=== PATIENT | male | born 1945 | race Caucasian/White ===

== ENCOUNTER 2021-04-25 09:55 | Emergency (ER) | payer MEDICARE, OTHER, SELFPAY ==
[2021-04-25 09:56] VITALS: BP 167/67; PULSE 59; RESP 16; TEMP 36; O2SAT 95; BMI 26.6
--- NOTE | 2021-04-25 10:11 | EX.ED.GENINJ ---
HPI History of Present Illness Chief Complaint: Bite Detail of Chief Complaint: Dog bite and concern for rabies Informant: patient Narrative Narrative: Patient presents to the emergency department after he sustained a dog bite to his right leg 3 days ago. Patient states that he was walking in the neighborhood when the neighbors dogs who are normally chained up or let loose in the yard. One of the [place] dias's bit him on the right leg. Patient's primary care physician called in doxycycline for him. Patient had a discussion with his primary care physician and there was concern about whether he would need to be treated with rabies vaccine. Patient states the dog is currently under quarantine and is acting normally and is able to be observed. Patient otherwise has no complaints and his wounds are healing well. PFSH PFSH Home Medications aspirin 81 mg PO DAILY@0800 05/03/13 [History Last Taken Unknown] diltiazem HCl [Cartia Xt] 180 mg PO DAILY 05/03/13 [History Last Taken Unknown] finasteride 5 mg PO DAILY 05/03/13 [History Last Taken Unknown] losartan-hydrochlorothiazide [Hyzaar 100-25 Tablet] 1 tab PO DAILY 05/03/13 [History Last Taken Unknown] Allergy/AdvReac Type Severity Reaction Status Date / Time clindamycin Allergy Shortness Verified 04/25/21 09:59 of breath Penicillins Allergy Rash Verified 04/25/21 09:59 Beta-Blockers AdvReac Other Verified 04/25/21 09:59 (Beta-Adrenergic Bloc Social History Smoking Status: Never smoker ROS ROS ED Constitutional Constitutional ED: Reports systems reviewed and no addt'l complaints, except as documented; Denies body ache(s), change in weight or chills Eyes Eyes: Denies acute decrease in peripheral vision, change in vision, double vision or loss of vision ENT ENT ED: Reports none; Denies ear pain, lip swelling, loss taste/smell, neck pain, otalgia or sore throat Cardiovascular Cardiovascular: Reports none; Denies abdominal pain, chest pain with activity, leg edema, lightheadedness, palpitations, rapid heart rate or syncope Respiratory/Chest Respiratory/Chest: Reports none; Denies change in mental status, dry cough, dyspnea, hemoptysis, shortness of breath at rest or shortness of breath with exertion Gastrointestinal Gastrointestinal: Reports none; Denies abdominal pain, change in stool character, diarrhea, hematemesis, hematochezia, melena, rectal bleeding or vomiting Genitourinary Genitourinary ED: Reports none; Denies abdominal discomfort, anuria, dysuria, genital pain or polyuria Musculoskeletal Musculoskeletal: Reports none and other Details: Dog bite right leg ; Denies arthralgias, back pain, difficulty walking, extremity pain, muscle weakness or myalgias Integumentary Reports none; Denies abscess or rash Neurologic Neurologic: Reports none; Denies abnormal gait, confusion, focal weakness, frequent falls, headache(s), loss of vision, numbness, paresthesias, radicular pain, vertigo or weakness Psychiatric Psychiatric: Reports systems reviewed and no addt'l complaints, except as documented and none; Denies behavioral changes, confusion, difficulty concentrating, hallucinations, suicidal ideation, tactile hallucinations or visual hallucinations Endocrine Endocrinology: Denies none, cold intolerance, excessive sweating, fatigue or heat intolerance Hematologic/Lymphatic Hematologic/Lymphatic: Reports none; Denies anemia, easy bleeding or easy bruising Allergic/Immunologic Allergic/Immunologic ED: Denies as per HPI, none, lip swelling, mouth swelling, throat swelling, tongue swelling or hives EXAM Physical Exam Const Vital Signs: 04/25/21 09:56 Temperature 96.8 F L Temperature Source Temporal Pulse Rate 59 L Respiratory Rate 16 Blood Pressure 167/67 H Blood Pressure Mean 100 Pulse Ox 95 Oxygen Delivery Method Room Air Positive well nourished and well developed General Appearance ED: well developed and NAD HEENT Reports TM's clear and moist mucous membranes normocephalic and atraumatic; Negative for trauma or tenderness Tympanic Membrane ED: Yes TM's clear Eyes PERRL and EOMs intact bilaterally General Eye ED: Negative for pale conjunctiva or scleral icterus Neck no lymphadenopathy, supple and no JVD General: Negative for tenderness Chest Wall inspection of chest normal and palpation of chest normal Chest: Negative for tenderness Resp normal respiratory effort and clear to auscultation bilaterally Effort and Inspection: Negative for respiratory distress or pain with movement Auscultation: Negative for rhonchi, wheezes or diminished lung sounds Cardio regular rate, regular rhythm, S1 normal heart sound, S2 normal heart sound and no murmurs Peripheral Pulses: pulses 2+ throughout GI normal to inspection, nondistended, normoactive bowel sounds, soft to palpation, non-tender, non-distended and no masses Back/Spine no CVA tenderness and no thoracic nor lumbar tenderness Extremity Extremity Narrative: Evaluation of the right leg does show a healing puncture wound to the anterior right lateral calf as well as puncture wound and abrasions to the posterior knee fossa. Patient has normal range of motion at the knee. No evidence of cellulitis or infection otherwise. General Extremety ED: Negative for edema General Extremity: Negative for edema Neuro oriented x3, CN's II-XII intact bilaterally, no sensory deficits noted and gait normal Sensorium / Orientation: awake, alert, oriented to person, oriented to place and oriented to time Motor Exam: strength 5/5 throughout and strength abnormal Psych mental status grossly normal Skin no rashes or lesions noted and no wounds MDM MDM MDM Narrative Medical decision making narrative: I had a discussion with patient and his . At this point I do not feel patient warrants rabies vaccination. The dog is known and is being observed and clinically does not appear to be rabid. I feel this is a very low risk encounter. Patient is comfortable at this time not proceeding with the rabies vaccinations. Discharge Plan Triage Chief Complaint: Bite ED Provider: Paul Hunt Dx/Rx/DC Orders Clinical Impression: Dog bite Instructions: ED Dog Bite Prescriptions: No Action diltiazem HCl [Cartia XT] 180 MG Cap.Er.24h 180 mg PO DAILY RF: 0 losartan-hydrochlorothiazide [Hyzaar] 1 TAB tablet 1 tab PO DAILY RF: 0 aspirin 81 MG Tab.Chew 81 mg PO DAILY@0800 RF: 0 finasteride 5 MG tablet 5 mg PO DAILY RF: 0 Activity Restrictions/Additional Instructions: See your family doctor as needed if concern for infection to the leg or return to the emergency department. Disposition Disposition: Home, Self Care
[2021-04-25 10:33] VITALS: RESP 16
== END 2021-04-25 10:33 | disposition home or self-care (01) ==
PROVIDERS: Emergency Provider Emergency Medicine; PCP Internal Medicine
DX: S80.871A Other superficial bite, right lower leg, initial encounter (principal); W54.0XXA Bitten by dog, initial encounter; Y93.01 Activity, walking, marching and hiking; Y92.410 Unspecified street and highway as the place of occurrence of the external cause; Y99.8 Other external cause status; Z79.82 Long term (current) use of aspirin
CPT/HCPCS: 99282

== ENCOUNTER 2021-06-11 07:35 | Day surgery (SDC) | payer MEDICARE, OTHER, SELFPAY ==
--- NOTE | 2021-06-06 09:49 | EKG12_ITS ---
Test Reason : PRE-OP Blood Pressure : / mmHG Vent. Rate : 060 BPM Atrial Rate : 060 BPM P-R Int : 246 ms QRS Dur : 096 ms QT Int : 410 ms P-R-T Axes : 000 095 071 degrees QTc Int : 410 ms Atrial-paced rhythm with prolonged AV conduction Abnormal ECG Confirmed by VANESSA GRAMAJO, CLEO ([id number]), film and video editor CLARA DUNHAM ([id number]) on 06/10/2021 10:18:11 AM Referred By: Kaleb Newton Confirmed By:CLEO MENDEZ MD
[2021-06-06 11:13] LABS: Hematocrit 43.2 % (40-54); Hemoglobin 14.4 g/dL (13.0-16.5); Mean Corp Hgb Conc 33.3 g/dL (32-36); Mean Corpuscular Hgb 30.8 pg (27.0-32.0); Mean Corpuscular Volume 92.5 fL (80-94); Mean Platelet Vol. 9.9 fl (6.2-12.0); Platelet Count 192 K/mm3 (150-450); RBC Distribution Width CV 12.7 % (11.6-14.6); Red Blood Count 4.67 M/mm3 (4.6-6.2); White Blood Count 5.1 K/mm3 (4.4-11.0)
[2021-06-06 11:39] LABS: Anion Gap 2 (5-15); BUN 19 mg/dL (7-18); BUN/Creat Ratio 18.3 RATIO (10-20); Calcium,Total 9.1 mg/dL (8.5-10.1); Chloride 109 mmol/L (98-107); Creatinine, Serum 1.04 mg/dL (0.70-1.30); EST Glomerular Filtration Rate 73 mL/min (>60); Est Glom Filt Rate - Afr Amer 89 mL/min (>60); Glucose 67 mg/dL (74-106); Potassium 4.4 mmol/L (3.5-5.1); Sodium Level 143 mmol/L (136-145)
[2021-06-11] VITALS (11 sets, daily range): BP systolic 137–171; BP diastolic 65–86; PULSE 58–60; RESP 16–18; TEMP 36.1–36.6; O2SAT 93–99; BMI 27.6
[2021-06-11] MEDS: Lactated Ringers 1,000 ML 15 ML IV (08:23)
--- NOTE | 2021-06-11 09:55 | PROS_PTH ---
PATIENT: SOY [place]URCH [place] [facility] [id number] AGE/SX: 76/M ROOM: RE06/11/[address]: Dr. Kaleb Newton MD : 1945 BED: DIS: 06/12/2021 SPEC #: [id number] RECD: 06/11/21 11:38 STATUS: SUBHASH CAMARA #: [id number] AFIA: 06/11/21 09:[address]: Kaleb Newton DEPT: SURGICAL PATHOLOGY RECD BY: Arielle Salcido ENTERED: 06/11/21 13:09 SP TYPE: TURP OTHR DR: Dr. Anyi Granados MD Tissues: Prostate, NOS Procedures: Surgery Specimen Level IV HEADER OPERATION: Cysto, TUR prostate, Olympus PRE-OP DIAGNOSIS: Asymptomatic microscopic hematuria; BPH with lower urinary tract symptoms; calculus in bladder TISSUE SUBMITTED: Prostate tissue MICROSCOPIC DIAGNOSIS Prostate tissue, TUR: Benign prostatic hyperplasia, glandular and stromal type. Focal chronic inflammation. MADISON:hanna 06/12/2021 MICROSCOPIC DESCRIPTION Slides are reviewed. GROSS DESCRIPTION Received is one container labeled with the patient's name and designated prostate tissue. The specimen consists of multiple irregular fragments of pink-zhao, rubbery, soft tissue that in aggregate weigh 7.7 gm and measure in aggregate 4.5 x 4 x 1 cm. The entire specimen is submitted in eight cassettes. / MADISON:hanna 06/11/21 TC:5 CPT: 94241
--- NOTE | 2021-06-11 11:03 | PCM.HP.STD ---
HPI - General HPI Narrative SOY BURCH, is a 76 M who presents for a TUrP has a bladder stone and h/o bph with obstruction. PFSH Medical History (Updated 06/05/21 @ 14:27 by Estefany Lr) Aortic aneurysm Cancer Cardiology follow-up encounter Coarctation of aorta DVT (deep venous thrombosis) High cholesterol History of echocardiogram History of edema History of stress test Hypertension Injury of head and neck Non-smoker Pacemaker Prostate disease Syncope Wears glasses Wears hearing aid Home Medications aspirin 81 mg PO DAILY@0800 05/03/13 [History Last Taken 06/05/21 20:00] diltiazem HCl [Cartia XT] 360 mg PO QHS 05/03/13 [History Last Taken Unknown] doxycycline hyclate 100 mg PO DAILY 06/05/21 [History Last Taken Unknown] furosemide 20 mg PO DAILY 06/05/21 [History Last Taken Unknown] losartan 100 mg PO QHS 06/05/21 [History Last Taken Unknown] potassium chloride 20 meq PO DAILY 06/05/21 [History Last Taken Unknown] rosuvastatin [Crestor] 40 mg PO QHS 06/05/21 [History Last Taken Unknown] cephalexin 500 mg PO BID #6 cap 06/11/21 [Rx Last Taken Unknown] Allergy/AdvReac Type Severity Reaction Status Date / Time clindamycin Allergy Shortness Verified 06/11/21 08:15 of breath Penicillins Allergy Rash Verified 06/11/21 08:15 Beta-Blockers AdvReac Other Verified 06/11/21 08:15 (Beta-Adrenergic Bloc Surgical History (Updated 06/05/21 @ 14:27 by Estefany Lr) History of cardiac catheterization History of cardiac radiofrequency ablation Hx laparoscopic cholecystectomy Hx of tonsillectomy Social History Smoking Status: Never smoker Vital Signs Vital Signs Vital Signs: 06/11/21 08:16 Temperature 97.4 F L Temperature Source Temporal Pulse Rate 58 L Respiratory Rate 16 Respiratory Pattern Normal Blood Pressure 171/67 H Blood Pressure Mean 101 Blood Pressure Source Monitor Blood Pressure Position Sitting Blood Pressure Location Right Arm Pulse Ox 98 Oxygen Delivery Method Room Air Weight Weight: 79.9 kg Body Mass Index (BMI) 27.6 Results Lab / Micro Data Result Diagrams: 06/06/21 10:21 06/06/21 10:21
--- NOTE | 2021-06-11 11:04 | OP.PCM_ITS ---
Report of Operation Date of Procedure: 06/11/21 Pre-Operative Diagnosis: bladder stone and bph with obstruciton. Post-Operative Diagnosis: same Surgery/Procedure Performed:: cystolithalopaxy and TURP Description of Surgical Findings:: In the preoperative setting I discussed with the patient how the surgery would be done with expect afterwards. We discussed how a prostate resection is done and we discussed the risk of the surgery inc luding, bleeding, infection, retrograde ejaculation, changes with ejaculation or intercourse,. We discussed the possibility that the resection of the prostate may not alleviate his urinary symptoms. We discussed the small risk of developing scar tissue along the urethral channel and strictures. We also discussed the chance of the prostate could grow back and he may need further surgery or treatment in the future for prostate problems. Patient was taken back to the operating room, timeout procedure was performed, he was identified and marked and placed on the operating room table. He under went general anesthesia. He was placed in dorsolithotomy position. The urethra and genitals were prepped and draped in usual sterile fashion. Went into the bladder using a 24 Montenegrin cystoscope. We used the laser bridge through the scope for continuous irrigation. Then using the laser bridge we introduced a laser fiber into the bladder and the stone in the bladder was trapped against the back wall. The stone measured < 2,5cm in size. The stone was then lasered using laser lithotripsy the small little pieces all the pieces were evacuated on the bladder. After all the stones were removed then the scope was removed there was minimal bleeding. Then I went into the bladder using the visual obturator with a resectoscope. Once inside the bladder identified the right and left ureteral orifice. I then identified the prostate and the anatomy of the prostate. I marked out the area of the sphincter and the verumontanum was identified. I then proceeded with the prostate resection first resected the median lobe. And then resected the right lobe of the prostate. Then to resect the left lobe of the prostate. I then resected the apical tissue of the prostate. This was a complete resection of all obstructive tissue to improve voiding and relieve obstruction. I then made sure that there was no injury to the sphincter or the verumontanum was still intact. At the end of the resection all the chips were Ellik out of the bladder. I then identified the left and right ureteral orifice and these were confirmed to be in good position and effluxing and not injured. The resectoscope was removed, a 22 Montenegrin catheter was placed into the bladder on continuous irrigation. And the urine was fairly light pink color and draining normally. He was taken back to the PACU in good condition. Surgeon: ollie Type of Anesthesia: General Drains: [address] Admit VTE Documentation VTE Present on Admission: No VTE Mechan Device Prophylaxis: SCD's VTE Pharm Prophylaxis ordered?: No
--- NOTE | 2021-06-11 11:04 | PCM.DC ---
Discharge Instructions Diet Discharge Diet: No restrictions Activity Discharge Activity: Return to Normal Activity and May Not Drive (while taking narcotic pain medications.) Dressing / Incision Call your doctor if you observe: Fever of 101 or Higher Follow Up Care Please Follow Up With: Kaleb Newton MD When: Call [phone] for an appointment Test Results: Test results from this visit will be discussed in further detail at your follow-up appointment, if applicable. Discharge Plan Admission Primary Reason for Your Visit: turp and remove bladder stone Attending Provider: Kaleb Newton Primary Care Provider: Anyi Granados Instructions Patient Instructions: TURP Home Recovery Discharge Orders/Prescriptions Prescriptions: New cephalexin 500 mg capsule 500 mg PO BID Qty: 6 RF: 0 Continued diltiazem HCl [Cartia XT] 180 MG capsule,extended release 24hr 360 mg PO QHS RF: 0 doxycycline hyclate 100 mg Capsule 100 mg PO DAILY RF: 0 furosemide 20 mg Tablet 20 mg PO DAILY RF: 0 losartan 100 mg Tablet 100 mg PO QHS RF: 0 rosuvastatin [Crestor] 40 mg Tablet 40 mg PO QHS RF: 0 potassium chloride 20 mEq Tablet Extended Release 20 meq PO DAILY RF: 0 Held aspirin 81 MG tablet,chewable 81 mg PO DAILY@0800 RF: 0 Hold Instructions: Resume on 06/25/21. Discontinued finasteride 5 MG tablet 5 mg PO DAILY RF: 0 Referrals / Follow Up: Anyi Granados MD [Primary Care Provider] - Kaleb Newton MD [STAFF PHYSICIAN] - Disposition Disposition (needs filled in before D/C Order can be placed): Home, Self Care
--- NOTE | 2021-06-11 13:15 | PCS.PANDOC ---
PANDEMIC DOCUMENTATION INITIATED: Date: 01/28/2021 Time: 190
[2021-06-11] MEDS: dilTIAZem CD 180 MG Capsule 360 MG PO (17:02)
[2021-06-11] MEDS: Losartan Potassium 100 MG Tablet PO (21:38)
[2021-06-11] MEDS: Cephalexin 500 MG Capsule PO (21:38)
[2021-06-11] MEDS: Atorvastatin Calcium 80 MG Tablet PO (21:38)
[2021-06-12 01:42] VITALS: BP 127/66; PULSE 60; RESP 16; TEMP 36.5; O2SAT 96
[2021-06-12 05:51] VITALS: BP 147/71; PULSE 59; RESP 16; TEMP 36.7; O2SAT 95
[2021-06-12 09:30] VITALS: BP 148/58; PULSE 59; RESP 16; TEMP 36.3; O2SAT 96
[2021-06-12] MEDS: Cephalexin 500 MG Capsule PO (09:33)
[2021-06-12] MEDS: Furosemide 20 MG Tablet PO (09:33)
== END 2021-06-12 10:53 | disposition home or self-care (01) ==
LOC: SDC 07:36 → AC 07:36 → MS2 11:01
PROVIDERS: Anesthesiology; PCP Internal Medicine; Referring Provider Urology; Visit Provider Urology
PROC: (CPT 52317; principal; 2021-06-11 09:45)
DX: N21.0 Calculus in bladder (principal); N40.1 Benign prostatic hyperplasia with lower urinary tract symptoms; N13.8 Other obstructive and reflux uropathy; R31.21 Asymptomatic microscopic hematuria; I25.10 Atherosclerotic heart disease of native coronary artery without angina pectoris; I48.91 Unspecified atrial fibrillation; I25.9 Chronic ischemic heart disease, unspecified; I10 Essential (primary) hypertension; E78.00 Pure hypercholesterolemia, unspecified; Z95.0 Presence of cardiac pacemaker; Z79.82 Long term (current) use of aspirin; Z79.899 Other long term (current) drug therapy
CPT/HCPCS: 52317; 52601; 36415; 80048; 85027; 88305; 93005; J7120

== ENCOUNTER 2023-10-08 17:30 | Outpatient (RCR) | payer SELFPAY | END 2023-10-13 23:59 | LOC: NS 17:30 | PROVIDERS: PCP Internal Medicine | DX: Z71.3 Dietary counseling and surveillance (principal) ==

== ENCOUNTER → 2024-12-27 | Outpatient (CLI) | payer SELFPAY ==
--- NOTE | 2024-12-27 | CALC_PTH ---
PATIENT: SOY BURCH LOC: [facility] U#:[id number] AGE/SX: 79/M ROOM: RE12/27/[address]: Dr. Kaleb Newton MD : 1945 BED: DIS: 12/27/2024 SPEC #: [id number] RECD: 12/27/24 14:25 STATUS: SUBHASH REEriberto #: [id number] AFIA: 12/27/24 00:[address]: Kaleb Newton DEPT: SURGICAL PATHOLOGY RECD BY: Ammon Glass ENTERED: 12/28/24 09:02 SP TYPE: Calculi OTHR DR: Dr. Anyi Granados MD Tissues: A - CALCULI Procedures: Surgery Specimen Level I HEADER OPERATION: Not noted PRE-OP DIAGNOSIS: Calculus of ureter TISSUE SUBMITTED: A- Calculi for gross only GROSS DIAGNOSIS A. Ureter, calculus: - Urolithiasis (gross examination only). - Chemical analysis pending, to be reported separately GROSS DESCRIPTION A. Received fresh labeled with the patient's name, MRN and date of . Designated as stone analysis is a 0.5 x 0.4 x 0.3 cm brown calculi. No sections are submitted. The specimen is sent out for analysis. Gross examination only. [place] [id number]
--- NOTE | 2024-12-27 | CALC_PTH ---
PATIENT: SOY BURCH LOC: [facility] U#:[id number] AGE/SX: 79/M ROOM: RE12/27/[address]: Dr. Kaleb Newton MD : 1945 BED: DIS: 12/27/2024 SPEC #: [id number] RECD: 12/27/24 14:25 STATUS: SUBHASH REEriberto #: [id number] AFIA: 12/27/24 00:[address]: Kaleb Newton DEPT: SURGICAL PATHOLOGY RECD BY: Ammon Glass ENTERED: 12/28/24 09:02 SP TYPE: Calculi OTHR DR: Dr. Anyi Granados MD Tissues: A - CALCULI Procedures: Surgery Specimen Level I HEADER OPERATION: Not noted PRE-OP DIAGNOSIS: Calculus of ureter TISSUE SUBMITTED: A- Calculi for gross only GROSS DIAGNOSIS A. Ureter, calculus: - Urolithiasis (gross examination only). - Chemical analysis pending, to be reported separately GROSS DESCRIPTION A. Received fresh labeled with the patient's name, MRN and date of . Designated as stone analysis is a 0.5 x 0.4 x 0.3 cm brown calculi. No sections are submitted. The specimen is sent out for analysis. Gross examination only. [place] [id number]
--- OUTSIDE RECORDS SUMMARY | 2024-12-27 22:16 | XMS RPT_ITS | CCD ---
Author Organization [facility] Care Team Providers Care Trapper Animal Name Role Phone Roberta GRAMAJO, Jose Miguel Primary Care Provider [phone] Roberta GRAMAJO, Jose Miguel Primary Care Provider Jesse Gaitan MD Unavailable [phone] Referred, Self Attending Unavailable Latouf, Butros Primary Care Unavailable Referred, Self Attending Unavailable Latouf, Butros Primary Care Unavailable Roberta GRAMAJO, Jose Miguel Primary Care Provider ROBERTA GRAMAJO, DR GILLESPIE Primary Care Physician SHANTE GRAMAJO, DR ROSALES Attending Unavail able ROBERTA GRAMAJO, DR GILLESPIE Primary Care Unavailable ROBERTA GRAMAJO, DR GILLESPIE Primary Care Unavailable SHANTE GRAMAJO, DR ROSALES Attending Unavail able LATOUF, BUTROS Primary Care Unavailable JESSE GAITAN Attending Unavailable LATOUF, BUTROS Primary Care Unavailable LATOUF, BUTROS Primary Care Unavailable JESSE AGITAN Referring Unavailable LATOUF, BUTROS Primary Care Unavailable JESSE GAITAN Referring Unavailable LATOUF, BUTROS Primary Care Unavailable LATOUF, BUTROS Primary Care Unavailable SELF Referring Unavailable LATOUF, BUTROS Primary Care Unavailable ADELFO ROMERO Primary Care Unavailable ADELFO ROMERO Attending Unavailable ADELFO ROMERO Admitting Unavailable ALONZO LANDRY DO Primary Care Unavailable ALONZO LANDRY DO Attending Unavailable ALONZO LANDRY DO Admitting Unavailable LYDIA SCHNEIDER MD Primary Care Unavailable LYDIA SCHNEIDER MD Attending Unavailable LYDIA SCHNEIDER MD Admitting Unavailable JOSE MIGUEL GRANADOS MD Consulting Unavailable JOSE MIGUEL GRANADOS MD Referring Unavailable PROVIDER, UNKNOWN Consulting Unavailable PROVIDER, UNKNOWN Consulting Unavailable PROVIDER, UNKNOWN Consulting Unavailable JOSE MIGUEL GRANADOS MD Primary Care Unavailable JOSE MIGUEL GRANADOS MD Consulting Unavailable JOSE MIGUEL GRANADOS MD Attending Unavailable JOSE MIGUEL GRANADOS MD Admitting Unavailable PROVIDER, UNKNOWN Consulting Unavailable PROVIDER, UNKNOWN Consulting Unavailable PROVIDER, UNKNOWN Consulting Unavailable JOSE MIGUEL GRANADOS MD Consulting Unavailable LATJOSE MIGUEL YOUNG MD Attending Unavailable LATJOSE MIGUEL YOUNG MD Primary Care Unavailable LATJOSE MIGUEL YOUNG MD Admitting Unavailable PROVIDER, UNKNOWN Consulting Unavailable PROVIDER, UNKNOWN Consulting Unavailable PROVIDER, UNKNOWN Consulting Unavailable JESSE GAITAN Primary Care Unavailable JESSE GAITAN Attending Unavailable LATJOSE MIGUEL YOUNG MD Consulting Unavailable JESSE GAITAN Admitting Unavailable PROVIDER, UNKNOWN Consulting Unavailable PROVIDER, UNKNOWN Consulting Unavailable PROVIDER, UNKNOWN Consulting Unavailable JOSE MIGUEL GRANADOS MD Primary Care Unavailable LATJOSE MIGUEL YOUNG MD Consulting Unavailable LATOUJOSE MIGUEL Chaidez MD Attending Unavailable LATOUKaylynn, JOSE MIGUEL GRAMAJO Admitting Unavailable PROVIDER, UNKNOWN Consulting Unavailable PROVIDER, UNKNOWN Consulting Unavailable PROVIDER, UNKNOWN Consulting Unavailable LATJOSE MIGUEL YOUNG MD Primary Care Unavailable LATJOSE MIGUEL YOUNG MD Consulting Unavailable LATOUJOSE MIGUEL Chaidez MD Attending Unavailable LATOUJOSE MIGUEL Chaidez MD Admitting Unavailable PROVIDER, UNKNOWN Consulting Unavailable PROVIDER, UNKNOWN Consulting Unavailable PROVIDER, UNKNOWN Consulting Unavailable Allergies Allergy Classification Reported Allergen(s) Allergy Type Date of Onset Reaction(s) Facility (20 sources) beta-Blocking agent; Translations: [BETA-BLOCKERS (BETA-ADRENERGI C BLOCKING AGTS)] Drug Allergy 3 Unknown [facility] (20 sources) Clindamycin; Translations: [CLINDAMYCIN] Drug Allergy 6 Shortness of breath [facility] (20 sources) Penicillins; Translations: [PENICILLINS] Propensity to adverse reactions 6 Rash [facility] (1 source) Adrenergic Beta-Antagonist s Propensity to adverse reactions 1 Other [facility] (1 source) Penicillins Allergy to substance 1 Rash [facility] (1 source) Adrenergic Beta-Antagonist s Drug allergy (disorder) 1 [facility] (1 source) Clindamycin Drug Allergy 1 [facility] (1 source) Penicillins Drug allergy (disorder) 1 [facility] (13 sources) Amoxicillin; Translations: [AMOXICILLIN] Drug Allergy 4 Rash, Shortness of Breath [facility] (1 source) Penicillins Propensity to adverse reactions 6 Rash [facility] (1 source) Clindamycin Drug Allergy [facility] (1 source) Penicillins Drug allergy (disorder) [facility] (1 source) CONTRAST MEDIA, IODINE RELATED Drug allergy (disorder) [facility] (1 source) BETA MARY CARMEN Drug allergy (disorder) [facility] Medications Current Medications Medication Drug Class(es) Dates Sig (Normalized) Sig (Original) aspirin 81 mg chewable tablet (20 sources) Platelet Aggregation Inhibitor, Nonsteroidal Anti-inflammatory Drug Start: 05-03-2013 take 81 mg by mouth once daily Aspirin Active 81 MG PO DAILY@0800 May 03, 2013 1:00am Start: 10-02-2005 take 1 tablet by qi th once daily at bedtime ASPIRIN 81 MG TAB Take 81 mg by mouth daily at bedtime. 0 10/02/2005 Active Comment on above: Take one (1) tablet daily . Take 81 mg by mouth daily at bedtime. azithromycin 250 mg oral tablet (20 sources) Macrolide Antimicrobial Start: 11-06-2023 azithromycin (ZITHROMAX) 250 mg tablet TAKE 2 TABLETS BY MOUTH ON DAY 1, AND THEN TAKE 1 TABLET BY MOUTH ONCE A DAY ON DAY 2 THROUGH DAY 5 11/06/2023 Active End: 09-04-2022 take 1 tablet by mouth once azithromycin 500 mg tablet Take 500 mg by mouth one time only. prior to dental procedures 0 09/04/2022 Discontinued (Course of therapy completed) Comment on above: Take 500 mg by mouth one time only. prior to dental procedures cephalexin 500 mg oral capsule (1 source) Cephalosporin Antibacterial Start: 1 take 500 mg by mouth twice daily Cephalexin Active 500 MG PO TWICE A DAY June 11, 2021 1:00am 24 hr dilTIAZem hydrochloride 360 mg extended release oral capsule (20 sources) Calcium Channel Mary Carmen Start: 3 dilTIAZem CD (CARDIZEM CD, CARTIA XT) 180 mg 24 hr capsule Start: 07-04-2022 End: 06-30-2025 take 1 capsule by mouth once daily dilTIAZem HCl 360 mg 24 hr capsule Indications: Hypertension, unspecified type Take 1 capsule by mouth once daily. 90 capsule 3 06/30/2024 06/30/2025 Active Start: 05-03-2013 take 2 capsules by m outh at bedtime, then take 1 capsule by mouth every twenty-four hours Diltiazem Hcl (Cartia Xt) 180 MG capsule,extended release 24hr Active 360 MG PO AT BEDTIME May 03, 2013 1:00am End: 02-26-2023 take 1 capsule by mouth twice daily, then take 1 capsule by mouth every twenty-four hours dilTIAZem CR (TIAZAC, TAZTIA XT) 180 mg 24 hr capsule Take 180 mg by mouth twice daily. 0 02/26/2023 Discontinued (Course of therapy completed) End: 07-04-2022 take 1 capsule by mouth once daily, then take 1 capsule by mouth once daily dilTIAZem CD (CARDIZEM CD, CARTIA XT) 180 mg 24 hr capsule Take 360 mg by mouth once daily. Take 360mg once daily 0 07/04/2022 Discontinued (Changing Therapy/Dosage Form) Comment on above: Take 360 mg by mouth once daily. patient states it is 300mg daily Take 360 mg by mouth once daily. Take 360mg once daily Take 1 capsule by mo uth once daily. Take 180 mg by mouth twice daily. doxycycline hyclate 100 mg oral capsule (1 source) Tetracycline-class Drug Start: 06-05-2021 take 100 mg by mouth once daily Doxycycline Hyclate Active 100 MG PO DAILY June 05, 2021 1:00am furosemide 20 mg oral tablet (20 sources) Loop Diuretic Start: 02-22-2024 End: 02-21-2025 take 1 tablet by mouth once daily furosemide (LASIX) 20 mg tablet Indications: Hypertension, unspecified type Take 1 tablet by mouth once daily. 90 tablet 3 02/22/2024 02/21/2025 Active Start: 01-30-2023 End: 01-30-2024 take 1 tablet by mouth once daily furosemide (LASIX) 20 mg tablet Indications: Hypertension, unspecified type Take 1 tablet by mouth once daily. 90 tablet 3 01/30/2023 01/30/2024 Active Start: 01-25-2022 End: 01-25-2023 take 1 tablet by mouth once daily furosemide (LASIX) 20 mg tablet Take 1 tablet by mouth once daily. 90 tablet 3 01/25/2022 01/25/2023 Active Start: 06-05-2021 End: 01-23-2022 furosemide (LASIX) 20 mg tab let Comment on above: Take 1 tablet by qi th once daily. iv contrast (will be provided with radiology test) (1 source) Start: 03-15-20 End: 03-16-20 inject 1 dose intravenously once iv contrast (will be provided with radiology test) CTA CHEST - No IV access, insert saline lock prior to the sedation, infusion, injection for imaging exam. Discontinue saline lock post exam. If Pt. has a central line or IVAD, may access for administration according to line specific nursing protocol. Once exam is complete flush line and de-access according to line specific nursing protocol in the CT contrast administration guidelines link. 1 Each 03/15/2024 03/16/2024 Active losartan potassium 50 mg oral tablet (20 sources) Angiotensin 2 Receptor Mary Carmen Start: 03-15-20 End: 03-15-20 take 1 tablet by mouth twice daily losartan (COZAAR) 50 mg tablet Take 1 tablet by mouth two times a day. 180 tablet 3 03/15/2024 03/15/2025 Active Start: 06-05-2021 take 100 mg by mouth at bedtim e Losartan Active 100 MG PO AT BEDTIME June 05, 2021 1:00am End: 03-15-2024 take 1 tablet by mouth twice daily losartan (COZAAR) 25 mg tablet Take 25 mg by mouth two times a day. 03/15/2024 Discontinued End: 02-26-2023 take 1 tablet by mouth once daily at bedtime losartan (COZAAR) 50 mg tablet Take 50 mg by mouth daily at bedtime. 0 02/26/2023 Discontinued (Clinical Decision) Comment on above: Take 100 mg by mouth once daily. Take 50 mg by mouth daily at bedtime. 24 hr metFORMIN hydrochloride 500 mg extended release oral tablet (13 sources) Biguanide Start: 4 take 1 tablet by mouth once daily at bedtime metFORMIN ER (GLUCOPHAGE XR) 500 mg 24 hr tablet Take 500 mg by mouth daily at bedtime. 12/24/2023 Active nebivolol 5 mg oral tablet (19 sources) Start: 3 End: 5 take 1 tablet by mouth once daily nebivolol (BYSTOLIC) 5 mg tablet Indications: Hypertension, unspecified type Take 1 tablet by mouth once daily. 90 tablet 3 02/22/2024 02/21/2025 Active Comment on above: Take 1 tablet by qi th once daily. perflutren lipid microspheres 1.3 mL in NaCl (PF) 0.9% 10 mL injection (DEFINITY) (20 sources) Start: End: perflutren lipid microspheres 1.3 mL in NaCl (PF) 0.9% 10 mL injection (DEFINITY) Start: 02-27-2022 End: 05-29-2023 perflutren lipid microsphere s 1.3 mL in NaCl (PF) 0.9% 10 mL injection (DEFINITY) microencapsulated potassium chloride 20 meq extended release oral tablet (20 sources) Start: 01-08-2024 End: 01-07-2025 take 1 tablet by mouth once daily potassium chloride ER (KLOR-CON) 20 mEq tablet Indications: Medication monitoring encounter Take 1 tablet by mouth once daily. 90 tablet 3 01/08/2024 01/07/2025 Active Start: 10-09-2022 End: 10-09-2023 take 1 tablet by mouth once daily potassium chloride ER (KLOR-CON) 20 mEq tablet Indications: Medication monitoring encounter Take 1 tablet by mouth once daily. 90 tablet 3 10/09/2022 10/09/2023 Active Start: 06-05-2021 End: 10-09-2022 take 20 mEq by mouth once daily Potassium Chloride Act jason 20 MEQ PO DAILY June 05, 2021 1:00am Comment on above: Take 20 mEq by mouth once daily. Take 1 tablet by qi th once daily. rosuvastatin calcium 40 mg oral tablet (20 sources) HMG-CoA Reductase Inhibitor Start: End: take 1 tablet by mouth once daily rosuvastatin (CRESTOR) 40 mg tablet Indications: Hyperlipidemia, unspecified hyperlipidemia type Take 1 tablet by mouth once daily. 90 tablet 3 11/25/2023 11/24/2024 Active Comment on above: Take 40 mg by mouth once daily. Take 1 tablet by qi th once daily. Take 40 mg by mouth daily at bedtime. 125 ml sodium chloride 9 mg/ml prefilled syringe (20 sources) Start: End: 3 sodium chloride 0.9 % (flush) 10 mL (BD POSIFLUSH) Completed/Discontinued Medications Medication Drug Class(es) Dates Sig (Normalized) Sig (Original) finasteride 5 mg oral tablet (15 sources) 5-alpha Reductase Inhibitor Start: 05-03-2013 End: 09-04-2022 take 5 mg by mouth once daily Finasteride Discontinued 5 MG PO DAILY May 03, 2013 1:00am June 11, 2021 12:01pm Comment on above: Take 5 mg by mouth o nce daily. olmesartan medoxomil 40 mg oral tablet (14 sources) Angiotensin 2 Receptor Mary Carmen Start: 02-26-2023 End: 03-15-2024 take 1 tablet by mouth once daily olmesartan (BENICAR) 40 mg tablet Take 1 tablet by mouth once daily. 90 tablet 3 02/26/2023 03/15/2024 Discontinued Comment on above: Take 1 tablet by qi once daily. omeprazole 20 mg delayed release oral capsule (14 sources) Proton Pump Inhibitor End: 09-04-2022 take 2 capsules by mouth once daily omeprazole (PRILOSEC) 20 mg capsule Take 40 mg by mouth once daily. 0 09/04/2022 Discontinued (Discontinued by Patient) Comment on above: Take 40 mg by mouth once daily. pravastatin sodium 40 mg oral tablet (5 sources) HMG-CoA Reductase Inhibitor End: 02-27-2022 take 2 tablets by mouth once daily pravastatin 40 mg tablet Take 80 mg by mouth once daily. 0 02/27/2022 Discontinued (Course of therapy completed) Comment on above: Take 80 mg by mouth once daily. RABEprazole sodium 20 mg delayed release oral tablet (14 sources) Proton Pump Inhibitor Start: 04-19-2015 End: 09-04-2022 take 1 tablet by mouth once daily RABEprazole (ACIPHEX) 20 mg tablet Indications: Other gastritis without bleeding Take 1 tablet by mouth once daily. 30 tablet 2 04/19/2015 09/04/2022 Discontinued (Discontinued by Patient) Comment on above: Take 1 tablet by qi th once daily. tamsulosin hydrochloride 0.4 mg oral capsule (14 sources) alpha-Adrenergic Mary Carmen End: 09-04-2022 take 0.4 mg by mouth once daily at bedtime tamsulosin ER (FLOMAX) 0.4 mg cp24 Take 0.4 mg by mouth daily at bedtime. 0 09/04/2022 Discontinued (Discontinued by another Health Care Provider) Comment on above: Take 0.4 mg by mouth daily at bedtime. Problems Active Problems Problem Classification Problem Date Documented Da te Episodic/Chronic Abdominal pain (2 sources) Left lower quadrant pain; Translations: [Left lower quadrant pain] Onset: 12-18-2024 Episodic Allergic reactions (2 sources) Allergy status to other antibiotic agents status; Translations: [Allergy status to penicillin] Onset: 12-18-2024 Episodic Aortic; peripheral; and visceral artery aneurysms (16 sources) Aneurysm of ascending aorta; Translations: [Thoracic aortic aneurysm, without rupture] Onset: 02-26-2023 Chronic Cardiac and circulatory congenital anomalies (13 sources) Coarctation of aorta; Translations: [Coarctation of aorta] Onset: 11-01-2015 02-29-2024 Chronic Cardiac dysrhythmias (20 sources) Paroxysmal atrial fibrillation; Translations: [Paroxysmal atrial fibrillation] Onset: 04-05-2019 02-13-2022 Chronic Conduction disorders (20 sources) Cardiac pacemaker in situ; Translations: [Presence of cardiac pacemaker] Onset: 11-01-2015 Chronic Congestive heart failure; nonhypertensive (4 sources) Chronic diastolic heart failure; Translations: [Chronic diastolic (congestive) heart failure] Onset: 03-15-2024 03-15-2024 Chronic Coronary atherosclerosis and other heart disease (20 sources) Coronary arteriosclerosis; Translations: [Atherosclerotic heart disease of [place] coronary artery without angina pectoris] Onset: 02-13-2022 02-13-2022 Chronic Diabetes mellitus without complication (1 source) Type 2 diabetes mellitus without complications; Translations: [Type 2 diabetes mellitus without complications] Onset: 12-18-2024 Chronic Diabetes mellitus without complication (19 sources) Impaired glucose tolerance; Translations: [Impaired glucose tolerance (oral)] Onset: 04-05-2019 Episodic Disorders of lipid metabolism (20 sources) Hyperlipidemia; Translations: [Hyperlipidemia, unspecified] Onset: 02-13-2022 02-13-2022 Chronic E Codes: Natural/environment (1 source) Dog bite - wound; Translations: [Bitten by dog, initial encounter] 05-03-2021 Episodic Essential hypertension (20 sources) Hypertensive disorder; Translations: [Essential (primary) hypertension] Onset: 02-13-2022 02-13-2022 Chronic Heart valve disorders (20 sources) Aortic valve stenosis; Translations: [Nonrheumatic aortic (valve) stenosis] Onset: 02-13-2022 02-13-2022 Chronic Hyperplasia of prostate (20 sources) Benign prostatic hypertrophy with outflow obstruction; Translations: [Benign prostatic hyperplasia with lower urinary tract symptoms] Onset: 10-02-2005 10-02-2005 Chronic Hypertension with complications and secondary hypertension (4 sources) Hypertensive heart disease without heart failure; Translations: [Hypertensive heart disease with heart failure] Onset: 04-04-2024 Chronic Nutritional deficiencies (1 source) Vitamin D deficiency, unspecified; Translations: [Vitamin D deficiency, unspecified] Onset: 12-20-2024 Chronic Occlusion or stenosis of precerebral arteries (13 sources) Bilateral stenosis of carotid arteries; Translations: [Occlusion and stenosis of bilateral carotid arteries] Onset: 04-07-2017 02-29-2024 Chronic Other aftercare (1 source) computer terminal operator (current) use of aspirin; Translations: [residential (current) use of aspirin] Onset: 12-18-2024 Episodic Other aftercare (1 source) Other usp (current) drug therapy; Translations: [Other usp (current) drug therapy] Onset: 12-18-2024 Episodic Other aftercare (1 source) computer terminal operator (current) use of oral hypoglycemic drugs; Translations: [residential (current) use of oral hypoglycemic drugs] Onset: 12-18-2024 Episodic Other circulatory disease (4 sources) Disorder of artery; Translations: [Disorder of arteries and arterioles, unspecified] Chronic Other circulatory disease (1 source) Disorder of arteries and arterioles, unspecified; Translations: [Disorder of artery or arteriole (HCC)] Onset: 03-15-2024 Chronic Other diseases of bladder and urethra (20 sources) Bladder neck obstruction; Translations: [Bladder-neck obstruction] Onset: 10-02-2005 10-02-2005 Chronic Other diseases of kidney and ureters (1 source) Hydronephrosis with renal and ureteral calculous obstruction; Translations: [Hydronephrosis with renal and ureteral calculous obstruction] Onset: 12-18-2024 Episodic Other liver diseases (1 source) Unspecified jaundice; Translations: [Unspecified jaundice] Onset: 10-13-2024 Episodic Other screening for suspected conditions (not mental disorders or infectious disease) (20 sources) Raised prostate specific antigen; Translations: [Elevated prostate specific antigen [PSA]] Onset: 05-22-2009 05-22-2009 Episodic Residual codes; unclassified (1 source) Acquired absence of other specified parts of digestive tract; Translations: [Acquired absence of other specified parts of digestive tract] Onset: 12-18-2024 Episodic Unclassified (1 source) Aneurysm of ascending aorta without rupture (HCC); Translations: [Aneurysm of ascending aorta without rupture (HCC)] Onset: 03-15-2024 Past or Other Problems Problem Classification Problem Date Documented Da te Episodic/Chronic Cardiac dysrhythmias (20 sources) Tachycardia; Translations: [Tachycardia, unspecified] Onset: 02-13-2022 02-13-2022 Episodic Conditions associated with dizziness or vertigo (20 sources) Dizziness and giddiness; Translations: [Dizziness and giddiness] Onset: 02-13-2022 02-13-2022 Episodic Other aftercare (20 sources) Patient encounter status; Translations: [Encounter for therapeutic drug level monitoring] Onset: 02-13-2022 02-13-2022 Episodic Other aftercare (2 sources) Encounter for therapeutic drug level monitoring; Translations: [Medication monitoring encounter] Onset: 02-13-2022 Episodic Other skin disorders (13 sources) Eruption; Translations: [Rash and other nonspecific skin eruption] Onset: 01-16-2023 02-29-2024 Episodic Results Test Name Value Interpretation Reference Range Facility ED MED ADMINISTRATION DETAIL on 12-20-2024 ED MED ADMINISTRATION DETAIL Apprentice Instrument Technician Medication Administration Record [address] [place] [address] [id number] 12/18/2024 Patient: SOY BURCH Sex: Male : 1945 Age: 79y MEASUREMENTS: Wt: 77.6 kg, Ht/Leno: 67.0 in, BMI: 26.78 ALLERGIES: Amoxicillin, Iodinated Contrast Media, Penicillins, clindamycin Medication Ordered Medication Administration Date/Time Zofran IVP 4 mg 22:57 12/18 Zofran IVP 4 mg given via Site# 1. Allergies verified Given (NOW x1) and confirmed 5 rights. IV patency established. IV site checked: no 22:57 12/18/2024 pain, redness, or swelling. IV flushed thoroughly pre-medication Lizzy Encinas R.N. administration. Information reviewed with patient including reason Scanned for taking this medication, signs of allergic reaction and precautions. Verbalizes understanding. - 22:58 Lizzy Encinas R.N. KetorOLAC 22:58 12/18 KetorOLAC (Toradol) IVP 15 mg given via Site# 1. Given (Toradol) IVP 15 mg Allergies verified and confirmed 5 rights. IV patency established. IV 22:58 12/18/2024 (NOW x1) site checked: no pain, redness, or swelling. IV flushed thoroughly Lizzy Encinas R.N. pre-medication administration. Information reviewed with patient Scanned including reason for taking this medication, signs of allergic reaction and precautions. Verbalizes understanding. Medication Wastage: 15 mg wasted. - 22:58 Lizzy Encinas R.N. 1 of 2 Apprentice Instrument Technician Medication Ordered Medication Administration Date/Time IV NS 0.9 % 1000 23:51 12/18 IV NS 0.9 % 1000 mL started in bag#1 1000 mL at Started mL at 500 mL/hr 500 mL/hr via Site# 1. Allergies verified and confirmed 5 rights. IV 23:51 12/18/2024 (NOW x1) patency established. IV site checked: no pain, redness, or swelling. Anamaria Silva R.N. IV flushed thoroughly pre-medication administration. Information Stopped reviewed with patient. Verbalizes understanding. - 23:54 Anamaria 00:57 12/19/2024 Eve Silva R.N. Scanned 00:57 12/19 Medication Discontinued: bag #1 infused upon discharge. Total amount infused: 1000 mL. - 01:02 Anamaria Silva R.N. 2 of 2 Normal [facility] ED MED ADMINISTRATION DETAIL Apprentice Instrument Technician Medication Administration Record [address] [place] [address] [id number] 12/20/2024 Patient: KIERSTENSOY WINCHESTER Sex: Male : 1945 Age: 79y Medication Ordered Medication Administration Date/Time 1 of 1 Normal [facility] ED NURSES CLINICAL NOTEon ED NURSES CLINICAL NOTE Nurse Narrative Nurse Clinical Narrative [facility] [address] [place] [address] [id number] 12/18/2024 22:28:00 Patient: SOY BURCH Sex: Male : 1945 Age: 79y Disposition: Discharge to Home Disposition Decision Time: 00:52 12/19/2024 Departure Time: 01:02 12/19/2024 TRIAGE Arrived by private vehicle. Historian: (patient). Accompanied by family. Primary physician (pk). Triage time: 22:35 12/18/2024. Acuity: LEVEL 3. Chief Complaint: ABDOMINAL PAIN and VOMITING. Onset. (4 hours ago). SEPSIS SCREEN: NEGATIVE. SIRS criteria negative. -- 22:42 12/18/24 EDT Anamaria Silva R.N. 22:41 12/18/24. BP: 198/89 MAP: 125. HR: 64. RR: 18. O2 saturation: 95% Temperature: 97.8 F. Pain level now 4/10. [place] Scale: 15 - eyes open - spontaneous (4); best verbal response - oriented (5); best motor response - obeys commands (6). -- 22:41 12/18/24 EDT Anamaria Silva R.N. Measurements: 22:42 12/18/24 Wt: 77.6 kg, Ht/Leno: 67.0 in, BMI: 26.78 -- 22:42 12/18/24 EDT Anamaria Silva R.N. Medications: potassium CL: once a day . -- 22:36 12/18/24 EDT Anamaria Silva R.N. Aspirin Childrens 81 mg chewable tablet: once a day . -- 22:36 12/18/24 EDT Anamaria Silva R.N. dilTIAZem ER 360 mg capsule,24 hr,extended release: once a day . -- 22:36 12/18/24 EDT Anamaria Silva R.N. furosemide 20 mg tablet: once a day . -- 22:36 12/18/24 EDT Anamaria Silva R.N. 1 of 4 Nurse Narrative losartan 50 mg tablet: twice a day . -- 22:36 12/18/24 EDT Anamaria Silva R.N. metFORMIN ER 500 mg tablet,extended release 24 hr: once a day . -- 22:36 12/18/24 EDT Anamaria Silva R.N. nebivoloL 5 mg tablet: once a day . -- 22:36 12/18/24 EDT Anamaria Silva R.N. rosuvastatin 40 mg tablet: once a day . -- 22:36 12/18/24 EDT Anamaria Silva R.N. 22:35 12/18/24. Preferred Pharmacy: ; [facility]. -- 22:42 12/18/24 EDT Anamaria Silva R.N. Allergies: Penicillins -- 22:35 12/18/24 EDT Anamaria Silva R.N. clindamycin -- 22:35 12/18/24 EDT Anamaria Silva R.N. azithromycin: rash -- 22:36 12/18/24 EDT Anamaria Silva R.N.Correction -- 22:39 12/18/24 EDT Anamaria Silva R.N. Amoxicillin -- 22:39 12/18/24 EDT Anamaria Silva R.N. Problems: Diabetes Mellitus -- 22:35 12/18/24 EDT Anamaria Silva R.N. Hypertension -- 22:35 12/18/24 EDT Anamaria Silva R.N. Hypercholesterolemia -- 22:35 12/18/24 EDT Anamaria Silva R.N. Heart Disease -- 22:35 12/18/24 EDT Anamaria Silva R.N. Surgeries: Colonoscopy -- 22:37 12/18/24 EDT Anamaria Whytsell, R.N. Tonsillectomy -- 22:37 12/18/24 EDT Anamaria Silva R.N. Coarctation Aorta Repair -- 22:37 12/18/24 EDT Anamaria Silva R.N. Cholecystectomy -- 22:37 12/18/24 EDT Anamaria Silva R.N. ablation -- 22:38 12/18/24 EDT Anamaria Silva R.N. Pacemaker -- 22:38 12/18/24 EDT Anamaria Silva R.N. TURP - Trans Urethral Resection of Prostate -- 22:38 12/18/24 EDT Anamaria Silva R.N. History 22:35 12/18/24. SOCIAL HX: Never smoker. No alcohol use or drug use. The patient has not traveled outside the [place] Infectious disease exposure: No infectious disease exposure. 2 of 4 Nurse Narrative ABUSE ASSESSMENT: The patient answered yes to the question(s) Do you feel safe in your home? and no to the question(s) Are you afraid to go home?. Abuse denied. SELF HARM ASSESSMENT: Self harm assessment was performed. The patient answered no to the question(s) Have you recently felt down, depressed, or hopeless? and Do you have thoughts of harming or killing yourself?. FALL RISK ASSESSMENT: Fall risk assessment completed. Risk factors identified include patient age greater than 65 years. -- 22:42 12/18/24 EDT Anamaria Silva R.N. Interventions 22:35 12/18/24. Advanced care plan discussed with patient. Patient has advanced directive. -- 22:42 12/18/24 EDT Anamaria Silva R.N. PHYSICAL ASSESSMENT 23:13 12/18/24. GENERAL / NEURO / PSYCH: Alert. Oriented X 4. Appears in no acute distress. RESPIRATORY: Respirations not labored. Breath sounds within normal limits. CVS: Normal sinus rhythm noted. GI / : The patient has had nausea. Emesis noted. Has vomited several times (light brown per patient). Abdominal distention. Abdomen nontender. Absent bowel sounds in the RUQ and LUQ (Hypoactive). ( Last bowel movement was this morning and patient states that it was formed, normal color and size.). SKIN: Skin color pale. Skin is warm and dry. -- 23:23 12/18/24 EDT Lizzy Encinas R.N. NURSING PROGRESS NOTES 22:57 12/18/24. Zofran IVP 4 mg given via Site# 1. Allergies verified and confirmed 5 rights. IV patency established. IV site checked: no pain, redness, or swelling. IV flushed thoroughly pre-medication administration. Information reviewed with patient including reason for taking this medication, signs of allergic reaction an (more content not included)... Normal [facility] ED NURSES CLINICAL NOTE Nurse Narrative Nurse Clinical Narrative [address] [address] [id number] 12/20/2024 17:03:00 Patient: SOY BURCH Sex: Male : 1945 Age: 79y Disposition: Left W/O Being Seen Disposition Decision Time: 17:12/20/2024 Departure Time: 17:12/20/2024 DISPOSITION / DISCHARGE Departure time: 17:12/20/2024. The patient left the Emergency Department before triage and without being seen by a physician. The patient appears to be alert and oriented x4. The patient stated is leaving to go to their primary care physician. The patient left the Emergency Department ambulatory and via private vehicle. -- 17:26 12/20/24 EDT Camron Santos R.N. (Electronically signed by Camron Santos R.N. 12/20/24 17:27:10 EDT) Generated by [facility] 1 of 1 Normal [facility] ED ORDER SHEET (CPOE ONLY)on 12-20-2024 ED ORDER SHEET (CPOE ONLY) Order Sheet Order Sheet [address] [address] [id number] 12/18/2024 Patient: SOY BURCH Sex: Male : 1945 Age: 79y MEASUREMENTS: Wt: 77.6 kg, Ht/Leno: 67.0 in, BMI: 26.78 ALLERGIES: Amoxicillin, Iodinated Contrast Media, Penicillins, clindamycin MEDICATION/IV/DRIP/FLUID ORDERS Order Description Priority Entered Acknowledged Completed Zofran IVP4 mg (NOW x1) 22:46 12/18/2024 22:51 22:58 Alonzo Landry D.O. 12/18/2024 12/18/2024 Lizzy Reynolds, Oli.N. R.N. KetorOLAC (Toradol) IVP15 mg 22:46 12/18/2024 22:51 22:58 (NOW x1) Alonzo Landry D.O. 12/18/2024 12/18/2024 Lizzy Reynolds, Oli.N. R.N. Reason for ordering with alerts: Benefits outweigh risks --22:46 12/18/2024 Alonzo Landry D.O. IV NS 0.9 %1000 mL at 500 23:25 12/18/2024 23:26 23:54 mL/hr (NOW x1) Alonzo Landry D.O. 12/18/2024 12/18/2024 Anamaria Thompson R.N. R.N. LAB ORDERS Order Description Priority Entered Acknowledged Collected Completed 1 of 3 Order Sheet CBC w Diff Stat Stat 22:46 12/18/2024 22:51 12/18/2024 23:16 12/18/2024 Anamaria Beck Katelyn Horst, D.O. R.N. R.N. BMP Stat Stat 22:46 12/18/2024 22:51 12/18/2024 23:16 12/18/2024 Anamaria Beck Katelyn Horst, D.O. R.N. R.N. Liver Function Panel Stat 22:46 12/18/2024 22:51 12/18/2024 23:16 12/18/2024 Stat Anamaria Beck Katelyn Horst, D.O. R.N. R.N. Lipase Stat Stat 22:46 12/18/2024 22:51 12/18/2024 23:16 12/18/2024 Anamaria Beck Katelyn Horst, D.O. R.N. RJanuszNJanusz Urinalysis Stat Stat 22:46 12/18/2024 22:51 12/18/2024 00:27 12/19/2024 Anamaria Beck Alisha Whytsell, D.O. R.NJanusz RJanuszNJanusz DIAGNOSTIC STUDY ORDERS Order Description Priority Entered Acknowledged Completed CT ABD/PEL w Cont Stat Stat 22:46 12/18/2024 22:51 00:27 Alonzo Landry D.O. 12/18/2024 12/19/2024 Anamaria Reynolds R.NJanusz RJanuszNJanusz Order Comments: 22:46 12/18/2024: (LLQ abdominal pain) Alonzo Landry D.O. Reason for Study: Abdominal Pain STAFF ORDERS Order Description Priority Entered Acknowledged Collected Completed 2 of 3 Order Sheet [Electronically signed by Alonzo Landry D.O. (12/18/2024 22:46 EDT)] [Electronically signed by Alonzo Landry D.O. (12/18/2024 23:25 EDT)] [Electronically signed by Alonzo Landry D.O. (12/19/2024 01:02 EDT)] 3 of 3 Normal [facility] ED ORDER SHEET (CPOE ONLY) Order Sheet Order Sheet [address] [address] [id number] 12/20/2024 Patient: SOY BURCH Sex: Male : 1945 Age: 79y MEDICATION/IV/DRIP/FLUID ORDERS Order Description Priority Entered Acknowledged Completed LAB ORDERS Order Description Priority Entered Acknowledged Collected Completed DIAGNOSTIC STUDY ORDERS Order Description Priority Entered Acknowledged Completed STAFF ORDERS Order Description Priority Entered Acknowledged Collected Completed 1 of 1 Normal [facility] ED PHYSICIAN CLINICAL REPORT on 12-20-2024 ED PHYSICIAN CLINICAL REPORT Narrative Physician Clinical Narrative [address] [address] [phone] 12/18/2024 22:28:00 Patient: SOY BURCH Sex: Male : 1945 Age: 79y Disposition: Discharge to Home Disposition Decision Time: 00:52 12/19/2024 Measurements Wt: 77.6 kg, Ht/Leno: 67.0 in, BMI: 26.78 Initial Vital Sign Measured Time BP MAP HR RR O2Sat ETCO2 Temp Pain GCS RTS 22:41 12/18/2024 198/89 125 64 18 95% 97.8 F 4 15 Time Seen: 22:38 12/18/2024. Arrived- By private vehicle. Historian- patient. HISTORY OF PRESENT ILLNESS Chief Complaint: ABDOMINAL PAIN. It is described as located in the left lower quadrant. This started just prior to arrival and is still present. The patient has had nausea and vomiting. No diarrhea. (Patient states he developed LLQ abdominal pain with associated nausea and vomiting about four hours ago. He states he has been having normal bowel movements and last had one this morning. He denies any blood in his stool. He states he has a history of pancreatitis last year and this feels similar to him. Denies dysuria or hematuria. He has a history of a cholecystectomy but denies other abdominal surgeries. Denies fevers, chills, diarrhea.). REVIEW OF SYSTEMS 1 of 12 Narrative RESPIRATORY: No difficulty breathing. CVS: No chest pain. CONSTITUTIONAL: No fever or chills. : No difficulty with urination, pain with urination or urinary frequency. GI: No constipation, black stools, hematemesis or bloody stools. PAST HISTORY See nurses notes. Diabetes Mellitus Heart Disease Hypercholesterolemia Hypertension Surgeries: ablation Cholecystectomy Coarctation Aorta Repair Colonoscopy Pacemaker Tonsillectomy TURP - Trans Urethral Resection of Prostate Medications: Aspirin Childrens 81 mg chewable tablet: once a day . dilTIAZem ER 360 mg capsule,24 hr,extended release: once a day . furosemide 20 mg tablet: once a day . losartan 50 mg tablet: twice a day . metFORMIN ER 500 mg tablet,extended release 24 hr: once a day . nebivoloL 5 mg tablet: once a day . potassium CL: once a day . rosuvastatin 40 mg tablet: once a day . Allergies: Amoxicillin clindamycin Penicillins SOCIAL HISTORY 2 of 12 Narrative Never smoker. No alcohol use or drug use. ADDITIONAL NOTES The nursing notes have been reviewed. PHYSICAL EXAM Vital Signs: Have been reviewed. Appearance: Alert. No acute distress. CVS: Normal heart rate and rhythm. Heart sounds normal. Respiratory: No respiratory distress. Breath sounds normal. Abdomen: Soft. Mild tenderness in the left lower quadrant. No distention. Skin: Skin warm and dry. Normal skin color. Normal skin turgor. Extremities: No lower extremity edema. Neuro: Oriented X 3. LABS, X-RAYS, AND EKG Laboratory Tests: BMP with eGFR Final AFIA: 12/18/2024 22:50:00 EDT MsgRcvd: 12/18/2024 23:20 EDT Lab Test Result Reference Status Received Comments BASIC 12/18/2024 BMP with eGFR Final METABOLIC 23:20 EDT PANEL 12/18/2024 SODIUM 139 mmol/l 136 - 145 Final 23:20 EDT 12/18/2024 POTASSIUM 4.4 mmol/L 3.5 - 5.1 Final 23:20 EDT 12/18/2024 CHLORIDE 104 mmol/L 98 - 107 Final 23:20 EDT 3 of 12 Narrative Lab Test Result Reference Status Received Comments 12/18/2024 CO2 28.6 mmol/L 21.0 - 32.0 Final 23:20 EDT 144 mg/dl 12/18/2024 GLUCOSE Above high 74 - 106 Final 23:20 EDT normal 29 mg/dl 12/18/2024 BUN Above high 7 - 18 Final 23:20 EDT normal 1.43 mg/dl 12/18/2024 CREATININE Above high 0.70 - 1.30 Final 23:20 EDT normal 12/18/2024 CALCIUM 9.3 mg/dl 8.5 - 10.1 Final 23:20 EDT 12/18/2024 ANION GAP 11 mmol/L 10 - 20 Final 23:20 EDT 12/18/2024 AGE 79 years Final 23:20 EDT 47 ML/MINUTE 12/18/2024 eGFR 60 - 999 Final Below low normal 23:20 EDT 4 of 12 Narrative Lab Test Result Reference Status Received Comments ACCORDING TO THE NATIONAL KIDNEY DISEASE EDUCATION PROGRAM(NKDE), A NORMAL eGFR IS A VALUE GREATER THAN OR EQUAL TO 60 ML/MIN/1.73 SQ METERS. 58 ML/MINUTE 12/18/2024 CHRONIC KIDNEY eGFR(AA) 60 - 999 Final Below low normal 23:20 EDT DISEASE: <60mL/MIN/1.73 SQ METERS KIDNEY FAILURE: <15mL/MIN/1.73 SQ METERS THIS TEST SHOULD ONLY BE USED FOR PATIENTS 18 YEARS OF AGE AND OLDER. CBC + DIFF Final AFIA: 12/18/2024 22:50:00 EDT MsgRcvd: 12/18/2024 23:07 EDT Lab Test Result Reference Status Received Comments 12/18/2024 23:07 CBC-COMPLETE CBC + DIFF Final EDT BLOOD COUNT 5 of 12 Narrative Lab Test Result Reference Status Received Comments 11.1 x 10/UL 12/18/2024 23:07 WBC 4.5 - 10.8 Final Above high normal EDT 12/18/2024 23:07 RBC 4.75 x 10/UL 4.50 - 6.00 Final EDT 12/18/2024 23:07 (more content not included)... Normal [facility] ED [facility] BILLon 12-20-[address] [address] [id number] 12/18/2024 Patient: SOY BURCH Sex: Male : 1945 Age: 79y Facility Professional Category Item Description Code Code Quantity Fee Total Drugs Normal Saline 108440 1 $0.00 $0.00 1000cc (347598) Nurse/E/M EMERGENCY 979142 1 $0.00 $0.00 DEPT VISIT HIGH SEVERITYFUNCJ (74008-29) Nurse/IV/IM/Infusions Hydration 301177 1 $0.00 $0.00 additional hour (69857) Nurse/IV/IM/Infusions IVP additional 189911 1 $0.00 $0.00 push (30365) Nurse/IV/IM/Infusions IVP initial (07960) 028664 1 $0.00 $0.00 Grand $0.00 Total Providers Alonzo Landry D.O. Chief Complaint 1 of 2 Superbill ABDOMINAL PAIN. Principal Diagnosis Ureterolithiasis (single stone) in the left ureter and kidney with hydronephrosis. No acute pyelonephritis or urinary tract infection. ICD-10 Codes N20.1: Calculus of ureter 2 of 2 Normal [facility] ED [address] [address] [phone] 12/20/2024 Patient: SOY BURCH Sex: Male : 1945 Age: 79y Item Professional Category Description Facility Code Code Quantity Fee Total Grand Total $0.00 1 of 1 Normal [facility] ED VISIT SUMMARYon ED VISIT SUMMARY Visit Overview Visit Overview [facility] [address] [place] [address] [phone] 12/18/2024 Patient: SOY BURCH Sex: Male : 1945 Age: 79y 12/20/2024 05:28 PM EDT ED Arrival:22:28 12/18/2024 EDT Status: Recent Travel:no Language:eng Adv Directive:Yes Isolation Status: Ethnicity:N Fall Risk:risk Infectious Disease Exposure:no Measurements:5'7 / 170.2 Self-Harm Status:risk Sepsis Screen:negative cm 171.0 lb / 77.6 kg Chief Complaint:ABDOMINAL PAIN, VOMITING, (4 hours ago), and (latouff) ALLERGIES Amoxicillin clindamycin Iodinated Contrast Media - itching, rash Penicillins HOME MEDICATIONS Aspirin Childrens 81 mg chewable tablet: once a day . dilTIAZem ER 360 mg capsule,24 hr,extended release: once a day . furosemide 20 mg tablet: once a day . 1 of 4 Visit Overview losartan 50 mg tablet: twice a day . metFORMIN ER 500 mg tablet,extended release 24 hr: once a day . nebivoloL 5 mg tablet: once a day . potassium CL: once a day . rosuvastatin 40 mg tablet: once a day . PAST MEDICAL HISTORY / PROBLEMS Diabetes Mellitus Heart Disease Hypercholesterolemia Hypertension See nurses notes PAST SURGICAL HISTORY ablation Cholecystectomy Coarctation Aorta Repair Colonoscopy Pacemaker Tonsillectomy TURP - Trans Urethral Resection of Prostate SOCIAL HISTORY Smoking status: No Alcohol use: No Drug use: No ED COURSE MEDICATIONS GIVEN IN EMERGENCY DEPARTMENT 22:57 12/18/24 Zofran IVP 4 mg 22:58 12/18/24 KetorOLAC (Toradol) IVP 15 mg 23:51 12/18/24 IV NS 0.9 % 1000 mL 500 mL/hr IV SITE INFORMATION 2 of 4 Visit Overview INTAKE OUTPUT REASSESMENT (most recent) 23:13 12/18/24. GENERAL / NEURO / PSYCH: Alert. Oriented X 4. Appears in no acute distress. RESPIRATORY: Respirations not labored. Breath sounds within normal limits. CVS: Normal sinus rhythm noted. GI / : The patient has had nausea. Emesis noted. Has vomited several times (light brown per patient). Abdominal distention. Abdomen nontender. Absent bowel sounds in the RUQ and LUQ (Hypoactive). ( Last bowel movement was this morning and patient states that it was formed, normal color and size.). SKIN: Skin color pale. Skin is warm and dry. VITAL SIGNS First Vitals Last Vitals Temp 22:41 12/18/24 97.8 F Temp 00:50 12/19/24 BP 22:41 12/18/24 198/89 BP 00:50 12/19/24 HR 22:41 12/18/24 64 HR 00:50 12/19/24 60 RR 22:41 12/18/24 18 RR 00:50 12/19/24 O2 Sat 22:41 12/18/24 95% O2 Sat 00:50 12/19/24 96% Pain 22:41 12/18/24 4 Pain 00:50 12/19/24 ETCO2 22:41 12/18/24 ETCO2 00:50 12/19/24 GCS 22:41 12/18/24 15 GCS 00:50 12/19/24 RTS 22:41 12/18/24 RTS 00:50 12/19/24 PROCEDURES NURSING INTERVENTIONS LABS / STUDIES LABS / STUDIES ORDERED BMP CBC w Diff CT ABD/PEL w Cont Lipase Liver Function Panel Urinalysis 3 of 4 Visit Overview LABS / STUDIES PENDING IMPORT CT ABDOMEN/PELVIS W CLINICAL IMPRESSION URETEROLITHIASIS (SINGLE STONE) IN THE LEFT URETER AND KIDNEY WITH HYDRONEPHROSIS. NO ACUTE PYELONEPHRITIS OR URINARY TRACT INFECTION 4 of 4 Normal [facility] ED VISIT SUMMARY Visit Overview Visit Overview [address] [place] [address] [phone] 12/20/2024 Patient: SOY BURCH Sex: Male : 1945 Age: 79y 12/20/2024 05:27 PM EDT ED Arrival:17:03 12/20/2024 EDT Status: Recent Travel: Language:eng Adv Directive: Isolation Status: Ethnicity:N Fall Risk: Infectious Disease Exposure: Measurements: Self-Harm Status: Sepsis Screen: Chief Complaint: ALLERGIES HOME MEDICATIONS PAST MEDICAL HISTORY / PROBLEMS PAST SURGICAL HISTORY SOCIAL HISTORY ED COURSE MEDICATIONS GIVEN IN EMERGENCY DEPARTMENT IV SITE INFORMATION 1 of 2 Visit Overview INTAKE OUTPUT REASSESMENT (most recent) VITAL SIGNS PROCEDURES NURSING INTERVENTIONS LABS / STUDIES CLINICAL IMPRESSION 2 of 2 Normal [facility] ED VITALS FLOW SHEETon 12-20 ED VITALS FLOW SHEET Vitals Vital Sign Flow Sheet [facility] [address] [place] [address] [phone] 12/18/2024 Patient: SOY BURCH Sex: Male : 1945 Age: 79y Measurements Wt: 77.6 kg, Ht/Leno: 67.0 in, BMI: 26.78 Measured Time BP MAP HR RR O2Sat ETCO2 Temp Pain GCS RTS 00:50 12/19/2024 60 96% 00:49 12/19/2024 136/67 90 60 00:45 12/19/2024 60 94% 00:40 12/19/2024 62 94% 00:35 12/19/2024 60 95% 00:34 12/19/2024 147/65 92 60 00:30 12/19/2024 61 95% 00:25 12/19/2024 79 94% 00:19 12/19/2024 150/68 85 59 00:15 12/19/2024 60 91% 00:10 12/19/2024 60 90% 00:05 12/19/2024 62 91% 00:04 12/19/2024 143/69 86 60 00:00 12/19/2024 60 91% 23:55 12/18/2024 60 93% 1 of 2 Vitals Measured Time BP MAP HR RR O2Sat ETCO2 Temp Pain GCS RTS 23:50 12/18/2024 61 93% 23:49 12/18/2024 130/60 83 61 23:34 12/18/2024 83/63 69 64 23:26 12/18/2024 60 91% 23:21 12/18/2024 60 91% 23:19 12/18/2024 137/67 101 60 23:16 12/18/2024 61 90% 23:11 12/18/2024 67 91% 23:06 12/18/2024 60 92% 23:04 12/18/2024 197/88 162 59 23:01 12/18/2024 60 93% 22:56 12/18/2024 60 94% 22:41 12/18/2024 198/89 125 64 18 95% 97.8 F 4 15 2 of 2 Normal [facility] ED VITALS FLOW SHEET Vitals [place] [address] [id number] 12/20/2024 Patient: OSY BURCH Sex: Male : 1945 Age: 79y 1 of 1 Normal [facility] URINALYSISon 12-19-2024 Amorphous NONE Normal [facility] Comment on above: Performed By: #### 2 [id number] ####[facility],[address] [place] [address] Bacteria TRACE Normal [facility] Comment on above: Performed By: #### 2 86534 ####[facility],[address] [place] [address] Bilirubin Ql (U) Negative Normal NORMAL: NEGATIVE [facility] Comment on above: Performed By: #### 2 12512 ####[facility],[address] [place] [address] Casts NONE Normal [facility] Comment on above: Performed By: #### 2 94842 ####[facility],[address] [place] [address] Clarity (U) clear Normal NORMAL: CLEAR [facility] Comment on above: Performed By: #### 2 60198 ####[facility],[address] [place] [address] Color (U) yellow Normal NORMAL: YELLOW [facility] Comment on above: Performed By: #### 2 15456 ####[facility],[address] [place] [address] Crystals LM Nom (Urine sed) NONE Normal [facility] Comment on above: Performed By: #### 2 75602 ####[facility],[address] [place] [address] Epi Cells NONE Normal [facility] Comment on above: Performed By: #### 2 17074 ####[facility],[address] [place] [address] Glucose Ql (U) NORM Normal NORMAL: NORMAL [facility] Comment on above: Performed By: #### 2 84596 ####[facility],[address] [place] [address] Hemoglobin Ql (U) 250 Abnormal NORMAL: NEGATIVE [facility] Comment on above: Performed By: #### 2 29998 ####[facility],[address] [place] [address] Ketone 5 Abnormal NORMAL: NEGATIVE [facility] Comment on above: Performed By: #### 2 15898 ####[facility],[address] [place] [address] Leukocytes Negative Normal NORMAL: NEGATIVE [facility] Comment on above: Performed By: #### 2 33796 ####[facility],[address] [place] [address] Mucous NONE Normal [facility] Comment on above: Performed By: #### 2 77216 ####[facility],[address] [place] [address] Nitrite Ql (U) Negative Normal NORMAL: NEGATIVE [facility] Comment on above: Performed By: #### 2 53545 ####[facility],[address] [place] [address] pH (U) 5 [pH] Normal NORMAL: 5.0-8.0 [facility] Comment on above: Performed By: #### 2 23888 ####[facility],[address] [place], [place] [id number] Protein Ql (U) 30 Abnormal NORMAL: NEGATIVE [facility] Comment on above: Performed By: #### 2 24391 ####[facility],[address] [place] [address] Rbc 0-5 Normal 0-3/hpf [facility] Comment on above: Performed By: #### 2 08465 ####[facility],[address] [place] [address] Sp Avon 1.015 Normal NORMAL: 1.010-1.03 0 [facility] Comment on above: Performed By: #### 2 34712 ####[facility],[address] [place] [address] Specimen Type R Normal [facility] Comment on above: Performed By: #### 2 98054 ####[facility],[address] [place] [address] Urinalysis dipstick W Reflex Microscopic panel (U) SEE BELOW Normal [facility] Comment on above: Result Comment: MICR OSCOPIC Performed By: #### 2 75670 ####[facility],[address] [place] [address] Urobilinog 1 Abnormal NORMAL: NORMAL [facility] Comment on above: Performed By: #### 2 13650 ####[facility],[address] [place], [place] [id number] Wbc NONE Normal 0-5/hpf [facility] Comment on above: Performed By: #### 2 11829 ####[facility],[address] [place] [address] Yeast NONE Normal [facility] Comment on above: Performed By: #### 2 79895 ####[facility],[address] [place] [address] BMP with eGFRon 07-06-2025 AGE 79 years Normal [facility] Comment on above: Performed By: #### 2 48230 ####[facility],[address] [place] [address] Anion gap [Moles/Vol] 11 mmol/L Normal 10 - 20 [facility] Comment on above: Performed By: #### 2 56128 ####[facility],[address] [place] [address] BMP with eGFR Normal [facility] Comment on above: Result Comment: BASI C METABOLIC PANEL Performed By: #### 2 92300 ####[facility],[address] [place] [address] Calcium [Mass/Vol] 9.3 mg/dL Normal 8.5 - 10.1 [facility] Comment on above: Performed By: #### 2 42477 ####[facility],[address] [place] [address] Chloride [Moles/Vol] 104 mmol/L Normal 98 - 107 [facility] Comment on above: Performed By: #### 2 47818 ####[facility],[address] [place] [address] CO2 [Moles/Vol] 28.6 mmol/L Normal 21.0 - 32.0 [facility] Comment on above: Performed By: #### 2 15709 ####[facility],[address] [place] [address] Creatinine [Mass/Vol] 1.43 mg/dL High 0.70 - 1.30 [facility] Comment on above: Performed By: #### 2 36328 ####[facility],[address] [place] [address]781 eGFR 47 ML/MINUTE Low 60 - 999 [facility] Comment on above: Performed By: #### 2 30378 ####[facility],[address] [place] [address] eGFR(AA) 58 ML/MINUTE Low 60 - 999 [facility] Comment on above: Result Comment: ACCO RDING TO THE NATIONAL KIDNEY DISEASE EDUCATION PROGRAM(NKDE), A NORMAL eGFR IS A VALUE GREATER THAN OR EQUAL TO 60 ML/MIN/1.73 SQ METERS. CHRONIC KIDNEY DISEASE: <60mL/MIN/1.73 SQ METERS KIDNEY FAILURE: <15mL/MIN/1.73 SQ METERS THIS TEST SHOULD ONLY BE USED FOR PATIENTS 18 YEARS OF AGE AND OLDER. Performed By: #### 2 86226 ####[facility],[address] [place] [address] 71197 Glucose [Mass/Vol] 144 mg/dL High 74 - 106 [facility] Comment on above: Performed By: #### 2 67389 ####[facility],[address] [place] [address] 16610 Potassium [Moles/Vol] 4.4 mmol/L Normal 3.5 - 5.1 [facility] Comment on above: Performed By: #### 2 31810 ####[facility],[address] [place] [address] 29292 Sodium [Moles/Vol] 139 mmol/L Normal 136 - 145 [facility] Comment on above: Performed By: #### 2 27825 ####[facility],[address] [place] [address] 24665 Urea nitrogen [Mass/Vol] 29 mg/dL High 7 - 18 [facility] Comment on above: Performed By: #### 2 15996 ####[facility],[address] [place] [address] 43542 CBC + DIFFon 12-18-2024 Baso # 0.03 x10EE3/UL Normal 0.00 - 0.10 [facility] Comment on above: Performed By: #### 2 06402 #### [facility],[address] [place] [address] 03493 Basophils/100 WBC (Bld) 0.2 % Normal 0.0 - 2.0 [facility] Comment on above: Performed By: #### 2 97653 #### [facility],[address] [place] [address] 62535 CBC + DIFF Normal [facility] Comment on above: Result Comment: CBC- COMPLETE BLOOD COUNT Performed By: #### 2 66758 #### [facility],[address] [place] [address] 42543 EO # 0.07 x10EE3/UL Normal 0.00 - 0.50 [facility] Comment on above: Performed By: #### 2 41813 #### [facility],[address] [place] [address] 43111 Eosinophils/100 WBC (Bld) 0.7 % Normal 0.0 - 7.0 [facility] Comment on above: Performed By: #### 2 92479 #### [facility],[address] [place] [address] Erythrocyte distribution width (RBC) [Ratio] 14.3 % Normal 12.0 - 15.6 [facility] Comment on above: Performed By: #### 2 96456 #### [facility],[address] [place] [address] 51098 Hematocrit (Bld) [Volume fraction] 43.1 % Normal 40.0 - 52.0 [facility] Comment on above: Performed By: #### 2 45358 #### [facility],[address] [place] [address] 86864 Hemoglobin (Bld) [Mass/Vol] 15.3 g/dL Normal 13.0 - 17.5 [facility] Comment on above: Performed By: #### 2 67887 #### [facility],[address] [place] [address] 75992 Lymph # 1.14 x10EE3/UL Normal 0.80 - 2.80 [facility] Comment on above: Performed By: #### 2 60567 #### [facility],[address] [place] [address] 33834 Lymphocytes/100 WBC (Bld) 10.3 % Low 20.0 - 45.0 [facility] Comment on above: Performed By: #### 2 26814 #### [facility],[address] [place] [address] 35516 MANUAL DIFF N/A Normal [facility] Comment on above: Performed By: #### 2 93926 #### [facility],[address] [place] [address] MCH (RBC) [Entitic mass] 32 pg Normal 27 - 33 [facility] Comment on above: Performed By: #### 2 42331 #### [facility],[address] [place] [address] MCHC 36 X10 3 Normal 32 - 36 [facility] Comment on above: Performed By: #### 2 28930 #### [facility],[address] [place] [address] MCV (RBC) [Entitic vol] 91 fL Normal 81 - 98 [facility] Comment on above: Performed By: #### 2 89868 #### [facility],[address] [place] [address] [place] # 0.81 x10EE3/UL Normal 0.20 - 1.00 [facility] Comment on above: Performed By: #### 2 96263 #### [facility],[address] [place] [address] MONOS % 7.3 % Normal 0.0 - 10.0 [facility] Comment on above: Performed By: #### 2 19366 #### [facility],[address] [place] [address] 87896 Morphology Hay (Bld) [Interp] N/A Normal [facility] Comment on above: Performed By: #### 2 46176 #### [facility],[address] [place] [address] Neut # 9.02 x10EE3/UL High 1.50 - 7.10 [facility] Comment on above: Performed By: #### 2 02184 #### [facility],[address] [place] [address] 98266 Neutrophils/100 WBC (Bld) 81.5 % High 46.0 - 76.0 [facility] Comment on above: Performed By: #### 2 99934 #### [facility],[address] [place] [address] 40071 PLATELET 181 x10EE3/UL Normal 150 - 450 [facility] Comment on above: Performed By: #### 2 15514 #### [facility],[address] [place] [address] 46347 Platelet mean volume (Bld) [Entitic vol] 7.8 fL Normal 6.4 - 10.5 [facility] Comment on above: Result Comment: AUTO MATED DIFFERENTIAL Performed By: #### 2 03950 #### [address] [address] RBC 4.75 x 10EE6/UL Normal 4.50 - 6.00 [facility] Comment on above: Performed By: #### 2 33223 #### [facility],[address] [place] [address] 43458 WBC 11.1 x 10EE3/UL High 4.5 - 10.8 [facility] Comment on above: Performed By: #### 2 25212 #### [facility],[address] [place] [address] ABDOMEN/PELVIS [facility] 2024 CT ABDOMEN/PELVIS [place] [address] Patient: SOY BURCH Phone#: : 1945 Age: 79 Gender: M Pt. Type: ER Account: [id number] Location: [facility] Ordering: DR. ALONZO LANDRY Exam Date: 12/18/2024/23:34 Family Phys: Abelino GREEN Charge Code: 689416 Physician: [facility] Order #: [id number] Dose#: 13.8 PROCEDURE: CT ABDOMEN/PELVIS WITH CONTRAST COMPARISON: [facility], CT, ABDOMEN/PELVIS W CON, 06/11/2024, 4:13. INDICATIONS: Abdominal Pain. TECHNIQUE: After obtaining the patient's consent, CT images were created with non-ionic intravenous contrast material. All CT scans at this facility use dose modulation, iterative reconstruction, and/or weight based dosing when appropriate to reduce radiation dose to as low as reasonably achievable. IV CONTRAST: Visipaque 320,80ml TOTAL DOSE: 13.8 CTDIvol(mGy) FINDINGS: LIVER: Normal. No enlargement, atrophy, abnormal density, or significant focal lesion. BILIARY: The gallbladder is absent. Surgical clips are present in the gallbladder fossa. PANCREAS: Normal. No lesion, fluid collection, ductal dilatation, or atrophy. SPLEEN: Normal. No enlargement or focal lesion. KIDNEYS: There is mild left-sided hydronephrosis. There is delay in excretion of the left kidney. Mild left perinephric fat stranding is present. A 6 millimeter calculus is present in the proximal ureter. The ureter is decompressed distal to the calculus. Unremarkable. ADRENALS: Normal. No mass or enlargement. AORTA/VASCULAR: Normal. No aneurysm or dissection. RETROPERITONEUM: Normal. No mass or adenopathy. BOWEL/MESENTERY: There is moderate stool retention. Diverticula are present without inflammatory change. Tiny hiatal hernia is present. No visible mass, obstruction, or bowel wall thickening. ABDOMINAL WALL: Normal. No mass or hernia. URINARY BLADDER: Normal. No visible focal wall thickening, lesion, or calculus. PELVIC NODES: Normal. No adenopathy. Continued Report - Page 2 of 2 Patient: SOY BURCH Phone#: : 1945 Age: 79 Gender: M Pt. Type: ER Account: [id number] Location: 052 Ordering: DR. ALONZO LANDRY Exam Date: 12/18/2024/23:34 Family Phys: Abelino GREEN Charge Code: 636755 Physician: [facility] Order #: [id number] Dose#: 13.8 PELVIC ORGANS: The prostate impresses on the base of bladder. The prostate measures 4.9 x 3.5 x 5.0 centimeters. BONES: Degenerative changes of the spine are present. LUNG BASES: Cardiac pacing device is present. No visible pulmonary or pleural disease. OTHER: Negative. CONCLUSION: 1. 6 millimeter calculus is present in the proximal left ureter. There is mild hydronephrosis. Dictated by: Cori Urrutia MD on 12/19/2024 at 9:58 Approved by: Cori Urrutia MD on 12/19/2024 at 10:06 Normal [facility] HEPATIC FUNCTION PANELon Albumin [Mass/Vol] 3.8 g/dL Normal 3.4 - 5.0 [facility] Comment on above: Performed By: #### 2 40329 ####[place] [address] ALK PHOS 88 U/L Normal 46 - 116 [facility] Comment on above: Performed By: #### 2 56213 ####[place] [address] ALT [Catalytic activity/Vol] 28 U/L Normal 16 - 63 [facility] Comment on above: Performed By: #### 2 81744 ####[place] [address] AST [Catalytic activity/Vol] 22 U/L Normal 15 - 37 [facility] Comment on above: Performed By: #### 2 51544 ####[facility],[address] [place] [address] 39546 Bilirubin [Mass/Vol] 1.5 mg/dL High 0.2 - 1.0 [facility] Comment on above: Performed By: #### 2 46738 ####[address] [address] Bilirubin.direct [Mass/Vol] 0.3 mg/dL High 0.0 - 0.2 [facility] Comment on above: Performed By: #### 2 93206 ####[address] [address] Hepatic function 2000 panel Normal [facility] Comment on above: Result Comment: HEPA TIC FUNCTION PROFILE Performed By: #### 2 99013 ####[facility],[address] [place] [address] Protein [Mass/Vol] 7.3 g/dL Normal 6.4 - 8.2 [facility] Comment on above: Performed By: #### 2 48757 ####[facility],[address] [place] [address] LIPASEon 12-18-2024 Lipase [Catalytic activity/Vol] 36.0 U/L Normal 15.0 - 78.0 [facility] Comment on above: Result Comment: *PLE ASE NOTE THAT RANGES FOR LIPASE HAVE CHANGED OF 06/12/23 DUE TO AN ASSAY UPDATE BY THE HAT MEASURER.THE NEW ASSAY RANGE IS 6-250 U/L, WITH A REFERENCE RANGE OF 16-77 U/L. Performed By: #### 2 94686 #### [facility],[address] [place] [address] CBC + DIFFon 10-13-2024 Baso # 0.02 x10EE3/UL Normal 0.00 - 0.10 [facility] Comment on above: Performed By: #### 2 59199 ####[facility],[address] [place] [address] Basophils/100 WBC (Bld) 0.4 % Normal 0.0 - 2.0 [facility] Comment on above: Performed By: #### 2 82191 ####[facility],[address] [place] [address] CBC + DIFF Normal [facility] Comment on above: Result Comment: CBC- COMPLETE BLOOD COUNT Performed By: #### 2 15253 ####[facility],[address] [place] [address] EO # 0.27 x10EE3/UL Normal 0.00 - 0.50 [facility] Comment on above: Performed By: #### 2 53547 ####[facility],[address] [place] [address] 43234 Eosinophils/100 WBC (Bld) 4.9 % Normal 0.0 - 7.0 [facility] Comment on above: Performed By: #### 2 03350 ####[facility],[address] [place], [place] [address] Erythrocyte distribution width (RBC) [Ratio] 14.1 % Normal 12.0 - 15.6 [facility] Comment on above: Performed By: #### 2 02997 ####[facility],[address] [place] [address] 89778 Hematocrit (Bld) [Volume fraction] 44.6 % Normal 40.0 - 52.0 [facility] Comment on above: Performed By: #### 2 98128 ####[facility],[address] [place] [address] Hemoglobin (Bld) [Mass/Vol] 15.3 g/dL Normal 13.0 - 17.5 [facility] Comment on above: Performed By: #### 2 12926 ####[facility],[address] [place] [address] 86352 Lymph # 1.72 x10EE3/UL Normal 0.80 - 2.80 [facility] Comment on above: Performed By: #### 2 13951 ####[facility],[address] [place] [address] 81857 Lymphocytes/100 WBC (Bld) 31.3 % Normal 20.0 - 45.0 [facility] Comment on above: Performed By: #### 2 30214 ####[facility],[address] [place] [address] 90217 MANUAL DIFF N/A Normal [facility] Comment on above: Performed By: #### 2 10794 ####[facility],[address] [place] [address] 77795 MCH (RBC) [Entitic mass] 31 pg Normal 27 - 33 [facility] Comment on above: Performed By: #### 2 60202 ####[facility],[address] [place] [address] 48012 MCHC 34 X10 3 Normal 32 - 36 [facility] Comment on above: Performed By: #### 2 12561 ####[facility],[address] [place] [address] 65125 MCV (RBC) [Entitic vol] 91 fL Normal 81 - 98 [facility] Comment on above: Performed By: #### 2 04702 ####[facility],[address] [place] [address] 28616 [place] # 0.50 x10EE3/UL Normal 0.20 - 1.00 [facility] Comment on above: Performed By: #### 2 25437 ####[facility],[address] [place] [address] 48936 MONOS % 9.2 % Normal 0.0 - 10.0 [facility] Comment on above: Performed By: #### 2 18032 ####[facility],[address] [place] [address] 66410 Morphology Hay (Bld) [Interp] N/A Normal [facility] Comment on above: Performed By: #### 2 62331 ####[facility],[address] [place] [address] 55064 Neut # 2.97 x10EE3/UL Normal 1.50 - 7.10 [facility] Comment on above: Performed By: #### 2 84487 ####[facility],[address] [place] [address] 56638 Neutrophils/100 WBC (Bld) 54.2 % Normal 46.0 - 76.0 [facility] Comment on above: Performed By: #### 2 76403 ####[facility],[address] [place] [address] 76199 PLATELET 222 x10EE3/UL Normal 150 - 450 [facility] Comment on above: Performed By: #### 2 48382 ####[facility],[address] [place] [address] 75558 Platelet mean volume (Bld) [Entitic vol] 8.1 fL Normal 6.4 - 10.5 [facility] Comment on above: Result Comment: AUTO MATED DIFFERENTIAL Performed By: #### 2 43431 ####[facility],[address] [place] [address] 93918 RBC 4.92 x 10EE6/UL Normal 4.50 - 6.00 [facility] Comment on above: Performed By: #### 2 06110 ####[facility],[address] [place] [address] 64968 WBC 5.5 x 10EE3/UL Normal 4.5 - 10.8 [facility] Comment on above: Performed By: #### 2 21113 ####[facility],[address] [place], [place] [address] CMP with eGFRon 10-13-2024 AGE 79 years Normal [facility] Comment on above: Performed By: #### 2 21725 ####[facility],[address] [place] [address] 55737 Albumin [Mass/Vol] 3.9 g/dL Normal 3.4 - 5.0 [facility] Comment on above: Performed By: #### 2 01643 ####[facility],[address] [place] [address] 66178 Albumin/Globulin [Mass ratio] 1.3 {ratio} Normal 0.9 - 1.6 [facility] Comment on above: Performed By: #### 2 22499 ####[facility],[address] [place] [address] 61350 ALK PHOS 91 U/L Normal 46 - 116 [facility] Comment on above: Performed By: #### 2 22227 ####[facility],[address] [place] [address] 98449 ALT [Catalytic activity/Vol] 29 U/L Normal 16 - 63 [facility] Comment on above: Performed By: #### 2 30777 ####[facility],[address] [place] [address] 92414 Anion gap [Moles/Vol] 14 mmol/L Normal 10 - 20 [facility] Comment on above: Performed By: #### 2 06251 ####[facility],[address] [place] [address] 70225 AST [Catalytic activity/Vol] 23 U/L Normal 15 - 37 [facility] Comment on above: Performed By: #### 2 19001 ####[facility],[address] [place] [address] 11806 B/C RATIO 19 ratio Normal 0 - 30 [facility] Comment on above: Performed By: #### 2 35959 ####[facility],[address] [place] [address] 45054 Bilirubin [Mass/Vol] 1.1 mg/dL High 0.2 - 1.0 [facility] Comment on above: Performed By: #### 2 81954 ####[facility],[address] [place] [address] 35148 Calcium [Mass/Vol] 9.4 mg/dL Normal 8.5 - 10.1 [facility] Comment on above: Performed By: #### 2 67603 ####[facility],[address] [place] [address] 72196 Chloride [Moles/Vol] 106 mmol/L Normal 98 - 107 [facility] Comment on above: Performed By: #### 2 68769 ####[facility],[address] [place] [address] 79742 CMP with eGFR Normal [facility] Comment on above: Result Comment: COMP REHENSIVE METABOLIC PANEL Performed By: #### 2 15170 ####[facility],[address] [place] [address] 93987 CO2 [Moles/Vol] 29.1 mmol/L Normal 21.0 - 32.0 [facility] Comment on above: Performed By: #### 2 73788 ####[address] [address] Creatinine [Mass/Vol] 0.93 mg/dL Normal 0.70 - 1.30 [facility] Comment on above: Performed By: #### 2 13857 ####[place] [address] GFR/1.73 sq M.predicted among non-blacks MDRD (S/P/Bld) [Vol rate/Area] mL/min/{1.73_m2} Normal 60 - 999 [facility] Comment on above: Performed By: #### 2 65373 ####[facility],[address] [place] [address] Result Comment: ACCO RDING TO THE NATIONAL KIDNEY DISEASE EDUCATION PROGRAM(NKDE), A NORMAL eGFR IS A VALUE GREATER THAN OR EQUAL TO 60 ML/MIN/1.73 SQ METERS. CHRONIC KIDNEY DISEASE: <60mL/MIN/1.73 SQ METERS KIDNEY FAILURE: <15mL/MIN/1.73 SQ METERS THIS TEST SHOULD ONLY BE USED FOR PATIENTS 18 YEARS OF AGE AND OLDER. Globulin (S) [Mass/Vol] 3.0 g/dL Normal 1.5 - 3.8 [facility] Comment on above: Performed By: #### 2 18057 ####[address] [address] Glucose [Mass/Vol] 96 mg/dL Normal 74 - 106 [facility] Comment on above: Performed By: #### 2 11603 ####[address] [address] Potassium [Moles/Vol] 4.1 mmol/L Normal 3.5 - 5.1 [facility] Comment on above: Performed By: #### 2 96347 ####[address] [address] Protein [Mass/Vol] 6.9 g/dL Normal 6.4 - 8.2 [facility] Comment on above: Performed By: #### 2 29199 ####[facility],[address] [place] [address] 55294 Sodium [Moles/Vol] 145 mmol/L Normal 136 - 145 [facility] Comment on above: Performed By: #### 2 19122 ####[facility],[address] [place], [place] [address] Urea nitrogen [Mass/Vol] 18 mg/dL Normal 7 - 18 [facility] Comment on above: Performed By: #### 2 08372 ####[facility],[address] [place], [place] [address] HEMOGLOBIN A1C (POM)on 10-13 Glucose [Mass/Vol] 122.6 mg/dL High 0.0 - 0.0 [facility] Comment on above: Result Comment: BLDo HEMOGLOBIN A1C REFERENCE RANGESBLDo Suggested Diagnosis HbA1c(%) HbA1C (mmol/mol Diabetic >/=6.5 >/=48 Prediabetes 5.7 - 6.4 39 - 47 Normal <5.7 <39 Performed By: #### 2 76128 #### [facility],[address] [place], [place] [address] HbA1c (Bld) [Mass fraction] 5.9 % Normal 0.0 - 6.5 [facility] Comment on above: Performed By: #### 2 67952 #### [facility],[address] [place] [address] 00060 LIPID PROFILEon 10-13-2024 Cholesterol [Mass/Vol] 137 mg/dL Normal 0 - 240 [facility] Comment on above: Performed By: #### 2 23959 #### [facility],[address] [place], [place] [address] Cholesterol in HDL [Mass/Vol] 52 mg/dL Normal 40 - 60 [facility] Comment on above: Performed By: #### 2 13447 #### [facility],[address] [place] [address] 87694 Cholesterol in LDL [Mass/Vol] 72 mg/dL Normal 0 - 129 [facility] Comment on above: Performed By: #### 2 46698 #### [facility],[address] [place] [address] 47262 Cholesterol.total/ Cholesterol in HDL [Mass ratio] 2.6 {ratio} Normal 0.0 - 5.0 [facility] Comment on above: Performed By: #### 2 25506 #### [facility],[address] [place] [address] 64719 Lipid 1996 panel Normal [facility] Comment on above: Result Comment: LIPI D PROFILE Performed By: #### 2 65333 #### [facility],[address] [place] [address] 47556 Triglyceride [Mass/Vol] 65 mg/dL Normal 0 - 150 [facility] Comment on above: Performed By: #### 2 70443 #### [facility],[address] [place] [address] 00486 T4-FREE (FREE THYROXINE)on 0 10-13-2024 Free T4 [Mass/Vol] 1.04 ng/dL Normal 0.76 - 1.46 [facility] Comment on above: Result Comment: P otential of falsely elevated results when biotin concentrations are > 10 ng/mL. Performed By: #### 2 14875 #### [facility],[address] [place] [address] 80576 TSHon 10-13-2024 TSH Qn 2.86 m[IU]/L Normal 0.35 - 3.74 [facility] Comment on above: Performed By: #### 2 90932 #### [facility],[address] [place] [address] 06167 URINE MICROALBUMIN W/CREATIN INE, RANDOMon 10-13-2024 CREATININE UR <13.00 Normal [facility] Comment on above: Performed By: #### 2 28750 #### [facility],[address] [place] [address] 12455 MICROALBUMIN UR <0.13 Normal 0.1 - 25.1 [facility] Comment on above: Performed By: #### 2 90303 #### [facility],[address] [place] [address] 60546 UACR 8 mg/g Normal [facility] Comment on above: Performed By: #### 2 06305 #### [facility],[address] [place] [address] 50424 VITAMIN D, 25 HYDROXYon 05-0 VitD 26.60 ng/mL Low 30.00 - 100 [facility] Comment on above: Result Comment: 25-O HD3 indicates both endogenous production and supplementation. 25-OHD2 is an indicator of exogenous sources, such as diet or supplementation. Therapy is based on measurement of Total 25-OHD, with levels <20 ng/mL indicative of Vitamin D deficiency, while levels between 20 ng/mL and 30 ng/mL suggest insufficiency. Optimal levels are >=30ng/mL. Vitamin D, 25-OH D3 Not Established Vitamin D, 25-OH D2 Not Established Performed By: #### 2 86182 #### [facility],[address] [place] [address] 41655 CNPDaria 09-20-2024 VEDAN Telephone (VLADISLAV) SOY BURCH ([id number]) 1945 M Date Time Provider Department 09/20/24 JAYMIE MIRANDA During your visit today, we recorded the following information about you: Dandy Bruner 09/20/2024 11:05 AM Signed As previously discussed, patient had a episode of VT on 08/25/2024. Report to be scanned. Patient has a pacemaker. No complaints at time of visit. Jesse Gaitan MD 09/20/2024 8:53 PM Signed The pt has previously been evaluated for asymptomatic nonsustained VT. As long as he is not experiencing symptoms, I would not recommend any further evaluation at this time. TEODORO Allergies As of Date: 09/20/2024 Noted Allergy Reaction AMOXICILLIN 03/15/2024 2 - Rash 12 - Shortness of Breath CLINDAMYCIN 10/02/2005 Comments: ER visit -unknown reaction PENICILLINS 10/02/2005 2 - Rash Date Reviewed: 03/15/2024 Reviewed by: Jesse Gaitan MD - Fully Assessed Prescriptions as of 09/20/2024 - dilTIAZem HCl 360 mg 24 hr capsule Take 1 capsule by mouth once daily. - losartan (COZAAR) 50 mg tablet Take 1 tablet by mouth two times a day. - azithromycin (ZITHROMAX) 250 mg tablet TAKE 2 TABLETS BY MOUTH ON DAY 1, AND THEN TAKE 1 TABLET BY MOUTH ONCE A DAY ON DAY 2 THROUGH DAY 5 - metFORMIN ER (GLUCOPHAGE XR) 500 mg 24 hr tablet Take 500 mg by mouth daily at bedtime. - nebivolol (BYSTOLIC) 5 mg tablet Take 1 tablet by mouth once daily. - furosemide (LASIX) 20 mg tablet Take 1 tablet by mouth once daily. - potassium chloride ER (KLOR-CON) 20 mEq tablet Take 1 tablet by mouth once daily. - rosuvastatin (CRESTOR) 40 mg tablet Take 1 tablet by mouth once daily. - ASPIRIN 81 MG TAB Take 81 mg by mouth daily at bedtime. 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, N13.8] 10/02/2005 BLADDER NECK OBSTRUCTION [N32.0] 10/02/2005 Elevated Prostate Specific Antigen (PSA) [R97.2*05/22/2009 Paroxysmal atrial fibrillation (HCC) [I48.0] 02/13/2022 Coronary artery disease [I25.10] 02/13/2022 Tachycardia, unspecified [R00.0] 02/13/2022 Paroxysmal supraventricular tachycardia (HCC) [*02/13/2022 Hypertension [I10] 02/13/2022 Hyperlipidemia [E78.5] 02/13/2022 Aortic stenosis [I35.0] 02/13/2022 Dizziness and giddiness [R42] 02/13/2022 Medication monitoring encounter [Z51.81] 02/13/2022 Abnormal EKG [R94.31] 04/05/2019 Bilateral carotid artery stenosis [I65.23] 04/07/2017 Coarctation of aorta [Q25.1] 11/01/2015 Impaired glucose tolerance [R73.02] 04/05/2019 Nonsustained ventricular tachycardia (HCC) [I47*04/05/2019 Presence of cardiac pacemaker [Z95.0] 11/01/2015 Rash and other nonspecific skin eruption [R21] 01/16/2023 S/P TURP (transurethral resection of prostate) *06/11/2021 Aneurysm of the ascending aorta, without ruptur*02/26/2023 Encounter Status:Closed by JESSE GAITAN on 09/20/24 [facility] .GFRon 08-16-2024 Estimated Glomerular Filtration Rate 79 ml/min/1.73sqm [facility] MAIN Comment on above: Result Comment: Stages of Chronic Kidney Disease (CKD) Stage Description eGFR(ml/min/1.73 sq.m.) CKD 1 Normal kidney function or >=90 normal kindney function with possible kidney damage (ex. Proteinuria) CKD 2 Kidney damage with mild loss 60-89 of kidney function CKD 3a Mild to moderate loss of kidney 45-59 function CKD 3b Moderate to severe loss of 30-44 of kindey function CKD 4 Severe loss of kidney function 15-29 CKD 5 Kidney failure <15 Note: (go live 2024) the eGFR calculation was updated to the 2020 CKD-EPI creatinine equation without a race factor to calculate the eGFR results. Performed By: #### G FR, LIP, LIPID, CMP #### [facility] [address] [place] [id number] CMPon 08-16-2024 Albumin Level 3.6 G/dL Normal 3.2-4.8 [facility] Comment on above: Performed By: #### G FR, LIP, LIPID, CMP #### [facility] [address] [place] [address] Albumin/Globulin [Mass ratio] 1.2 {ratio} Normal 0.9-1.6 [facility] Comment on above: Performed By: #### G FR, LIP, LIPID, CMP #### [address] [address] ALP [Catalytic activity/Vol] 85 U/L Normal 38-126 [facility] Comment on above: Performed By: #### G FR, LIP, LIPID, CMP #### [address] [address] ALT [Catalytic activity/Vol] 20 U/L Normal 12-55 [facility] Comment on above: Performed By: #### G FR, LIP, LIPID, CMP #### [address] [address] AST [Catalytic activity/Vol] 23 U/L Normal 8-34 [facility] Comment on above: Performed By: #### G FR, LIP, LIPID, CMP #### [place] [id number] Bili Total 1.20 mg/dL Normal 0.20-1.20 [facility] Comment on above: Result Comment: Use of this assay is not recommended for patients undergoing treatment with eltrombopag due to the potential for falsely elevated results. Performed By: #### G FR, LIP, LIPID, CMP #### [place] [phone] BUN/Creatinine Ratio 16.7 ratio Normal 10.0-22.0 [facility] Comment on above: Performed By: #### G FR, LIP, LIPID, CMP #### [address] [address] Calcium [Mass/Vol] 9.4 mg/dL Normal 8.7-10.4 [facility] Comment on above: Performed By: #### G FR, LIP, LIPID, CMP #### [address] [address] Chloride [Moles/Vol] 106 mmol/L Normal 98-110 [facility] Comment on above: Performed By: #### G FR, LIP, LIPID, CMP #### [place] [phone] CO2 [Moles/Vol] 34 mmol/L High 22-32 [facility] Comment on above: Performed By: #### G FR, LIP, LIPID, CMP #### [place] [phone] Creatinine [Mass/Vol] 0.96 mg/dL Normal 0.60-1.40 [facility] Comment on above: Result Comment: Test ing performed on Multigig analyzer using enzymatic creatinine methodology. Performed By: #### G FR, LIP, LIPID, CMP #### [place] [phone] Electrolyte Balance 3.0 mEq/L Low 4.0-15.0 [facility] Comment on above: Performed By: #### G FR, LIP, LIPID, CMP #### [place] [phone] Globulin 3.0 G/dL Normal 1.5-3.8 [facility] Comment on above: Performed By: #### G FR, LIP, LIPID, CMP #### [place] [address] Glucose [Mass/Vol] 99 mg/dL Normal 82-115 [facility] Comment on above: Performed By: #### G FR, LIP, LIPID, CMP #### [place] [phone] Potassium [Moles/Vol] 4.2 mmol/L Normal 3.5-5.0 [facility] Comment on above: Performed By: #### G FR, LIP, LIPID, CMP #### [place] [phone] Sodium [Moles/Vol] 143 mmol/L Normal 136-145 [facility] Comment on above: Performed By: #### G FR, LIP, LIPID, CMP #### [place] [phone] Total Protein 6.6 G/dL Normal 5.7-8.2 [facility] Comment on above: Performed By: #### G FR, LIP, LIPID, CMP #### [place] [phone] Urea nitrogen [Mass/Vol] 16.0 mg/dL Normal 8.0-22.0 [facility] Comment on above: Performed By: #### G FR, LIP, LIPID, CMP #### [place] [address] HGMPon 08-16-2024 Erythrocyte distribution width (RBC) [Ratio] 14.1 % Normal 11.5-15.5 [facility] Comment on above: Performed By: #### H GMP #### [place] [address] Hematocrit (Bld) [Volume fraction] 42.7 % Normal 40.0-52.0 [facility] Comment on above: Performed By: #### H GMP #### [place] [address] Hgb 14.7 G/dL Normal 13.0-17.5 [facility] Comment on above: Performed By: #### H GMP #### [place] [address] MCH (RBC) [Entitic mass] 30.9 pg Normal 27.0-33.0 [facility] Comment on above: Performed By: #### H GMP #### [place] [address] MCHC 34.4 G/dL Normal 32.0-36.0 [facility] Comment on above: Performed By: #### H GMP #### [place] [address] MCV (RBC) [Entitic vol] 89.8 fL Normal 81.0-100.0 [facility] Comment on above: Performed By: #### H GMP #### [place] [address] Platelet 184 10 3/mcL Normal 150-450 [facility] Comment on above: Performed By: #### H GMP #### [place] [address] Platelet mean volume (Bld) [Entitic vol] 8.4 fL Normal 6.4-10.5 [facility] Comment on above: Performed By: #### H GMP #### [address] [address] RBC 4.75 10 6/mcL Normal 4.50-6.00 [facility] Comment on above: Performed By: #### H GMP #### [place] [address] WBC 5.4 10 3/mcL Normal 4.5-10.8 [facility] Comment on above: Performed By: #### H GMP #### [place] [address] LABORATORYOrdered By: SYSTEM SYSTEM on 08-16-2024 Albumin BCP dye [Mass/Vol] 3.6 G/dL Normal 3.2 - 4.8 G/dL ADM SS Albumin/Globulin [Mass ratio] 1.2 {ratio} Normal 0.9 - 1.6 ratio ADM SS ALP [Catalytic activity/Vol] 85 U/L Normal 38 - 126 U/L ADM SS ALT No additional P-5'-P [Catalytic activity/Vol] 20 U/L Normal 12 - 55 U/L ADM SS AST [Catalytic activity/Vol] 23 U/L Normal 8 - 34 U/L ADM SS Bilirubin [Mass/Vol] 1.20 mg/dL Normal 0.20 - 1.20 mg/dL ADM SS Comment on above: Interpretive Data: U se of this assay is not recommended for patients undergoing treatment with eltrombopag due to the potential for falsely elevated results. Calcium [Mass/Vol] 9.4 mg/dL Normal 8.7 - 10. 4 mg/dL ADM SS Chloride [Moles/Vol] 106 mmol/L Normal 98 - 110 mEq/L ADM SS CO2 [Moles/Vol] 34 mmol/L High 22 - 32 mEq/L ADM SS Creatinine [Mass/Vol] 0.96 mg/dL Normal 0.60 - 1.40 mg/dL ADM SS Comment on above: Interpretive Data: T esting performed on Multigig analyzer using enzymatic creatinine methodology. Electrolyte Balance 3.0 mEq/L Low 4.0 - 15.0 mEq/L ADM SS Erythrocyte distribution width (RBC) [Ratio] 14.1 % Normal 11.5 - 15.5 % Workflow SS Estimated Glomerular Filtration Rate 79 ml/min/1.73sqm Invalid Interpretation Code Chemistry S Comment on above: Interpretive Data: Stages of Chronic Kidney Disease (CKD) Stage Description eGFR(ml/min/1.73 sq.m.) CKD 1 Normal kidney function or >=90 normal kindney function with possible kidney damage (ex. Proteinuria) CKD 2 Kidney damage with mild loss 60-89 of kidney function CKD 3a Mild to moderate loss of kidney 45-59 function CKD 3b Moderate to severe loss of 30-44 of kindey function CKD 4 Severe loss of kidney function 15-29 CKD 5 Kidney failure <15 Note: (go live 2024) the eGFR calculation was updated to the 2020 CKD-EPI creatinine equation without a race factor to calculate the eGFR results. Globulin 3.0 G/dL Normal 1.5 - 3.8 G/dL ADM SS Glucose [Mass/Vol] 99 mg/dL Normal 82 - 115 mg/dL ADM SS Hematocrit (Bld) [Volume fraction] 42.7 % Normal 40.0 - 52.0 % Workflow SS Hemoglobin (Bld) [Mass/Vol] 14.7 G/dL Normal 13.0 - 17.5 G/dL Workflow SS Lipase [Catalytic activity/Vol] 33 U/L Normal 12 - 53 U/L ADM SS Comment on above: Interpretive Data: * *Note - New Reference Range in effect 20 MCH (RBC) [Entitic mass] 30.9 pg Normal 27.0 - 33.0 pg AH Workflow SS MCHC 34.4 G/dL Normal 32.0 - 36.0 G/dL AH Workflow SS MCV (RBC) [Entitic vol] 89.8 fL Normal 81.0 - 100.0 fL Workflow SS Platelet mean volume (Bld) [Entitic vol] 8.4 fL Normal 6.4 - 10.5 fL Workflow SS Platelets (Bld) [#/Vol] 184 103/mcL Normal 150 - 450 10^3/mcL AH Workflow SS Potassium [Moles/Vol] 4.2 mmol/L Normal 3.5 - 5.0 mEq/L ADM SS Protein [Mass/Vol] 6.6 G/dL Normal 5.7 - 8.2 G/dL ADM SS RBC (Bld) [#/Vol] 4.75 106/mcL Normal 4.50 - 6.00 10^6/mcL AH Workflow SS Sodium [Moles/Vol] 143 mmol/L Normal 136 - 145 mEq/L ADM SS Urea nitrogen [Mass/Vol] 16.0 mg/dL Normal 8.0 - 22.0 mg/dL AH ADM SS Urea nitrogen/Creatinin e [Mass ratio] 16.7 ratio Normal 10.0 - 22.0 ratio AH ADM SS WBC (Bld) [#/Vol] 5.4 103/mcL Normal 4.5 - 10.8 10^3/mcL AH Workflow SS LABORATORYOrdered By: Evie Taylor on 08-16-2024 Cholesterol [Mass/Vol] 131 mg/dL Normal 50 - 199 mg/dL ADM SS Comment on above: Interpretive Data: C holesterol Reference Interval: Less than 200 Desirable 200-239 Borderline high risk 240 and above High risk Cholesterol in HDL [Mass/Vol] 48 mg/dL Normal 40 - 59 mg/dL ADM SS Cholesterol in LDL [Mass/Vol] 67 mg/dL Normal 0 - 129 mg/dL ADM SS Triglyceride [Mass/Vol] 81 mg/dL Normal 3 - 149 mg/dL ADM SS LIPon 08-16-2024 Lipase Level 33 U/L Normal 12-53 [facility] Comment on above: Result Comment: No te - New Reference Range in effect 20 Performed By: #### G FR, LIP, LIPID, CMP #### [address] [address] LIPIDon 08-16-2024 Cholesterol [Mass/Vol] 131 mg/dL Normal 50-199 [facility] Comment on above: Result Comment: Chol esterol Reference Interval: Less than 200 Desirable 200-239 Borderline high risk 240 and above High risk Performed By: #### G FR, LIP, LIPID, CMP #### [address] [address] Cholesterol in HDL [Mass/Vol] 48 mg/dL Normal 40-59 [facility] Comment on above: Performed By: #### G FR, LIP, LIPID, CMP #### [address] [address] Cholesterol in LDL [Mass/Vol] 67 mg/dL Normal 0-129 [facility] Comment on above: Performed By: #### G FR, LIP, LIPID, CMP #### [facility] [address] [place] [address] Triglyceride [Mass/Vol] 81 mg/dL Normal 3-149 [facility] Comment on above: Performed By: #### G SAMIR MORA LIPID, CMP #### [facility] [address] [place] [address] MRI MRCPon 08-16-2024 MRI MRCP ORIGINAL EXAMINATION: MRCP 08/16/2024 10:37 am TECHNIQUE: After initial T2 axial and coronal images, thick slab, thin slab and 3D coronal MRCP sequences were obtained without the administration of intravenous contrast. MIP images are provided for review. COMPARISON: MRI abdomen early in the day HISTORY: ORDERING SYSTEM PROVIDED HISTORY: Reason for Exam: K86.2 CYST OF PANCREAS, R79.89 Abnormal LFTs. Upper abdominal pain. AAA repair. FINDINGS: The liver is normal and there is no intrahepatic biliary dilatation. Gall bladder is surgically absent. The common bile duct and pancreatic ducts are normal in caliber. No choledocholithiasis. Peripheral wedge shaped T2 hyperintense lesion in the spleen measuring 1.5 cm exhibits postcontrast enhancement on comparison MRI abdomen study from earlier in the day, and is likely related to a hemangioma. Multiple T2 hyperintense pancreatic cyst noted. A account representative 1 cm pancreatic head cyst contains a thin septation, with no definite connection with the side branch. Findings may relate to a small serous cystadenoma or IPMN or a sequelae of chronic pancreatitis. A few subcentimeter cyst in the body of pancreas appear to connect with the side branches and are likely side branch IPMN's. The kidneys enhance symmetrically. There is no hydronephrosis. Multiple small cortical and parapelvic simple renal cyst bilaterally. The gastrointestinal tract is also unremarkable. No pathologically enlarged lymph nodes are demonstrated. No intraperitoneal free fluid. There is no focal dilation of the abdominal aorta. IMPRESSION: Multiple pancreatic cyst. A account representative 1 cm septated pancreatic head cyst, with no solid enhancing nodule or other high risk stigmata. Findings may relate to a small serous cystadenoma or IPMN or a sequelae of chronic pancreatitis. Recommend follow-up with MR pancreas protocol in 1 year. A few subcentimeter cyst in the body of pancreas appear to connect with the side branches and are likely side branch IPMN's. I have personally reviewed the images of this examination and agree with the resident's finding and interpretation. Interpreted by: Israel Cisse Preliminary Report By: Armand Tinsley Electronically signed By Israel Cisse Dictated Date: 08/16/2024 11:12:47 AM Prelim Date: 08/16/2024 3:34:59 PM Sign Date: 08/16/2024 3:34:59 PM Ordering Provider: CONNIE FREY [facility] MAIN MRI PANCREASon 08-16-2024 MRI PANCREAS ORIGINAL EXAMINATION: MRI OF THE ABDOMEN WITHOUT AND WITH CONTRAST, 08/16/2024 10:39 am MRI PANCREAS TECHNIQUE: Multiplanar multisequence MRI of the abdomen was performed without and with the administration of intravenous contrast. COMPARISON: MRCP from same day. HISTORY: ORDERING SYSTEM PROVIDED HISTORY: Reason for Exam: K86.2 Cyst of pancreas FINDINGS: Limited views of the lower chest demonstrate an unremarkable MR appearance of the lung bases. No pleural or pericardial effusion. The gallbladder is surgically absent. No biliary ductal dilation is demonstrated. The liver, and adrenal glands demonstrate no suspicious lesion. Peripheral enhancing T2 hyperintense lesion in the spleen measuring 1.5 cm is likely related to a hemangioma. Multiple T2 hyperintense pancreatic cyst noted. A account representative 1 cm nonenhancing pancreatic head cyst contains a thin septation, no definite connection with the side branches, no solid enhancing nodule or other high risk stigmata noted. Findings may relate to a small serous cystadenoma or IPMN or a sequelae of chronic pancreatitis. A few additional subcentimeter cysts within the body and tail of the pancreas appear to connect with the side branches and are likely side branch IPMN's. Pancreatic duct is normal in caliber. The kidneys enhance symmetrically. There is no hydronephrosis. Multiple cortical and parapelvic simple renal cyst bilaterally. The gastrointestinal tract is also unremarkable. No pathologically enlarged lymph nodes are demonstrated. No intraperitoneal free fluid. There is no focal dilation of the abdominal aorta. Mild stenosis of proximal celiac artery at its origin. There is poststenotic dilation of the celiac artery measuring up to 1.1 cm. Findings may be seen with median arcuate ligament syndrome. IMPRESSION: Multiple pancreatic cyst. A account representative 1 cm septated nonenhancing pancreatic head cyst, with no solid enhancing nodule or other high risk stigmata. Findings may relate to a small serous cystadenoma or IPMN or a sequelae of chronic pancreatitis. Recommend follow-up with MR pancreas protocol in 1 year. A few subcentimeter nonenhancing cyst in the body of pancreas appear to connect with the side branches and are likely side branch IPMN's. Attention on follow-up as above. Mild stenosis of proximal celiac artery with poststenotic dilation, findings may be seen with median arcuate ligament syndrome. I have personally reviewed the images of this examination and agree with the resident's finding and interpretation. RECOMMENDATIONS: Subcentimeter right Bosniak I benign renal cyst. No follow-up imaging is recommended. [employer] 2021; [id number], Bosniak Classification of Cystic Renal Masses, Version 2019. Interpreted by: Israel Cisse Preliminary Report By: Armand Tinsley Electronically signed By Israel Cisse Dictated Date: 08/16/2024 11:35:37 AM Prelim Date: 08/16/2024 3:35:39 PM Sign Date: 08/16/2024 3:35:39 PM Ordering Provider: CONNIE Anguiano [facility] Addi 07-13-2024 MARJ Telephone (CARMOB) SOY BURCH ([id number]) 1945 M Date Time Provider Department 07/13/24 JAYMIE MIRANDA During your visit today, we recorded the following information about you: Ibis Garcia 07/13/2024 10:29 AM Signed Received a device management form from [facility]. Will scan into chart and place in bin for review. Dandy Bruner 07/13/2024 3:58 PM Signed Completed and faxed. Estefany Villarreal 07/14/2024 10:27 AM Signed Scanned signed clearance into chart. Allergies As of Date: 07/13/2024 Noted Allergy Reaction AMOXICILLIN 03/15/2024 2 - Rash 12 - Shortness of Breath CLINDAMYCIN 10/02/2005 Comments: ER visit -unknown reaction PENICILLINS 10/02/2005 2 - Rash Date Reviewed: 03/15/2024 Reviewed by: Jesse Gaitan MD - Fully Assessed Reason for Visit: Cardiac Clearance [4105] Prescriptions as of 07/14/2024 - dilTIAZem HCl 360 mg 24 hr capsule Take 1 capsule by mouth once daily. - losartan (COZAAR) 50 mg tablet Take 1 tablet by mouth two times a day. - azithromycin (ZITHROMAX) 250 mg tablet TAKE 2 TABLETS BY MOUTH ON DAY 1, AND THEN TAKE 1 TABLET BY MOUTH ONCE A DAY ON DAY 2 THROUGH DAY 5 - metFORMIN ER (GLUCOPHAGE XR) 500 mg 24 hr tablet Take 500 mg by mouth daily at bedtime. - nebivolol (BYSTOLIC) 5 mg tablet Take 1 tablet by mouth once daily. - furosemide (LASIX) 20 mg tablet Take 1 tablet by mouth once daily. - potassium chloride ER (KLOR-CON) 20 mEq tablet Take 1 tablet by mouth once daily. - rosuvastatin (CRESTOR) 40 mg tablet Take 1 tablet by mouth once daily. - ASPIRIN 81 MG TAB Take 81 mg by mouth daily at bedtime. 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, N13.8] 10/02/2005 BLADDER NECK OBSTRUCTION [N32.0] 10/02/2005 Elevated Prostate Specific Antigen (PSA) [R97.2*05/22/2009 Paroxysmal atrial fibrillation (HCC) [I48.0] 02/13/2022 Coronary artery disease [I25.10] 02/13/2022 Tachycardia, unspecified [R00.0] 02/13/2022 Paroxysmal supraventricular tachycardia (HCC) [*02/13/2022 Hypertension [I10] 02/13/2022 Hyperlipidemia [E78.5] 02/13/2022 Aortic stenosis [I35.0] 02/13/2022 Dizziness and giddiness [R42] 02/13/2022 Medication monitoring encounter [Z51.81] 02/13/2022 Abnormal EKG [R94.31] 04/05/2019 Bilateral carotid artery stenosis [I65.23] 04/07/2017 Coarctation of aorta [Q25.1] 11/01/2015 Impaired glucose tolerance [R73.02] 04/05/2019 Nonsustained ventricular tachycardia (HCC) [I47*04/05/2019 Presence of cardiac pacemaker [Z95.0] 11/01/2015 Rash and other nonspecific skin eruption [R21] 01/16/2023 S/P TURP (transurethral resection of prostate) *06/11/2021 Aneurysm of the ascending aorta, without ruptur*02/26/2023 Encounter Status:Closed by DANDY BRUNER on 07/13/24 [facility] CNOVon 06-17-2024 CNOV Office Visit (CARMOB ) SOY BURCH ([id number]) 1945 M Date Time Provider Department 06/17/24 3:45 PM REM DEVICE CHECK [facility] MAIN CARMOB During your visit today, we recorded the following information about you: Allergies As of Date: 06/17/2024 Noted Allergy Reaction AMOXICILLIN 03/15/2024 2 - Rash 12 - Shortness of Breath CLINDAMYCIN 10/02/2005 Comments: ER visit -unknown reaction PENICILLINS 10/02/2005 2 - Rash Date Reviewed: 03/15/2024 Reviewed by: Jesse Gaitan MD - Fully Assessed Reason for Visit: Follow Up [171] Primary Visit Diagnosis:SSS (sick sinus syndrome) ([facility]) [I49.5] Prescriptions as of 07/05/2024 - dilTIAZem HCl 360 mg 24 hr capsule Take 1 capsule by mouth once daily. - losartan (COZAAR) 50 mg tablet Take 1 tablet by mouth two times a day. - azithromycin (ZITHROMAX) 250 mg tablet TAKE 2 TABLETS BY MOUTH ON DAY 1, AND THEN TAKE 1 TABLET BY MOUTH ONCE A DAY ON DAY 2 THROUGH DAY 5 - metFORMIN ER (GLUCOPHAGE XR) 500 mg 24 hr tablet Take 500 mg by mouth daily at bedtime. - nebivolol (BYSTOLIC) 5 mg tablet Take 1 tablet by mouth once daily. - furosemide (LASIX) 20 mg tablet Take 1 tablet by mouth once daily. - potassium chloride ER (KLOR-CON) 20 mEq tablet Take 1 tablet by mouth once daily. - rosuvastatin (CRESTOR) 40 mg tablet Take 1 tablet by mouth once daily. - ASPIRIN 81 MG TAB Take 81 mg by mouth daily at bedtime. 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, N13.8] 10/02/2005 BLADDER NECK OBSTRUCTION [N32.0] 10/02/2005 Elevated Prostate Specific Antigen (PSA) [R97.2*05/22/2009 Paroxysmal atrial fibrillation (HCC) [I48.0] 02/13/2022 Coronary artery disease [I25.10] 02/13/2022 Tachycardia, unspecified [R00.0] 02/13/2022 Paroxysmal supraventricular tachycardia (HCC) [*02/13/2022 Hypertension [I10] 02/13/2022 Hyperlipidemia [E78.5] 02/13/2022 Aortic stenosis [I35.0] 02/13/2022 Dizziness and giddiness [R42] 02/13/2022 Medication monitoring encounter [Z51.81] 02/13/2022 Abnormal EKG [R94.31] 04/05/2019 Bilateral carotid artery stenosis [I65.23] 04/07/2017 Coarctation of aorta [Q25.1] 11/01/2015 Impaired glucose tolerance [R73.02] 04/05/2019 Nonsustained ventricular tachycardia (HCC) [I47*04/05/2019 Presence of cardiac pacemaker [Z95.0] 11/01/2015 Rash and other nonspecific skin eruption [R21] 01/16/2023 S/P TURP (transurethral resection of prostate) *06/11/2021 Aneurysm of the ascending aorta, without ruptur*02/26/2023 Encounter Status:Closed by DANDY BRUNER on 07/05/24 [facility] CORONAVIRUS PCR - [facility] 06-13-2024 SARS-CoV-2 (COVID-19) RNA RYLAND+probe Ql (Unsp spec) Negative Normal NORMAL: NEGATIVE [facility] Comment on above: Performed By: #### [id number] ####[facility],[address] [place] [address] SEND TO ? NO Normal [facility] Comment on above: Result Comment: RESU LTS FAXED TO INFECTION CONTROL. SARS-CoV-2 THIS TEST IS BEING USED UNDER THE FDA EUA PROCEDURE. THIS ASSAY HAS BEEN VALIDATED IN THE [facility] [place] [facility] FOR USE WITH NASOPHARYNGEAL SPECIMENS IN [facility]. INTERPRETIVE DATA LABORATORY TEST RESULTS SHOULD ALWAYS BE CONSIDERED IN THE CONTEXT OF CLINICAL OBSERVATIONS AND EPIDEMIOLOGICAL DATA IN MAKING FINAL DIAGNOSIS AND PATIENT MANAGEMENT DECISIONS. PATIENT MANAGEMENT SHOULD FOLLOW CURRENT CDC GUIDELINES. A POSITIVE TEST RESULT FOR COVID-19 INDICATES THAT RNA FROM SARS-CoV-2 WAS DETECTED, AND THE PATIENT IS INFECTED WITH THE VIRUS AND PRESUMED TO BE CONTAGIOUS. A NEGATIVE TEST RESULT FOR THIS TEST MEANS THAT SARS-CoV-2 RNA WAS NOT PRESENT IN THE SPECIMEN ABOVE THE LIMIT OF DETECTION. HOWEVER, A NEGATVIE RESULT DOES NOT RULE OUT COVID-19 AND SHOULD NOT BE USED THE SOLE BASIS FOR TREATMENT OR PATIENT MANAGEMENT DECISIONS. A NEGATIVE RESULT DOES NOT EXCLUDE THE POSSIBILITY OF COVID-19. WHEN DIAGNOSTIC TESTING IS NEGATIVE, THE POSSIBLILTY OF A FALSE NEGATIVE RESULT SHOULD BE CONSIDERED IN THE CONTEXT OF A PATIENT'S RECENT EXPOSURES AND THE PRESENCE OF CLINICAL SIGNS AND SYMPTOMS CONSISTENT WITH COVID-19. THE POSSIBILITY OF A FALSE NEGATIVE RESULT SHOULD ESPECIALLY BE CONSIDERED IF THE PATIENT'S RECENT EXPOSURES OR CLINICAL PRESENTATION INDICATE THAT COVID-19 IS LIKELY, AND DIAGNOSTIC TESTS FOR OTHER CAUSES OF ILLNESS (e.g., OTHER RESPIRATORY ILLNESS) ARE NEGATIVE. IF COVID-19 IS STILL SUSPECTED BASED ON EXPOSURE HISTORY TOGETHER WITH OTHER CLINICAL FINDINGS, RE-TESTED SHOULD BE CONSIDERED BY HEALTHCARE PROVIDERS IN CONSULTATION WITH PUBLIC HEALTH AUTHORITIES. Performed By: #### 2 [id number] ####[facility],[address] [place], [place] [address] CV ECHO COMPLETE CV ECHO [place] [address] Patient: SOY BURCH Phone#: : 1945 Age: 79 Gender: M Pt. Type: Out Account: [id number] Location: [facility] Ordering: VALENCIA SUBRAMANIAN Exam Date: 06/13/2024/9:12 Family Phys: JOSE MIGUEL GRANADOS Charge Code: [id number] Physician: [facility] Order #: [id number] Dose#: PROCEDURE: ECHOCARDIOGRAM WITH DOPPLER AND COLOR FLOW HISTORY: Patient is an 79-year-old male with history of CAD INDICATIONS: Chest pain COMPARISON: None. TECHNIQUE: A 2-D ultrasound, color spectral Doppler and M-mode evaluation of the heart and great vessels. PATIENT MEASUREMENTS: Height (in.): 67 BSA: 2.03 Weight (lbs.): 192 BP: 139/68 Solar Tech: DOUGLAS M MODE 2D MEASUREMENTS AND CALCULATIONS: LVIDd: 4.67 cm LVIDs: 2.01 cm IVSd: 0.93 cm LVPWd: 0.93 cm LVOT diam: 2.24 cm FS: 56.96 % Ao Root diam: 2.83 cm LA diam: 3.8 cm LA Volume Index: 27 mL/m2 LA A4 Area: 21.33 cm2 RA A4 Area: 16.5 cm2. RVDd: 3.51 cm TAPSE: 22 mm DOPPLER MEASUREMENTS AND CALCULATIONS MITRAL MV E MAX brent: 1.19 m/s MV A MAX brent: 0.96 m/s MV E-A ratio: 1.24 MVA VTI 2.66 cm2 MV V2 max: 1.26 m/s MV max P.40 mm[Hg] MV V2 mean: 0.53 m/s Continued Report - Page 2 of 3 Patient: SOY BURCH Phone#: : 1945 Age: 79 Gender: M Pt. Type: Out Account: [id number] Location: [facility] Ordering: VALENCIA SUBRAMANIAN Exam Date: 06/13/2024/9:12 Family Phys: JOSE MIGUEL GRANADOS Charge Code: [id number] Physician: [facility] Order #: [id number] Dose#: MV mean P.61 mm[Hg] MV V2 VTI: 35.50 cm Lat Peak E' Brent 7 cm/sec Septal Peak E' BRENT 9 cm/sec E/E' lateral 16 E/E' medial 14 AORTIC Ao V2 max: 4.13 m/s Ao max P.23 mm[Hg] Ao V2 mean: 3.6 m/s Ao mean P.24 mm[Hg] Ao V2 VTI: 102.3 cm WILFREDO (V Max): 0.8 cm2 WILFREDO (VTI): 0.89 cm2 LV V1 Max 0.98 m/s LV V1 Max PG 3.85 mm[Hg] LV V1 Mean PG 2.30 mm[Hg] LV V1 mean 0.73 m/s LV V1 VTI 24.02 cm PULMONIC PA V2 Max 1.09 m/s PA Max PG 4.72 mm[Hg] TRICUSPID TR Max Brent 3.00 m/s TR max PG 36.17 mm[Hg] RVSP 41 mm Hg 2D/M-MODE AND COLOR FLOW LEFT VENTRICLE: Left ventricle is normal in size and thickness. Systolic ejection fraction 55-60% with normal wall motion. WALL MOTION: 1 - Basal anterior: Normal. 7 - Mid anterior: Normal. 13 - Apical anterior: Normal. 2 - Basal anteroseptal: Normal. 8 - Mid anteroseptal: Normal. 14 - Apical septal: Normal. 3 - Basal inferoseptal: Normal. 9 - Mid inferoseptal: Normal. 15 - Apical inferior: Normal. 4 - Basal inferior: Normal. 10-Mid inferior: Normal. 16 - Apical lateral: Normal. 5 - Basal inferolateral: Normal. 11-Mid inferolateral: Normal. 6 - Basal anterolateral: Normal. 12-Mid anterolateral: Normal. RIGHT VENTRICLE: Right ventricle is normal in size and systolic function LEFT ATRIUM: Left atrium is normal in size. RIGHT ATRIUM: Right atrium is normal size. Continued Report - Page 3 of 3 Patient: SOY BURCH Phone#: : 1945 Age: 79 Gender: M Pt. Type: Out Account: [id number] Location: [facility] Ordering: VALENCIA MCCARTHYALKA Exam Date: 06/13/2024/9:12 Family Phys: JOSE MIGUEL GRANADOS Charge Code: [id number] Physician: [facility] Order #: [id number] Dose#: ATRIAL SEPTUM: Agitated saline did not show any [id number] shunt at rest and provocation. MITRAL VALVE: There is mild mitral annular calcification seen. Mitral valve appears normal structure. There is trivial regurgitation no stenosis seen. TRICUSPID VALVE: Tricuspid valve is inadequately visualized. Doppler shows trivial regurgitation. There is no stenosis seen AORTIC VALVE: Aortic valve is probably trileaflet. It is severely calcified. Maximum velocity across the valve 4.13 m/sec with mean gradient of 45 mm Hg. There is severe aortic valve stenosis and trivial regurgitation seen. PULMONIC VALVE: Pulmonic valve is inadequately visualized. There is trivial regurgitation and no stenosis seen. AORTIC ROOT: Aortic root is normal in size. AORTIC ARCH: Inadequately visualized DESC THORACIC AORTA: Inadequately visualized. Doppler shows normal flow IVC/SVC: IVC is normal in size with more than 50% collapse of inspiration. Estimated atrial pressure is 3 mm Hg. PULMONARY VEINS: Systolic flow blunting seen. PERICARDIUM: There is no pericardial effusion seen. CONCLUSION: 1. Left ventricle is normal in size and thickness. Systolic ejection fraction is 55-60% with normal wall motion. 2. There is mild mitral annular calcification seen. There is trivial mitral valve regurgitation 3. Aortic valve is probably trileaflet and severely calcified. There is severe aortic valve stenosis and trivial regurgitation seen 4. Right ventricle is normal in size and systolic function 5. Estimated with systolic pressure is 41 mm Hg. Dictated by: JORJE Saeed (more content not included)... Normal [facility] [place] CARDIAC STRESS (SPECT) W/[place] [address] Patient: SOY BURCH Phone#: : 1945 Age: 79 Gender: M Pt. Type: In Account: [id number] Location: [facility] Ordering: VALENCIA SUBRAMANIAN Exam Date: 06/13/2024/6:34 Family Phys: JOSE MIGUEL GRANADOS Charge Code: [id number] Physician: [facility] Order #: [id number] Dose#: PROCEDURE: CARDIAC STRESS SPECT WITH LEXISCAN HISTORY: Patient 79-year-old male with history of hypertension COMPARISON: None. INDICATIONS: Chest pain TECHNIQUE: Resting and post Lexiscan stress SPECT images acquired in the horizontal long, vertical long and short axis views. Protocol: Lexiscan Duration: 0.4mg over 10 seconds Peak Heart Rate: 101 bpm, which is 72% of maximum predicted heart rate. Workload: not applicable REST DOSE: 11.8 mCi Sestamibi. STRESS DOSE: 34.4 mCi Sestamibi. INTERPRETATION: Resting Images: Resting images showed mild perfusion defect in the basal to mid inferior wall which improved with stress. There is small area of mild perfusion defect in the apical wall. Post Lexiscan stress Images: Post Lexiscan images showed there is small area of mild perfusion defect in the apical wall improved from resting images suggestive of attenuation artifact. There rest of the left ventricle have normal perfusion Gated SPECT/wall motion: Calculated ejection fraction is 56%. There are no regional wall motion abnormality seen. TID ratio is 1.11 CONCLUSION: 1. Nuclear stress test showed no conclusive evidence of reversible ischemia or infarct. 2. Calculated ejection fraction is 56% with normal wall motion 3. TID ratio is normal. Dictated by: JORJE BENTLEY MD on 06/13/2024 at 10:36 Continued Report - Page 2 of 2 Patient: SOY BURCHJanusz Phone#: : 1945 Age: 79 Gender: M Pt. Type: In Account: [id number] Location: 011 Ordering: YASSER OMRAN Exam Date: 06/13/2024/6:34 Family Phys: DEVANGROS DYLANF Charge Code: [id number] Physician: [facility] Order #: [id number] Dose#: Approved by: JORJE BENTLEY MD on 06/13/2024 at 10:38 Normal [facility] NM EXERCISE STRESS TEST (W/C ARDIAC STUDYon 06-13-2024 NM EXERCISE STRESS TEST (W/CARDIAC STUDY [place] [address] Patient: SOY BURCHJanusz Phone#: : 1945 Age: 79 Gender: M Pt. Type: Out Account: [id number] Location: 011 Ordering: YASSER OMRAN Exam Date: 06/13/2024/6:34 Family Phys: BUTROS LATOUF Charge Code: [id number] Physician: [facility] Order #: [id number] Dose#: PROCEDURE: ELECTROCARDIOGRAM STRESS TEST HISTORY: Patient is an 79-year-old male with history of diabetes cholesterol and hypertension COMPARISON: None. INDICATIONS: Chest pain TECHNIQUE: Electrocardiogram stress test was performed using the protocol listed below. STRESS RESULTS: Protocol: Anders Duration: 05:12minutes Lexiscan administered in recovery d/t:shortness of breath Resting Heart Rate: 61 bpm. Resting Blood Pressure: 166/71 mmHg Peak Heart Rate: 101 which is 72% of maximum predicted heart rate Blood pressure with Lexiscan With Lexiscan infusion blood pressure increased to152/57 Workload: 5.85 METs. Symptoms with stress: Patient did not reach target heart rate due to shortness of breath. Regadenoson was administered. Patient complain of chest tightness with regadenoson which improved during recovery. EKG Data EKG at Baseline: EKG at baseline showed sinus rhythm at 61 BPM. Rightward axis. There are no ST or T-wave abnormality seen. EKG with Stress: EKG with stress showed sinus tachycardia at [address] or T-wave changes to suggest inducible ischemia CONCLUSION: 1. Patient was not able to achieve target heart rate due to shortness of breath. Regadenoson was administered and patient complained of chest pain which improved during recovery. 2. Patient had appropriate heart rate and blood pressure response with stress. 3. Stress EKG is negative for inducible ischemia. 4. Nuclear images will be read and reported separately. [place] [address] Patient: SOY BURCH Phone#: : 1945 Age: 79 Gender: M Pt. Type: Out Account: [id number] Location: [facility] Ordering: VALENCIA SUBRAMANIAN Exam Date: 06/13/2024/6:34 Family Phys: JOSE MIGUEL GRANADOS Charge Code: [id number] Physician: [facility] Order #: [id number] Dose#: Dictated by: JORJE BENTLEY MD on 06/13/2024 at 10:08 Approved by: JORJE BENTLEY MD on 06/13/2024 at 10:12 [facility] TROPONIN I, HIGH SENSITIVITY on 06-13-2024 HS TROPONIN 13.5 pg/mL Normal 0.0 - 76.2 [facility] Comment on above: Performed By: #### 2 64495 #### [facility],[address] [place], [place] [address] AMYLASEon 06-12-2024 Amylase [Catalytic activity/Vol] 58 U/L Normal 25 - 115 [facility] Comment on above: Performed By: #### 2 84912 #### [facility],[address] [place] [address] CBC + DIFFon 06-12-2024 Baso # 0.03 x10EE3/UL Normal 0.00 - 0.10 [facility] Comment on above: Performed By: #### 2 09309 ####[facility],[address] [place] [address] Basophils/100 WBC (Bld) 0.3 % Normal 0.0 - 2.0 [facility] Comment on above: Performed By: #### 2 67626 ####[facility],[address] [place] [address] CBC + DIFF Normal [facility] Comment on above: Result Comment: CBC- COMPLETE BLOOD COUNT Performed By: #### 2 62336 ####[facility],[address] [place] [address] EO # 0.10 x10EE3/UL Normal 0.00 - 0.50 [facility] Comment on above: Performed By: #### 2 48444 ####[facility],[address] [place] [address]1984 Eosinophils/100 WBC (Bld) 1.1 % Normal 0.0 - 7.0 [facility] Comment on above: Performed By: #### 2 27625 ####[facility],[address] [place], [place] [address] Erythrocyte distribution width (RBC) [Ratio] 13.7 % Normal 12.0 - 15.6 [facility] Comment on above: Performed By: #### 2 03119 ####[facility],[address] [place], [place] [address] Hematocrit (Bld) [Volume fraction] 37.8 % Low 40.0 - 52.0 [facility] Comment on above: Performed By: #### 2 30537 ####[facility],[address] [place] [address] Hemoglobin (Bld) [Mass/Vol] 13.1 g/dL Normal 13.0 - 17.5 [facility] Comment on above: Performed By: #### 2 94332 ####[facility],[address] [place] [address] Lymph # 0.90 x10EE3/UL Normal 0.80 - 2.80 [facility] Comment on above: Performed By: #### 2 05038 ####[facility],[address] [place] [address] Lymphocytes/100 WBC (Bld) 9.7 % Low 20.0 - 45.0 [facility] Comment on above: Performed By: #### 2 77647 ####[facility],[address] [place], [place] [address] MANUAL DIFF N/A Normal [facility] Comment on above: Performed By: #### 2 46928 ####[facility],[address] [place], [place] [address] MCH (RBC) [Entitic mass] 32 pg Normal 27 - 33 [facility] Comment on above: Performed By: #### 2 12912 ####[facility],[address] [place] [address] MCHC 35 X10 3 Normal 32 - 36 [facility] Comment on above: Performed By: #### 2 81082 ####[facility],[address] [place] [address]493 MCV (RBC) [Entitic vol] 93 fL Normal 81 - 98 [facility] Comment on above: Performed By: #### 2 66975 ####[facility],[address] [place] [address]014 [place] # 0.88 x10EE3/UL Normal 0.20 - 1.00 [facility] Comment on above: Performed By: #### 2 99810 ####[facility],[address] [place] [address] 93677 MONOS % 9.5 % Normal 0.0 - 10.0 [facility] Comment on above: Performed By: #### 2 59871 ####[facility],[address] [place] [address] Morphology Hay (Bld) [Interp] N/A Normal [facility] Comment on above: Performed By: #### 2 53002 ####[facility],[address] [place] [address]77 Neut # 7.30 x10EE3/UL High 1.50 - 7.10 [facility] Comment on above: Performed By: #### 2 66913 ####[facility],[address] [place] [address] 05101 Neutrophils/100 WBC (Bld) 79.3 % High 46.0 - 76.0 [facility] Comment on above: Performed By: #### 2 22595 ####[facility],[address] [place] [address] 74781 PLATELET 171 x10EE3/UL Normal 150 - 450 [facility] Comment on above: Performed By: #### 2 47940 ####[facility],[address] [place] [address] 01492 Platelet mean volume (Bld) [Entitic vol] 8.6 fL Normal 6.4 - 10.5 [facility] Comment on above: Result Comment: AUTO MATED DIFFERENTIAL Performed By: #### 2 20247 ####[facility],[address] [place] [address]2110 RBC 4.09 x 10EE6/UL Low 4.50 - 6.00 [facility] Comment on above: Performed By: #### 2 57433 ####[facility],[address] [place] [address] 25433 WBC 9.2 x 10EE3/UL Normal 4.5 - 10.8 [facility] Comment on above: Performed By: #### 2 15575 ####[facility],[address] [place] [address]502 CMP with eGFRon 06-12-2024 AGE 79 years Normal [facility] Comment on above: Performed By: #### 2 83865 ####[facility],[address] [place] [address] 60361 Albumin [Mass/Vol] 2.8 g/dL Low 3.4 - 5.0 [facility] Comment on above: Performed By: #### 2 14886 ####[facility],[address] [place], [place] [address] Albumin/Globulin [Mass ratio] 0.8 {ratio} Low 0.9 - 1.6 [facility] Comment on above: Performed By: #### 2 04995 ####[facility],[address] [place] [address] 99126 ALK PHOS 85 U/L Normal 46 - 116 [facility] Comment on above: Performed By: #### 2 65704 ####[facility],[address] [place] [address] 71779 ALT [Catalytic activity/Vol] 30 U/L Normal 16 - 63 [facility] Comment on above: Performed By: #### 2 79206 ####[facility],[address] [place] [address] 06308 Anion gap [Moles/Vol] 13 mmol/L Normal 10 - 20 [facility] Comment on above: Performed By: #### 2 83647 ####[facility],[address] [place] [address] 73113 AST [Catalytic activity/Vol] 25 U/L Normal 15 - 37 [facility] Comment on above: Performed By: #### 2 95466 ####[facility],[address] [place] [address] 91169 B/C RATIO 13 ratio Normal 0 - 30 [facility] Comment on above: Performed By: #### 2 20872 ####[facility],[address] [place] [address] 87021 Bilirubin [Mass/Vol] 1.8 mg/dL High 0.2 - 1.0 [facility] Comment on above: Performed By: #### 2 39428 ####[facility],[address] [place] [address] 31519 Calcium [Mass/Vol] 8.5 mg/dL Normal 8.5 - 10.1 [facility] Comment on above: Performed By: #### 2 78848 ####[facility],[address] [place] [address] 04518 Chloride [Moles/Vol] 106 mmol/L Normal 98 - 107 [facility] Comment on above: Performed By: #### 2 79716 ####[facility],[address] [place] [address] 51629 CMP with eGFR Normal [facility] Comment on above: Result Comment: COMP REHENSIVE METABOLIC PANEL Performed By: #### 2 82407 ####[facility],[address] [place] [address] 89924 CO2 [Moles/Vol] 26.0 mmol/L Normal 21.0 - 32.0 [facility] Comment on above: Performed By: #### 2 59103 ####[facility],[address] [place] [address] 98782 Creatinine [Mass/Vol] 0.85 mg/dL Normal 0.70 - 1.30 [facility] Comment on above: Performed By: #### 2 36414 ####[facility],[address] [place] [address] 68467 GFR/1.73 sq M.predicted among non-blacks MDRD (S/P/Bld) [Vol rate/Area] mL/min/{1.73_m2} Normal 60 - 999 [facility] Comment on above: Performed By: #### 2 56951 ####[facility],[address] [place] [address] 98172 Result Comment: ACCO RDING TO THE NATIONAL KIDNEY DISEASE EDUCATION PROGRAM(NKDE), A NORMAL eGFR IS A VALUE GREATER THAN OR EQUAL TO 60 ML/MIN/1.73 SQ METERS. CHRONIC KIDNEY DISEASE: <60mL/MIN/1.73 SQ METERS KIDNEY FAILURE: <15mL/MIN/1.73 SQ METERS THIS TEST SHOULD ONLY BE USED FOR PATIENTS 18 YEARS OF AGE AND OLDER. Globulin (S) [Mass/Vol] 3.3 g/dL Normal 1.5 - 3.8 [facility] Comment on above: Performed By: #### 2 39651 ####[address] [address] Glucose [Mass/Vol] 82 mg/dL Normal 74 - 106 [facility] Comment on above: Performed By: #### 2 17663 ####[address] [address] Potassium [Moles/Vol] 4.0 mmol/L Normal 3.5 - 5.1 [facility] Comment on above: Performed By: #### 2 80160 ####[address] [address] Protein [Mass/Vol] 6.1 g/dL Low 6.4 - 8.2 [facility] Comment on above: Performed By: #### 2 60956 ####[address] [address] Sodium [Moles/Vol] 141 mmol/L Normal 136 - 145 [facility] Comment on above: Performed By: #### 2 57367 ####[address] [address] Urea nitrogen [Mass/Vol] 11 mg/dL Normal 7 - 18 [facility] Comment on above: Performed By: #### 2 32009 ####[facility],[address] [place] [address] LIPASEon 06-12-2024 Lipase [Catalytic activity/Vol] 54.0 U/L Normal 15.0 - 78.0 [facility] Comment on above: Result Comment: *PLE ASE NOTE THAT RANGES FOR LIPASE HAVE CHANGED OF 06/12/23 DUE TO AN ASSAY UPDATE BY THE HAT MEASURER.THE NEW ASSAY RANGE IS 6-250 U/L, WITH A REFERENCE RANGE OF 16-77 U/L. Performed By: #### 2 19570 ####[facility],[address] [place] [address] TROPONIN I, HIGH SENSITIVITY on 06-12-2024 HS TROPONIN 25.7 pg/mL Normal 0.0 - 76.2 [facility] Comment on above: Performed By: #### 2 11903 #### [facility],[address] [place] [address] HS TROPONIN 24.4 pg/mL Normal 0.0 - 76.2 [facility] Comment on above: Performed By: #### 2 74239 ####[facility],[address] [place] [address] CBC + DIFFon 06-11-2024 Baso # 0.04 x10EE3/UL Normal 0.00 - 0.10 [facility] Comment on above: Performed By: #### 2 41414 #### [facility],[address] [place] [address] Basophils/100 WBC (Bld) 0.3 % Normal 0.0 - 2.0 [facility] Comment on above: Performed By: #### 2 36235 #### [facility],[address] [place] [address] CBC + DIFF Normal [facility] Comment on above: Result Comment: CBC- COMPLETE BLOOD COUNT Performed By: #### 2 12567 #### [facility],[address] [place] [address] 26165 EO # 0.13 x10EE3/UL Normal 0.00 - 0.50 [facility] Comment on above: Performed By: #### 2 23333 #### [facility],[address] [place], [place] [address] Eosinophils/100 WBC (Bld) 1.0 % Normal 0.0 - 7.0 [facility] Comment on above: Performed By: #### 2 05962 #### [facility],[address] [place] [address] Erythrocyte distribution width (RBC) [Ratio] 13.5 % Normal 12.0 - 15.6 [facility] Comment on above: Performed By: #### 2 38776 #### [place] [address] Hematocrit (Bld) [Volume fraction] 45.1 % Normal 40.0 - 52.0 [facility] Comment on above: Performed By: #### 2 80782 #### [facility],[address] [place] [address] Hemoglobin (Bld) [Mass/Vol] 15.5 g/dL Normal 13.0 - 17.5 [facility] Comment on above: Performed By: #### 2 35041 #### [facility],[address] [place] [address] 50295 Lymph # 1.61 x10EE3/UL Normal 0.80 - 2.80 [facility] Comment on above: Performed By: #### 2 17383 #### [facility],[address] [place], [place] [address] Lymphocytes/100 WBC (Bld) 12.6 % Low 20.0 - 45.0 [facility] Comment on above: Performed By: #### 2 02212 #### [facility],[address] [place] [address] MANUAL DIFF N/A Normal [facility] Comment on above: Performed By: #### 2 44717 #### [facility],[address] [place] [address] MCH (RBC) [Entitic mass] 31 pg Normal 27 - 33 [facility] Comment on above: Performed By: #### 2 42474 #### [facility],[address] [place] [address] MCHC 34 X10 3 Normal 32 - 36 [facility] Comment on above: Performed By: #### 2 97634 #### [facility],[address] [place], [place] [address] MCV (RBC) [Entitic vol] 91 fL Normal 81 - 98 [facility] Comment on above: Performed By: #### 2 71454 #### [facility],[address] [place] [address] [place] # 1.38 x10EE3/UL High 0.20 - 1.00 [facility] Comment on above: Performed By: #### 2 92963 #### [facility],[address] [place], [place] [id number] MONOS % 10.8 % High 0.0 - 10.0 [facility] Comment on above: Performed By: #### 2 86191 #### [facility],[address] [place], [place] [phone] Morphology Hay (Bld) [Interp] N/A Normal [facility] Comment on above: Performed By: #### 2 00432 #### [facility],[address] [place], [place] [id number] Neut # 9.69 x10EE3/UL High 1.50 - 7.10 [facility] Comment on above: Performed By: #### 2 60499 #### [facility],[address] [place] [address] Neutrophils/100 WBC (Bld) 75.4 % Normal 46.0 - 76.0 [facility] Comment on above: Performed By: #### 2 48097 #### [facility],[address] [place] [address] PLATELET 205 x10EE3/UL Normal 150 - 450 [facility] Comment on above: Performed By: #### 2 80006 #### [facility],[address] [place] [address] Platelet mean volume (Bld) [Entitic vol] 8.1 fL Normal 6.4 - 10.5 [facility] Comment on above: Result Comment: AUTO MATED DIFFERENTIAL Performed By: #### 2 00253 #### [facility],[address] [place] [address] RBC 4.95 x 10EE6/UL Normal 4.50 - 6.00 [facility] Comment on above: Performed By: #### 2 70443 #### [facility],[address] [place] [address] WBC 12.9 x 10EE3/UL High 4.5 - 10.8 [facility] Comment on above: Performed By: #### 2 84766 #### [facility],[address] [place] [address] CMP with eGFRon 06-11-2024 AGE 79 years Normal [facility] Comment on above: Performed By: #### 2 58243 ####[facility],[address] [place], [place] [phone] Albumin [Mass/Vol] 3.6 g/dL Normal 3.4 - 5.0 [facility] Comment on above: Performed By: #### 2 83987 ####[facility],[address] [place], [place] [phone] Albumin/Globulin [Mass ratio] 1.0 {ratio} Normal 0.9 - 1.6 [facility] Comment on above: Performed By: #### 2 61579 ####[facility],[address] [place] [address] ALK PHOS 102 U/L Normal 46 - 116 [facility] Comment on above: Performed By: #### 2 14171 ####[facility],[address] [place] [address] ALT [Catalytic activity/Vol] 26 U/L Normal 16 - 63 [facility] Comment on above: Performed By: #### 2 48949 ####[facility],[address] [place] [address] Anion gap [Moles/Vol] 12 mmol/L Normal 10 - 20 [facility] Comment on above: Performed By: #### 2 46624 ####[facility],[address] [place] [address] AST [Catalytic activity/Vol] 21 U/L Normal 15 - 37 [facility] Comment on above: Performed By: #### 2 73072 ####[facility],[address] [place] [address] B/C RATIO 12 ratio Normal 0 - 30 [facility] Comment on above: Performed By: #### 2 47634 ####[facility],[address] [place], [place] [phone] Bilirubin [Mass/Vol] 2.8 mg/dL High 0.2 - 1.0 [facility] Comment on above: Performed By: #### 2 70500 ####[facility],[address] [place] [address] Calcium [Mass/Vol] 9.2 mg/dL Normal 8.5 - 10.1 [facility] Comment on above: Performed By: #### 2 60163 ####[facility],[address] [place] [address] Chloride [Moles/Vol] 101 mmol/L Normal 98 - 107 [facility] Comment on above: Performed By: #### 2 26353 ####[facility],[address] [place], [place] [phone] CMP with eGFR Normal [facility] Comment on above: Result Comment: COMP REHENSIVE METABOLIC PANEL Performed By: #### 2 48735 ####[facility],[address] [place], [place] [phone] CO2 [Moles/Vol] 28.7 mmol/L Normal 21.0 - 32.0 [facility] Comment on above: Performed By: #### 2 51863 ####[place] [id number] Creatinine [Mass/Vol] 0.95 mg/dL Normal 0.70 - 1.30 [facility] Comment on above: Performed By: #### 2 98653 ####[facility],[address] [place], [place] [address] GFR/1.73 sq M.predicted among non-blacks MDRD (S/P/Bld) [Vol rate/Area] mL/min/{1.73_m2} Normal 60 - 999 [facility] Comment on above: Performed By: #### 2 30808 ####[place] [id number] Result Comment: ACCO RDING TO THE NATIONAL KIDNEY DISEASE EDUCATION PROGRAM(NKDE), A NORMAL eGFR IS A VALUE GREATER THAN OR EQUAL TO 60 ML/MIN/1.73 SQ METERS. CHRONIC KIDNEY DISEASE: <60mL/MIN/1.73 SQ METERS KIDNEY FAILURE: <15mL/MIN/1.73 SQ METERS THIS TEST SHOULD ONLY BE USED FOR PATIENTS 18 YEARS OF AGE AND OLDER. Globulin (S) [Mass/Vol] 3.6 g/dL Normal 1.5 - 3.8 [facility] Comment on above: Performed By: #### 2 68459 ####[address] [address] Glucose [Mass/Vol] 130 mg/dL High 74 - 106 [facility] Comment on above: Performed By: #### 2 45047 ####[address] [address] Potassium [Moles/Vol] 4.1 mmol/L Normal 3.5 - 5.1 [facility] Comment on above: Performed By: #### 2 71466 ####[facility],[address] [place] [address] Protein [Mass/Vol] 7.2 g/dL Normal 6.4 - 8.2 [facility] Comment on above: Performed By: #### 2 47028 ####[facility],[address] [place] [address] Sodium [Moles/Vol] 138 mmol/L Normal 136 - 145 [facility] Comment on above: Performed By: #### 2 61993 ####[facility],[address] [place] [address] Urea nitrogen [Mass/Vol] 11 mg/dL Normal 7 - 18 [facility] Comment on above: Performed By: #### 2 78948 ####[facility],[address] [place], [place] [phone] CORONAVIRUS (SARS) ANTIGEN T ESTon 06-11-2024 EXTERNAL QC DONE? YES Normal [facility] Comment on above: Performed By: #### 2 93983 #### [facility],[address] [place], [place] [phone] INTERNAL CONTROL PASS Normal [facility] Comment on above: Performed By: #### 2 12335 #### [facility],[address] [place], [place] [phone] SARS ANTIGEN Negative Normal NORMAL: NEGATIVE [facility] Comment on above: Performed By: #### 2 83435 #### [facility],[address] [place] [address] SEND TO ? YES Normal [facility] Comment on above: Result Comment: SARS -CoV-2 THIS TEST IS BEING USED UNDER THE FDA EUA PROCEDURE. THIS ASSAY HAS BEEN VALIDATED AT [facility] FOR USE WITH NASAL AND NASOPHARYNGEAL SWAB SPECIMENS. INTERPRETIVE DATA TEST RESULTS SHOULD ALWAYS BE CONSIDERED IN THE CONTEXT OF CLINICAL OBSERVATIONS AND EPIDEMIOLOGICAL DATA IN MAKING FINAL DIAGNOSIS AND PATIENT MANAGEMENT DECISIONS. PATIENT MANAGEMENT SHOULD FOLLOW CURRENT CDC GUIDELINES. THE MATTHEW SARS ANTIGEN RADHA DOES NOT DIFFERENTIATE BETWEEN SARS-CoV & SARS-CoV-2. A POSITIVE TEST RESULT INDICATES THE PRESENCE OF SARS-CoV-2 NUCLEOCAPSID PROTEIN ANTIGEN, AND THE PATIENT IS INFECTED WITH THE VIRUS AND PRESUMED TO BE CONTAGIOUS. A NEGATIVE TEST RESULT FOR THIS TEST MEANS THAT SARS-CoV-2 NUCLEOCAPSID PROTEIN ANTIGEN WAS NOT PRESENT IN THE SPECIMEN ABOVE THE LIMIT OF DETECTION. HOWEVER, A NEGATIVE RESULT DOES NOT RULE OUT COVID-19 AND SHOULD NOT BE USED THE SOLE BASIS FOR TREATMENT OR PATIENT MANAGEMENT DECISIONS. A NEGATIVE RESULT DOES NOT EXCLUDE THE POSSIBILITY OF COVID-19. NEGATIVE RESULTS, FROM PATIENTS WITH SYMPTOM ONSET BEYOND FIVE DAYS, SHOULD BE TREATED PRESUMPTIVE AND CONFIRMATION WITH A MOLECULAR ASSAY, IF NECESSARY, FOR PATIENT MANAGEMENT, MAY BE PERFORMED. WHEN DIAGNOSTIC TESTING IS NEGATIVE, THE POSSIBLILTY OF A FALSE NEGATIVE RESULT SHOULD BE CONSIDERED IN THE CONTEXT OF A PATIENT'S RECENT EXPOSURES AND THE PRESENCE OF CLINICAL SIGNS AND SYMPTOMS CONSISTENT WITH COVID-19. THE POSSIBILITY OF A FALSE NEGATIVE RESULT SHOULD ESPECIALLY BE CONSIDERED IF THE PATIENT'S RECENT EXPOSURES OR CLINICAL PRESENTATION INDICATE THAT COVID-19 IS LIKELY, AND DIAGNOSTIC TESTS FOR OTHER CAUSES OF ILLNESS (e.g., OTHER RESPIRATORY ILLNESS) ARE NEGATIVE. IF COVID-19 IS STILL SUSPECTED BASED ON EXPOSURE HISTORY TOGETHER WITH OTHER CLINICAL FINDINGS, RE-TESTING SHOULD BE CONSIDERED BY HEALTHCARE PROVIDERS IN CONSULTATION WITH PUBLIC HEALTH AUTHORITIES. Performed By: #### 2 52561 #### [place] [address] CT ABDOMEN/PELVIS [facility] 2023 CT ABDOMEN/PELVIS [place] [address] Patient: SOY BURCH Phone#: : 1945 Age: 79 Gender: M Pt. Type: ER Account: [id number] Location: [facility] Ordering: ADELFO ROMERO Exam Date: 06/11/2024/4:13 Family Phys: JOSE MIGUEL GRANADOS Charge Code: 703928 Physician: [facility] Order #: [id number] Dose#: 14.6 mGy PROCEDURE: CT ABDOMEN/PELVIS WITH CONTRAST COMPARISON: [facility], CT, CHEST PE W JAZMIN, 11/17/2016, 10:45. INDICATIONS: Abdominal pain. TECHNIQUE: After obtaining the patient's consent, CT images were created with non-ionic intravenous contrast material. All CT scans at this facility use dose modulation, iterative reconstruction, and/or weight based dosing when appropriate to reduce radiation dose to as low as reasonably achievable. IV CONTRAST: Omnipaque 350,80ml TOTAL DOSE: 14.6 CTDIvol(mGy) FINDINGS: LIVER: Normal. No enlargement, atrophy, abnormal density, or significant focal lesion. BILIARY: Gallbladder is absent, surgical clips are in the gallbladder fossa. PANCREAS: There is stranding around the pancreatic head and uncinate process. The pancreas is atrophied. There are several small adjacent lymph nodes. There three adjacent low-attenuation lesions in the body of the pancreas for example in the body of the pancreas measuring 0.9 cm, series 4, image 28 and series 2, image 21. No pancreatic ductal dilatation. SPLEEN: Normal. No enlargement or focal lesion. KIDNEYS: Kidneys enhance and excrete contrast symmetrically. No hydronephrosis. Nonobstructing left nephrolithiasis measuring 0.5 cm. ADRENALS: Normal. No mass or enlargement. AORTA/VASCULAR: No aortic aneurysm. Atherosclerotic calcifications of the aorta and branch vessels. Narrowing at the origin of the celiac artery with poststenotic dilatation. RETROPERITONEUM: Normal. No mass or adenopathy. BOWEL/MESENTERY: Stranding surrounding the duodenum likely secondary to pancreatitis. No bowel obstruction or dilatation. No significant stool burden. Diverticulosis of the descending and sigmoid colon. Appendix is not visualized. Continued Report - Page 2 of 2 Patient: SOY BURCH Phone#: : 1945 Age: 79 Gender: M Pt. Type: ER Account: [id number] Location: 052 Ordering: ADELFO ROMERO Exam Date: 06/11/2024/4:13 Family Phys: JOSE MIGUEL GRANADOS Charge Code: [id number] Physician: [facility] Order #: [id number] Dose#: 14.6 mGy ABDOMINAL WALL: Fat containing umbilical hernia URINARY BLADDER: Partially filled PELVIC NODES: Normal. No adenopathy. PELVIC ORGANS: Normal. No visible mass. Pelvic organs appropriate for patient age. BONES: Disc height loss and vacuum disc phenomena at L5-S1. LUNG BASES: Normal. No visible pulmonary or pleural disease. OTHER: Cardiac leads present in the right heart. CONCLUSION: 1. Stranding of the pancreatic head and uncinate process most consistent with pancreatitis. 2. Low-attenuation lesions in the body of the pancreas. Differential includes cyst versus intraductal papillary mucinous neoplasms Recommend follow-up in 6 months to monitor for stability. This finding was communicated by telephone to Mariposa Powell RN at the dictation time shown below. Dictated by: Margareth Rodriges MD on 06/11/2024 at 14:56 Approved by: Margareth Rodriges MD on 06/11/2024 at 15:19 Normal [facility] ED MED ADMINISTRATION DETAIL on 06-11-2024 ED MED ADMINISTRATION DETAIL Apprentice Instrument Technician Medication Administration Record [facility] [address] [place] [address]. [place] [address] [id number] 06/11/2024 Patient: SOY BURCH Sex: Male : 1945 Age: 79y MEASUREMENTS: Wt: 78.5 kg, Ht/Leno: 67.0 in, BMI: 27.10 ALLERGIES: Penicillins, clindamycin Medication Ordered Medication Administration Date/Time IV NS 0.9 % 1000 03:38 06/11 IV NS 0.9 % 1000 mL started in bag#1 1000 mL at Started mL at 500 mL/hr 500 mL/hr via Site# 1. Allergies verified and confirmed 5 rights. Via 03:38 06/11/2024 (NOW x1) IV pump. IV patency established. IV site checked: no pain, redness, Kiersten Powell R.N. or swelling. IV flushed thoroughly pre-medication administration. Stopped Information reviewed with patient including reason for taking this 06:06/11/2024 medication. - 03:38 Eve Fish R.N. Scanned 06:06/11 Medication Discontinued: bag #1 infused. Total amount infused: 1000 mL. IV patency established. IV site checked: no pain, redness, or swelling. IV flushed thoroughly post-medication administration. - 06:10 Kiersten Powell R.N. HYDROmorphone 03:46 06/11 HYDROmorphone (Dilaudid) IVP 0.5 mg given via Given (Dilaudid) IVP 0.5 Site# 1. Allergies verified and confirmed 5 rights. IV patency 03:46 06/11/2024 mg (NOW x1, HIGH established. IV site checked: no pain, redness, or swelling. IV Kiersten Powell R.N. ALERT flushed thoroughly pre-medication administration. IVP given by Scanned MEDICATION) nurse. Information reviewed with patient. Medication Wastage: 0.5 mg wasted. - 03:46 Kiersten Powell R.N. 04:45 06/11 Medication Response: No adverse reaction. Pain is improving. Symptoms have improved. The patient feels better. - 05:10 Kiersten Powell R.N. 1 of 2 Apprentice Instrument Technician Medication Ordered Medication Administration Date/Time Zofran IVP 4 mg 03:41 06/11 Zofran IVP 4 mg given via Site# 1. Allergies verified Given (NOW x1) and confirmed 5 rights. IV patency established. IV site checked: no 03:41 06/11/2024 pain, redness, or swelling. IV flushed thoroughly pre-medication Kiersten Powell R.N. administration. IVP given by nurse. Information reviewed with Scanned patient and spouse including reason for taking this medication and signs of allergic reaction. - 03:44 Kiersten Powell R.N. 04:46 06/11 Medication Response: Pain is improving. Symptoms have improved. The patient feels better. - 05:11 Kiersten Powell R.N. Zofran IVP 4 mg 05:06 06/11 Zofran IVP 4 mg given via Site# 1. Allergies verified Given (NOW x1) and confirmed 5 rights. IV patency established. IV site checked: no 05:06 06/11/2024 pain, redness, or swelling. IV flushed thoroughly pre-medication Kiersten Powell R.N. administration. IVP given by nurse. Information reviewed with Scanned patient including reason for taking this medication and signs of allergic reaction. - 05:07 Kiersten Powell R.N. 05:23 06/11 Medication Response: No adverse reaction. Symptoms are the same. The patient feels the same. - 05:28 Kiersten Powell R.N. IV NS 0.9 % 1000 06:07 06/11 IV NS 0.9 % 1000 mL started in bag#2 1000 mL at Started mL at 500 mL/hr 500 mL/hr via Site# 1. Allergies verified and confirmed 5 rights. Via 06:07 06/11/2024 (NOW x1) IV pump. IV patency established. IV site checked: no pain, redness, Kiersten Powell R.N. or swelling. IV flushed thoroughly pre-medication administration. Stopped Information reviewed with patient and spouse including reason for 08:08 06/11/2024 taking this medication. - 06:09 Eve Fish R.N. Scanned 08:08 06/11 Medication Discontinued: bag #2 infused. Total amount infused: 1000 mL. IV patency established. IV site checked: no pain, redness, or swelling. IV flushed thoroughly post-medication administration. - 08:08 Alisha Dang R.N. 2 of 2 Normal [facility] ED NURSES CLINICAL NOTEon ED NURSES CLINICAL NOTE Nurse Narrative Nurse Clinical Narrative [facility] [address] [place] [address]. [place] [address] [id number] 06/11/2024 Patient: SOY BURCH Sex: Male : 1945 Age: 79y Disposition: Observation to Med/Surg Disposition Decision Time: 07:12 06/11/2024 Departure Time: 09:34 06/11/2024 TRIAGE Arrived by private vehicle. Historian: patient. Accompanied by family. Primary physician (roberta). Triage time: 02:43 06/11/2024. Acuity: LEVEL 2. Chief Complaint: ABDOMINAL PAIN and NAUSEA. Onset. (2 days). The patient has had nausea (2 days). The patient has had abdominal pain (6). Last oral intake by patient was snack (1900). SEPSIS SCREEN: NEGATIVE. SIRS criteria negative. No possible sources of infection. SEVERE SEPSIS SCREEN NEGATIVE. No signs of organ dysfunction present. -- 03:02 06/11/24 EST Kiersten Powell R.N. 02:45 06/11/24. BP: 143/70 (regular cuff) taken on left arm, while lying. MAP: 94. HR: 66. Regular and normal rate. RR: 16. Regular and unlabored. O2 saturation: 92% on room air. Temperature: 99 F (oral). Pain level now 6/10. Describes the pain as pressure. Intermittent. -- 02:48 06/11/24 EST Kiersten Powell R.N. Measurements: 02:49 06/11/24 Wt: 78.5 kg, Ht/Leno: 67.0 in, BMI: 27.10 -- 02:49 06/11/24 EST Kiersten Powell R.N. Medications: Aspirin Childrens 81 mg chewable tablet: once a day . -- 03:56 06/11/24 EST Kiersten Powell R.N. 1 of 6 Nurse Narrative dilTIAZem ER 360 mg capsule,24 hr,extended release: once a day . -- 03:56 06/11/24 EST Kiersten Powell R.N. furosemide 20 mg tablet: once a day . -- 03:57 06/11/24 EST Kiersten Powell R.N. losartan 50 mg tablet: twice a day . -- 03:59 06/11/24 EST Kiersten Powell R.N. metFORMIN ER 500 mg tablet,extended release 24 hr: once a day . -- 03:59 06/11/24 EST Kiersten Powell R.N. nebivoloL 5 mg tablet: once a day . -- 04:00 06/11/24 EST Kiersten Powell R.N. potassium CL: once a day . -- 04:02 06/11/24 EST Kiersten Powell R.N. rosuvastatin 40 mg tablet: once a day . -- 04:02 06/11/24 EST Kiersten Powell R.N. Allergies: Penicillins -- 02:50 06/11/24 EST Kiersten Powell R.N. clindamycin -- 02:50 06/11/24 EST Kiersten Powell R.N. Problems: Diabetes Mellitus -- 02:56 06/11/24 EST Kiersten Powell R.N. Hypertension -- 02:56 06/11/24 EST Kiersten Powell R.N. Hypercholesterolemia -- 02:56 06/11/24 TAL Powell R.N. Heart Disease -- 02:57 06/11/24 TAL Powell R.N. 02:43 06/11/24. Preferred pharmacy; [facility] ([facility]). -- 03:02 06/11/24 TAL Powell R.N. History 02:43 06/11/24. PAST MEDICAL HX: Immunizations: up-to-date. SURGERY HX: Cholecystectomy. Pacemaker (2011). Tonsillectomy (1952). TURP (). 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 SOCIAL HX: Never smoker. Alcohol use. (0). Drug use. (0). Recent travel- (0). The patient has had contact with a sick individual. (0). The patient has not traveled outside the [place] Infectious disease exposure: The patient was not exposed to C-diff, influenza or Coronavirus. ABUSE ASSESSMENT: The patient answered yes to the question(s) Do you feel safe in your home? and 2 of 6 Nurse Narrative no to the question(s) Are you afraid to go home?. SELF HARM ASSESSMENT: Self harm assessment was performed. The patient answered no to the question(s) Do you have thoughts of harming or killing yourself? and Do you have a plan for harming or killing yourself?. FALL RISK ASSESSMENT: Fall risk assessment completed. Risk factors identified include nausea and patient age greater than 65 years. Fall interventions initiated. Family at bedside. -- 03:02 06/11/24 TAL Powell R.N. Assessment 02:43 06/11/24. The patient states feels the same. -- 03:02 06/11/24 TAL Powell R.N. Interventions 02:43 06/11/24. Identification band, allergy band and fall band on patient. Advanced care plan discussed with patient and family. Patient has a living will. -- 03:02 06/11/24 TAL Powell R.N. PHYSICAL ASSESSMENT 02:45 06/11/24. BP: 143/70 (regular cuff) taken on left arm, while lying. MAP: 94. HR: 66. Regular and normal rate. RR: 16. Regular and unlabored. O2 saturation: 92% on room air. Temperature: 99 F (oral). Pain level now 6/10. Describes the pain as pressure. Intermittent. -- 03:06 06/11/24 TAL Powell R.N. 03:03 06/11/24. Ambulatory to room. Patient gowned. GENERAL / NEURO / PSYCH: Alert. Oriented X 4. HEENT: Mucous membranes are pink. RESPIRATORY: Respirations not labored. Breath sounds within normal limits. GI / : The patient has had nausea. Abdomen soft and nontender. Abdominal tenderness in the periumbilical area (LBM 06/10/24 normal per pt). Bowel sounds within normal limits. Stool color normal. SKIN: Skin is warm and dry. -- 03:08 12 (more content not included)... Normal [facility] ED ORDER SHEET (CPOE ONLY)on 06-11-2024 ED ORDER SHEET (CPOE ONLY) Order Sheet Order Sheet [address] [place] [address] [id number] 06/11/2024 Patient: SOY BURCH Sex: Male : 1945 Age: 79y MEASUREMENTS: Wt: 78.5 kg, Ht/Leno: 67.0 in, BMI: 27.10 ALLERGIES: Penicillins, clindamycin MEDICATION/IV/DRIP/FLUID ORDERS Order Description Priority Entered Acknowledged Completed IV NS 0.9 %1000 mL at 500 03:19 06/11/2024 03:32 03:38 mL/hr (NOW x1) Adelfo Romero, 06/11/2024 06/11/2024 Kiersten Steward R.N. R.N. HYDROmorphone (Dilaudid) 03:19 06/11/2024 03:32 03:46 IVP0.5 mg (NOW x1, HIGH Adelfo Romero, 06/11/2024 06/11/2024 ALERT MEDICATION) Kiersten Steward R.N. RGiovani. Zofran IVP4 mg (NOW x1) 03:19 06/11/2024 03:32 03:44 Adelfo Romero, 06/11/2024 06/11/2024 Kiersten Steward R.N. R.N. Zofran IVP4 mg (NOW x1) 05:03 06/11/2024 05:04 05:07 Adelfo Romero, 06/11/2024 06/11/2024 Kiersten Steward R.N. R.N. 1 of 3 Order Sheet Reason for ordering with alerts: Benefits outweigh risks --05:03 06/11/2024 Adelfo Romero D.O. IV NS 0.9 %1000 mL at 500 05:44 06/11/2024 05:59 06:09 mL/hr (NOW x1) Adelfo Romero, 06/11/2024 06/11/2024 Kiersten Steward R.N. RKenton Reason for ordering with alerts: Benefits outweigh risks --05:44 06/11/2024 Adelfo Romero D.O. LAB ORDERS Order Description Priority Entered Acknowledged Collected Completed CBC w Diff Stat Stat 03:19 06/11/2024 03:32 06/11/2024 07:59 06/11/2024 Kiersten Vo Shauna Ewing, D.O. R.N. R.NJanusz CMP Stat Stat 03:19 06/11/2024 03:32 06/11/2024 07:59 06/11/2024 Kiersten Vo Shauna Ewing, D.O. R.N. R.N. Lipase Stat Stat 03:19 06/11/2024 03:32 06/11/2024 07:59 06/11/2024 Kiersten Vo Shauna Ewing, D.O. R.Arash. R.Tiara Troponin-I Stat Stat 03:19 06/11/2024 03:32 06/11/2024 03:50 06/11/2024 Kiersten Vo Debra Schrock, D.O. R.N. RKenton EKG - ED Stat Stat 03:19 06/11/2024 03:32 06/11/2024 07:59 06/11/2024 Kiersten Vo Shauna Ewing, D.O. R.NJanusz RKenton Urinalysis Stat Stat 03:19 06/11/2024 03:32 06/11/2024 03:50 06/11/2024 Kiersten Vo Debra Schrock, 2 of 3 Order Sheet Darlin.Ezio StephensonN. R.NJanusz Rapid COVID (SARS) Stat 03:19 06/11/2024 03:32 06/11/2024 07:59 06/11/2024 ANTIGEN TEST Stat Kiersten Vo Shauna Ewing, D.O. R.NJanusz RKenton DIAGNOSTIC STUDY ORDERS Order Description Priority Entered Acknowledged Completed CT ABD/PEL w Cont Stat Stat 03:19 06/11/2024 03:32 03:50 Adelfo Romero, 06/11/2024 06/11/2024 Kiersten Steward, Oli.N. R.NJanusz Reason for Study: Abdominal Pain STAFF ORDERS Order Description Priority Entered Acknowledged Collected Completed IV Saline Lock 03:19 06/11/2024 03:32 06/11/2024 03:50 06/11/2024 Kiersten Vo Debra Schrock, D.O. R.N. R.NJanusz [Electronically signed by Adelfo Romero D.O. (06/11/2024 07:42 EST)] 3 of 3 Normal [facility] ED PHYSICIAN CLINICAL REPORT on 06-11-2024 ED PHYSICIAN CLINICAL REPORT Narrative Physician Clinical Narrative [address] [address] [id number] 06/11/2024 Patient: SOY BURCH Sex: Male : 1945 Age: 79y Disposition: Observation to Med/Surg Disposition Decision Time: 07:12 06/11/2024 Measurements Wt: 78.5 kg, Ht/Leno: 67.0 in, BMI: 27.10 Initial Vital Sign Measured Time BP MAP HR RR O2Sat ETCO2 Temp Pain GCS RTS 02:45 06/11/2024 143/70 94 66 16 92% RA 99.0 F 6 Time Seen: 02:42 06/11/2024. Arrived- By private vehicle. Historian- patient. HISTORY OF PRESENT ILLNESS Chief Complaint: ABDOMINAL PAIN. (patient said on the 26 in the evening he was eating even Porcupine beans with ham. Did a little later he started having epigastric pain and the pain just will not go away says the 10/22 it is constant pressure tightness nothing seems to make it better or worse he has had a decreased appetite. He also says he has had a fever he complains of nausea and presents to the emergency department his . Does have history of gallbladder disease coaptation of the aorta as well as valve replacement surgery tonsillectomy already had a history of hypertension prediabetes high cholesterol coarctation of the aorta. Valvular disease). PAST HISTORY Diabetes Mellitus Heart Disease Hypercholesterolemia Hypertension 1 of 11 Narrative Medications: Aspirin Childrens 81 mg chewable tablet: once a day . dilTIAZem ER 360 mg capsule,24 hr,extended release: once a day . furosemide 20 mg tablet: once a day . losartan 50 mg tablet: twice a day . metFORMIN ER 500 mg tablet,extended release 24 hr: once a day . nebivoloL 5 mg tablet: once a day . potassium CL: once a day . rosuvastatin 40 mg tablet: once a day . Allergies: clindamycin Penicillins ADDITIONAL NOTES The nursing notes have been reviewed. PHYSICAL EXAM Appearance: Alert. Oriented X3. No acute distress. Eyes: Pupils equal, round and reactive to light. Eyes normal inspection. ENT: Ears normal. Nose normal. Neck: Normal inspection. Neck supple. CVS: Normal heart rate and rhythm. Heart sounds normal. Respiratory: No respiratory distress. Abdomen: Tenderness. Back: Normal inspection. Skin: Skin warm and dry. Normal skin color. Normal skin turgor. Extremities: Extremities exhibit normal ROM. No lower extremity edema. Neuro: Oriented X 3. No motor deficit. LABS, X-RAYS, AND EKG 12-LEAD EKG: EKG time: 02:45 06/11/2024. No acute process. Rate: 76. Paced rhythm. Normal QRS complex. Normal axis. The study has been interpreted contemporaneously by me. Interpretation time: 02:45 06/11/2024. 2 of 11 Narrative Laboratory Tests: CBC + DIFF Final AFIA: 06/11/2024 02:50:00 EST MsgRcvd: 06/11/2024 03:50 EST Lab Test Result Reference Status Received Comments 06/11/2024 03:50 CBC-COMPLETE CBC + DIFF Final EST BLOOD COUNT 12.9 x 10/UL 06/11/2024 03:50 WBC 4.5 - 10.8 Final Above high normal EST 06/11/2024 03:50 RBC 4.95 x 10/UL 4.50 - 6.00 Final EST 06/11/2024 03:50 HEMOGLOBIN 15.5 g/dl 13.0 - 17.5 Final EST 06/11/2024 03:50 HEMATOCRIT 45.1 % 40.0 - 52.0 Final EST 06/11/2024 03:50 MCV 91 fl 81 - 98 Final EST 06/11/2024 03:50 MCH 31 pg 27 - 33 Final EST 06/11/2024 03:50 MCHC 34 X10 3 32 - 36 Final EST 06/11/2024 03:50 RDW/CV 13.5 % 12.0 - 15.6 Final EST 06/11/2024 03:50 PLATELET 205 x10/UL 150 - 450 Final EST 06/11/2024 03:50 AUTOMATED MPV 8.1 fl 6.4 - 10.5 Final EST DIFFERENTIAL 3 of 11 Narrative 06/11/2024 03:50 NEUT % 75.4 % 46.0 - 76.0 Final EST 12.6 % 06/11/2024 03:50 LYMPH % 20.0 - 45.0 Final Below low normal EST 10.8 % 06/11/2024 03:50 MONOS % 0.0 - 10.0 Final Above high normal EST 06/11/2024 03:50 EO % 1.0 % 0.0 - 7.0 Final EST 06/11/2024 03:50 BASO % 0.3 % 0.0 - 2.0 Final EST 06/11/2024 03:50 Lymph # 1.61 x10/UL 0.80 - 2.80 Final EST 9.69 x10/UL 06/11/2024 03:50 Neut # 1.50 - 7.10 Final Above high normal EST 1.38 x10/UL 06/11/2024 03:50 Medina # 0.20 - 1.00 Final Above high normal EST 06/11/2024 03:50 EO # 0.13 x10/UL 0.00 - 0.50 Final EST 06/11/2024 03:50 Baso # 0.04 x10/UL 0.00 - 0.10 Final EST 06/11/2024 03:50 MANUAL DIFF N/A New Order EST 06/11/2024 03:50 MORPHOLOGY N/A New Order EST CMP with eGFR Final AFIA: 06/11/2024 02:50:00 EST MsgRcvd: 06/11/2024 03:42 EST Lab Test Result Reference Status Received Comments of Narrative COMPREHENSIVE 06/11/2024 CMP with eGFR Final METABOLIC 03:42 EST PANEL 06/11/2024 SODIUM 138 mmol/l 136 - 145 Final 03:42 EST 06/11/2024 POTASSIUM 4.1 mmol/L 3.5 - 5.1 Final 03:42 EST 06/11/2024 CHLORIDE 101 mmol/L 98 - 107 Final 03:42 EST 06/11/2024 CO2 28.7 mmol/L 21.0 - 32.0 Final 03:42 EST 130 mg/dl (more content not included)... Normal [facility] ED SUPER BILLon 06-11-2024 ED SUPER BILL [facility] [address] [facility] [place] [address] [id number] 06/11/2024 Patient: SOY BURCH Sex: Male : 1945 Age: 79y Facility Professional Category Item Description Code Code Quantity Fee Total Drugs Normal Saline 448969 2 $0.00 $0.00 1000cc (184281) Nurse/E/M EMERGENCY 263707 1 $0.00 $0.00 DEPT VISIT HIGH SEVERITYFUNCJ (44998-94) Nurse/IV/IM/Infusions Hydration 513128 5 $0.00 $0.00 additional hour (44234) Nurse/IV/IM/Infusions IVP additional 025631 1 $0.00 $0.00 push (10531) Nurse/IV/IM/Infusions IVP initial (60950) 550109 1 $0.00 $0.00 Nurse/IV/IM/Infusions IVP same med 318529 1 $0.00 $0.00 (31 min apart) (73254) Grand $0.00 Total Providers 1 of 2 [facility] Adelfo Romero D.O. Chief Complaint ABDOMINAL PAIN. Principal Diagnosis Acute generalized abdominal pain of undetermined cause. Intractable vomiting with nausea. ICD-10 Codes R10.84: Generalized abdominal pain R11.2: Nausea with vomiting, unspecified 2 of 2 Normal [facility] ED VISIT SUMMARYon 4 ED VISIT SUMMARY Visit Overview Visit Overview [facility] [address] [facility] [place] [address] [id number] 06/11/2024 Patient: SOY BURCH Sex: Male : 1945 Age: 79y 06/11/2024 09:46 AM EST ED Arrival:02:41 06/11/2024 EST Status: Recent Travel:yes Language:eng Adv Directive:Yes Isolation Status: Ethnicity:N Fall Risk:risk Infectious Disease Exposure:no Measurements:5'7 / 170.2 Self-Harm Status:risk Sepsis Screen:negative cm 173.0 lb / 78.5 kg Chief Complaint:ABDOMINAL PAIN, NAUSEA, (1900), (2 days), (6), and (latouf) ALLERGIES clindamycin Penicillins HOME MEDICATIONS Aspirin Childrens 81 mg chewable tablet: once a day . dilTIAZem ER 360 mg capsule,24 hr,extended release: once a day . furosemide 20 mg tablet: once a day . losartan 50 mg tablet: twice a day . metFORMIN ER 500 mg tablet,extended release 24 hr: once a day . 1 of 3 Visit Overview nebivoloL 5 mg tablet: once a day . potassium CL: once a day . rosuvastatin 40 mg tablet: once a day . PAST MEDICAL HISTORY / PROBLEMS Diabetes Mellitus Heart Disease Hypercholesterolemia Hypertension Immunizations: up-to-date Recent travel- (0) The patient has had contact with a sick individual. (0) PAST SURGICAL HISTORY Cholecystectomy Pacemaker (2011) Tonsillectomy (1952) TURP () SOCIAL HISTORY Smoking status: No Alcohol use: Yes Drug use: Yes ED COURSE MEDICATIONS GIVEN IN EMERGENCY DEPARTMENT 03:38 06/11/24 IV NS 0.9 % 1000 mL 500 mL/hr 03:41 06/11/24 Zofran IVP 4 mg 03:46 06/11/24 HYDROmorphone (Dilaudid) IVP 0.5 mg 05:06 06/11/24 Zofran IVP 4 mg 06:07 06/11/24 IV NS 0.9 % 1000 mL 500 mL/hr IV SITE INFORMATION 02:50 06/11/24 Site #1 right forearm, 20g. Saline lock. INTAKE 2 of 3 Visit Overview OUTPUT REASSESMENT (most recent) 05:30 06/11/24. Reassessment acuity: LEVEL 3. GI / : The patient reports nausea. Side rails up x 1. Bed placed in lowest position. Brakes of bed on. VITAL SIGNS First Vitals Last Vitals Temp 02:45 06/11/24 99.0 F Temp 09:05 06/11/24 BP 02:45 06/11/24 143/70 BP 09:05 06/11/24 132/66 HR 02:45 06/11/24 66 HR 09:05 06/11/24 60 RR 02:45 06/11/24 16 RR 09:05 06/11/24 O2 Sat 02:45 06/11/24 92% RA O2 Sat 09:05 06/11/24 Pain 02:45 06/11/24 6 Pain 09:05 06/11/24 ETCO2 02:45 06/11/24 ETCO2 09:05 06/11/24 GCS 02:45 06/11/24 GCS 09:05 06/11/24 RTS 02:45 06/11/24 RTS 09:05 06/11/24 PROCEDURES NURSING INTERVENTIONS LABS / STUDIES LABS / STUDIES ORDERED CBC w Diff CMP CT ABD/PEL w Cont EKG - ED Lipase Rapid COVID (SARS) ANTIGEN TEST Troponin-I Urinalysis CLINICAL IMPRESSION ACUTE GENERALIZED ABDOMINAL PAIN OF UNDETERMINED CAUSE INTRACTABLE VOMITING WITH NAUSEA 3 of 3 Normal [facility] ED VITALS FLOW SHEETon 06-11 ED VITALS FLOW SHEET Vitals Vital Sign Flow Sheet [facility] [address] [place] [address] [phone] 06/11/2024 Patient: SOY BURCH Sex: Male : 1945 Age: 79y Measurements Wt: 78.5 kg, Ht/Leno: 67.0 in, BMI: 27.10 Measured Time BP MAP HR RR O2Sat ETCO2 Temp Pain GCS RTS 09:05 06/11/2024 132/66 95 60 08:35 06/11/2024 145/69 94 60 08:05 06/11/2024 130/64 86 59 07:35 06/11/2024 138/63 88 60 07:05 06/11/2024 152/65 94 59 06:38 06/11/2024 62 93% 06:35 06/11/2024 136/63 82 62 06:33 06/11/2024 60 97% 06:28 06/11/2024 60 95% 06:23 06/11/2024 60 97% 06:18 06/11/2024 59 96% 06:13 06/11/2024 60 96% 06:08 06/11/2024 60 95% 06:05 06/11/2024 144/60 88 59 06:03 06/11/2024 60 96% 1 of 3 Vitals Measured Time BP MAP HR RR O2Sat ETCO2 Temp Pain GCS RTS 05:58 06/11/2024 60 96% 05:53 06/11/2024 60 96% 05:48 06/11/2024 60 96% 05:43 06/11/2024 60 96% 05:38 06/11/2024 61 95% 05:35 06/11/2024 151/65 93 59 05:33 06/11/2024 60 95% 05:28 06/11/2024 60 96% 05:23 06/11/2024 61 96% 05:18 06/11/2024 60 94% 05:13 06/11/2024 60 95% 05:08 06/11/2024 60 95% 05:05 06/11/2024 142/59 86 60 05:03 06/11/2024 61 95% 04:58 06/11/2024 61 96% 04:53 06/11/2024 64 95% 04:48 06/11/2024 60 97% 04:43 06/11/2024 60 97% 04:38 06/11/2024 61 97% 04:35 06/11/2024 128/54 95 61 04:33 06/11/2024 63 96% 04:24 06/11/2024 60 98% 04:19 06/11/2024 61 97% 04:14 06/11/2024 68 97% 04:09 06/11/2024 60 88% 2 of 3 Vitals Measured Time BP MAP HR RR O2Sat ETCO2 Temp Pain GCS RTS 04:05 06/11/2024 136/63 98 59 04:04 06/11/2024 60 90% 03:59 06/11/2024 60 91% 03:54 06/11/2024 60 92% 03:49 06/11/2024 60 94% 03:44 06/11/2024 60 92% 03:39 06/11/2024 60 92% 03:35 06/11/2024 126/66 100 61 03:34 06/11/2024 60 91% 03:29 06/11/2024 60 92% 03:24 06/11/2024 60 91% 03:19 06/11/2024 60 92% 03:14 06/11/2024 60 92% 03:09 06/11/2024 60 91% 03:05 06/11/2024 144/66 92 59 03:04 06/11/2024 60 91% 02:45 06/11/2024 143/70 94 66 16 92% RA 99.0 F 6 3 of 3 Normal [facility] LIPASEon 06-11-2024 Lipase [Catalytic activity/Vol] 60.0 U/L Normal 15.0 - 78.0 [facility] Comment on above: Result Comment: *PLE ASE NOTE THAT RANGES FOR LIPASE HAVE CHANGED OF 06/12/23 DUE TO AN ASSAY UPDATE BY THE HAT MEASURER.THE NEW ASSAY RANGE IS 6-250 U/L, WITH A REFERENCE RANGE OF 16-77 U/L. Performed By: #### [id number] ####[facility],[address] [place] [address] TROPONINon 06-11-2024 HS TROPONIN 15.1 pg/mL Normal 0.0 - 76.2 [facility] Comment on above: Performed By: #### [id number] ####[facility],[address] [place], [place] [id number] Addi 04-14-2024 MARJ Telephone (CARMOB) SOY BURCH ([id number]) 1945 M Date Time Provider Department 04/14/24 JESSE GAITAN During your visit today, we recorded the following information about you: Jesse Gaitan MD 04/14/2024 7:22 PM Signed The pt's Echo showed: Impression CONCLUSIONS: - Exam indication: Aortic stenosis - The left ventricle is normal in size. There is mild concentric left ventricular hypertrophy. Left ventricular systolic function is normal. EF = 64 ? 5% (2D biplane) - The right ventricle is normal in size. Right ventricular systolic function is normal. - There is severe aortic valve stenosis. AV area is 0.70 cm? (0.36 cm?/m?) by continuity, VTI. The peak gradient is 62 mmHg, the mean gradient is 34 mmHg and the dimensionless valve index is 0.22. - Exam was compared with the prior echocardiographic exam performed on 03/27/2023 where aortic valve gradients were peak/mean 56/30 mmHg. Today's aortic valve gradients are slightly higher. The patient's aortic stenosis appears to have progressed mildly. In the absence of symptoms, we would would continue with annual surveillance. If he has been experiencing orthostatic symptoms, or worsening WATTS, then I would recommend a Cath, which would likely progress to a work up for a TAVR. Katie Rich RN 04/15/2024 9:33 AM Signed lmKatie Hidalgo RN 04/15/2024 1:04 PM Signed The patient denies cardiac symptoms. Allergies As of Date: 04/14/2024 Noted Allergy Reaction AMOXICILLIN 03/15/2024 2 - Rash 12 - Shortness of Breath CLINDAMYCIN 10/02/2005 Comments: ER visit -unknown reaction PENICILLINS 10/02/2005 2 - Rash Date Reviewed: 03/15/2024 Reviewed by: Jesse Gaitan MD - Fully Assessed Reason for Visit: Results [95] Cmt: Echo results Prescriptions as of 04/15/2024 - losartan (COZAAR) 50 mg tablet Take 1 tablet by mouth two times a day. - azithromycin (ZITHROMAX) 250 mg tablet TAKE 2 TABLETS BY MOUTH ON DAY 1, AND THEN TAKE 1 TABLET BY MOUTH ONCE A DAY ON DAY 2 THROUGH DAY 5 - metFORMIN ER (GLUCOPHAGE XR) 500 mg 24 hr tablet Take 500 mg by mouth daily at bedtime. - nebivolol (BYSTOLIC) 5 mg tablet Take 1 tablet by mouth once daily. - furosemide (LASIX) 20 mg tablet Take 1 tablet by mouth once daily. - potassium chloride ER (KLOR-CON) 20 mEq tablet Take 1 tablet by mouth once daily. - rosuvastatin (CRESTOR) 40 mg tablet Take 1 tablet by mouth once daily. - dilTIAZem CD 360 mg 24 hr capsule Take 1 capsule by mouth once daily. - ASPIRIN 81 MG TAB Take 81 mg by mouth daily at bedtime. Problem List As Of Date 04/14/2024 Noted Resolved HYPERTROPHY PROSTATE WITH OBST [N40.1, N13.8] 10/02/2005 BLADDER NECK OBSTRUCTION [N32.0] 10/02/2005 Elevated Prostate Specific Antigen (PSA) [R97.2*05/22/2009 Paroxysmal atrial fibrillation (HCC) [I48.0] 02/13/2022 Coronary artery disease [I25.10] 02/13/2022 Tachycardia, unspecified [R00.0] 02/13/2022 Paroxysmal supraventricular tachycardia (HCC) [*02/13/2022 Hypertension [I10] 02/13/2022 Hyperlipidemia [E78.5] 02/13/2022 Aortic stenosis [I35.0] 02/13/2022 Dizziness and giddiness [R42] 02/13/2022 Medication monitoring encounter [Z51.81] 02/13/2022 Abnormal EKG [R94.31] 04/05/2019 Bilateral carotid artery stenosis [I65.23] 04/07/2017 Coarctation of aorta [Q25.1] 11/01/2015 Impaired glucose tolerance [R73.02] 04/05/2019 Nonsustained ventricular tachycardia (HCC) [I47*04/05/2019 Presence of cardiac pacemaker [Z95.0] 11/01/2015 Rash and other nonspecific skin eruption [R21] 01/16/2023 S/P TURP (transurethral resection of prostate) *06/11/2021 Aneurysm of the ascending aorta, without ruptur*02/26/2023 Encounter Status:Closed by JESSE GAITAN on 04/14/24 Normal [facility] ECHOon 04-13-2024 CONCLUSIONS: - Exam indication: Aortic stenosis - The left ventricle is normal in size. There is mild concentric left ventricular hypertrophy. Left ventricular systolic function is normal. EF = 64 5% (2D biplane) - The right ventricle is normal in size. Right ventricular systolic function is normal. - There is severe aortic valve stenosis. AV area is 0.70 cm (0.36 cm /m ) by continuity, VTI. The peak gradient is 62 mmHg, the mean gradient is 34 mmHg and the dimensionless valve index is 0.22. - Exam was compared with the prior echocardiographic exam performed on 03/27/2023 where aortic valve gradients were peak/mean 56/30 mmHg. Today's aortic valve gradients are slightly higher. * * * Final * * * [facility] CARDIOLOGY Echocardiography Report: Transthoracic Echo [facility] Date of service: 04/13/2024 11:05:36 AM Ordering physician: JESSE GAITAN Indication: Aortic stenosis Technologist: Jaymie Green [facility] Interpreting physician: Nemo Badillo MD PATIENT: Name: MR. SOY BURCH : 1945 Age: 78 years Gender: M History of arrhythmia, valvular heart disease, coronary artery disease and hypertension. Previous cardiovascular interventions: Other pacemaker implant (2011) Primary rhythm: sinus. Height: 170.20 cm BSA: 1.95 m Weight: 80.83 kg BMI: 27.9 kg/m Heart rate 63 bpm Blood pressure 149/67 mmHg Color Doppler was utilized to interrogate the cardiac valves assessed and spectral Doppler was utilized to determine the flow velocities and pressure gradients reported in this exam. Myocardial strain analysis was performed in this exam to aid in the assessment of cardiac function. MEASUREMENTS: Value Indexed Normal Max aortic dimension 3.5 cm Ao < 3.8 LV ID (diastole) 3.8 cm (2D) 1.94 cm/m LV ID (systole) 2.6 cm (2D) 1.33 cm/m IVS, leaflet tips 1.5 cm (2D) Posterior wall thickness 1.3 cm (2D) Left ventricular mass 194 g (2D) 99 g/m Global peak long strain -19.6 % LV stroke volume 63 ml (2D biplane) LVOT stroke volume 68 ml 35 ml/m LV end diastolic volume 100 ml (2D biplane) 50.9 ml/m 34<=EDVi<75 LV end systolic volume 36 ml (2D biplane) 18.5 ml/m Ejection Fraction 64 % (2D biplane) EF > 52 FINDINGS: LEFT VENTRICLE The left ventricle is normal in size. There is mild concentric left ventricular hypertrophy. Left ventricular systolic function is normal. Global LV myocardial strain is normal. Normal left ventricular diastolic function. Mitral annular lateral E/e': 7.9. Mitral annular septal E/e': 10.7. Wall Motion: All scored segments are normal. RIGHT VENTRICLE The right ventricle is normal in size. Pacer wires are noted in the right ventricle. Right ventricular systolic function is normal. RV systolic tissue Doppler velocity is 12.1 cm/s. Tricuspid annular displacement is 1.7 cm. Estimated right ventricular systolic pressure is 27 mmHg consistent with normal pulmonary artery pressures. Estimated right atrial pressure is 3 mmHg based on IVC assessment. LEFT ATRIUM The left atrial cavity is normal in size. RIGHT ATRIUM The right atrial cavity is normal in size. Pacer wires are noted in the right atrium. Inferior Vena Cava: The inferior vena cava appears normal measuring 1.1 cm. The vessel decreases greater than 50 percent with inspiration. MITRAL VALVE There is no mitral stenosis. There is mild (1+) mitral valve regurgitation. The peak mitral valve gradient is 5 mmHg. The mean mitral valve gradient is 2 mmHg. The pressure half time is 89 msec. The peak mitral E/A ratio is 0.89. The mitral flow deceleration time is 306 msec. TRICUSPID VALVE There is mild (1+) tricuspid valve regurgitation. There is no thickening. AORTIC VALVE There is severe aortic valve stenosis. There is trace (trace - 1+) aortic valve regurgitation. There is moderate calcification. The peak gradient is 62 mmHg (peak velocity = 394.4 cm/s). The mean gradient is 34 mmHg. The LVOT mean velocity is 58.3 cm/s. The LVOT diameter is 2.0 cm. The aortic VTI is 97.2 cm. The mean velocity in the aortic valve is 273.8 cm/s. The dimensionless valve index is 0.22. AV area is 0.70 cm (0.36 cm /m ) by continuity, VTI. The LVOT stroke volume index is 35 ml/m . PULMONIC VALVE There is no pulmonic valve regurgitation. There is no thickening. The peak gradient is 6 mmHg. AORTA The visualized aorta is normal in size. Measurements - Sinus: 3.5 cm. Sinotubular junction 3.0 cm. Mid ascending aorta 3.2 cm. INTERATRIAL SEPTUM There is no evidence of intracardiac shunting as detected by Doppler. PERICARDIUM The pericardium is normal. [facility] CARDIOLOGY [facility] Echocardiography Echocardiography Rep ort: Transthoracic Echo [facility] Date of service: 04/13/2024 11:05:36 AM Ordering physician: JESSE GAITAN Indication: Aortic stenosis Technologist: Jaymie Green [facility] Interpreting physician: Nemo Badillo MD PATIENT: Name: MR. SOY BURCH : 1945 Age: 78 years Gender: M History of arrhythmia, valvular heart disease, coronary artery disease and hypertension. Previous cardiovascular interventions: Other pacemaker implant (2011) Primary rhythm: sinus. Height: 170.20 cm BSA: 1.95 m Weight: 80.83 kg BMI: 27.9 kg/m Heart rate 63 bpm Blood pressure 149/67 mmHg Color Doppler was utilized to interrogate the cardiac valves assessed and spectral Doppler was utilized to determine the flow velocities and pressure gradients reported in this exam. Myocardial strain analysis was performed in this exam to aid in the assessment of cardiac function. MEASUREMENTS: Value Indexed Normal Max aortic dimension 3.5 cm Ao < 3.8 LV ID (diastole) 3.8 cm (2D) 1.94 cm/m LV ID (systole) 2.6 cm (2D) 1.33 cm/m IVS, leaflet tips 1.5 cm (2D) Posterior wall thickness 1.3 cm (2D) Left ventricular mass 194 g (2D) 99 g/m Global peak long strain -19.6 % LV stroke volume 63 ml (2D biplane) LVOT stroke volume 68 ml 35 ml/m LV end diastolic volume 100 ml (2D biplane) 50.9 ml/m 34<=EDVi<75 LV end systolic volume 36 ml (2D biplane) 18.5 ml/m Ejection Fraction 64 % (2D biplane) EF > 52 FINDINGS: LEFT VENTRICLE The left ventricle is normal in size. There is mild concentric left ventricular hypertrophy. Left ventricular systolic function is normal. Global LV myocardial strain is normal. Normal left ventricular diastolic function. Mitral annular lateral E/e': 7.9. Mitral annular septal E/e': 10.7. Wall Motion: All scored segments are normal. RIGHT VENTRICLE The right ventricle is normal in size. Pacer wires are noted in the right ventricle. Right ventricular systolic function is normal. RV systolic tissue Doppler velocity is 12.1 cm/s. Tricuspid annular displacement is 1.7 cm. Estimated right ventricular systolic pressure is 27 mmHg consistent with normal pulmonary artery pressures. Estimated right atrial pressure is 3 mmHg based on IVC assessment. LEFT ATRIUM The left atrial cavity is normal in size. RIGHT ATRIUM The right atrial cavity is normal in size. Pacer wires are noted in the right atrium. Inferior Vena Cava: The inferior vena cava appears normal measuring 1.1 cm. The vessel decreases greater than 50 percent with inspiration. MITRAL VALVE There is no mitral stenosis. There is mild (1+) mitral valve regurgitation. The peak mitral valve gradient is 5 mmHg. The mean mitral valve gradient is 2 mmHg. The pressure half time is 89 msec. The peak mitral E/A ratio is 0.89. The mitral flow deceleration time is 306 msec. TRICUSPID VALVE There is mild (1+) tricuspid valve regurgitation. There is no thickening. AORTIC VALVE There is severe aortic valve stenosis. There is trace (trace - 1+) aortic valve regurgitation. There is moderate calcification. The peak gradient is 62 mmHg (peak velocity = 394.4 cm/s). The mean gradient is 34 mmHg. The LVOT mean velocity is 58.3 cm/s. The LVOT diameter is 2.0 cm. The aortic VTI is 97.2 cm. The mean velocity in the aortic valve is 273.8 cm/s. The dimensionless valve index is 0.22. AV area is 0.70 cm (0.36 cm /m ) by continuity, VTI. The LVOT stroke volume index is 35 ml/m . PULMONIC VALVE There is no pulmonic valve regurgitation. There is no thickening. The peak gradient is 6 mmHg. AORTA The visualized aorta is normal in size. Measurements - Sinus: 3.5 cm. Sinotubular junction 3.0 cm. Mid ascending aorta 3.2 cm. INTERATRIAL SEPTUM There is no evidence of intracardiac shunting as detected by Doppler. PERICARDIUM The pericardium is normal. CONCLUSIONS: - Exam indication: Aortic stenosis - The left ventricle is normal in size. There is mild concentric left ventricular hypertrophy. Left ventricular systolic function is normal. EF = 64 5% (2D biplane) - The right ventricle is normal in size. Right ventricular systolic function is normal. - There is severe aortic valve stenosis. AV area is 0.70 cm (0.36 cm /m ) by continuity, VTI. The peak gradient is 62 mmHg, the mean gradient is 34 mmHg and the dimensionless valve index is 0.22. - Exam was compared with the prior CC echocardiographic exam performed on 03/27/2023 where aortic valve gradients were peak/mean 56/30 mmHg. Today's aortic valve gradients are slightly higher. * * * Final * * * [employer] [facility] : [id number] nathanFirst[facility] Addi 04-06-2024 MARJ Telephone (CARMOB) SOY BURCH ([id number]) 1945 M Date Time Provider Department 04/06/24 ARNIE, JESSE C CARMOB During your visit today, we recorded the following information about you: Ibis Garcia 04/06/2024 1:47 PM Signed Received lab results from [facility]. Scanned labs into chart for review. Jesse Gaitan MD 04/08/2024 5:39 PM Signed The pt's labs showed Creat-0.95, BUN-15, K+-4.2, and [id number]. The results are fine. Katie Rich RN 04/11/2024 1:27 PM Signed Pt advised. Allergies As of Date: 04/06/2024 Noted Allergy Reaction AMOXICILLIN 03/15/2024 2 - Rash 12 - Shortness of Breath CLINDAMYCIN 10/02/2005 Comments: ER visit -unknown reaction PENICILLINS 10/02/2005 2 - Rash Date Reviewed: 03/15/2024 Reviewed by: Jesse Gaitan MD - Fully Assessed Reason for Visit: Results [95] Prescriptions as of 04/11/2024 - losartan (COZAAR) 50 mg tablet Take 1 tablet by mouth two times a day. - azithromycin (ZITHROMAX) 250 mg tablet TAKE 2 TABLETS BY MOUTH ON DAY 1, AND THEN TAKE 1 TABLET BY MOUTH ONCE A DAY ON DAY 2 THROUGH DAY 5 - metFORMIN ER (GLUCOPHAGE XR) 500 mg 24 hr tablet Take 500 mg by mouth daily at bedtime. - nebivolol (BYSTOLIC) 5 mg tablet Take 1 tablet by mouth once daily. - furosemide (LASIX) 20 mg tablet Take 1 tablet by mouth once daily. - potassium chloride ER (KLOR-CON) 20 mEq tablet Take 1 tablet by mouth once daily. - rosuvastatin (CRESTOR) 40 mg tablet Take 1 tablet by mouth once daily. - dilTIAZem CD 360 mg 24 hr capsule Take 1 capsule by mouth once daily. - ASPIRIN 81 MG TAB Take 81 mg by mouth daily at bedtime. 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, N13.8] 10/02/2005 BLADDER NECK OBSTRUCTION [N32.0] 10/02/2005 Elevated Prostate Specific Antigen (PSA) [R97.2*05/22/2009 Paroxysmal atrial fibrillation (HCC) [I48.0] 02/13/2022 Coronary artery disease [I25.10] 02/13/2022 Tachycardia, unspecified [R00.0] 02/13/2022 Paroxysmal supraventricular tachycardia (HCC) [*02/13/2022 Hypertension [I10] 02/13/2022 Hyperlipidemia [E78.5] 02/13/2022 Aortic stenosis [I35.0] 02/13/2022 Dizziness and giddiness [R42] 02/13/2022 Medication monitoring encounter [Z51.81] 02/13/2022 Abnormal EKG [R94.31] 04/05/2019 Bilateral carotid artery stenosis [I65.23] 04/07/2017 Coarctation of aorta [Q25.1] 11/01/2015 Impaired glucose tolerance [R73.02] 04/05/2019 Nonsustained ventricular tachycardia (HCC) [I47*04/05/2019 Presence of cardiac pacemaker [Z95.0] 11/01/2015 Rash and other nonspecific skin eruption [R21] 01/16/2023 S/P TURP (transurethral resection of prostate) *06/11/2021 Aneurysm of the ascending aorta, without ruptur*02/26/2023 Encounter Status:Closed by KATIE DAMON on 04/11/24 Normal [facility] BMP with eGFRon 04-04-2024 AGE 78 years Normal [facility] Comment on above: Performed By: #### 2 [id number] #### [facility],[address] [place], [place] [id number] Anion gap [Moles/Vol] 10 mmol/L Normal - [facility] Comment on above: Performed By: #### 2 [id number] #### [facility],[address] [place], [place] [id number] BMP with eGFR Normal [facility] Comment on above: Result Comment: BASI C METABOLIC PANEL Performed By: #### 2 [id number] #### [facility],[address] [place] [address] Calcium [Mass/Vol] 8.7 mg/dL Normal 8.5 - 10.1 [facility] Comment on above: Performed By: #### 2 [id number] #### [facility],[address] [place] [address]13 Chloride [Moles/Vol] 107 mmol/L Normal 98 - 107 [facility] Comment on above: Performed By: #### 2 [id number] #### [facility],[address] [place] [address]446 CO2 [Moles/Vol] 31.7 mmol/L Normal 21.0 - 32.0 [facility] Comment on above: Performed By: #### 2 [id number] #### [facility],[address] [place] [address]69 Creatinine [Mass/Vol] 0.95 mg/dL Normal 0.70 - 1.30 [facility] Comment on above: Performed By: #### 2 [id number] #### [facility],[address] [place] [address]55 GFR/1.73 sq M.predicted among non-blacks MDRD (S/P/Bld) [Vol rate/Area] mL/min/{1.73_m2} Normal 60 - 999 [facility] Comment on above: Performed By: #### 2 [id number] #### [facility],[address] [place] [address]46 Result Comment: ACCO RDING TO THE NATIONAL KIDNEY DISEASE EDUCATION PROGRAM(NKDE), A NORMAL eGFR IS A VALUE GREATER THAN OR EQUAL TO 60 ML/MIN/1.73 SQ METERS. CHRONIC KIDNEY DISEASE: <60mL/MIN/1.73 SQ METERS KIDNEY FAILURE: <15mL/MIN/1.73 SQ METERS THIS TEST SHOULD ONLY BE USED FOR PATIENTS 18 YEARS OF AGE AND OLDER. Glucose [Mass/Vol] 92 mg/dL Normal 74 - 106 [facility] Comment on above: Performed By: #### 2 [id number] #### [facility],[address] [place] [address] Potassium [Moles/Vol] 4.2 mmol/L Normal 3.5 - 5.1 [facility] Comment on above: Performed By: #### 2 [id number] #### [facility],[address] [place] [address] 44493 Sodium [Moles/Vol] 144 mmol/L Normal 136 - 145 [facility] Comment on above: Performed By: #### 2 [id number] #### [facility],[address] [place] [address]3033 Urea nitrogen [Mass/Vol] 16 mg/dL Normal 7 - 18 [facility] Comment on above: Performed By: #### 2 15607 #### [facility],[address] [place] [address]2925 NT-proBNPon 04-04-2024 Natriuretic peptide B (Bld) [Mass/Vol] 176 pg/mL Normal 0 - 450 [facility] Comment on above: Performed By: #### 2 [id number] ####[facility],[address] [place], [place] [id number] CNPNon 03-31-2024 CNPN Telephone (CARMOB) SOY BURCH ([id number]) 1945 M Date Time Provider Department 03/31/24 JESSE GAITAN During your visit today, we recorded the following information about you: Jesse Gaitan MD 03/31/2024 9:10 AM Signed The pt's CTA of the Chest showed: IMPRESSION: 1. VASCULAR FINDINGS: -No significant change in the dilatation of the sinuses of Valsalva, ascending thoracic aorta, and proximal aortic arch. -Unchanged narrowing (1.6 cm) of the most proximal portion of the descending thoracic aorta just distal to the takeoff of the left subclavian artery, followed by poststenotic dilatation of the proximal descending thoracic aorta (2.7 cm), may be due to postsurgical changes versus component of coarctation. No dilatation of the mid and distal portions of the descending thoracic aorta. -Calcified aortic valve and postsurgical changes in the ascending thoracic aorta. Unchanged dilatation of the brachiocephalic artery. 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 2. NON-VASCULAR FINDINGS: -Incidental finding of a new 1 cm cyst at the pancreatic body. Correlation with dedicated CT of the abdomen with pancreatic protocol without and with contrast is recommended. -Unchanged hypervascular (1.5 cm) solid lesion at the mid spleen that may represent hemangioma. Please let the patient know that the findings related to his aorta are stable, and as such, there are not changes in our recommendations at this time. I would let him know that he has a very small cyst noted in the body of his pancreas (1mm is quite small, and this study was not a dedicated study of that area). I would let him know that we will relay this information to Dr. Gillespie, and that Dr. Gillespie may opt to order another study to look at that finding in more detail (as recommended in the CTA report). Also, please call Dr. Gillespie' office to let them know that we are sending him the CTA report, and that there is an abnormal finding that he will need to review. Katie Rich RN 03/31/2024 3:04 PM Signed Pt advised. PCP office advised. Please fax to their office [phone]. Estefany Villarreal 03/31/2024 3:12 PM Signed Pulled and faxed results of CTA Chest to Dr. Granados Office. Allergies As of Date: 03/31/2024 Noted Allergy Reaction AMOXICILLIN 03/15/2024 2 - Rash 12 - Shortness of Breath CLINDAMYCIN 10/02/2005 Comments: ER visit -unknown reaction PENICILLINS 10/02/2005 2 - Rash Date Reviewed: 03/15/2024 Reviewed by: Jesse Gaitan MD - Fully Assessed Reason for Visit: Results [95] Cmt: CTA of the Chest Prescriptions as of 03/31/2024 - losartan (COZAAR) 50 mg tablet Take 1 tablet by mouth two times a day. - azithromycin (ZITHROMAX) 250 mg tablet TAKE 2 TABLETS BY MOUTH ON DAY 1, AND THEN TAKE 1 TABLET BY MOUTH ONCE A DAY ON DAY 2 THROUGH DAY 5 - metFORMIN ER (GLUCOPHAGE XR) 500 mg 24 hr tablet Take 500 mg by mouth daily at bedtime. - nebivolol (BYSTOLIC) 5 mg tablet Take 1 tablet by mouth once daily. - furosemide (LASIX) 20 mg tablet Take 1 tablet by mouth once daily. - potassium chloride ER (KLOR-CON) 20 mEq tablet Take 1 tablet by mouth once daily. - rosuvastatin (CRESTOR) 40 mg tablet Take 1 tablet by mouth once daily. - dilTIAZem CD 360 mg 24 hr capsule Take 1 capsule by mouth once daily. - ASPIRIN 81 MG TAB Take 81 mg by mouth daily at bedtime. 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, N13.8] 10/02/2005 BLADDER NECK OBSTRUCTION [N32.0] 10/02/2005 Elevated Prostate Specific Antigen (PSA) [R97.2*05/22/2009 Paroxysmal atrial fibrillation (HCC) [I48.0] 02/13/2022 Coronary artery disease [I25.10] 02/13/2022 Tachycardia, unspecified [R00.0] 02/13/2022 Paroxysmal supraventricular tachycardia (HCC) [*02/13/2022 Hypertension [I10] 02/13/2022 Hyperlipidemia [E78.5] 02/13/2022 Aortic stenosis [I35.0] 02/13/2022 Dizziness and giddiness [R42] 02/13/2022 Medication monitoring encounter [Z51.81] 02/13/2022 Abnormal EKG [R94.31] 04/05/2019 Bilateral carotid artery stenosis [I65.23] 04/07/2017 Coarctation of aorta [Q25.1] 11/01/2015 Impaired glucose tolerance [R73.02] 04/05/2019 Nonsustained ventricular tachycardia (HCC) [I47*04/05/2019 Presence of cardiac pacemaker [Z95.0] 11/01/2015 Rash and other nonspecific skin eruption [R21] 01/16/2023 S/P TURP (transurethral resection of prostate) *06/11/2021 Aneurysm of the ascending aorta, without ruptur*02/26/2023 Encounter Status:Closed by JESSE GAITAN on 03/31/24 Normal [facility] CREATININE, POC (AK,MR)on Creatinine [Mass/Vol] 1.00 mg/dL 0.60 - 1.30 mg/dL [facility] eGFR (POCT) mL/min/1.7 3 m2 [facility] Location:[facility], [address] [place], [place], [address] [place] [address] POINT OF CARE [facility] CTA CHEST (NONGATED) WO/W IV CONon 03-26-2024 CTA CHEST (NONGATED) WO/W IVCON * * *Final Report* * * DATE OF EXAM: Mar 26 2024 4:42PM [facility] 0469 - CTA CHEST (NONGATED) WO/W IVCON / PROCEDURE REASON: Disorder of artery or arteriole (HCC) * * * * Physician Interpretation * * * * CTA CHEST NON-GATED WITH IV CONTRAST CLINICAL DATA: Disorder of arteries or arterioles. COMPARISON: Chest CT without contrast dated 03/26/[address] with IV contrast dated 01/07/2018. TECHNIQUE: Multichannel CT angiogram of the chest was performed. Regular and thin section axial images of the chest were obtained from the lung apices to the upper abdomen after the uncomplicated IV injection of 8 mL of Omnipaque 350. Multiplanar reformatted images in the sagittal and coronal orientations were obtained. Dose optimization technique was used including automated exposure control and adjustment of mA and/or kV based on patient's size. FINDINGS: 1. CHEST VASCULAR FINDINGS: - Arterial structures: Again noted are calcifications in the aortic valve and postsurgical changes of the ascending thoracic aorta with no evidence of dissection. Atherosclerotic calcifications are seen in the ascending aorta, aortic arch and proximal descending thoracic aorta. There is mild to moderate calcified plaque at the proximal left subclavian artery. Measurements of the thoracic aorta are somewhat unreliable in this non-gated study. The branching pattern of the arch is conventional. There is no interval change in the dilatation of the brachiocephalic artery measuring up to 1.6 cm. There is no significant change in the dilatation of the sinus of Valsalva (3.5 cm), ascending thoracic aorta (3.9 cm proximally 3.8 cm distally) and proximal aortic arch (3.1 cm). There is relative narrowing of the distal aortic arch (1.9 cm). There is also no change in the narrowing of the most proximal portion of the descending thoracic aorta just distal to the takeoff of the left renal artery measuring 1.6 cm. Just distal to the area of moderate narrowing, there is post stenotic dilatation of the proximal descending thoracic aorta measuring 2.7 cm. The mid and distal portions of the descending thoracic aorta are not dilated measuring up to 2.2 cm. - Venous structures: The pulmonary arteries are not dilated. The technique of this arterial CTA study is not designed to evaluate for pulmonary embolism. However, no gross central PE is seen. The right brachiocephalic vein and SVC are patent. Again noted are multiple venous collaterals at the lower neck and upper chest, and prominence of the azygos vein. 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 2. CHEST: NON-VASCULAR FINDINGS: - Visualized neck: There are no gross abnormalities in the visualized portions of the thyroid gland. There is no significant cervical adenopathy. - Lungs and pleura: There are no focal parenchymal opacities. No suspicious lung nodules or masses are seen. There are no pleural effusions. - Mediastinum and dharmesh: There is no significant mediastinal or hilar adenopathy or masses. There is no change in a borderline enlarged (0.9 cm) lymph node at the precarinal area, probably reactive. - Heart: The heart is not enlarged. There is no pericardial thickening or significant effusion. - Visualized abdomen: There is no significant change in the hypervascular lesion at the lateral aspect of the mid spleen measuring 1.5 x 1.0 cm that may represent a hemangioma. There is a small hypodense lesion (1.0 x 0.9 cm) with water density at the pancreatic body (2:114) consistent with benign versus malignant pancreatic cyst. This finding was not seen in previous CT with contrast dated 01/07/2018 and requires further evaluation. Status post cholecystostomy. - Bones and soft tissues: The soft tissues are unremarkable. There is no significant axillary adenopathy. There are no suspicious bone lesions. Mild degenerative changes in the thoracic spine. Again noted are sternotomy wires and deformities of some left-sided ribs consistent with old post traumatic or postsurgical changes sternotomy wires. There are left rib deformities felt to be related to the prior surgery. IMPRESSION: 1. VASCULAR FINDINGS: -No significant change in the dilatation of the sinuses of Valsalva, ascending thoracic aorta, and proximal aortic arch. -Unchanged narrowing (1.6 cm) of the most proximal portion of the descending thoracic aorta just distal to the takeoff of the left subclavian artery, followed by poststenotic dilatation of the proximal descending thoracic aorta (2.7 cm), may be due to postsurgical changes versus component of coarctation. No dilatation of the mid and distal portions of the descending thoracic aorta. -Calcified aortic valve and postsurgical changes in the ascending thoracic aorta. Unchanged dilatation of the brachiocephalic artery. -Chronic occl (more content not included)... [facility] Tele[facility] (CARMOB) SOY BURCH ([id number]) 1945 Date Time Provider Department 03/17/24 JESSE GAITAN During your visit today, we recorded the following information about you: Renetta Varghese 03/17/2024 1:04 PM Signed I called to notify patient that his CTA chest is scheduled 03/26/24 @ 4:00 p.m. and his echo is scheduled 04/13/24 @ 11:00. Renetta Varghese Allergies As of Date: 03/17/2024 Noted Allergy Reaction AMOXICILLIN 03/15/2024 2 - Rash 12 - Shortness of Breath CLINDAMYCIN 10/02/2005 Comments: ER visit -unknown reaction PENICILLINS 10/02/2005 2 - Rash Date Reviewed: 03/15/2024 Reviewed by: Jesse Gaitan MD - Fully Assessed Reason for Visit: Appointment [186] Prescriptions as of 03/17/2024 - losartan (COZAAR) 50 mg tablet Take 1 tablet by mouth two times a day. - azithromycin (ZITHROMAX) 250 mg tablet TAKE 2 TABLETS BY MOUTH ON DAY 1, AND THEN TAKE 1 TABLET BY MOUTH ONCE A DAY ON DAY 2 THROUGH DAY 5 - metFORMIN ER (GLUCOPHAGE XR) 500 mg 24 hr tablet Take 500 mg by mouth daily at bedtime. - nebivolol (BYSTOLIC) 5 mg tablet Take 1 tablet by mouth once daily. - furosemide (LASIX) 20 mg tablet Take 1 tablet by mouth once daily. - potassium chloride ER (KLOR-CON) 20 mEq tablet Take 1 tablet by mouth once daily. - rosuvastatin (CRESTOR) 40 mg tablet Take 1 tablet by mouth once daily. - dilTIAZem CD 360 mg 24 hr capsule Take 1 capsule by mouth once daily. - ASPIRIN 81 MG TAB Take 81 mg by mouth daily at bedtime. Problem List As Of Date 03/17/2024 Noted Resolved HYPERTROPHY PROSTATE WITH OBST [N40.1, N13.8] 10/02/2005 BLADDER NECK OBSTRUCTION [N32.0] 10/02/2005 Elevated Prostate Specific Antigen (PSA) [R97.2*05/22/2009 Paroxysmal atrial fibrillation (HCC) [I48.0] 02/13/2022 Coronary artery disease [I25.10] 02/13/2022 Tachycardia, unspecified [R00.0] 02/13/2022 Paroxysmal supraventricular tachycardia (HCC) [*02/13/2022 Hypertension [I10] 02/13/2022 Hyperlipidemia [E78.5] 02/13/2022 Aortic stenosis [I35.0] 02/13/2022 Dizziness and giddiness [R42] 02/13/2022 Medication monitoring encounter [Z51.81] 02/13/2022 Abnormal EKG [R94.31] 04/05/2019 Bilateral carotid artery stenosis [I65.23] 04/07/2017 Coarctation of aorta [Q25.1] 11/01/2015 Impaired glucose tolerance [R73.02] 04/05/2019 Nonsustained ventricular tachycardia (HCC) [I47*04/05/2019 Presence of cardiac pacemaker [Z95.0] 11/01/2015 Rash and other nonspecific skin eruption [R21] 01/16/2023 S/P TURP (transurethral resection of prostate) *06/11/2021 Aneurysm of the ascending aorta, without ruptur*02/26/2023 Encounter Status:Closed by RENETTA VARGHESE on 03/17/24 Normal [facility] CNOVon 03-15-2024 CNOV Office Visit (CARMOB ) KIERSTENSOY Pendleton ([id number]) 1945 M Date Time Provider Department 03/15/24 11:30 AM JESSE GAITAN During your visit today, we recorded the following information about you: Pulse Blood pressure Weight Height 62/minute 149/67 80.8 kg 1.702 m Katie Damon, RN 03/15/2024 12:16 PM Addendum Participate in a regular exercise regimen of at least 30 to 45 minutes of exercise 4 to 5 days a week. Follow a low cholesterol, no added salt and no added sugar diet. Continue current medical regimen. Increase losartan to 50 mg twice daily. Obtain blood work in 2 weeks. Call for results within 48 hours. Call if he develops lightheadedness. Obtain a CTA of the chest. Call for results within 48 hours. Do not take metformin the day before the CTA and 2 days after the CTA. Obtain an echocardiogram. Call for results within 48 hours. Return for device check in 6 months. Return for follow up in one year months. Bring a current list of you medications to your next appointment. Jesse Gaitan MD 03/16/2024 12:55 AM [facility] OUTPATIENT VISIT DATE March 15, 2024 OUTPATIENT VISIT TYPE ESTABLISHED PATIENT PRIMARY CARE PHYSICIAN: Jose Miguel Granados MD [address] [place] [address] HISTORY OF PRESENT ILLNESS: Mr. Burch is a 78 year old male with a history of aortic stenosis, CAD, single-vessel disease, PAF, low burden atrial fibrillation, hypertension, hyperlipidemia, impaired glucose tolerance, status post repair of aortic coarctation in 1959, ascending aortic aneurysm resection 1996, PSVT, status post ablation, status post permanent pacemaker implant, neurogenic syncope, carotid artery disease, intolerance to Bystolic secondary to leg cramps and metoprolol secondary to fatigue. The patient underwent a stress test 04/20/2019 following nonsustained ventricular tachycardia on his device check. The patient did have an abnormal stress test by EKG criteria. He did exercise well without chest pain. The nuclear images revealed apical attenuation artifact with no ischemia. EF 69%. The patient was continue medical therapy. The patient returns for follow-up. The patient underwent an echocardiogram on 03/27/2023 this revealed: - The left ventricle is normal in size. Left ventricular systolic function is normal. EF = 70 ? 5% (2D 4-ch.) - The right ventricle is normal in size. Right ventricular systolic function is normal. - Tricuspid aortic valve. There is severe aortic valve stenosis. AV area is 0.90 cm? (0.47 cm?/m?) by continuity, VTI. The peak gradient is 56 mmHg, the mean gradient is 30 mmHg and the dimensionless valve index is 0.29. Addendum 1. See computer generated data above 2. Normal right and left ventricular systolic function if ejection fraction greater equal to 65% 3. Moderately severe to severe aortic stenosis with associated mild aortic insufficiency WILFREDO 0.9 cm2 4. Catheters in range right ventricle 5. Mild to moderate tricuspid regurgitation 6. Trivial mitral regurgitation At the time of his last Echo, on 03/26/22, his WILFREDO was calculated at 1.0cm2 (with a peak gradient of 46mmHg) In the absence of symptoms, the patient was continued on medical therapy. At the patient's last follow-up visit 02/2023 he was hypertensive. We switched losartan to olmesartan. The patient remained at hypertensive so we added Bystolic. The patient denies chest pain, dyspnea, lightheadedness, or syncope. He notes rare fluttering sensation. The patient does not smoke or drink alcohol. He does some yard work and some walking. The patient did suffer the COVID-19 virus. The patient did receive the COVID-19 vaccination and the booster shot. PAST CARDIAC HISTORY: Coronary Artery Disease- single vessel disease with moderate stenosis of the first obtuse marginal branch as demonstrated by cardiac catheterization in 2011. Coarctation of aorta status post repair- 1961 Ascending aortic aneurysm resection 1996. History of bradycardia, status post pacemaker implant 12/30/2011 with a [employer] device. 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 Atrial Fibrillation-PAF History of neurocardiogenic syncope with positive tilt Aortic stenosis PAST MEDICAL HISTORY Diagnosis Date Abnormal EKG Aortic stenosis Arrhythmia Bilateral carotid artery disease (HCC) Cardiac pacemaker in situ 12/30/2011 Coronary artery disease cabg x2 Dizziness and giddiness Hyperlipidemia Hypertension Impaired glucose tolerance Medication monitoring encounter Paroxysmal atrial fibrillation (HCC) Paroxysmal supraventricular tachycardia (HCC) Tachycardia, unspecified PAST SURGICAL HISTOR (more content not included)... [facility] CNOV Office Visit (CARMOB ) SOY BURCH ([id number]) 1945 M Date Time Provider Department 03/15/24 11:30 AM [facility] CARMOB During your visit today, we recorded the following information about you: Allergies As of Date: 03/15/2024 Noted Allergy Reaction AMOXICILLIN 03/15/2024 2 - Rash 12 - Shortness of Breath CLINDAMYCIN 10/02/2005 Comments: ER visit -unknown reaction PENICILLINS 10/02/2005 2 - Rash Date Reviewed: 03/15/2024 Reviewed by: Jesse Gaitan MD - Fully Assessed Reason for Visit: Follow Up [171] Primary Visit Diagnosis:SSS (sick sinus syndrome) ([facility]) [I49.5] Prescriptions as of 03/17/2024 - losartan (COZAAR) 50 mg tablet Take 1 tablet by mouth two times a day. - azithromycin (ZITHROMAX) 250 mg tablet TAKE 2 TABLETS BY MOUTH ON DAY 1, AND THEN TAKE 1 TABLET BY MOUTH ONCE A DAY ON DAY 2 THROUGH DAY 5 - metFORMIN ER (GLUCOPHAGE XR) 500 mg 24 hr tablet Take 500 mg by mouth daily at bedtime. - nebivolol (BYSTOLIC) 5 mg tablet Take 1 tablet by mouth once daily. - furosemide (LASIX) 20 mg tablet Take 1 tablet by mouth once daily. - potassium chloride ER (KLOR-CON) 20 mEq tablet Take 1 tablet by mouth once daily. - rosuvastatin (CRESTOR) 40 mg tablet Take 1 tablet by mouth once daily. - dilTIAZem CD 360 mg 24 hr capsule Take 1 capsule by mouth once daily. - ASPIRIN 81 MG TAB Take 81 mg by mouth daily at bedtime. Problem List As Of Date 03/15/2024 Noted Resolved HYPERTROPHY PROSTATE WITH OBST [N40.1, N13.8] 10/02/2005 BLADDER NECK OBSTRUCTION [N32.0] 10/02/2005 Elevated Prostate Specific Antigen (PSA) [R97.2*05/22/2009 Paroxysmal atrial fibrillation (HCC) [I48.0] 02/13/2022 Coronary artery disease [I25.10] 02/13/2022 Tachycardia, unspecified [R00.0] 02/13/2022 Paroxysmal supraventricular tachycardia (HCC) [*02/13/2022 Hypertension [I10] 02/13/2022 Hyperlipidemia [E78.5] 02/13/2022 Aortic stenosis [I35.0] 02/13/2022 Dizziness and giddiness [R42] 02/13/2022 Medication monitoring encounter [Z51.81] 02/13/2022 Abnormal EKG [R94.31] 04/05/2019 Bilateral carotid artery stenosis [I65.23] 04/07/2017 Coarctation of aorta [Q25.1] 11/01/2015 Impaired glucose tolerance [R73.02] 04/05/2019 Nonsustained ventricular tachycardia (HCC) [I47*04/05/2019 Presence of cardiac pacemaker [Z95.0] 11/01/2015 Rash and other nonspecific skin eruption [R21] 01/16/2023 S/P TURP (transurethral resection of prostate) *06/11/2021 Aneurysm of the ascending aorta, without ruptur*02/26/2023 Encounter Status:Closed by DANDY BRUNER on 03/17/24 [facility] CBC + DIFFon 12-29-2023 Baso # 0.01 x10EE3/UL Normal 0.00 - 0.10 [facility] Comment on above: Performed By: #### 2 96357 #### [facility],[address] [place], [place] [id number] Basophils/100 WBC (Bld) 0.3 % Normal 0.0 - 2.0 [facility] Comment on above: Performed By: #### 2 52306 #### [facility],[address] [place] [address] CBC + DIFF Normal [facility] Comment on above: Result Comment: CBC- COMPLETE BLOOD COUNT Performed By: #### 2 95538 #### [facility],[address] [place] [address] EO # 0.10 x10EE3/UL Normal 0.00 - 0.50 [facility] Comment on above: Performed By: #### 2 90916 #### [facility],[address] [place] [address] Eosinophils/100 WBC (Bld) 1.9 % Normal 0.0 - 7.0 [facility] Comment on above: Performed By: #### 2 02545 #### [facility],[address] [place] [address] Erythrocyte distribution width (RBC) [Ratio] 13.6 % Normal 12.0 - 15.6 [facility] Comment on above: Performed By: #### 2 46233 #### [facility],[address] [place] [address] Hematocrit (Bld) [Volume fraction] 43.8 % Normal 40.0 - 52.0 [facility] Comment on above: Performed By: #### 2 99801 #### [facility],[address] [place] [address] Hemoglobin (Bld) [Mass/Vol] 14.7 g/dL Normal 13.0 - 17.5 [facility] Comment on above: Performed By: #### 2 03161 #### [facility],[address] [place] [address] Lymph # 1.66 x10EE3/UL Normal 0.80 - 2.80 [facility] Comment on above: Performed By: #### 2 44852 #### [facility],[address] [place] [address] Lymphocytes/100 WBC (Bld) 31.5 % Normal 20.0 - 45.0 [facility] Comment on above: Performed By: #### 2 28618 #### [facility],[address] [place] [address] MANUAL DIFF N/A Normal [facility] Comment on above: Performed By: #### 2 62233 #### [facility],[address] [place] [address] MCH (RBC) [Entitic mass] 31 pg Normal 27 - 33 [facility] Comment on above: Performed By: #### 2 36202 #### [facility],[address] [place] [address] MCHC 34 X10 3 Normal 32 - 36 [facility] Comment on above: Performed By: #### 2 46940 #### [facility],[address] [place] [address]56 MCV (RBC) [Entitic vol] 92 fL Normal 81 - 98 [facility] Comment on above: Performed By: #### 2 49294 #### [facility],[address] [place] [address] [place]ina # 0.53 x10EE3/UL Normal 0.20 - 1.00 [facility] Comment on above: Performed By: #### 2 68094 #### [facility],[address] [place] [address]3 MONOS % 10.0 % Normal 0.0 - 10.0 [facility] Comment on above: Performed By: #### 2 05925 #### [facility],[address] [place] [address] Morphology Hay (Bld) [Interp] N/A Normal [facility] Comment on above: Performed By: #### 2 52275 #### [facility],[address] [place] [address] Neut # 2.97 x10EE3/UL Normal 1.50 - 7.10 [facility] Comment on above: Performed By: #### 2 12061 #### [facility],[address] [place] [address] 11982 Neutrophils/100 WBC (Bld) 56.4 % Normal 46.0 - 76.0 [facility] Comment on above: Performed By: #### 2 02413 #### [facility],[address] [place] [address] PLATELET 176 x10EE3/UL Normal 150 - 450 [facility] Comment on above: Performed By: #### 2 38359 #### [facility],[address] [place] [address]76 Platelet mean volume (Bld) [Entitic vol] 8.4 fL Normal 6.4 - 10.5 [facility] Comment on above: Result Comment: AUTO MATED DIFFERENTIAL Performed By: #### 2 68797 #### [facility],[address] [place] [address]603 RBC 4.74 x 10EE6/UL Normal 4.50 - 6.00 [facility] Comment on above: Performed By: #### 2 89749 #### [facility],[address] [place] [address]66 WBC 5.3 x 10EE3/UL Normal 4.5 - 10.8 [facility] Comment on above: Performed By: #### 2 72193 #### [facility],[address] [place] [address]46 HEMOGLOBIN A1C (POM)on 12-28 Glucose [Mass/Vol] 134.1 mg/dL High 0.0 - 0.0 [facility] Comment on above: Result Comment: BLDo HEMOGLOBIN A1C REFERENCE RANGESBLDo Suggested Diagnosis HbA1c(%) HbA1C (mmol/mol Diabetic >/=6.5 >/=48 Prediabetes 5.7 - 6.4 39 - 47 Normal <5.7 <39 Performed By: #### 2 96271 #### [facility],[address] [place] [address] HbA1c (Bld) [Mass fraction] 6.3 % Normal 0.0 - 6.5 [facility] Comment on above: Performed By: #### 2 84027 #### [facility],[address] [place], [place] [address] CNOVon 12-18-2023 CNOV Office Visit (CARMOB ) SOY BURCH ([id number]) 1945 M Date Time Provider Department 12/18/23 3:00 PM REM DEVICE CHECK [facility] During your visit today, we recorded the following information about you: Allergies As of Date: 12/18/2023 Noted Allergy Reaction BETA-BLOCKERS (BETA-ADRENERGIC BL*03/07/2013 16 - Unknown CLINDAMYCIN 10/02/2005 Comments: ER visit -unknown reaction PENICILLINS 10/02/2005 2 - Rash Date Reviewed: 02/26/2023 Reviewed by: Jesse Gaitan MD - Fully Assessed Reason for Visit: Follow Up [171] Primary Visit Diagnosis:SSS (sick sinus syndrome) ([facility]) [I49.5] Prescriptions as of 12/18/2023 - rosuvastatin (CRESTOR) 40 mg tablet Take 1 tablet by mouth once daily. - dilTIAZem CD 360 mg 24 hr capsule Take 1 capsule by mouth once daily. - nebivolol (BYSTOLIC) 5 mg tablet Take 1 tablet by mouth once daily. - olmesartan (BENICAR) 40 mg tablet Take 1 tablet by mouth once daily. - furosemide (LASIX) 20 mg tablet Take 1 tablet by mouth once daily. - ASPIRIN 81 MG TAB Take 81 mg by mouth daily at bedtime. Problem List As Of Date 12/18/2023 Noted Resolved HYPERTROPHY PROSTATE WITH OBST [N40.1, N13.8] 10/02/2005 BLADDER NECK OBSTRUCTION [N32.0] 10/02/2005 Elevated Prostate Specific Antigen (PSA) [R97.2*05/22/2009 Paroxysmal atrial fibrillation (HCC) [I48.0] 02/13/2022 Coronary artery disease [I25.10] 02/13/2022 Tachycardia, unspecified [R00.0] 02/13/2022 Paroxysmal supraventricular tachycardia (HCC) [*02/13/2022 Hypertension [I10] 02/13/2022 Hyperlipidemia [E78.5] 02/13/2022 Aortic stenosis [I35.0] 02/13/2022 Dizziness and giddiness [R42] 02/13/2022 Medication monitoring encounter [Z51.81] 02/13/2022 Encounter Status:Closed by RADHA OCHOA on 12/18/23 [facility] HbA1c (Bld)on 02-19-2023 Average glucose Estimated from glycated hemoglobin (Bld) [Mass/Vol] 134 mg/dL Normal [facility] [place] [facility] Comment on above: Order Comment: Speci men Type: BLOOD SPECIMEN Ordering Facility: [facility] Address: [facility] [place] [address] Result Comment: eAG: (Estimated average glucose) is a calculated value from HgbA1c and is account representative of the average blood glucose level in the last 2-3 month period. Performed By: #### 5 5454-3 #### [facility] CLIA [id number] [address] [place] [address] [place] HbA1c (Bld) [Mass fraction] 6.3 % High 4.3-5.6 [facility] [place] [facility] Comment on above: Order Comment: Brianna vitor Type: BLOOD SPECIMEN Ordering Facility: [facility] Address: [facility] [place] [address] Result Comment: Guerline ican Diabetes Association guidelines indicate that patients with HgbA1c in the range 5.7-6.4% are at increased risk for development of diabetes, and intervention by lifestyle modification may be beneficial. HgbA1c greater or equal to 6.5% is considered diagnostic of diabetes. Performed By: #### 5 5454-3 #### [facility] CLIA [id number] [address] [place] [address] [place] Free PSA [Mass/Vol]on 2022 Free PSA/Total PSA [Mass fraction] 18 % Normal [facility] [place] [facility] Comment on above: Order Comment: Speci men Type: BLOOD SPECIMEN Ordering Facility: [facility] Address: [address] [place] [address] Result Comment: Tota l and free PSA test methodology used is the Electrochemiluminescence Immunoassay by [employer]. Total or free PSA values by differing methodologies cannot be interchanged. The below table lists the probability of finding prostate cancer upon needle biopsy, for men 50 years or older and total PSA concentrations from 4.0-10.0 ng/mL. Results should be interpreted within the broader clinical context. Free PSA(%) 50-59 years 60-69 years >69 years <11 49.2% 57.5% 64.5% 11-18 26.9% 33.9% 40.8% 19-25 18.3% 23.9% 29.7% >25 9.1% 12.2% 15.8% Performed By: #### 1 0886-0 #### [facility] CLIA [id number] [address] [place] [address] [place] Prostate specific Ag [Mass/Vol] 1.52 ng/mL Normal <2.60 [facility] [place] [facility] Comment on above: Order Comment: Speci men Type: BLOOD SPECIMEN Ordering Facility: [facility] Address: [address] [place] [address] Result Comment: Tota l PSA test methodology used is the Electrochemiluminescence Immunoassay by [employer]. Total PSA values by differing methodologies cannot be interchanged. Performed By: #### 1 0886-0 #### [facility] CLIA [id number] [address] [place] [address] [place] HbA1c (Bld)on 02-24-2022 Average glucose Estimated from glycated hemoglobin (Bld) [Mass/Vol] 120 mg/dL Normal [facility] [place] [facility] Comment on above: Order Comment: Brianna adler Type: BLOOD SPECIMEN Ordering Facility: [facility] Address: [address] [place] [address] Result Comment: eAG: (Estimated average glucose) is a calculated value from HgbA1c and is account representative of the average blood glucose level in the last 2-3 month period. Performed By: #### 5 5454-3 #### [facility] CLIA [id number] [address] [place] [address] [place] HbA1c (Bld) [Mass fraction] 5.8 % High 4.3-5.6 [facility] [place] [facility] Comment on above: Order Comment: Brianna adler Type: BLOOD SPECIMEN Ordering Facility: [facility] Address: [address] [place] [address] Result Comment: Amer ican Diabetes Association guidelines indicate that patients with HgbA1c in the range 5.7-6.4% are at increased risk for development of diabetes, and intervention by lifestyle modification may be beneficial. HgbA1c greater or equal to 6.5% is considered diagnostic of diabetes. Performed By: #### 5 5454-3 #### [facility] CLIA [id number] [address] [place] [address] [place] Hemoglobin A1con 03-17-2021 Glucose [Mass/Vol] 120 mg/dL Normal [facility] Comment on above: Performed By: #### H BA1C #### [facility] Routine Lab [address] [place] [id number] HbA1c (Bld) [Mass fraction] 5.8 % High 4.3-5.6 [facility] Comment on above: Performed By: #### H BA1C #### [facility] Routine Lab [address] [place], [place] [address] Hemoglobin A1con 05-26-2020 Glucose [Mass/Vol] 117 mg/dL Normal [facility] Comment on above: Performed By: #### H BA1C #### [facility] Routine Lab [address] [place], [place] [id number] HbA1c (Bld) [Mass fraction] 5.7 % High 4.3-5.6 [facility] Comment on above: Performed By: #### H BA1C #### [facility] Routine Lab [address] [place], [place] [address] CADon 01-16-2020 CAD VASCULAR REPORT Patient: SOY BURCH Account [id number] Ordering Phy: MR: [id number] Reason for Visit: I65.23,I71.2 THORACIC AORTIC ANEURYSM Date of Service 01/16/20 Reading Physician: Miko Gaxiola MD [id number] CLI CAD CAROTID DUPLEX PREET [address] [place] [address] Non- Invasive Vascular Laboratory Carotid Duplex Report Name: SOY BURCH Study Date: 01/16/2020 09:04 AM Patient Location: [facility] : 1945 (M/d/yyyy)Gender: Male Age: 74 yrs Ethnicity: [place] Accession No. [id number] No. [id number] Order No. [id number] Reason For Study: I65.23 Occlusion and stenosis of bilateral carotid artery Carotid Smart Chart Right Left PSV EDV PSV EDV CC: Jesse Gaitan MD [facility] PATIENT NAME: SOY BURCH [address] [place], [place] [address] MEDICAL REC #: [id number] [place] [address] ADMIT DATE: DISCHARGE DATE: CAROTID DUPLEX REPORT ATTENDING PHY: Jesse Gaitan MD Electronically Signed by: Miko Gaxiola MD Esign Date: 01/16/20 VASCULAR REPORT Patient: SOY BURCH Account [id number] Ordering Phy: MR: [id number] Reason for Visit: I65.23,I71.2 THORACIC AORTIC ANEURYSM Date of Service 01/16/20 Reading Physician: Miko Gaxiola MD cm/seccm/sec cm/seccm/sec -96.7 -27.5 Dist ICA -93.8 -25.8 -97.6 -20.8 Prox ICA -71.3 -14.9 -97.6 -7.6 Prox ECA -107.0 NA 79.7 14.6 Dist CCA 78.7 15.2 84.3 14.6 Prox CCA -99.5 -13.3 62.1 15.3 Vertebral A 50.0 29.6 Measurements and Calculations No Right Laterality Left Unit Prox SCLA PSV 95.8 123.0 cm/sec Interpretation Summary Stenosis in the right internal carotid artery is 1-39% by established Doppler criteria. Stenosis in the left internal carotid artery is 1-39% by established Doppler criteria. Right Carotid This is suggestive of a 1-39% stenosis of the right internal carotid artery. The Doppler flow velocities within the right external carotid artery are within normal limits. Right Vertebral/Subclavian Right vertebral artery flow is antegrade and within normal limits. Right subclavian artery flow is antegrade and within normal limits. Left Carotid This is suggestive of a 1-39% stenosis of the left internal carotid artery. The Doppler flow velocities within the left external carotid artery are within normal limits. Left Vertebral/Subclavian Left vertebral artery flow is antegrade and within CC: Jesse Gaitan MD [facility] PATIENT NAME: SOY BURCH [address] MEDICAL REC #: [id number] [place] [address] ADMIT DATE: DISCHARGE DATE: CAROTID DUPLEX REPORT ATTENDING PHY: Jesse Gaitan MD Electronically Signed by: Miko Gaxiola MD Esign Date: 01/16/20 VASCULAR REPORT Patient: SOY BURCH Account [id number] Ordering Phy: MR: [id number] Reason for Visit: I65.23,I71.2 THORACIC AORTIC ANEURYSM Date of Service 01/16/20 Reading Physician: Miko Gaxiola MD normal limits. Left subclavian artery flow is antegrade and within normal limits. Electronically signed by: Miko Gaxiola MD 01/16/2020 11:53 AM Ordering Physician: Kofi Performed By: Shani Landry RVT CC: Jesse Gaitan MD [facility] PATIENT NAME: SYO BURCH [address] MEDICAL REC #: [id number] [place] [address] ADMIT DATE: DISCHARGE DATE: CAROTID DUPLEX REPORT ATTENDING PHY: Jesse Gaitan MD Electronically Signed by: Miko Gaxiola MD Esign Date: 01/16/20 Normal [facility] CAROTID DUPLEX REPORT Normal [facility] CT THORAX W/O CONon 01-16-20 CT THORAX W/O CON CT THORAX W/O CON Ordering Physician: Jesse Gaitan MD 01/16/2020 8:[address] THORAX WITHOUT CONTRAST: Clinical Statement: Thoracic aortic aneurysm. Workstation of aorta. Comparison: CT thorax with contrast 01/07/2018. CT thorax with contrast 11/02/2006. TECHNIQUE: Contiguous transaxial images were obtained through the chest without contrast. FINDINGS: There are postsurgical changes of sternotomy. There is a pacemaker/ICD generator in the upper left chest the heart is upper normal in size, stable from the previous exam. There are postoperative changes again shown along the ascending thoracic aorta. No periaortic fluid collection identified. The distal aortic arch measures up to 1.8 cm in diameter, then returning to normal caliber in the proximal descending aorta to a diameter of 2.7 cm, the findings of which are not significantly changed from the previous exams. The distal descending thoracic aorta is tortuous but normal in caliber. At this chronic calcifications are noted at the arch. No pericardial effusion. The esophagus is normal in course and caliber. There is juxtapleural scarring and mild pleural retraction redemonstrated posterolaterally within the left upper lobe. There is minimal scarring at the left lung base. No consolidation identified. The major airways are patent. No pleural effusions. Images to the upper abdomen are noncontributory. The gallbladder is surgically absent. IMPRESSION: Stable postoperative changes of the thoracic aorta and coarctation as above. No acute process. ---- Electronic Signature on File ---- Signed By: Herminia Finney MD [email or web address] Dictated: 01/16/2020 9:42 AM Signed: 01/16/2020 9:51 AM Reported By: HERMINIA FINNEY M.D. Signed By: HERMINIA FINNEY M.D. [facility] CARD.[facility] 04-20-2019 CARD.[facility] Patient Name: SOY BURCH [address] Date of : [address] [place], [place] [address] Unit Number: [id number] Stress Test (Nuclear) Patient Status: REG CLI Attending Doctor: Jesse Gaitan MD Service Date: 04/20/19 1412 OutPt-Stress Test Nuclear Img Referring Physician: Jose Miguel Granados MD Ordering Provider: Jesse Gaitan MD Vitals: Age: 73 years old Gender: Male Height: 5 feet 7 inches Weight: 175.00 pounds Allergies: Coded Allergies: CLINDAMYCIN (12/29/11) PENICILLINS (12/29/11) BETA-BLOCKERS (BETA-ADRENERGIC BLOC (LOWERS HR 12/30/11) Summary: HISTORY/INDICATIONS: This is a 73 year old Male who presents with history of hypertension, hyperlipidemia, status post aortic aneurysm resection in 1996 status post ablation for atrial fibrillation and permanent pacemaker. The patient is now referred for a stress nuclear examination for assessment of myocardial ischemia. PROCEDURE: The patient exercised on a standard Anders protocol for a total exercise time of 09 minutes and 50 seconds. The maximum heart rate attained was 125 beats per minute, achieving 86% of maximum predicted heart rate. The peak blood pressure was 175/50. The patient achieved a total workload of 11.40 METs. SYMPTOMS: Subsequently, the patient had myocardial perfusion imaging performed using same-day single isotope imaging protocol with intravenous injection of 33.7 mCi of Myoview with peak exercise and 13.4 mCi of Myoview at rest. Imaging was performed by gated tomographic technique. FINDINGS: On the stress and rest images the heart is normal in size. On the stress images, there is mild decrease activity on the left ventricular apex which is persistent on the resting images. There is relatively homogenous uptake of activity throughout the remaining myocardium. On the gated images, the ejection fraction is 69% with normal wall motion. IMPRESSION: 1. No significant myocardial ischemia. 2. No evidence of myocardial infarction. 3. Apical attenuation artifact 4. The ejection fraction is 69% with normal wall motion. 5. EKG changes diagnostic of Myocardial Ischemia with Anders Protocol achieving a total workload of 11.4 METS without chest discomfort. Disclaimer This dictation was created using voice recognition software. Phonetic and/or minor grammatical errors may exist. eSign Date and Time Oanh Ojeda MD Verified/Reviewed by 05/01/19 1239 [facility] RE[facility] INTERPRETING PHYSICI AN: Jesse Gaitan MD ATTENDING PHYSICIAN: Jesse Gaitan MD ORDERING/REFERRING PHYSICIAN: DATE(S) OF SERVICE: 04/20/2019 PROCEDURE: Exercise treadmill test and stress sestamibi test. PATIENT RELATED INFORMATION: Age: 73 Height: ft 67 in Weight: 175 lbs. oz. Sex: M Smokes: Cigars: #Cigs: Pipe: Inactive: Mod.Man.Labor: Heavy Work: Sedentary: X Sedentary and Ex. Program: HR Since last meal: REASON FOR PERFORMING TEST: Recent observation of nonsustained ventricular tachycardia on a pacemaker interrogation. History of known coronary artery disease. MEDICATIONS: 1. Aspirin. 2. Cardizem. 3. Finasteride. 4. Losartan. 5. Potassium chloride. 6. Rosuvastatin. 7. Azithromycin. 8. Lasix. INTERPRETATION: EKG response to exercise: Shows normal sinus rhythm; rightward axis. Blood pressure response: Flat. Rhythm: Exercise-induced dysrhythmia. Conduction: Normal. ST segment: Ischemia. Heart rate response: Mildly blunted chronotropic response to exercise. Fitness classification: Good Resting ECG: COMMENTS: 1. Good exercise tolerance; the patient achieved 86% of the age-predicted maximum heart rate through greater than 3 stages (9 minutes and 50 seconds) of a Anders protocol. 2. No chest pain on exercise; the test was discontinued secondary to complaints of generalized fatigue. [facility] PATIENT NAME: SOY BURCH [facility] [address] MEDICAL REC #: [id number] [place] [address] ADMIT DATE: DISCHARGE DATE: ATTENDING PHY: Jesse Gaitan MD CARDIAC STRESS TEST REPORT 3. Occasional isolated premature ventricular complexes were noted during exercise and the recovery phase. The patient also demonstrated occasional isolated premature supraventricular complexes during exercise and the recovery phase. 4. Mildly blunted chronotropic response to exercise. 5. Relatively flat blood pressure response to exercise in a patient demonstrating moderate systolic hypertension during baseline observation. Specifically, the patient began the study with a baseline blood pressure of 161/79 and had a peak recorded blood pressure of 165/50 noted during the final minute of exercise. The clinical significance of this finding is uncertain. 6. The patient developed a maximum, between 1.5 and [address] segment depression in the inferior leads at peak exercise, which returned to near baseline levels within 2 to 3 minutes into the recovery phase. This constitutes a positive response suggestive of exercise-induced myocardial ischemia. FINAL IMPRESSION: 1. Positive exercise treadmill test by ECG criteria suggestive of the presence of exercise-induced myocardial ischemia. 2. Good exercise tolerance. 3. No complaints of chest discomfort during or following exercise. 4. Occasional isolated premature ventricular complexes and occasional isolated premature supraventricular complexes were noted during exercise and the recovery phase. No complex ventricular arrhythmias were observed. 5. Mildly blunted chronotropic response to exercise. 6. Please refer to the interpretation of the sestamibi images for a complete report. Jesse Gaitan MD /[id number] [facility] File#: [id number] CC: Jesse Gaitan MD CC: Jose Miguel Granados MD Verified/Reviewed by [id number] [facility] PATIENT NAME: SOY BURCH [facility] [address] MEDICAL REC #: [id number] [place] [address] ADMIT DATE: DISCHARGE DATE: ATTENDING PHY: Jesse Gaitan MD CARDIAC STRESS TEST REPORT Normal [facility] Vital Signs Date Time Vital Sign Value Performing Clinician Faci lity 03-15-2024 11:38-0400 Diastolic blood pressure 67 mm[Hg] Jesse Gaitan MD Work Phone: [facility] 03-15-2024 11:38-0400 Systolic blood pressure 149 mm[Hg] Jesse Gaitan MD Work Phone: [facility] 03-15-2024 11:31-0400 Body height 170.2 cm Jesse Gaitan MD Work Phone: [facility] 03-15-2024 11:31-0400 Body mass index (BMI) [Ratio] 27.91 kg/m2 Jesse Gaitan MD Work Phone: [facility] 03-15-2024 11:31-0400 Body weight 80.83 kg Jesse Gaitan MD Work Phone: [facility] 03-15-2024 11:31-0400 Heart rate 62 /min Jesse Gaitan MD Work Phone: [facility] 03-15-2024 11:31-0400 SaO2% (BldA) [Mass fraction] 96 % Jesse Gaitan MD Work Phone: [facility] 02-26-2023 13:15-0400 Body height 170.2 cm Jesse Gaitan MD Work Phone: [facility] 02-26-2023 13:15-0400 Body weight 76.66 kg Jesse Gaitan MD Work Phone: [facility] 02-26-2023 13:15-0400 Diastolic blood pressure 64 mm[Hg] eJsse Gaitan MD Work Phone: [facility] 02-26-2023 13:15-0400 Heart rate 63 /min Jesse Gaitan MD Work Phone: [facility] 02-26-2023 13:15-0400 SaO2% (BldA) [Mass fraction] 94 % Jesse Gaitan MD Work Phone: [facility] 02-26-2023 13:15-0400 Systolic blood pressure 154 mm[Hg] Jesse Gaitan MD Work Phone: [facility] 02-27-2022 09:46-0400 Body height 170.2 cm Jesse Gaitan MD Work Phone: [facility] 02-27-2022 09:46-0400 Body weight 80.47 kg Jesse Gaitan MD Work Phone: [facility] 02-27-2022 09:46-0400 Diastolic blood pressure 71 mm[Hg] Jesse Gaitan MD Work Phone: [facility] 02-27-2022 09:46-0400 Heart rate 60 /min Jesse Gaitan MD Work Phone: [facility] 02-27-2022 09:46-0400 SaO2% (BldA) [Mass fraction] 94 % Jesse Gaitan MD Work Phone: [facility] 02-27-2022 09:46-0400 Systolic blood pressure 143 mm[Hg] Jesse Gaitan MD Work Phone: [facility] Encounters Encounter Date Encounter Type Care Provider Facility Start: 12-20-2024 End: 12-20-2024 Emergency department patient visit ADELFO ROMERO [facility] Start: 12-20-2024 ambulatory JOSE MIGUEL GRAMAJO [facility] Start: 12-18-2024 End: 12-19-2024 Emergency department patient visit ALONZO DO LANDRY [facility] Start: 10-13-2024 End: 10-13-2024 ambulatory JOSE MIGUEL GRAMAJO [facility] Start: 09-20-2024 End: 09-20-2024 Telephone encounter Jaymie Miranda MD Work Phone: [facility] Start: 09-13-2024 End: 09-13-2024 ambulatory SELF Facility:[id number] Start: 08-16-2024 End: 08-16-[address] JOSE MIGUEL GRANADOS MD Facility:A Start: 08-16-2024 End: 08-16-[address] CONNIE FREY MD [facility] Start: 07-13-2024 End: 07-13-2024 Telephone encounter Jaymie Miranda MD Work Phone: [facility] Comment on above: Cardiac Clearance Start: 06-30-2024 End: 06-30-2024 Refill Jesse Gaitan MD Work Phone: [facility] Comment on above: Refill Request Start: 06-17-2024 End: 06-17-2024 Patient encounter procedure Rem [facility] Work Phone: [facility] Comment on above: SSS (sick sinus synd maurizio) (HCC) (Primary Dx) Start: 06-17-2024 End: 06-17-2024 ambulatory JOSE MIGUEL GRANADOS Facility:[id number] Start: 06-11-2024 End: 06-13-2024 Evaluation and management of inpatient LYDIA GRAMAJO GBCHIKISUK [facility] Start: 04-14-2024 End: 04-14-2024 Telephone encounter Jesse Gaitan MD Work Phone: [facility] Comment on above: Results (Echo result s) Start: 04-13-2024 ambulatory JESSE GAITAN Facilit y:[phone] Start: 04-13-2024 End: 04-13-2024 Subsequent hospital visit by physician Echo Lab 2 [facility] Work Phone: [facility] Comment on above: Essential hypertensi on [I10] Start: 04-06-2024 End: 04-11-2024 Telephone encounter Jesse Gaitan MD Work Phone: [facility] Comment on above: Results Start: 04-04-2024 End: 04-04-2024 ambulatory JESSE GAITAN [facility] Start: 03-31-2024 End: 03-31-2024 Telephone encounter Jesse Gaitan MD Work Phone: [facility] Comment on above: Results (CTA of the Chest) Start: 03-26-2024 ambulatory JESSE GAITAN Facilit y:[phone] Start: 03-26-2024 End: 03-26-2024 Subsequent hospital visit by physician Ct [facility] 3 Work Phone: Radiology CT Scan Comment on above: Disorder of artery o r arteriole (HCC) [I77.9] Start: 03-17-2024 End: 03-17-2024 Telephone encounter Jesse Gaitan MD Work Phone: [facility] Comment on above: Appointment Start: 03-15-2024 End: 03-15-2024 Office outpatient visit 40 minutes Jesse Gaitan MD Work Phone: [facility] Comment on above: Nonrheumatic aortic valve stenosis (Primary Dx); Coronary artery disease involving [place] coronary artery of [place] heart without angina pectoris; Paroxysmal atrial fibrillation (HCC); Dyslipidemia; Essential hypertension; Impaired glucose tolerance; Aneurysm of ascending aorta without rupture (HCC); Pacemaker; Elective replacement indicated for pacemaker; Medication monitoring encounter; Chronic diastolic congestive heart failure (HCC); Disorder of artery or arteriole (HCC) Start: 03-15-2024 End: 03-15-2024 Patient encounter procedure [facility] Work Phone: [facility] Comment on above: SSS (sick sinus synd maurizio) (HCC) (Primary Dx) Start: 03-15-2024 End: 03-15-2024 ambulatory JESSE GAITAN Facility:[id number] Start: 02-29-2024 End: 02-29-2024 Chart abstracting Jesse Gaitan MD Work Phone: [facility] Start: 02-17-2024 End: 02-22-2024 Refill Jesse Gaitan MD Work Phone: [facility] Comment on above: Refill Request Start: 01-08-2024 Refill Jesse montalvo MD Work Phone: [facility] Comment on above: Refill Request Start: 12-29-2023 End: 12-29-2023 ambulatory JOSE MIGUEL GRAMAJO [facility] Start: 12-18-2023 End: 12-18-2023 Patient encounter procedure Rem Device [facility] Work Phone: [facility] Comment on above: SSS (sick sinus synd maurizio) (HCC) (Primary Dx) Start: 12-18-2023 End: 12-18-2023 [facility] Facility:[id number] Start: 11-25-2023 Refill Jesse montalvo MD Work Phone: [facility] Comment on above: Refill Request Start: 10-24-2023 ambulatory Self Referred Facility: [facility] Start: 10-08-2023 End: 10-14-2023 ambulatory Self Referred Facility:[facility] Start: 10-08-2023 End: 10-13-2023 ambulatory [facility] Work Phone: Start: 10-08-2023 End: 10-13-2023 Discharged Recurring [facility] Work Phone: Start: 09-08-2023 End: 09-08-2023 Patient encounter procedure [facility] Work Phone: [facility] Comment on above: SSS (sick sinus synd maurizio) (HCC) (Primary Dx) Start: 04-20-2023 Chart abstracting Jesse donis MD Work Phone: [facility] Start: 04-17-2023 Patient encounter procedure [facility] Provider [facility] Department Start: 04-17-2023 Telephone encounter Jesse ng MD Work Phone: [facility] Comment on above: Blood Pressure Start: 03-17-2023 Telephone encounter Jesse ng MD Work Phone: [facility] Comment on above: Results Start: 02-26-2023 End: 02-26-2023 Patient encounter procedure [facility] Work Phone: [facility] Comment on above: SSS (sick sinus synd maurizio) (HCC) (Primary Dx) Start: 02-26-2023 End: 02-26-2023 Office outpatient visit 40 minutes Jesse Gaitan MD Work Phone: [facility] Comment on above: Nonrheumatic aortic valve stenosis (Primary Dx); Coronary artery disease involving [place] coronary artery of [place] heart without angina pectoris; Dyslipidemia; Essential hypertension; Paroxysmal atrial fibrillation (HCC); Impaired glucose tolerance; Aneurysm of ascending aorta without rupture (HCC); Medication monitoring encounter; SSS (sick sinus syndrome) (HCC); Pacemaker; Disorder of artery or arteriole (HCC) Start: 02-24-2023 Telephone encounter Jesse ng MD Work Phone: [facility] Comment on above: Results Start: 01-29-2023 Refill Jesse montalvo MD Work Phone: [facility] Comment on above: Refill Request Start: 10-07-2022 Refill Jesse montalvo MD Work Phone: [facility] Comment on above: Refill Request Start: 09-16-2022 Telephone encounter Rudy Olivas RN [facility] Comment on above: Pre-procedure instru ctions for DC PPM generator change Start: 08-28-2022 End: 08-28-2022 Patient encounter procedure [facility] Work Phone: [facility] Comment on above: Pacemaker (Primary D x) Start: 08-27-2022 Telephone encounter Jaymie Miranda MD Work Phone: [facility] Comment on above: Patient Question [employer] DC PPM gen erator change Patient Update (Judi ce); Notification of scheduled DC PPM generator change Results Start: 07-02-2022 Refill Jesse montalvo MD Work Phone: [facility] Comment on above: Refill Request Start: 05-30-2022 End: 05-30-2022 Patient encounter procedure Rem Device Check [facility] Work Phone: [facility] Comment on above: Pacemaker (Primary D x) Start: 03-26-2022 Telephone encounter Jesse ng MD Work Phone: [facility] Comment on above: Results (Echo result s) Start: 03-03-2022 Telephone encounter Jesse ng MD Work Phone: [facility] Comment on above: Appointment Start: 02-27-2022 End: 02-27-2022 Office outpatient visit 40 minutes Jesse Gaitan MD Work Phone: [facility] Comment on above: Paroxysmal atrial fi brillation (HCC) (Primary Dx); Essential hypertension; Coronary artery disease involving [place] coronary artery of [place] heart without angina pectoris; Medication monitoring encounter; Pacemaker; Dyslipidemia; Impaired glucose tolerance; SVT (supraventricular tachycardia) (HCC); Thoracic ascending aortic aneurysm (HCC); Nonrheumatic aortic valve stenosis; Disorder of artery or arteriole (HCC) Start: 02-27-2022 End: 02-27-2022 Patient encounter procedure [facility] Work Phone: [facility] Comment on above: SSS (sick sinus synd maurizio) ([facility]) (Primary Dx) Start: 02-26-2022 Telephone encounter Jesse ng MD Work Phone: [facility] Comment on above: Results Start: 02-13-2022 Chart abstracting Sil Pantoja MA [facility] Start: 01-21-2022 Refill Jesse montalvo MD Work Phone: [facility] Comment on above: Refill Request Procedures Date Procedure Procedure Detail Performing Clinician Start: 12-19-2024 Urinalysis ADELFO CLAY Comment on above: Result Comment: URIN ALYSIS Performed By: #### [id number] ####[place] [id number] Start: 10-13-2024 PSA screening ADELFO CLEMENT Comment on above: Performed By: #### [id number] ####[place] [id number] Start: 04-13-2024 Echo tthrc r-t 2d w/wom-mode compl spec&colr d Jesse Gaitan MD Work Phone: Start: 03-26-2024 Creatinine blood [facility] Pr ovider Start: 06-11-2021 History of transuret hral prostatectomy S/P TURP (transurethral resection of prostate) Jesse Gaitan MD Work Phone: Plan of Treatment Date Care Activity Detail Author Start: 11-06-2027 Urine microalbumin profile DTa P,Tdap,Td Vaccine (2 - Td or Tdap) [facility] Start: 02-19-2026 Diabetes Screening Diabetes Screenin g [facility] Start: 09-23-2025 DIABETES SCREEN DIABETES SCREEN [facility] Start: 03-27-2025 End: 03-27-2025 Patient encounter procedure [facility] Comment on above: 1 yr follow up Start: 02-24-2025 DIABETES SCREEN DIABETES SCREEN [facility] Start: 12-19-2024 End: 12-19-2024 Patient encounter procedure 12/19/2024 7:30 AM EDT Office Visit [facility] [address] [place] [address] 3mon remote [employer] [facility] Comment on above: 3mon remote medtroni c Start: 09-16-2024 Covid-19 Vaccine () Covid-19 Vaccine () [facility] Start: 09-13-2024 DIABETES SCREEN DIABETES SCREEN [facility] Start: 09-13-2024 End: 09-13-2024 Patient encounter procedure 09/13/2024 2:00 PM EDT Office Visit [facility] [address] [place] [address] 6 month follow up [facility] Comment on above: 6 month follow up Start: 06-17-2024 End: 06-17-2024 Patient encounter procedure 06/17/2024 3:45 PM EST Office Visit [facility] [address] [place] [address] [employer]mon remote [employer] [facility] Comment on above: [employer]mon remote [employer]tr[employer] Start: 06-15-2024 Advance Directive Discussion Advance Directive Discussion [facility] Start: 04-13-2024 End: 04-13-2024 Patient encounter procedure 04/13/2024 11:00 AM EDT Appointment [facility] [address] [place] [address] [I10] Essential hypertension [Z51.81] Medication monitoring encounter [I50.32] Chronic diastolic congestive heart failure (HCC) [I35.0] Nonrheumatic aortic valve stenosis [facility] Comment on above: [I10] Essential hype rtension [Z51.81] Medication monitoring encounter [I50.32] Chronic diastolic congestive heart failure (HCC) [I35.0] Nonrheumatic aortic valve stenosis Start: 04-04-2024 End: 07-04-2024 Basic metabolic 2000 panel - Serum or Plasma BASIC METABOLIC PANEL Lab Routine Essential hypertension Medication monitoring encounter Chronic diastolic congestive heart failure (HCC) Expected: 04/04/2024, Expires: 07/04/2024 [facility] Comment on above: Expected: 04/04/2024 , Expires: 07/04/2024 Start: 04-04-2024 End: 07-04-2024 Natriuretic peptide.B prohormone N-Terminal [Mass/volume] in Serum or Plasma NT PRO BNP Lab Routine Medication monitoring encounter Chronic diastolic congestive heart failure (HCC) Expected: 04/04/2024, Expires: 07/04/2024 [facility] Comment on above: Expected: 04/04/2024 , Expires: 07/04/2024 Start: 03-26-2024 End: 03-26-2024 Patient encounter procedure 03/26/2024 4:00 PM EDT Appointment Radiology CT Scan [address] [place] [address] Disorder of artery or arteriole (HCC) [I77.9] Radiology CT Scan Comment on above: Disorder of artery o r arteriole (HCC) [I77.9] Start: 03-15-2024 End: 03-15-2024 Patient encounter procedure [facility] Comment on above: 1 year follow up Start: 02-14-2024 Covid-19 Vaccine ( season) Covid-19 Vaccine ( season) [facility] Start: 02-14-2024 Covid-19 Vaccine ( season) Covid-19 Vaccine ( season) [facility] Start: 02-14-2024 Influenza vaccination Influenza Vacc ine (#1) [facility] Start: 12-18-2023 End: 12-18-2023 Patient encounter procedure 12/18/2023 3:00 PM EDT Office Visit [facility] [address] [place] [address] [place] [address] Cardiology Comment on above: 3mon remote medtr[employer] c Start: 06-15-2023 Advance Directive Discussion Advance Directive Discussion [facility] Start: 06-15-2023 Behavioral Health Screening Behavioral Health Screening [facility] Start: 06-15-2023 Depression Assessment Depression Ass essment [facility] Start: 03-30-2023 End: 02-27-2024 Echocardiography ECHO Cardiology Routine Essential hypertension Paroxysmal atrial fibrillation (HCC) Nonrheumatic aortic valve stenosis Expected: 03/30/2023, Expires: 02/27/2024 [facility] Work Phone: Comment on above: Expected: 03/30/2023 , Expires: 02/27/2024 Start: 03-12-2023 End: 2023 Basic metabolic 2000 panel - Serum or Plasma BASIC METABOLIC PNL Lab Routine Essential hypertension Medication monitoring encounter Expected: 03/12/2023, Expires: 2023 [facility] Work Phone: Comment on above: Expected: 03/12/2023 , Expires: 2023 Start: 02-13-2023 Covid-19 Vaccine ( season) Covid-19 Vaccine ( season) [facility] Start: 02-13-2023 Influenza vaccination [facility] Start: 02-02-2023 Covid-19 Vaccine (5 - Pfizer series) Covid-19 Vaccine (5 - Pfizer series) [facility] Start: 06-15-2022 ADVANCE DIRECTIVE DISCUSSION ADVANCE DIRECTIVE DISCUSSION [facility] Start: 06-15-2022 DEPRESSION ASSESSMENT DEPRESSION ASS ESSMENT [facility] Start: 02-13-2022 Influenza vaccination INFLUENZA (#1) [facility] Start: 08-12-2021 COVID-19 VACCINE (4 - Booster for Pfizer series) COVID-19 VACCINE (4 - Booster for Pfizer series) [facility] Start: 06-15-2021 ADVANCE DIRECTIVE DISCUSSION ADVANCE DIRECTIVE DISCUSSION [facility] Start: 06-15-2021 DEPRESSION ASSESSMENT DEPRESSION ASS ESSMENT [facility] Start: 06-07-2021 COVID-19 VACCINE (4 - Booster for Pfizer series) COVID-19 VACCINE (4 - Booster for Pfizer series) [facility] Start: 06-07-2021 COVID-19 VACCINE (4 - Pfizer series) COVID-19 VACCINE (4 - Pfizer series) [facility] Start: 10-10-2020 Pneumococcal Vaccine : 50+ (3 of 3 - PCV20 or PCV21) Pneumococcal Vaccine: 50+ (3 of 3 - PCV20 or PCV21) [facility] Start: 10-10-2020 Pneumococcal Vaccine : 65+ (3 - PPSV23 or PCV20) Pneumococcal Vaccine: 65+ (3 - PPSV23 or PCV20) [facility] Start: 10-10-2020 Pneumococcal Vaccine : 65+ (3 of 3 - PPSV23 or PCV20) Pneumococcal Vaccine: 65+ (3 of 3 - PPSV23 or PCV20) [facility] Start: 2018 RSV Vaccine (1 - 1-d ose 75+ series) RSV Vaccine (1 - 1-dose 75+ series) [facility] Start: 2008 Pneumococcal Vaccine : 65+ (2 - PCV) Pneumococcal Vaccine: 65+ (2 - PCV) [facility] Start: 2008 PNEUMOCOCCAL: 65+ (1 - PCV) PNEUMOCOCCAL: 65+ (1 - PCV) [facility] Start: 2008 PNEUMOCOCCAL: 65+ (2 - PCV) PNEUMOCOCCAL: 65+ (2 - PCV) [facility] Start: 03-15-2008 PNEUMOCOCCAL: 65+ (2 - PCV) PNEUMOCOCCAL: 65+ (2 - PCV) [facility] Start: 2003 RSV Vaccine (1 - 1-d ose 60+ series) RSV Vaccine (1 - 1-dose 60+ series) [facility] Start: 1993 SHINGRIX VACCINE (1 of 2) COKER GRIX VACCINE (1 of 2) [facility] Start: 1962 Urine microalbumin profile [facility] Start: 1961 ANNUAL PCP TEAM SUPERVISOR [employer] ANGELIQUE DISEASE VISIT ANNUAL PCP TEAM CHRONIC DISEASE VISIT [facility] Start: 1961 Anxiety Screening Anxiety Screening [facility] Start: 1961 BP CONTROLLED (<130/80) BP CON TROLLED (<130/80) [facility] Start: 1961 Depression Screening Depression Scre ening [facility] Start: 1961 Hepatitis B surface antibody level LDL CHOLESTEROL [facility] Start: 1961 HEPATITIS C SCREENING HEPATITIS C SC EMILY [facility] Start: 1955 Adult depression scr [facility] assessment DEPRESSION SCREENING [facility] Start: 1943 COVID-19 VACCINE (#1) COVID-19 VACCI NE (#1) [facility] End: 03-29-2023 Ct thorax w/o contrast material CT CHEST WO IVCON Radiology Routine Disorder of artery or arteriole (HCC) 1 Occurrences starting 02/27/2022 until 03/29/2023 [facility] Work Phone: Comment on above: 1 Occurrences starti ng 02/27/2022 until 03/29/2023 End: 04-14-2025 CTA Chest vessels WO and W contrast IV CTA CHEST (NONGATED) WO/W IVCON Radiology Routine Disorder of artery or arteriole (HCC) 1 Occurrences starting 03/15/2024 until 04/14/2025 [facility] Comment on above: 1 Occurrences starti ng 03/15/2024 until 04/14/2025 CTA Chest vessels WO and W contrast IV CTA CHEST (NONGATED) WO/W IVCON Radiology Routine Disorder of artery or arteriole (HCC) 03/26/2024 4:42 PM EDT [facility] Work Phone: ECG B/O W INTERP (ME D OFFICE) ECG B/O W INTERP (MED OFFICE) ECG Routine Coronary artery disease involving [place] coronary artery of [place] heart without angina pectoris Ordered: 02/26/2023 [facility] Work Phone: Comment on above: Ordered: 02/26/2023 ECG B/O W INTERP (ME D OFFICE) ECG B/O W INTERP (MED OFFICE) ECG Routine Coronary artery disease involving [place] coronary artery of [place] heart without angina pectoris Paroxysmal atrial fibrillation (HCC) Dyslipidemia Essential hypertension Impaired glucose tolerance Aneurysm of ascending aorta without rupture (HCC) Pacemaker Elective replacement indicated for pacemaker Medication monitoring encounter Ordered: 03/15/2024 [facility] Work Phone: Comment on above: Ordered: 03/15/2024 End: 02-27-2023 ECG COMPLETE ECG COMPLETE ECG Routine Paroxysmal atrial fibrillation (HCC) Coronary artery disease involving [place] coronary artery of [place] heart without angina pectoris 1 Occurrences starting 02/27/2022 until 02/27/2023 [facility] Work Phone: Comment on above: 1 Occurrences starti ng 02/27/2022 until 02/27/2023 End: 02-27-2023 Echocardiography ECHO Cardiology Routine Paroxysmal atrial fibrillation (HCC) Essential hypertension Coronary artery disease involving [place] coronary artery of [place] heart without angina pectoris Nonrheumatic aortic valve stenosis 1 Occurrences starting 02/27/2022 until 02/27/2023 [facility] Work Phone: Comment on above: 1 Occurrences starti ng 02/27/2022 until 02/27/2023 End: 03-15-2025 Echocardiography ECHO Cardiology Routine Essential hypertension Medication monitoring encounter Chronic diastolic congestive heart failure (HCC) Nonrheumatic aortic valve stenosis 1 Occurrences starting 03/15/2024 until 03/15/2025 [facility] Comment on above: 1 Occurrences starti ng 03/15/2024 until 03/15/2025 [facility] Immunizations Immunization Date Immunization Notes Care Provider Fa cili 04-23-2023 influenza virus vacc ine, unspecified formulation Rem Main Work Phone: [facility] 03-21-2021 influenza virus vacc ine, unspecified formulation Jesse Gaitan MD Work Phone: [facility] 03-11-2021 Influenza virus vaccine [facility] 03-15-2007 pneumococcal polysaccharide vaccine, 23 valent Jesse Gaitan MD Work Phone: [facility] Payers Date Payer Category Payer Medicare [id number] 2024 Private Health Insurance [id number] 2023 Self-pay [id number] 2023 Self-pay [id number] 2014 Private Health Insurance [id number] 2013 Private Health Insurance [id number] 2008 Medicare [id number] 2008 Medicare [id number] 1945 Unknown [id number] 2.16.8 [id number] 1945 Unknown [id number] 2.16.8 [id number] 1945 Unknown [id number] 2.16.8 [id number] 1945 Unknown [id number] 2.16.8 [id number] 1943 Unknown [id number] 2.16.8 [id number] 1945 Unknown [id number] 2.16.8 [id number] 1945 Unknown [id number] 2.16.8 [id number] 1943 Unknown [id number] 2.16.8 [id number] 1945 Unknown [id number] 2.16.8 [id number] 1945 Unknown [id number] 2.16.8 [id number] Private Health Insurance [facility] [id number] Unknown [id number] 2.16.8 [id number] Unknown [id number] 2.16.8 [id number] Social History Date Type Detail Facility Start: 02-13-2022 End: 02-26-2023 Tobacco smoking status NHIS Never smoked tobacco [facility] Start: 04-19-2015 End: 09-23-2022 Alcohol intake Current non-drinker of alcohol (finding) [facility] Start: 1945 Sex Assigned At Not on file [facility] Start: 02-13-2022 End: 02-26-2023 Tobacco use and exposure Smokeless tobacco non-user [facility] Start: 02-17-2022 End: 03-26-2022 Exposure to SARS-CoV-2 (event) Not sure [facility] Start: 09-23-2022 End: 02-26-2023 History of Social function [facility] Start: 09-23-2022 End: 02-26-2023 Tobacco use panel [facility] National Score (1-100), lower number is lower risk 56 [facility] History of tobacco use Passive smoker [facility] Start: 02-26-2023 End: 03-15-2024 Alcohol intake Lifetime non-drinker (finding) [facility] Start: 06-05-2021 Tobacco smoking stat us NHIS Unknown if ever smoked [facility] Start: 1945 Sex Assigned At Male [facility] Medical Equipment Procedure Code Equipment Code Equipment Origin al Text Equipment Identifier Dates Pacemaker Hollins Xt Dr Ana Rosa Kennedy - [id number] Start: 09-23-2022 Goals Date Patient Goal Desired Activity /State Personal health goal Clinical Notes 01-25-2022 to 09-20-2024 Telephone Encounter - Jesse Gaitan MD - 09/20/2024 8:51 PM EDTTelephone Encounter - Jesse Gaitan MD - 09/20/2024 8:51 PM EDTTelephone Encounter - Dandy Bruner - 09/20/2024 11:03 AM EDT Note Date & Type Note Facility 09-20-2024 Telephone encounter Note Summ : Device check The pt has previously been evaluated for asymptomatic nonsustained VT. As long as he is not experiencing symptoms, I would not recommend any further evaluation at this time. [place] [facility] 09-20-2024 Miscellaneous Notes Summary: Device check The pt has previously been evaluated for asymptomatic nonsustained VT. As long as he is not experiencing symptoms, I would not recommend any further evaluation at this time. [place] Summary: Remote As previously discussed, patient had a episode of VT on 08/25/2024. Report to be scanned. Patient has a pacemaker. No complaints at time of visit. documented in this encounter [facility] 09-20-2024 Telephone encounter Note Summ : Remote As previously discussed, patient had a episode of VT on 08/25/2024. Report to be scanned. Patient has a pacemaker. No complaints at time of visit. [facility] 08-16-2024 Note Exam Date Time Procedure Performing Provider Status 08/16/24 10:35 AM MRI [facility] ISRAEL CISSE DO; Auth (Verified) [id number] ORIGINAL EXAMINATION: MRCP 08/16/2024 10:37 am TECHNIQUE: After initial T2 axial and coronal images, thick slab, thin slab and 3D coronal MRCP sequences were obtained without the administration of intravenous contrast. MIP images are provided for review. COMPARISON: MRI abdomen early in the day HISTORY: ORDERING SYSTEM PROVIDED HISTORY: Reason for Exam: K86.2 CYST OF PANCREAS, R79.89 Abnormal LFTs. Upper abdominal pain. AAA repair. FINDINGS: The liver is normal and there is no intrahepatic biliary dilatation. Gall bladder is surgically absent. The common bile duct and pancreatic ducts are normal in caliber. No choledocholithiasis. Peripheral wedge shaped T2 hyperintense lesion in the spleen measuring 1.5 cm exhibits postcontrast enhancement on comparison MRI abdomen study from earlier in the day, and is likely related to a hemangioma. Multiple T2 hyperintense pancreatic cyst noted. A account representative 1 cm pancreatic head cyst contains a thin septation, with no definite connection with the side branch. Findings may relate to a small serous cystadenoma or IPMN or a sequelae of chronic pancreatitis. A few subcentimeter cyst in the body of pancreas appear to connect with the side branches and are likely side branch IPMN's. The kidneys enhance symmetrically. There is no hydronephrosis. Multiple small cortical and parapelvic simple renal cyst bilaterally. The gastrointestinal tract is also unremarkable. No pathologically enlarged lymph nodes are demonstrated. No intraperitoneal free fluid. There is no focal dilation of the abdominal aorta. IMPRESSION: Multiple pancreatic cyst. A account representative 1 cm septated pancreatic head cyst, with no solid enhancing nodule or other high risk stigmata. Findings may relate to a small serous cystadenoma or IPMN or a sequelae of chronic pancreatitis. Recommend follow-up with MR pancreas protocol in 1 year. A few subcentimeter cyst in the body of pancreas appear to connect with the side branches and are likely side branch IPMN's. I have personally reviewed the images of this examination and agree with the resident's finding and interpretation. Interpreted by: Israel Cisse Preliminary Report By: Armand Tinsley Electronically signed By Israel Cisse Dictated Date: 08/16/2024 11:12:47 AM Prelim Date: 08/16/2024 3:34:59 PM Sign Date: 08/16/2024 3:34:59 PM Ordering Provider: [facility]03-04-2025 Note* Exam Date Time Procedure Performing Provider Status 08/16/24 9:56 AM MRI Pancreas ISRAEL CISSE DO; Auth (Verified) [id number] ORIGINAL EXAMINATION: MRI OF THE ABDOMEN WITHOUT AND WITH CONTRAST, 08/16/2024 10:39 am MRI PANCREAS TECHNIQUE: Multiplanar multisequence MRI of the abdomen was performed without and with the administration of intravenous contrast. COMPARISON: MRCP from same day. HISTORY: ORDERING SYSTEM PROVIDED HISTORY: Reason for Exam: K86.2 Cyst of pancreas FINDINGS: Limited views of the lower chest demonstrate an unremarkable MR appearance of the lung bases. No pleural or pericardial effusion. The gallbladder is surgically absent. No biliary ductal dilation is demonstrated. The liver, and adrenal glands demonstrate no suspicious lesion. Peripheral enhancing T2 hyperintense lesion in the spleen measuring 1.5 cm is likely related to a hemangioma. Multiple T2 hyperintense pancreatic cyst noted. A account representative 1 cm nonenhancing pancreatic head cyst contains a thin septation, no definite connection with the side branches, no solid enhancing nodule or other high risk stigmata noted. Findings may relate to a small serous cystadenoma or IPMN or a sequelae of chronic pancreatitis. A few additional subcentimeter cysts within the body and tail of the pancreas appear to connect with the side branches and are likely side branch IPMN's. Pancreatic duct is normal in caliber. The kidneys enhance symmetrically. There is no hydronephrosis. Multiple cortical and parapelvic simple renal cyst bilaterally. The gastrointestinal tract is also unremarkable. No pathologically enlarged lymph nodes are demonstrated. No intraperitoneal free fluid. There is no focal dilation of the abdominal aorta. Mild stenosis of proximal celiac artery at its origin. There is poststenotic dilation of the celiac artery measuring up to 1.1 cm. Findings may be seen with median arcuate ligament syndrome. IMPRESSION: Multiple pancreatic cyst. A account representative 1 cm septated nonenhancing pancreatic head cyst, with no solid enhancing nodule or other high risk stigmata. Findings may relate to a small serous cystadenoma or IPMN or a sequelae of chronic pancreatitis. Recommend follow-up with MR pancreas protocol in 1 year. A few subcentimeter nonenhancing cyst in the body of pancreas appear to connect with the side branches and are likely side branch IPMN's. Attention on follow-up as above. Mild stenosis of proximal celiac artery with poststenotic dilation, findings may be seen with median arcuate ligament syndrome. I have personally reviewed the images of this examination and agree with the resident's finding and interpretation. RECOMMENDATIONS: Subcentimeter right Bosniak I benign renal cyst. No follow-up imaging is recommended. [employer] 202; [phone], Bosniak Classification of Cystic Renal Masses, Version 2019. Interpreted by: Israel Cisse Preliminary Report By: Armand Tinsley Electronically signed By Israel Cisse Dictated Date: 08/16/2024 11:35:37 AM Prelim Date: 08/16/2024 3:35:39 PM Sign Date: 08/16/2024 3:35:39 PM Ordering Provider: KAMAR [facility]01-29-2025 Telephone encounter Note* Telephone Encounter - Dandy Bruner - 07/13/2024 3:58 PM EST Completed and faxed. [facility]01-29-2025 Miscellaneous Notes* Telephone Encounter - Dandy Bruner - 07/13/2024 3:58 PM EST Completed and faxed. * Telephone Encounter - Ibis Garcia - 07/13/2024 10:27 AM EST Received a device management form from [facility]. Will scan into chart and place in bin for review. [facility] Telephone encounter Note * Telephone Encounter - Ibis Garcia - 07/13/2024 10:27 AM EST Received a device management form from [facility]. Will scan into chart and place in bin for review. [facility]01-16-2025 Telephone encounter Note* Telephone Encounter - Allyson Verduzco MA - 06/30/2024 10:00 AM ESTSummary: Diltiazem Refill Request Received request for refill of the following medications: Requested Prescriptions Pending Prescriptions Disp Refills dilTIAZem HCl 360 mg 24 hr capsule [Pharmacy Med Name: dilTIAZem HCl ER Coated Beads Oral Capsule Extended Release 24 Hour 360 MG] 90 capsule 3 Sig: Take 1 capsule by mouth once daily. Patient requested a 90 day refill. Pharmacy verified and updated accordingly. Patient was last seen in cardiology office: 03/15/2024 . Upcoming appointment scheduled: 03/27/2025. Labs: Hemoglobin (g/dL) Date Value 09/23/2022 14.5 Hematocrit (%) Date Value 09/23/2022 42.6 WBC (k/uL) Date Value 09/23/2022 5.47 Platelet Count (k/uL) Date Value 09/23/2022 190 Creatinine Date Value Ref Range Status 09/23/2022 0.96 0.50 - 1.40 mg/dL Final Comment: Patients receiving either N-Acetylcysteine (NAC) or Metamizole prior to venipuncture, may have falsely depressed results. Creatinine (POCT) Date Value Ref Range Status 03/26/2024 1.00 0.60 - 1.30 mg/dL Final [facility]01-16-2025 Miscellaneous Notes* Telephone Encounter - Allyson Verduzco MA - 06/30/2024 10:00 AM ESTSummary: Diltiazem Refill Request Received request for refill of the following medications: Requested Prescriptions Pending Prescriptions Disp Refills dilTIAZem HCl 360 mg 24 hr capsule [Pharmacy Med Name: dilTIAZem HCl ER Coated Beads Oral Capsule Extended Release 24 Hour 360 MG] 90 capsule 3 Sig: Take 1 capsule by mouth once daily. Patient requested a 90 day refill. Pharmacy verified and updated accordingly. Patient was last seen in cardiology office: 03/15/2024 . Upcoming appointment scheduled: 03/27/2025. Labs: Hemoglobin (g/dL) Date Value 09/23/2022 14.5 Hematocrit (%) Date Value 09/23/2022 42.6 WBC (k/uL) Date Value 09/23/2022 5.47 Platelet Count (k/uL) Date Value 09/23/2022 190 Creatinine Date Value Ref Range Status 09/23/2022 0.96 0.50 - 1.40 mg/dL Final Comment: Patients receiving either N-Acetylcysteine (NAC) or Metamizole prior to venipuncture, may have falsely depressed results. Creatinine (POCT) Date Value Ref Range Status 03/26/2024 1.00 0.60 - 1.30 mg/dL Final documented in [facility] encounter[facility] NAME ACCOUNT SEX AGE ADMIT DISCHARGE PT MED. RECORD# NUMBER DATE DATE TYPE KIERSTEN [id number] M 79 06/11/24 2 SOY [place] [id number] ROOM: [facility] DATE OF : 1945 DICTATING PHYSICIAN: Valencia Subramanian DATE OF SERVICE: June 12, 2024 SUBJECTIVE: Mr. Burch had an episode of chest pain that initially started on the left side posteriorly and into his left shoulder and then later on progressed to anterior chest pain. He described it on the left side of his chest. The pain is described as a dull ache, persistent, and keeps coming back. OBJECTIVE: VITAL SIGNS: Stable. Blood pressure is 143/68 and heart rate 72. HEENT: Normocephalic and atraumatic. Tongue to midline. NECK: Neck is supple. LUNGS: Lungs are clear. HEART: The heart was regular. ABDOMEN: Abdomen is soft. EXTREMITIES: Extremities revealed no edema. DIAGNOSTIC DATA: Laboratory data revealed a white count of 9.2, which is normal. Hemoglobin is 13.1. His sodium is 141, potassium 4, BUN 11 and creatinine 0.85. Amylase and lipase are normal. ASSESSMENT/PLAN: 1. Abdominal pain. The patient has a normal amylase and lipase, making it unlikely to be pancreatitis. 2. Nausea and vomiting, intractable as per ER. When I discussed this with the patient, apparently his nausea and vomiting did not start until he got to the Emergency Room and received some medicine, which makes it less likely to be a significant issue. 3. Chest pain in a patient who has a risk profile for coronary artery disease. I discussed this with the patient. He usually sees Dr. Gaitan of Cardiology. He did not have a recent stress test or cardiac evaluation. We will order a stress test and echocardiogram and possible discharge if those are negative. Of note, the patient already has an appointment scheduled to follow up on his pancreatic problem. Dictated By: Valencia Subramanian MD 06/12/24 15:55 JOB #: [id number] Transcribed By: [email or web address] 06/12/24 22:57 Electronically signed by: E-Sign: VALENCIA SUBRAMANIAN MD 06/27/24 10:38 Page 1 of 1 SOY [facility]ICAL NAME ACCOUNT SEX AGE ADMIT DISCHARGE PT MED. RECORD# NUMBER DATE DATE TYPE KIERSTEN [id number] Benedict 79 06/11/24 2 [place] [id number] ROOM: [facility] DATE OF : 41 DICTATING PHYSICIAN: Valencia Subramanian ADMITTING DIAGNOSIS: Intractable nausea and vomiting. HISTORY OF PRESENT ILLNESS: This is an 79-year-old gentleman who had some post-[place] food. He developed after that some epigastric pain mostly in the epigastric area radiating towards the right side, rated at 5/10. This was associated with some decreased appetite. He did report a fever and nausea, and he presented to the Emergency Room. In the Emergency Room, the patient had nausea and vomiting and then was admitted for intractable nausea and vomiting. When I interviewed the patient, according to him his nausea and vomiting started after he came to the Emergency Room and received medication. When I interviewed the patient, he was free of pain. He did not have any symptoms. He did not have any nausea or vomiting. I did order an NG tube due to the intractable nausea and vomiting reported to me from the ER, and this was canceled. PAST MEDICAL HISTORY: (1) Pre-diabetes. (2) Valvular heart disease. (3) Hypercholesterolemia. (4) Hypertension. (5) Coarctation of the aorta. PAST SURGICAL HISTORY: (1) Tonsillectomy. (2) Cholecystectomy. (3) Coarctation of aorta repair. MEDICATIONS: Refer to medication reconciliation sheet. ALLERGIES: Clindamycin and penicillin. FAMILY HISTORY: No reported family history of pancreatic disease. SOCIAL HISTORY: No social history reported of smoking or alcohol. REVIEW OF SYSTEMS: The patient has had no weight loss or gain. No headache, blurry vision, earache or sore throat. No neck pain, shortness of breath, cough or phlegm production. He had the nausea and vomiting after being in the Emergency Room and the abdominal pain as described above. No diarrhea, constipation, or difficulty with urination, and no skin rashes. Page 1 of 3 SOY BURCH History & Physical [place]Y [place] :1945 PHYSICAL EXAMINATION GENERAL APPEARANCE: This is an 79-year-old gentleman laying in bed. VITAL SIGNS: Blood pressure is 140/69, heart rate 60, and respirations 14. He is afebrile. HEENT: Normocephalic and atraumatic. Pupils are round, equal and reactive. Tongue to midline. NECK: The neck was supple. LUNGS: The lungs are clear bilaterally. HEART: The heart was regular. No gallop or murmurs. ABDOMEN: Soft. No tenderness or rigidity. Bowel sounds are positive. EXTREMITIES: Extremities revealed no edema. DIAGNOSTIC DATA: Laboratory data has revealed the patient's white count of 12.9, hemoglobin 15.5, sodium 138, potassium 4.1, BUN 11 and creatinine 0.95. IMPRESSIONS: 1. Intractable nausea and vomiting of unclear etiology. 2. Abdominal pain in association with an abnormal CT. It could be compatible with pancreatitis. We will follow up an amylase and lipase in the morning. I will treat as pancreatitis. 3. Vascular heart disease, stable. PLAN: 1. The patient will be admitted to the hospital. 2. Antiemetics. 3. Pain control. 4. PPIs. 5. IV fluids. 6. Follow up amylase and lipase in the morning. Dictated By: Valencia Subramanian MD 06/11/24 17:57 JOB #: [id number] Transcribed By: [email or web address] 06/12/24 09:22 Electronically signed by: E-Sign: VALENCIA SUBRAMANIAN MD Page 2 of 3 SOY BURCH History & Physical SOY BURCH :1945 06/27/24 10:37 Update to H&P: [ ] No changes: I have examined the patient and reviewed the H&P and there are no changes. [ ] As previously dictated with the following changes: ____ ____ ____ PHYSICIAN SIGNATURE: TIME: DATE: Page 3 of 3 KIERSTEN [place]Y [place] [facility]ICAL NAME ACCOUNT SEX AGE ADMIT DISCHARGE PT MED. RECORD# NUMBER DATE DATE TYPE KIERSTEN [id number] M 79 06/11/24 2 SO[place] [address] ROOM: [facility] DATE OF : 41 DICTATING PHYSICIAN: Valencia Subramanian ADMITTING DIAGNOSIS: 1. Abdominal pain. 2. Intractable nausea and vomiting. HISTORY OF PRESENT ILLNESS: This 79-year-old gentleman has a history of what appears to be pancreatic disease. The patient has on the pancreas which was supposed to be worked up as an outpatient. The patient presented to the emergency room due to abdominal pain. According to him, the abdominal pain, when I interviewed him, started a couple of days ago after eating certain food. He did not have significant change in his abdominal pain. The patient presented to the emergency room due to the abdominal pain. He was given medication, but he is uncertain of which one. After that, he started to have nausea and vomiting. He was admitted for management when I was called. It was reported to me to be intractable nausea and vomiting. When I interviewed the patient, other than the abdominal pain, which was mostly diffuse around the umbilicus, cramping in nature. He did not have any other abnormality. The patient, in the emergency room, had a CT scan of the abdomen, which revealed a pancreatitis with low attenuation. The patient's pain did not coincide with the upper abdomen. The patient has been diagnosed with a pancreatic lesion and is in the process of workup. PAST MEDICAL HISTORY: (1) Hypertension. (2) Hypercholesterolemia. (3) Hyperlipidemia. (4) Aortic aneurysm. PAST SURGICAL HISTORY: (1) Tonsillectomy. (2) Cholecystectomy. (3) Coarctation of the aorta, repaired. (4) Pacemaker. (5) Aortic aneurysm repair. MEDICATIONS: Refer to medication reconciliation sheet. ALLERGIES: Intolerant to penicillin and clindamycin. FAMILY HISTORY: Heart disease in brother. His father had CVA. Mother of congestive heart failure. Multiple other family members have heart disease. Page 1 of 3 SOY BURCH History & Physical SOY BURCH :1945 SOCIAL HISTORY: No documentation in medical records of smoking or alcohol history from this admission in ER, nor at the time of the history is obtained. REVIEW OF SYSTEMS: Denies fever, chills, night sweats. No headache, blurry vision, earache, sore throat. No neck pain. No chest pain. No shortness of breath. No cough. No nausea or vomiting at the time of my evaluation. He did report abdominal pain yesterday after being given medication in the emergency room, as described above. There is no difficulty with urination. No skin rash. PHYSICAL EXAMINATION GENERAL APPEARANCE: This is an 79-year-old gentleman lying in bed. VITAL SIGNS: Heart rate 60, blood pressure 153/70. He is afebrile. HEENT: Normocephalic, atraumatic. Pupils are equal, round and reactive. Tongue to midline. NECK: Supple. LUNGS: Clear bilaterally. HEART: Regular. ABDOMEN: Soft. EXTREMITIES: No edema. DIAGNOSTIC DATA: WBC 12.9. Chemistries: Glucose 130, BUN 11, creatinine 0.95. IMPRESSION: 1. Abdominal pain of unclear etiology or localization. The pain represents acute food exposure with possible gastritis. 2. Intractable nausea and vomiting per ER admission. The patient did not have that prior to arrival to the ER. According to him, he did receive a medication in the ER which resulted in this. I reviewed the record, and I could not associate this with any of his symptoms. 3. Hypercholesterolemia, on treatment. 4. Abnormal CT, suggestive of pancreatitis. 5. Cardiac arrhythmia. PLAN: 1. The patient will be admitted to the hospital. 2. Pain control. Page 2 of 3 SOY BURCH History & Physical SOY BURCH :1945 3. Antiemetic. 4. Proton pump inhibitor. 5. Repeat amylase and lipase. 6. Intravenous fluids. 7. I discussed the above with the patient, and the patient is concerned about the etiology of his condition. I explained to him this will likely go to the initial problem identified by his primary care physician, and will need to follow up with this. It may or may not be related. It is hard for me to determine. It will be determined after discharge when he meets with a specialist. Dictated By: Valencia Subramanian MD 06/11/24 17:01 JOB #: [id number] Transcribed By: [email or web address] 06/12/24 06:00 Electronically signed by: E-Sign: VALENCIA SUBRAMANIAN MD 06/27/24 10:36 Update to H&P: [ ] No changes: I have examined the patient and reviewed the H&P and there are no changes. [ ] As previously dictated with the following changes: ____ ____ (more content not included)...[facility]12-28-2024 NoteDischarge Instructions Discharge Summary [facility] [address] [place] [address] [id number] 06/11/2024 Patient: SOY BURCH Sex: Male : 1945 Age: 79y Thank you for visiting [facility]. You have been evaluated today by Adelfo Romero D.O. for the following condition(s): Principal Diagnosis Acute generalized abdominal pain of undetermined cause. Intractable vomiting with nausea. DISCHARGE INSTRUCTIONS Prescription Medications: Pending - oxycodone 5 mg tablet: Take 1 tablet by mouth every six to eight hours as needed for painfor 4 days, dispense 7 tablet. Refills 0. Pharmacy: [facility] [id number] [place] [address]. ondansetron HCl 4 mg tablet: Take 1 tablet by mouth three times a day as needed for 5 days, dispense 15 tablet. Refills 0. Notes for nausea. Pharmacy: [facility] [id number] [place] [address]. You have been given the following additional information: Vomiting (Adult) Patient Signature 1 of 4 Discharge Instructions Facility Groundskeeping Maintenance Worker Date/Time General Instructions with ExitWriter [address] [place] [address] [id number] 06/11/2024 Patient: SOY BURCH Sex: Male : 1945 Age: 79y Thank you for visiting [facility]. You have been evaluated today by Adelfo Romero D.O. for the following condition(s): Principal Diagnosis Acute generalized abdominal pain of undetermined cause. Intractable vomiting with nausea. DISCHARGE INSTRUCTIONS Prescription Medications: Pending - oxycodone 5 mg tablet: Take 1 tablet by mouth every six to eight hours as needed for painfor 4 days, dispense 7 tablet. Refills 0. Pharmacy: [facility] [id number] [place] [address]. ondansetron HCl 4 mg tablet: Take 1 tablet by mouth three times a day as needed for 5 days, dispense 15 tablet. Refills 0. Notes for nausea. Pharmacy: [facility] [id number] [place] [address]. ADDITIONAL INFORMATION 2 of 4 Discharge Instructions Vomiting (Adult) Vomiting is a common symptom that may be due to different causes. These include gastroenteritis (stomach flu), food poisoning and gastritis. There are other more serious causes of vomiting which may be hard to diagnose early in the illness. Therefore, it is important to watch for the warning signs listed below. The main danger from repeated vomiting is dehydration. This is due to excess loss of water and minerals from the body. When this occurs, your body fluids must be replaced. Home care If symptoms are severe, rest at home for the next 24 hours. Because your symptoms may be from an infection, wash your hands often and well. If soap and water are not available, use alcohol-based crew foreman to keep from spreading the infection to others. Wash your hands for at least 20 seconds. Humming the happy birthday song twice while you wash is an easy way to make sure you've washed for 20 seconds. Wash your hands after using the toilet, before and after preparing food, before eating food, after changing a diaper, cleaning a wound, caring for a sick person, and blowing your nose, coughing, or sneezing.You should also wash your hands after caring for someone who is sick, touching pet food, or treats, and touching an animal, or animal waste. You may use acetaminophen or NSAID medicines like ibuprofen or naproxen to control fever, unless another medicine was prescribed. If you have chronic liver or kidney disease or ever had a stomach ulcer or gastrointestinal bleeding, talk with your doctor before using these medicines. Aspirin should never be used in anyone under 18 years of age who is ill with a fever. It may cause severe liver damage. Don't use NSAID medicines if you are already taking one for another condition (like arthritis) or are on aspirin (such as for heart disease, or after a stroke) Don't use tobacco and or drink alcohol, which may worsen your symptoms. If medicines for vomiting were prescribed, take as directed. Once vomiting stops, then follow these guidelines: During the first 12 to 24 hours follow the diet below: Fruit juices. Apple, grape juice, clear fruit drinks, and electrolyte replacement drinks. Beverages. Soft drinks without caffeine; mineral water (plain or flavored), decaffeinated tea and coffee. Soups. Clear broth and bouillon Desserts. Plain gelatin, ice pops, and fruit juice bars. As you feel better, you may add 6 to 8 ounces of yogurt per day. 3 of 4 Discharge Instructions During the next 24 hours you may add the following to the above: Hot cereal, plain toast, bread, r (more content not included)...[facility]10-31-2024 Telephone encounter Note* Telephone Encounter - Jesse Gaitan MD - 04/14/2024 7:12 PM EDTSummary: Echo results The pt's Echo showed: Impression CONCLUSIONS: - Exam indication: Aortic stenosis - The left ventricle is normal in size. There is mild concentric left ventricular hypertrophy. Left ventricular systolic function is normal. EF = 64 5% (2D biplane) - The right ventricle is normal in size. Right ventricular systolic function is normal. - There is severe aortic valve stenosis. AV area is 0.70 cm (0.36 cm /m ) by continuity, VTI. The peak gradient is 62 mmHg, the mean gradient is 34 mmHg and the dimensionless valve index is 0.22. - Exam was compared with the prior echocardiographic exam performed on 03/27/2023 where aortic valve gradients were peak/mean 56/30 mmHg. Today's aortic valve gradients are slightly higher. The patient's aortic stenosis appears to have progressed mildly. In the absence of symptoms, we would would continue with annual surveillance. If he has been experiencing orthostatic symptoms, or worsening WATTS, then I would recommend a Cath, which would likely progress to a work up for a TAVR. TEODORO [facility]10-31-2024 Miscellaneous Notes* Telephone Encounter - Jesse Gaitan MD - 04/14/2024 7:12 PM EDTSummary: Echo results The pt's Echo showed: Impression CONCLUSIONS: - Exam indication: Aortic stenosis - The left ventricle is normal in size. There is mild concentric left ventricular hypertrophy. Left ventricular systolic function is normal. EF = 64 5% (2D biplane) - The right ventricle is normal in size. Right ventricular systolic function is normal. - There is severe aortic valve stenosis. AV area is 0.70 cm (0.36 cm /m ) by melissa VTMargarita. The peak gradient is 62 mmHg, the mean gradient is 34 mmHg and the dimensionless valve index is 0.22. - Exam was compared with the prior echocardiographic exam performed on 03/27/2023 where aortic valve gradients were peak/mean 56/30 mmHg. Today's aortic valve gradients are slightly higher. The patient's aortic stenosis appears to have progressed mildly. In the absence of symptoms, we would would continue with annual surveillance. If he has been experiencing orthostatic symptoms, or worsening WATTS, then I would recommend a Cath, which would likely progress to a work up for a TAVR. TEODORO [facility] Telephone encounter Note * Telephone Encounter - Katie Damon RN - 04/11/2024 1:27 PM EDT Pt advised. [facility]10-28-2024 Miscellaneous Notes* Telephone Encounter - Katie Damon RN - 04/11/2024 1:27 PM EDT Pt advised. * Telephone Encounter - Jesse Gaitan MD - 04/08/2024 5:32 PM EDTSummary: Lab results The pt's labs showed Creat-0.95, BUN-15, K+-4.2, and [id number]. The results are fine. TEODORO * Telephone Encounter - Ibis Garcia - 04/06/2024 1:46 PM EDT Received lab results from [facility]. Scanned labs into chart for review. documented in this encounterMer[facility] Telephone encounter Note * Telephone Encounter - Jesse Gaitan MD - 04/08/2024 5:32 PM EDTSummary: Lab results The pt's labs showed Creat-0.95, BUN-15, K+-4.2, and [id number]. The results are fine. TEODORO [facility]10-23-2024 Telephone encounter Note* Telephone Encounter - Ibis Garcia - 04/06/2024 1:46 PM EDT Received lab results from [facility]. Scanned labs into chart for review. [facility]10-17-2024 Telephone encounter Note* Telephone Encounter - Jesse Gaitan MD - 03/31/2024 9:02 AM EDTSummary: CTA of the Chest The pt's CTA of the Chest showed: IMPRESSION: 1. VASCULAR FINDINGS: -No significant change in the dilatation of the sinuses of Valsalva, ascending thoracic aorta, and proximal aortic arch. -Unchanged narrowing (1.6 cm) of the most proximal portion of the descending thoracic aorta just distal to the takeoff of the left subclavian artery, followed by poststenotic dilatation of the proximal descending thoracic aorta (2.7 cm), may be due to postsurgical changes versus component of coarctation. No dilatation of the mid and distal portions of the descending thoracic aorta. -Calcified aortic valve and postsurgical changes in the ascending thoracic aorta. Unchanged dilatation of the brachiocephalic artery. 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 2. NON-VASCULAR FINDINGS: -Incidental finding of a new 1 cm cyst at the pancreatic body. Correlation with dedicated CT of the abdomen with pancreatic protocol without and with contrast is recommended. -Unchanged hypervascular (1.5 cm) solid lesion at the mid spleen that may represent hemangioma. Please let the patient know that the findings related to his aorta are stable, and as such, there are not changes in our recommendations at this time. I would let him know that he has a very small cyst noted in the body of his pancreas (1mm is quite small, and this study was not a dedicated studyof that area). I would let him know that we will relay this information to Dr. Gillespie, and that may opt to order another study to look at that finding in more detail (as recommended in theCTA report). Also, please call Dr. Gillespie' office to let them know that we are sending him the CTA report, and that there is an abnormal finding that he will need to review. TEODORO [facility]10-17-2024 Miscellaneous Notes* Telephone Encounter - Jesse Gaitan MD - 03/31/2024 9:02 AM EDTSummary: CTA of the Chest The pt's CTA of the Chest showed: IMPRESSION: 1. VASCULAR FINDINGS: -No significant change in the dilatation of the sinuses of Valsalva, ascending thoracic aorta, and proximal aortic arch. -Unchanged narrowing (1.6 cm) of the most proximal portion of the descending thoracic aorta just distal to the takeoff of the left subclavian artery, followed by poststenotic dilatation of the proximal descending thoracic aorta (2.7 cm), may be due to postsurgical changes versus component of coarctation. No dilatation of the mid and distal portions of the descending thoracic aorta. -Calcified aortic valve and postsurgical changes in the ascending thoracic aorta. Unchanged dilatation of the brachiocephalic artery. 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 2. NON-VASCULAR FINDINGS: -Incidental finding of a new 1 cm cyst at the pancreatic body. Correlation with dedicated CT of the abdomen with pancreatic protocol without and with contrast is recommended. -Unchanged hypervascular (1.5 cm) solid lesion at the mid spleen that may represent hemangioma. Please let the patient know that the findings related to his aorta are stable, and as such, there are not changes in our recommendations at this time. I would let him know that he has a very small cyst noted in the body of his pancreas (1mm is quite small, and this study was not a dedicated studyof that area). I would let him know that we will relay this information to Dr. Gillespie, and that may opt to order another study to look at that finding in more detail (as recommended in theCTA report). Also, please call Dr. Gillespie' office to let them know that we are sending him the CTA report, and that there is an abnormal finding that he will need to review. TEODORO documented in this encounterMer[facility] Telephone encounter Note * Telephone Encounter - Renetta Varghese - 03/17/2024 12:59 PM EDT I called to notify patient that his CTA chest is scheduled 03/26/24 @ 4:00 p.m. and his echo is scheduled 04/13/24 @ 11:00. Renetta Varghese [facility]10-03-2024 Miscellaneous Notes* Telephone Encounter - Renetta Varghese - 03/17/2024 12:59 PM EDT I called to notify patient that his CTA chest is scheduled 03/26/24 @ 4:00 p.m. and his echo is scheduled 04/13/24 @ 11:00. Renetta Varghese documented in this encounterMer[facility] History of Present illness Narrative* Jesse Gaitan MD - 03/15/2024 11:30 AM EDT Images from the original note were not included. Heart and vascular [facility] OUTPATIENT VISIT DATE March 15, 2024 OUTPATIENT VISIT TYPE ESTABLISHED PATIENT PRIMARY CARE PHYSICIAN: Jose Miguel Granados MD [address] [place] [address] HISTORY OF PRESENT ILLNESS: Mr. Burch is a 78 year old male with a history of aortic stenosis, CAD, single- vessel disease, PAF,low burden atrial fibrillation, hypertension, hyperlipidemia, impaired glucose tolerance, status post repair of aortic coarctation in 1959, ascending aortic aneurysm resection 1996, PSVT, status post ablation, status post permanent pacemaker implant, neurogenic syncope, carotid artery disease, intolerance to Bystolic secondary to leg cramps and metoprolol secondary to fatigue. The patient underwent a stress test 04/20/2019 following nonsustained ventricular tachycardia on hisdevice check. The patient did have an abnormal stress test by EKG criteria. He did exercise well without chest pain. The nuclear images revealed apical attenuation artifact with no ischemia. EF 69%. The patient was continue medical therapy. The patient returns for follow-up. The patient underwent an echocardiogram on 03/27/2023 this revealed: - The left ventricle is normal in size. Left ventricular systolic function is normal. EF = 70 5% (2D 4-ch.) - The right ventricle is normal in size. Right ventricular systolic function is normal. - Tricuspid aortic valve. There is severe aortic valve stenosis. AV area is 0.90 cm (0.47 cm /m ) by continuity, VTI. The peak gradient is 56 mmHg, the mean gradient is 30 mmHg and the dimensionless valve index is 0.29. Addendum 1. See computer generated data above 2. Normal right and left ventricular systolic function if ejection fraction greater equal to 65% 3. Moderately severe to severe aortic stenosis with associated mild aortic insufficiency WILFREDO 0.9 cm2 4. Catheters in range right ventricle 5. Mild to moderate tricuspid regurgitation 6. Trivial mitral regurgitation At the time of his last Echo, on 03/26/22, his WILFREDO was calculated at 1.0cm2 (with a peak gradient of 46mmHg) In the absence of symptoms, the patient was continued on medical therapy. At the patient's last follow-up visit 02/2023 he was hypertensive. We switched losartan to olmesartan. The patient remained at hypertensive so we added Bystolic. The patient denies chest pain, dyspnea, lightheadedness, or syncope. He notes rare fluttering sensation. The patient does not smoke or drink alcohol. He does some yard work and some walking. The patient did suffer the COVID-19 virus. The patient did receive the COVID-19 vaccination and the booster shot. PAST CARDIAC HISTORY: Coronary Artery Disease- single vessel disease with moderate stenosis of the first obtuse marginal branch as demonstrated by cardiac catheterization in 2011. Coarctation of aorta status post repair- 1961 Ascending aortic aneurysm resection 1996. History of bradycardia, status post pacemaker implant 12/30/2011 with a [employer] device. 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 Atrial Fibrillation-PAF History of neurocardiogenic syncope with positive tilt Aortic stenosis PAST MEDICAL HISTORY Diagnosis Date Abnormal EKG Aortic stenosis Arrhythmia Bilateral carotid artery disease (HCC) Cardiac pacemaker in situ 12/30/2011 Coronary artery disease cabg x2 Dizziness and giddiness Hyperlipidemia Hypertension Impaired glucose tolerance Medication monitoring encounter Paroxysmal atrial fibrillation (HCC) Paroxysmal supraventricular tachycardia (HCC) Tachycardia, unspecified PAST SURGICAL HISTORY Procedure Laterality Date COLONOSCOPY FLX DX W/COLLJ SPEC WHEN PFRMD 04/13/2013 Colonoscopy ESOPHAGOGASTRODUODENOSCOPY TRANSORAL DIAGNOSTIC 04/09/2015 EGD HEART SURGERY HX 1961 coarctation of aorta, 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 PAST SURGICAL HISTORY OF gallbladder PAST SURGICAL HISTORY OF aneurism, aorta SOCIAL HISTORY Social History Tobacco Use Smoking status: Never Passive exposure: Past Smokeless tobacco: Never Vaping Use Vaping status: Never Used Substance Use Topics Alcohol use: Never Drug use: Never FAMILY HISTORY Problem Relation Age of Onset Heart Mother CHF Stroke Father Heart Brother Heart Son open heart at age 55 and it was about 3 wks ago ALLERGIES Allergen Reactions Amoxicillin Rash, Shortness of Breath Clindamycin ER visit -unknown reaction Penicillins Rash MEDICATIONS: azithromycin (ZITHROMAX) 250 mg tablet TAKE 2 TABLETS BY MOUTH ON DAY 1, AND THEN TAKE 1 TABLET BY MOUTH ONCE A DAY ON DAY 2 THROUGH DAY 5 metFORMIN ER (GLUCOPHAGE XR) 500 mg 24 hr tablet Take 500 mg by mouth daily at bedtime. nebivolol (BYSTOLIC) 5 mg tablet Take 1 tablet by mouth once daily. furosemide (LASIX) 20 mg tablet Take 1 tablet by mouth once daily. potassium chloride ER (KLOR-CON) 20 mEq tablet Take 1 tablet by mouth once daily. rosuvastatin (CRESTOR) 40 mg tablet Take 1 tablet by mouth once daily. dilTIAZem CD 360 mg 24 hr capsule Take 1 capsule by mouth once daily. ASPIRIN 81 MG TAB Take 81 mg by mouth daily at bedtime. losartan (COZAAR) 50 mg tablet Take 1 tablet by mouth two times a day. iv contrast (will be provided with radiology test) CTA CHEST - No IV access, insert saline lock prior to the sedation, infusion, injection for imaging exam. Discontinue saline lock post exam. If Pt. has a central line or IVAD, may access for administration according to line specific nursing protocol. Once exam is complete flush line and de-access according to line specific nursing protocol in theCT contrast administration guidelines link. REVIEW OF SYSTEMS: Review of Systems Cardiovascular: Positive for leg swelling. Gastrointestinal: Occasional bleeding from the hemorrhoids. All other systems reviewed and are negative. PHYSICAL EXAMINATION: BP 149/67 (BP Site: Left Arm, BP Position: Sitting) Pulse 62 Ht 170.2 cm (5' 7) Wt 80.8 kg (178 lb 3.2 oz) SpO2 96% BMI 27.91 kg/m Physical Exam Constitutional: Appearance: Normal appearance. HENT: Head: Normocephalic and atraumatic. Nose: Nose normal. Cardiovascular: Rate and Rhythm: Normal rate and regular rhythm. Pulses: Normal pulses. Heart sounds: Normal heart sounds, S1 normal and S2 normal. Comments: Long with a grade 2/6 to 3/6 crescendo decrescendo systolic murmur along the left sternalborder with preserved S2. Pulmonary: Effort: Pulmonary effort is normal. Breath sounds: Normal breath sounds. Abdominal: General: Bowel sounds are normal. Palpations: Abdomen is soft. Musculoskeletal: General: Normal range of motion. Cervical back: Normal range of motion and neck supple. Right lower leg: No edema. Left lower leg: No edema. Skin: General: Skin is warm and dry. Neurological: Mental Status: He is alert and oriented to person, place, and time. Mental status is at baseline. CARDIOVASCULAR MEDICINE TESTING: Last ECHO Result Conclusion ECHO Collected: 03/27/2023 9:01 AM (Final result) Impression: CONCLUSIONS: - Exam indication: Routine surveillance of moderate or severe valvular stenosis (>1yr) - The left ventricle is normal in size. Left ventricular systolic function is normal. EF = 70 5% (2D 4-ch.) - The right ventricle is normal in size. Right ventricular systolic function is normal. - Tricuspid aortic valve. There is severe aortic valve stenosis. AV area is 0.90 cm (0.47 cm /m ) by continuity, VTI. The peak gradient is 56 mmHg, the mean gradient is 30 mmHg and the dimensionless valve index is 0.29. Addendum 1. See computer generated data above 2. Normal right and left ventricular systolic function if ejection fraction greater equal to 65% 3. Moderately severe to severe aortic stenosis with associated mild aortic insufficiency WILFREDO 0.9 cm2 4. Catheters in range right ventricle 5. Mild to moderate tricuspid regurgitation 6. Trivial mitral regurgitation - Exam was compared with the prior echocardiographic exam performed on 03/2022. * * * Final * * * Nuclear Exercise Stress Test Report Procedure date: 04/20/2019 Findings: 04/20/19 1. Good exercise tolerance; the patient achieved 86% of the age-predicted maximum heart rate through greater than 3 stages (9 minutes and 50 seconds) of a Anders protocol. 2. No chest pain on exercise; the test was discontinued secondary to complaints of generalized fatigue. 3. Occasional isolated premature ventricular complexes were noted during exercise and the recovery phase. The patient also demonstrated occasional isolated premature supraventricular complexes duringexercise and the recovery phase. 4. Mildly blunted chronotropic response to exercise. 5. Relatively flat blood pressure response to exercise in a patient demonstrating moderate systolichypertension during baseline observation. Specifically, the patient began the study with a baselineblood pressure of 161/79 and had a peak recorded blood pressure of 165/50 noted during the final minute of exercise. Theclinical significance of this finding is uncertain. 6. The patient developed a maximum, between 1.5 and [address] segmentdepression in theinferior leads at peak exercise, which returned to near baseline levels within 2 to 3 minutes into the recovery phase. This constitutes a positiveresponse suggestive of exercise-induced myocardial ischemia. Comments: IMPRESSION: 1. No significant myocardial ischemia. 2. No evidence of myocardial infarction. 3. Apical attenuation artifact 4. The ejection fraction is 69% with normal wall motion. 5. EKG changes diagnostic of Myocardial Ischemia with Anders Protocol achieving a total workload of 11.4 METS without chest discomfort. Cardiac Catheterization Report Procedure date: 12/26/2011 Findings: 12/26/11 This was performed for recurrent supraventricular tachycardia in which the patient converted after Adenosine therapy in conjunction with an abnormal stress test by EKG criteria. In view of the above findings, catheterization was advised to redefine the patient's coronary status prior to assessing his arrhythmia and possible need for pacemaker versus antiarrhythmic therapy versus ablation. 1. Coronary disease; single vessel disease with moderate stenosis of a small first obtuse marginal branch of the circumflex artery. 2. Normal left ventricular systolic function as rejection fraction 55%. 3. Elevated left ventricular end-diastolic pressure 20 mmHg. 4. Mild 1+ mitral regurgitation 5. Mild aortic insufficiency 6. Status post coarctation repair of aorta with minimal gradient across the repair. Recommendations-the case was discussed with and the patient is to undergo ablation and insertion of a permanent pacemaker implant. Laboratories 12/29/2023 WBCs 5.3, hemoglobin 14.7, hematocrit 43.8, platelets 176, hemoglobin A1c 6.3, PSA 3.03. Laboratories/ sodium 143, potassium 4.1, chloride 106, bicarb 30.5, BUN 15, creatinine 0.98, sodium 134, AST 25, ALT 32, albumin 3.4, TSH 3.15, T4 free- 0.95, triglycerides 17, cholesterol 133, HDL 54, LDL 68. EKG today reveals electronic atrial pacemaker otherwise normal EKG IMPRESSION AND RECOMMENDATIONS: Mr. Burch is a 78 year old male with history of aortic stenosis, CAD, single- vessel disease, PAF, low burden atrial fibrillation, hypertension, hyperlipidemia, impaired glucose tolerance, status postrepair of aortic coarctation in 1959, ascending aortic aneurysm resection 1996, PSVT, status post ablation, status post permanent pacemaker implant, neurogenic syncope, carotid artery disease, intolerance to Bystolic secondary to leg cramps and metoprolol secondary to fatigue. CAD. History of single-vessel coronary disease with moderate stenosis of the first obtuse marginal branch as demonstrated by cardiac catheterization in 2011. The patient's most recent stress test was 04/20/2019. The stress test was negative for ischemia or myocardial infarction. Apical attenuation artifact. LVEF 69%. The patient continues to do well without symptoms of angina. He is to participate in aregular exercise regimen at least 30 to 45 minutes of exercise 4 to 5 days a week. We trust that Dr. Granados will follow the patient's routine labs. For improved cardiovascular efficacy and treatment of the patient's hypertension, the patient has been advised to increase losartan to 50 mg twice daily. A BMP will be obtained in 2 weeks. The patient is scheduled to return for follow-up in 1 year. Thoracic aortic aneurysm. The patient has a history of an ascending aortic aneurysm resection in 1996. CT of the chest performed 03/28/2022 revealed There are postsurgical changes involving the ascending thoracic aorta. Thereare atherosclerotic calcifications involving the proximal aspect of the ascending aorta and arch. The distal arch measures approximately 18 mm in diameter which was described previously with the proximal descending thoracic aorta measuring 2.8 cm similar to the previous study. The descending aorta is tortuous. Findings were felt to be similar to previous study. A follow-up echocardiogram is pending. Additionally, a CTA of the chest is also pending. History of repair of aortic coarctation 1960. As above. As above, a CTA of the chest and echocardiogram are pending. Aortic stenosis. The echocardiogram performed on 03/27/2023 revealed Tricuspid aortic valve. There is severe aortic valve stenosis. AV area is 0.90 cm (0.47 cm /m ) by continuity, VTI. The peak gradient is 56 mmHg, the mean gradient is 30 mmHg and the dimensionless valve index is 0.29. The patient denied symptoms. He was continued on medical therapy. A follow-up echocardiogram is pending. Diastolic CHF. The patient is compensated on today's exam. A BMP and proBNPT are pending. Paroxysmal atrial fibrillation. The patient has a history of paroxysmal atrial fibrillation. He is not on anticoagulation therapy due to low burden atrial fibrillation. The patient's [id number] is 4. We trust that ow the patient's BMP and CBC. Permanent pacemaker implant. The patient's history is remarkable for symptomatic bradycardia, status post permanent pacemaker implant with a Medtronic device. He also has a history of neurogenic syncope. The patient underwent interrogation of his device today. The device demonstrates adequate function. The patient has 12.5 years left on the battery. The patient is 99.3% atrially paced and 0.7% RV pacing. Return for device check in 6 months. The patient is scheduled to return for follow-up in 1 year and device check. 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 Hyperlipidemia. The patient is to follow a low-cholesterol low-fat diet. The patient is on Crestor 40 mg daily. Thegoal LDL for this patient is less than 70. We trust that Dr. Granados will follow the patient's risk factors. The LDL on 09/30/2023 was 68. Hypertension. The patient is to follow a no added salt diet. We will be permissive with blood pressure control inthe context of aortic stenosis, although his blood pressures at home have been mildly elevated. As above, the patient has been advised to increase losartan to 50 mg twice daily (cardiovascular efficacy and hypertension). Patient is to call if he gets lightheaded. Impaired glucose tolerance. The patient is to follow a no added sugar diet. Hemoglobin A1c on 12/29/2023 was 6.3. Carotid artery disease. The patient's previous carotid ultrasound December 09, 2017 revealed a less than 50% stenosis bilaterally., Prior to that he had 50 to 69% stenosis of the left ICA. Carotid ultrasound of August 20, 2022 revealed less than 50% stenosis of the bilateral carotid arteries. Jesse Gaitan MD documented [facility] NoteHNO ID: [id number] Author: JESSE GAITAN MD Service: ? Author Type: Physician Type: Progress Notes Filed: 03/16/2024 00:55 Note Text: Heart and vascular [facility] OUTPATIENT VISIT DATE March 15, 2024 OUTPATIENT VISIT TYPE ESTABLISHED PATIENT PRIMARY CARE PHYSICIAN: Jose Miguel Granados MD [id number] [place] [address] HISTORY OF PRESENT ILLNESS: Mr. Burch is a 78 year old male with a history of aortic stenosis, CAD, single-vessel disease, PAF, low burden atrial fibrillation, hypertension, hyperlipidemia, impaired glucose tolerance, status post repair of aortic coarctation in 1959, ascending aortic aneurysm resection 1996, PSVT, status post ablation, status post permanent pacemaker implant, neurogenic syncope, carotid artery disease, intolerance to Bystolic secondary to leg cramps and metoprolol secondary to fatigue. The patient underwent a stress test 04/20/2019 following nonsustained ventricular tachycardia on his device check. The patient did have an abnormal stress test by EKG criteria. He did exercise well without chest pain. The nuclear images revealed apical attenuation artifact with no ischemia. EF 69%. The patient was continue medical therapy. The patient returns for follow-up. The patient underwent an echocardiogram on 03/27/2023 this revealed: - The left ventricle is normal in size. Left ventricular systolic function is normal. EF = 70 ? 5% (2D 4-ch.) - The right ventricle is normal in size. Right ventricular systolic function is normal. - Tricuspid aortic valve. There is severe aortic valve stenosis. AV area is 0.90 cm? (0.47 cm?/m?) by continuity, VTI. The peak gradient is 56 mmHg, the mean gradient is 30 mmHg and the dimensionless valve index is 0.29. Addendum 1. See computer generated data above 2. Normal right and left ventricular systolic function if ejection fraction greater equal to 65% 3. Moderately severe to severe aortic stenosis with associated mild aortic insufficiency WILFREDO 0.9 cm2 4. Catheters in range right ventricle 5. Mild to moderate tricuspid regurgitation 6. Trivial mitral regurgitation At the time of his last Echo, on 03/26/22, his WILFREDO was calculated at 1.0cm2 (with a peak gradient of 46mmHg) In the absence of symptoms, the patient was continued on medical therapy. At the patient's last follow-up visit 02/2023 he was hypertensive. We switched losartan to olmesartan. The patient remained at hypertensive so we added Bystolic. The patient denies chest pain, dyspnea, lightheadedness, or syncope. He notes rare fluttering sensation. The patient does not smoke or drink alcohol. He does some yard work and some walking. The patient did suffer the COVID-19 virus. The patient did receive the COVID-19 vaccination and the booster shot. PAST CARDIAC HISTORY: Coronary Artery Disease- single vessel disease with moderate stenosis of the first obtuse marginal branch as demonstrated by cardiac catheterization in 2011. Coarctation of aorta status post repair- 1961 Ascending aortic aneurysm resection 1996. History of bradycardia, status post pacemaker implant 12/30/2011 with a Medtronic device. 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 Atrial Fibrillation-PAF History of neurocardiogenic syncope with positive tilt Aortic stenosis PAST MEDICAL HISTORY Diagnosis Date Abnormal EKG Aortic stenosis Arrhythmia Bilateral carotid artery disease (HCC) Cardiac pacemaker in situ 12/30/2011 Coronary artery disease cabg x2 Dizziness and giddiness Hyperlipidemia Hypertension Impaired glucose tolerance Medication monitoring encounter Paroxysmal atrial fibrillation (HCC) Paroxysmal supraventricular tachycardia (HCC) Tachycardia, unspecified PAST SURGICAL HISTORY Procedure Laterality Date COLONOSCOPY FLX DX W/COLLJ SPEC WHEN PFRMD 04/13/2013 Colonoscopy ESOPHAGOGASTRODUODENOSCOPY TRANSORAL DIAGNOSTIC 04/09/2015 EGD HEART SURGERY HX 196 coarctation of aorta, 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 PAST SURGICAL HISTORY OF gallbladder PAST SURGICAL HISTORY OF aneurism, aorta SOCIAL HISTORY Social History Tobacco Use Smoking status: Never Passive exposure: Past Smokeless tobacco: Never Vaping Use Vaping status: Never Used Substance Use Topics Alcohol use: Never Drug use: Never FAMILY HISTORY Problem Relation Age of Onset Heart Mother CHF Stroke Father Heart Brother Heart Son open heart at age 55 and it was about 3 wks ago ALLERGIES Allergen Reactions Amoxicillin Rash, Shortness of Breath Clindamycin ER visit -unknown reaction Penicillins Rash MEDICATIONS: azithromycin (ZITHROMAX) 250 mg tablet TAKE 2 TABLETS BY MOUTH ON DAY 1, AND THEN TAKE 1 TABLET BY MOUTH ONCE A DAY ON DAY 2 THROUGH DAY 5 (more content not included)...[facility]09-23-2024 Instructions* Patient Instructions* Katie Damon RN - 03/07/2024 10:19 AM EDT Participate in a regular exercise regimen of at least 30 to 45 minutes of exercise 4 to 5 days a week. Follow a low cholesterol, no added salt and no added sugar diet. Continue current medical regimen. Increase losartan to 50 mg twice daily. Obtain blood work in 2 weeks. Call for results within 48 hours. Call if he develops lightheadedness. Obtain a CTA of the chest. Call for results within 48 hours. Do not take metformin the day before the CTA and 2 days after the CTA. Obtain an echocardiogram. Call for results within 48 hours. Return for device check in 6 months. Return for follow up in one year months. Bring a current list of you medications to your next appointment. documented in this encounter[facility] Telephone encounter Note * Telephone Encounter - Allyson Verduzco MA - 02/22/2024 11:43 AM EDT Please refill to [facility]. Allyson Verduzco MA [facility]09-09-2024 Miscellaneous Notes* Telephone Encounter - Allyson Verduzco MA - 02/22/2024 11:43 AM EDT Please refill to [facility]. Allyson Verduzco MA documented in this [facility]07-26-2024 Telephone encounter Note * Telephone Encounter - Allyson Verduzco MA - 01/08/2024 1:20 PM EDT Please refill to [facility]. Allyson Verduzco MA [facility]07-26-2024 Miscellaneous Notes* Telephone Encounter - Allyson Verduzco MA - 01/08/2024 1:20 PM EDT Please refill to [facility]. Allyson Verduzco MA documented in this [facility]06-12-2024 Telephone encounter Note * Telephone Encounter - Allyson Verduzco MA - 11/25/2023 3:51 PM EDT Please refill to [facility]. Allyson Verduzco MA [facility]06-12-2024 Miscellaneous Notes* Telephone Encounter - Allyson Verduzco MA - 11/25/2023 3:51 PM EDT Please refill to [facility]. Allyson Verduzco MA documented in this encounterMer[facility]11-03-2023 Miscellaneous Notes* Telephone Encounter - Jesse Gaitan MD - 04/17/2023 12:25 PM EDTSummary: BP diary results The majority of the pt's readings were mildly elevated, and really haven't changed very much since he switched from Losartan 50mg bid to Olmesartan 40mg PO daily. He is also on Diltiazem ER 180mg bid, Furosemide 20mg daily, and KCL 20meq daily. He has not felt well on beta blockers in the past. I would suggest a trial of Bystolic 5mg daily (Nevivolol), which is now relatively inexpensive, and often better tolerated than other beta blockers (and of course, the pt does have a pacemaker). If he isagreeable, I will provide a prescription. Thanks. TEODORO * Telephone Encounter - Estefany Villarreal - 04/17/2023 10:21 AM EDTSummary: BP Diary Received and scanned BP Diary into chart. documented in this encounterMer[facility]10-04-2023 Miscellaneous Notes* Telephone Encounter - Katie Damon RN - 03/18/2023 9:34 AM EDT Pt advised. * Telephone Encounter - Jesse Gaitan MD - 03/17/2023 7:51 PM EDTSummary: BMP results The pt's BMP from 03/13/23 was normal. We switched Losartan to Olmesartan on 02/26/23. The results are fine. Please let the pt know. TEODORO * Telephone Encounter - Ibis Garcia - 03/17/2023 11:12 AM EDT Received labs results from [facility]. Will scan into chart for you to review. documented in this encounterMer[facility]09-14-2023 History of Present illness Narrative* Jesse Gaitan MD - 02/26/2023 1:00 PM EDT Images from the original note were not included. [facility] OUTPATIENT VISIT DATE February 26, 2023 OUTPATIENT VISIT TYPE ESTABLISHED PATIENT PRIMARY CARE PHYSICIAN: Jose Miguel Granados ([facility]) [address] [place] [address] HISTORY OF PRESENT ILLNESS: Mr. Burch is a 77 year old male with a history of CAD, single-vessel disease, PAF, low burden atrial fibrillation, hypertension, hyperlipidemia, impaired glucose tolerance, status post repair of aortic coarctation in 1959, ascending aortic aneurysm resection 1996, PSVT, status post permanent pacemaker implant, neurogenic syncope, carotid artery disease, intolerance to Bystolic secondary to leg cramps and metoprolol secondary to fatigue. The patient returns for follow-up. The patient underwent a stress test 04/20/2019 following nonsustained ventricular tachycardia on hisdevice check. The patient did have an abnormal stress test by EKG criteria. He did exercise well without chest pain. The nuclear images revealed apical attenuation artifact with no ischemia. EF 69%. The patient was continue medical therapy. The patient underwent a follow-up echocardiogram 03/26/2022 which revealed an EF of 70% 5%, moderate , mild MR, mild TR and RVSP of 32 mmHg. The patient is followed by Dr. Miranda. He underwent pacemaker generator replacement September 23, 2022. The patient denies chest pain, palpitations, dyspnea, lightheadedness, or syncope. He does not smoke or drink alcohol. He tries to walk 5000 steps a day. The patient did receive the COVID-19 vaccination and booster shot. He did suffer from the COVID-19 virus. He reports blood pressures of 140s over60 to 70s. The patient underwent a carotid ultrasound 08/20/2022 following altered sensory function. This revealed less than 50% stenosis of bilateral carotid arteries. CT of the head without contrast revealed noacute intracranial abnormality. PAST CARDIAC HISTORY: Coronary Artery Disease- single vessel disease with moderate stenosis of the first obtuse marginal branch as demonstrated by cardiac catheterization in 2011. Coarctation of aorta status post repair- 1961 Ascending aortic aneurysm resection 1996. History of bradycardia, status post pacemaker implant 12/30/2011 with a Medtronic device. 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 Atrial Fibrillation-PAF History of neurocardiogenic syncope with positive tilt PAST MEDICAL HISTORY Diagnosis Date Abnormal EKG Aortic stenosis Arrhythmia Bilateral carotid artery disease (HCC) Cardiac pacemaker in situ 12/30/2011 Coronary artery disease cabg x2 Dizziness and giddiness Hyperlipidemia Hypertension Impaired glucose tolerance Medication monitoring encounter Paroxysmal atrial fibrillation (HCC) Paroxysmal supraventricular tachycardia (HCC) Tachycardia, unspecified PAST SURGICAL HISTORY Procedure Laterality Date COLONOSCOPY FLX DX W/COLLJ SPEC WHEN PFRMD 04/13/2013 Colonoscopy ESOPHAGOGASTRODUODENOSCOPY TRANSORAL DIAGNOSTIC 04/09/2015 EGD HEART SURGERY HX 196 coarctation of aorta, 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 PAST SURGICAL HISTORY OF gallbladder PAST SURGICAL HISTORY OF aneurism, aorta SOCIAL HISTORY Social History Tobacco Use Smoking status: Never Passive exposure: Past Smokeless tobacco: Never Vaping Use Vaping Use: Never used Substance Use Topics Alcohol use: Never Drug use: Never FAMILY HISTORY Problem Relation Age of Onset Heart Mother CHF Stroke Father Heart Brother Heart Son open heart at age 55 and it was about 3 wks ago ALLERGIES Allergen Reactions Beta-Blockers (Beta* Unknown Clindamycin ER visit -unknown reaction Penicillins Rash MEDICATIONS: furosemide (LASIX) 20 mg tablet^Take 1 tablet by mouth once daily.^Disp: 90 tablet^Rfl: 3 potassium chloride ER (KLOR-CON) 20 mEq tablet^Take 1 tablet by mouth once daily.^Disp: 90 tablet^Rfl: 3 rosuvastatin (CRESTOR) 40 mg tablet^Take 1 tablet by mouth once daily.^Disp: 90 tablet^Rfl: 3 ASPIRIN 81 MG TAB^Take 81 mg by mouth daily at bedtime.^Disp: ^Rfl: 0 dilTIAZem CD (CARDIZEM CD, CARTIA XT) 180 mg 24 hr capsule^^Disp: ^Rfl: olmesartan (BENICAR) 40 mg tablet^Take 1 tablet by mouth once daily.^Disp: 90 tablet^Rfl: 3 REVIEW OF SYSTEMS: Review of Systems All other systems reviewed and are negative. PHYSICAL EXAMINATION: BP 154/64 (BP Site: Left Arm, BP Position: Sitting, BP Cuff Size: Regular Adult) Pulse 63 Ht 170.2 cm (5' 7) Wt 76.7 kg (169 lb) SpO2 94% BMI 26.47 kg/m Physical Exam Constitutional: Appearance: Normal appearance. HENT: Head: Normocephalic and atraumatic. Nose: Nose normal. Cardiovascular: Rate and Rhythm: Normal rate and regular rhythm. Pulses: Normal pulses. Heart sounds: Normal heart sounds, S1 normal and S2 normal. Comments: Long with a grade 2/6 to 3/6 crescendo decrescendo systolic murmur along the left sternalborder with preserved S2. Pulmonary: Effort: Pulmonary effort is normal. Breath sounds: Normal breath sounds. Abdominal: General: Bowel sounds are normal. Palpations: Abdomen is soft. Musculoskeletal: General: Normal range of motion. Cervical back: Normal range of motion and neck supple. Right lower leg: No edema. Left lower leg: No edema. Skin: General: Skin is warm and dry. Neurological: Mental Status: He is alert and oriented to person, place, and time. Mental status is at baseline. CARDIOVASCULAR MEDICINE TESTING: Last ECHO Result Conclusion ECHO Collected: 03/26/2022 1:09 PM (Final result) Impression: CONCLUSIONS: - Technically difficult exam due to body habitus. - Exam indication: Routine surveillance of mild valvular stenosis (>3yrs) - The left ventricle is normal in size. There is mild left ventricular hypertrophy. Left ventricular systolic function is normal. EF = 70 5% (visual est.) Definity contrast used for endocardial border detection. Normal left ventricular diastolic function. - The right ventricle is normal in size. Right ventricular systolic function is normal. - Tricuspid aortic valve. There is moderate aortic valve stenosis. AV area is 1 cm (0.51 cm /m ) by continuity, VTI. The peak gradient is 46 mmHg, the mean gradient is 31 mmHg and the dimensionless valve index is 0.28. Peak velocity 3.5 m/sec Mild MR and TR Mild PHTN - RVSP 32 mmhg - The patient has not had a prior CC echocardiographic exam for comparison. * * * Final * * * Last EKG Result Conclusion ECG COMPLETE Collected: 09/23/2022 9:45 AM (Final result) Impression: Atrial-paced rhythm with prolonged AV conduction Non-specific ST abnormality Abnormal ECG When compared with ECG of 31-DEC-2011 06:50, No significant change was found Confirmed by LUIZA GRAMAJO, [facility] ([id number]) on 09/23/2022 2:00:[address] Result Conclusion CT CHEST WO IVCON Exam End: 03/26/2022 12:32 PM (Final result) Impression: IMPRESSION: Postsurgical change involving the aorta similar to the previous study. Terrazzo Layer: NICK Transcribe Date/Time: Mar 28 2022 11:03A Dictated by : ADELFO WEBB MD This examination was interpreted and the report reviewed and electronically signed by: ADELFO WEBB MD on Mar 28 2022 11:13AM EST Nuclear Exercise Stress Test Report Procedure date: 04/20/2019 Findings: 04/20/19 1. Good exercise tolerance; the patient achieved 86% of the age-predicted maximum heart rate through greater than 3 stages (9 minutes and 50 seconds) of a Anders protocol. 2. No chest pain on exercise; the test was discontinued secondary to complaints of generalized fatigue. 3. Occasional isolated premature ventricular complexes were noted during exercise and the recovery phase. The patient also demonstrated occasional isolated premature supraventricular complexes duringexercise and the recovery phase. 4. Mildly blunted chronotropic response to exercise. 5. Relatively flat blood pressure response to exercise in a patient demonstrating moderate systolichypertension during baseline observation. Specifically, the patient began the study with a baselineblood pressure of 161/79 and had a peak recorded blood pressure of 165/50 noted during the final minute of exercise. Theclinical significance of this finding is uncertain. 6. The patient developed a maximum, between 1.5 and [address] segmentdepression in theinferior leads at peak exercise, which returned to near baseline levels within 2 to 3 minutes into the recovery phase. This constitutes a positiveresponse suggestive of exercise-induced myocardial ischemia. Comments: IMPRESSION: 1. No significant myocardial ischemia. 2. No evidence of myocardial infarction. 3. Apical attenuation artifact 4. The ejection fraction is 69% with normal wall motion. 5. EKG changes diagnostic of Myocardial Ischemia with Anders Protocol achieving a total workload of 11.4 METS without chest discomfort. Cardiac Catheterization Report Procedure date: 12/26/2011 Findings: 12/26/11 This was performed for recurrent supraventricular tachycardia in which the patient converted after Adenosine therapy in conjunction with an abnormal stress test by EKG criteria. In view of the above findings, catheterization was advised to redefine the patient's coronary status prior to assessing his arrhythmia and possible need for pacemaker versus antiarrhythmic therapy versus ablation. 1. Coronary disease; single vessel disease with moderate stenosis of a small first obtuse marginal branch of the circumflex artery. 2. Normal left ventricular systolic function as rejection fraction 55%. 3. Elevated left ventricular end-diastolic pressure 20 mmHg. 4. Mild 1+ mitral regurgitation 5. Mild aortic insufficiency 6. Status post coarctation repair of aorta with minimal gradient across the repair. Recommendations-the case was discussed with and the patient is to undergo ablation and insertion of a permanent pacemaker implant. Laboratories 02/19/2023 hemoglobin A1c 6.3, total cholesterol 124, LDL 50, HDL 68, triglycerides 31, TSH 2.93, CBC was normal, creatinine 1.0, BUN 15, potassium 4.0. Liver function test was normal except for low total protein 6.2. EKG reveals electronic atrial pacemaker. Otherwise normal EKG. IMPRESSION AND RECOMMENDATIONS: Mr. Burch is a 77 year old male with history of CAD, single-vessel disease, PAF, low burden atrial fibrillation, hypertension, hyperlipidemia, impaired glucose tolerance, status post repair of aorticcoarctation in 1959, ascending aortic aneurysm resection 1996, PSVT, status post permanent pacemaker implant, neurogenic syncope, carotid artery disease, intolerance to Bystolic secondary to leg cramps and metoprolol secondary to fatigue. CAD. History of single-vessel coronary disease with moderate stenosis of the first obtuse marginal branch as demonstrated by cardiac catheterization in 2011. The patient's most recent stress test was 04/20/2019. The stress test was negative for ischemia or myocardial infarction. Apical attenuation artifact. LVEF 69%. The patient continues to do well without symptoms of angina. He is to participate in [employer] exercise regimen at least 30 to 45 minutes of exercise 4 to 5 days a week. We trust that Dr. Granados will follow the patient's routine labs on a biannual basis. The patient is scheduled to return for follow-up in 1 year. Thoracic aortic aneurysm. The patient has a history of an ascending aortic aneurysm resection in 1996. CT of the chest performed 03/28/2022 revealed There are postsurgical changes involving the ascending thoracic aorta. Thereare atherosclerotic calcifications involving the proximal aspect of the ascending aorta and arch. The distal arch measures approximately 18 mm in diameter which was described previously with the proximal descending thoracic aorta measuring 2.8 cm similar to the previous study. The descending aorta is tortuous. Findings were felt to be similar to previous study. We will consider follow-up CT scan next year. History of repair of aortic coarctation 1959. As above. Paroxysmal atrial fibrillation. The patient has a history of paroxysmal atrial fibrillation. He is not on anticoagulation therapy due to low burden atrial fibrillation. The patient's [id number] is 4. We trust that ollow the patient's BMP and CBC on a biannual basis. His device check today revealed 3 NSVT episodes lasting 3 seconds in duration. Permanent pacemaker implant. The patient's history is remarkable for symptomatic bradycardia, status post permanent pacemaker implant with a Medtronic device. He also has a history of neurogenic syncope. The patient underwent interrogation of his device today. He has 13.7 years left on the battery. He was 90.8% A-paced and 0.3% RV pacing. 3 NSVT episodes lasting 30 seconds in duration. The device demonstrates adequate function. He is scheduled return for device check in 6 months and again in 1 year. 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 Hyperlipidemia. The patient is to follow a low-cholesterol low-fat diet. The patient is on Crestor 40 mg daily. Thegoal LDL for this patient is less than 70. We trust that Dr. Granados will follow the patient's risk factors with biannual lipid assessment. Hypertension. The patient is to follow a no added salt diet. The patient reports pressures of 140s over 60-70 at home. Patient has been advised to switch to losartan to olmesartan 40 mg 1 daily. A BMP will be obtained in 2 weeks. He is to submit a blood pressure diary in 1 month. In view of the patient's aortic stenosis, we will be permissive with his blood pressure. The patient was wondering if he could take the diltiazem ER 360 mg daily instead of taking diltiazem ER 180 mg twice daily. The patient is going to take the diltiazem ER 180 mg 2 tablets at 1 time. If he feels good on this regimen his next prescription could be for the diltiazem ER 360 mg daily. Impaired glucose tolerance. The patient is to follow a no added sugar diet. Hemoglobin A1c of 02/24/2022 was 5.8. Carotid artery disease. Carotid ultrasound January 17, 2020 revealed 1 to 39% stenosis of the bilateral carotid arteries. Thepatient's previous carotid ultrasound December 09, 2017 revealed a less than 50% stenosis bilaterally.,Prior to that he had 50 to 69% stenosis of the left ICA. Carotid ultrasound of August 20, 2022 revealed less than 50% stenosis of the bilateral carotid arteries. Jesse Gaitan MD documented in this encounter[facility]13-2023 Instructions* Patient Instructions* Katie Damon RN - 02/25/2023 10:14 AM EDT Participate in a regular exercise regimen of at least 30 to 45 minutes of exercise 4 to 5 days a week. Follow a low cholesterol, no added salt and no added sugar diet. Continue current medical regimen. Stop losartan and switch to olmesartan 40 mg daily. Obtain blood work in 2 weeks. Call for results within [address] Gaitan a blood pressure diary in 1 month. Check your blood pressure every other day at different times (example one day in the morning, one day in the afternoon and one day in the evening). Pacemaker in 6 months. Return for follow up in one year. Bring a current list of you medications to your next appointment. Obtain fasting blood work 1 week prior to next appointment. Echocardiogram in 03/2023. documented in this encounterMer[facility]09-13-2023 Miscellaneous Notes* Telephone Encounter - Estefany Villarreal - 02/25/2023 7:41 AM EDTSummary: labs Faxed lab request to Dr. Granados Office. * Telephone Encounter - Katie Damon RN - 02/24/2023 4:29 PM EDT Please obtain labs from Dr. Granados's office documented in this [facility]08-18-2023 Miscellaneous Notes* Telephone Encounter - Allyson Verduzco MA - 01/30/2023 8:18 AM EDT Please refill to [facility]. Allyson Verduzco MA documented in this [facility]04-27-2023 Miscellaneous Notes* Telephone Encounter - Allyson Verduzco MA - 10/09/2022 9:33 AM EDT Please refill to Jeanine. Allyson Verduzco MA documented in this [facility]04-04-2023 Miscellaneous Notes* Telephone Encounter - Rudy Olivas RN - 09/16/2022 1:30 PM EDTSummary: Pre- procedure instructions for DC PPM generator change Pre-procedure instructions for DC PPM generator change scheduled to be performed on Thursday09/23/2022 reviewed with pt at this time. He was instructed that he should be NPO except for medications onthe morning of the procedure. He was instructed to hold his potassium chloride and furosemide on the morning of the procedure for comfort. He was encouraged to call back with any questions or concerns. He may continue to take his aspirin as prescribed. He verbalized understanding of instructions and provided positive feedback for the call. Rudy Olivas RN September 16, 2022 1:32 PM documented in this encounterMer[facility]03-23-2023 Miscellaneous Notes* Telephone Encounter - Katie Damon RN - 09/04/2022 4:17 PM EDT Pt is feeling fine * Telephone Encounter - Jesse Gaitan MD - 09/04/2022 3:59 PM EDTSummary: [facility] records have been reviewed. Please find out if the pt has felt significantly better since we reprogrammed his device. He did have an EKG that showed AV dissociation with a ventricular paced rhythm---exactly what I had been worried about when we were first apprised of his problems (the result of his automatic mode switch when he went ROSLYN). If he has felt much better, I really think that I need to speak to Dr. Granados about this issue. He is going to have his change out on 09/23/[address] Miranda. TEODORO * Telephone Encounter - Estefany Villarreal - 09/04/2022 12:37 PM EDTSummary: Records Received records from [facility] and scanned into chart. * Telephone Encounter - Estefany Villarreal - 09/04/2022 8:42 AM EDTSummary: 2nd Request Faxed 2nd request to [facility] * Telephone Encounter - Estefany Villarreal - 08/27/2022 2:34 PM EDT Faxed record request to [facility]. * Telephone Encounter - Katie Damon RN - 08/27/2022 1:50 PM EDT Please obtain records from [facility] from last week. Please scanned into the chart JOAN andsend to Dr. Gaitan to review. documented in this encounterMercy [facility]03-21-2023 Miscellaneous Notes* Telephone Encounter - Rudy Olivas RN - 09/02/2022 10:14 AM EDTSummary: Notification of scheduled DC PPM generator change Call returned to pt at this time. Voicemail left on home phone requesting call back. Rudy Olivas RN September 02, 2022 10:14 AM Pt contacted on his cell phone and notified that his DC PPM generator change has been scheduled to be performed on Thursday09/23/2022. [facility] 0[facility]. He was agreeable with the date and time. Pre- procedure instructions will be reviewed the week prior to the procedure. He was encouraged to call back for any questions or concerns. He verbalized understanding of instructions and expressed appreciation for the call. Rudy Olivas RN September 02, 2022 10:17 AM * Telephone Encounter - Rudy Olivas RN - 09/01/2022 2:28 PM EDT Needs order for generator change, please. Thank you! Rudy Olivas RN September 01, 2022 2:28 PM * Telephone Encounter - Katie Damon RN - 08/29/2022 11:53 AM EDT The patient called back and he is feeling much better since adjustments were made in his pacemaker. He is arrange for the generator replacement as noted. * Telephone Encounter - Katie Damon RN - 08/29/2022 11:37 AM EDT Left several messages for the patient to call me back. * Telephone Encounter - Jesse Gaitan MD - 08/29/2022 9:17 AM EDTSummary: Pt update This was addressed yesterday in the office when the pt was reprogrammed. Please give him a courtesycall today (if you have a chance) to see if he is feeling better (he seemed leery about this yesterday when I spoke to him yesterday after he was reprogrammed). Of course, we need to make sure he gets on Dr. Miranda' schedule for the generator change out [facility] (hopefully two weeks from now---the week she comes back). TEODORO * Telephone Encounter - Katie Damon RN - 08/28/2022 9:[address] Gaitan reviewed the patient's device check. He feels that the patient's dizziness is more likely related to his device going ROSLYN and is now ventricular pacing. He discussed with Dr. Miranda. They will try to reprogram back to his old mode and schedule a pacemaker generator change in 2 weeks. The patient will come in for device check today. He again was advised not to drive. If they are unable to reprogram his device to the old mode he will then be sent to the ER and be admitted for a pacemaker change out tomorrow. I advised the patient on above. * Telephone Encounter - Katie Damon RN - 08/28/2022 8:17 AM EDT Pt advised not to drive. I already requested records. Please review device check. * Telephone Encounter - Jesse Gaitan MD - 08/27/2022 6:11 PM EDT We need the [facility] records JOAN. On the patient's last actual device check (today's is not in the record---I do not know if we were able to get any information, since he is ROSLYN), he paced his atria approximately 85% of the time. I doubt that it is simply a coincidence that he has developed all of thisdizziness at the same time that his device went ROSLYN. If the device switched to a VOO mode (which can happen when pts are ROSLYN), I most definitely believe this could result in symptoms. We need his EKG's from the hospital, and we need to know if they interrogated his device. He should not be driving. My biggest surprise is that this is the first that I am hearing about this. He probably needs a change out JOAN. TEODORO * Telephone Encounter - Katie Damon RN - 08/27/2022 1:45 PM EDT The patient was in [facility] a week ago. He went there due to dizziness. They did give him Antivert with release of his dizziness. They then put him on Antivert 3 times a day for 5 days. His blood pressure was low the decrease of his blood pressure medication to half a tablet once a day. Apparently did a brain CT scan which was negative. He had evidence of aortic stenosis with a valve area 0.9 cm . On Thursday he saw his PCP. He still was dizzy. He ordered another roundof Antivert. He increase the diltiazem to half a tablet twice daily. He sent a transmission into [employer] today. He is ROSLYN. He does note occasional fluttering sensation. I advised him you will review. Ialso advised him if he has near syncope or syncope he needs to go to the nearest ER. * Telephone Encounter - Dandy Bruner - 08/27/2022 1:04 PM EDTSummary: Dizzy/ROSLYN Patient's device triggered ROSLYN on 08/19/2022. Patient states he has been dizzy and not feeling well. He went to a hospital by him and they are supposed to be sending us records. I told him I don't believe it is due to his battery ready for change out but I would send to you. * Telephone Encounter - Hellen Louie - 08/27/2022 10:05 AM EDT Patient called back for Judy. * Telephone Encounter - Dandy Bruner - 08/27/2022 8:07 AM EDTSummary: Nearing ROSLYN? Patient called stating that he thinks his battery is ROSLYN. Patient informed to send me a remote and I will call him back once I receive it. documented in this encounterMer[facility]03-16-2023 Miscellaneous Notes* Telephone Encounter - Dandy Bruner - 08/28/2022 11:27 AM EDTSummary: Questions answered Patient was seen in office today and questions were answered by Dr. Gaitan. * Telephone Encounter - Radha Wong - 08/27/2022 1:14 PM EDT Pt is calling asking for Katie, I asked hwat it was regarding he reluctantly told me pacemaker but wouldn't give me further information Katie told me to send to Tita documented in this encounterMercy [facility]03-15-2023 Miscellaneous Notes* Telephone Encounter - Dandy Bruner - 08/27/2022 1:06 PM EDTSummary: ROSLYN Patient's device triggered ROSLYN on 08/19/2022. Patient has a Medtronic DC PPM. documented in this encounterMercy Health [facility]01-20-2023 Miscellaneous Notes* Telephone Encounter - Jesse Gaitan MD - 07/04/2022 1:45 PM EST The Rx has been refilled. TEODORO * Telephone Encounter - Aubrie Velazquez RN - 07/04/2022 1:18 PM EST I spoke with patient. He is taking 1 diltiazem 360 mg qd * Telephone Encounter - Jesse Gaitan MD - 07/03/2022 3:56 PM ESTSummary: Question about Diltiazem refill Please check to see what this pt has actually been taking. If memory serves correctly, he may be taking two of the 180mg capsules daily rather that a 360mg capsule, possibly due to the fact that the terry of the 360mg capsule is much higher than two of the 180mg capsules. I can refill the medication however he would like to receive it (as of his last office visit, it looks like he was on the 180mg capsules. Once this is clarified, I will refill the medication. Thanks. TEODORO documented in this encounterMer[facility]10-12-2022 Miscellaneous Notes* Telephone Encounter - Jesse Gaitan MD - 03/26/2022 6:01 PM EDT The pt's Echo showed: CONCLUSIONS: - Technically difficult exam due to body habitus. - Exam indication: Routine surveillance of mild valvular stenosis (>3yrs) - The left ventricle is normal in size. There is mild left ventricular hypertrophy. Left ventricular systolic function is normal. EF = 70 5% (visual est.) Definity contrast used for endocardial border detection. Normal left ventricular diastolic function. - The right ventricle is normal in size. Right ventricular systolic function is normal. - Tricuspid aortic valve. There is moderate aortic valve stenosis. AV area is 1 cm (0.51 cm /m ) by continuity, VTI. The peak gradient is 46 mmHg, the mean gradient is 31 mmHg and the dimensionless valve index is 0.28. Peak velocity 3.5 m/sec Mild MR and TR Mild PHTN - RVSP 32 mmhg Please let the pt know that everything appeared fine for now, although his aortic valve has progressed from mild to moderate stenosis since his last study in 2017. I would now recommend an annual Echo. TEODORO documented in this encounterMercy [facility]09-19-2022 Miscellaneous Notes* Telephone Encounter - Brittany Salamanca - 03/03/2022 9:40 AM EDT I called the patient to give dates and time of CT chest and echo. [facility] 03/26/2022 @ 1:00PM. Brittany Salamanca documented in this encounterMercy Health [facility]09-15-2022 Instructions* Patient Instructions* Katie Damon RN - 02/27/2022 10:[address] of the chest. Echocardiogram. Call for results within 48 hours. Remote pacer check by the device clinic in 3 months. Additional instructions. 1. Participate in a regular exercise regimen of at least 30 to 45 minutes of exercise 4 to 5 days aweek. 2 Follow a low cholesterol, no added salt diet. And no added sugar diet. 3. Continue current medical regimen. 4. Return for follow up in one year. 5. Bring a current list of you medications to your next appointment. documented in this encounterMercy Health [facility]09-15-2022 Miscellaneous Notes* Telephone Encounter - Ibis Garcia - 02/27/2022 10:02 AM EDT Received labs and gave to Katie. * Telephone Encounter - Ibis Garcia - 02/26/2022 9:20 AM EDT Requested labs from Dr. Granados's office. * Telephone Encounter - Katie Damon RN - 02/26/2022 9:04 AM EDT We received the hemoglobin A1c of 02/24/2022. Please have Dr. Oneil office and over the most recent BMP, CBC and lipid profile. documented in this encounterMercy Health [facility]09-15-2022 History of Present illness Narrative* Jesse Gaitan MD - 02/27/2022 9:30 AM EDT Images from the original note were not included. [facility] OUTPATIENT VISIT DATE February 27, 2022 OUTPATIENT VISIT TYPE ESTABLISHED PATIENT PRIMARY CARE PHYSICIAN: Dr. Jose Miguel Granados [address] [place] [address] HISTORY OF PRESENT ILLNESS: Mr. Burch is a 76 year old male with a history of CAD, single-vessel disease, PAF, low burden atrial fibrillation, hypertension, hyperlipidemia, impaired glucose tolerance, status post repair of aortic coarctation in 1959, ascending aortic aneurysm resection 1996, PSVT, status post permanent pacemaker implant, neurogenic syncope, carotid artery disease, intolerance to Bystolic secondary to leg cramps and metoprolol secondary to fatigue. The patient returns for follow-up. The patient underwent a stress test 04/20/2019 following nonsustained ventricular tachycardia on hisdevice check. The patient did have an abnormal stress test by EKG criteria. He did exercise well without chest pain. The nuclear images revealed apical attenuation artifact with no ischemia. EF 69%. The patient was continue medical therapy. The patient denies chest pain, palpitations, dyspnea, lightheadedness, or syncope. The patient doesnot smoke or drink alcohol. 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 The patient reports optimal blood pressure readings at home. He did get the COVID-19 vaccination as well as a booster shot. He lives with his . He still drives. The patient had prostate surgery May 2021. PAST CARDIAC HISTORY: Coronary Artery Disease- single vessel disease with moderate stenosis of the first obtuse marginal branch as demonstrated by cardiac catheterization in 2011. Coarctation of aorta status post repair- 1961 Ascending aortic aneurysm resection 1996. History of bradycardia, status post pacemaker implant 12/30/2011 with a Medtronic device. 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 Atrial Fibrillation-PAF History of neurocardiogenic syncope with positive tilt PAST MEDICAL HISTORY Diagnosis Date Abnormal EKG Aortic stenosis Arrhythmia Bilateral carotid artery disease (HCC) Cardiac pacemaker in situ Coronary artery disease Dizziness and giddiness Hyperlipidemia Hypertension Impaired glucose tolerance Medication monitoring encounter Paroxysmal atrial fibrillation (HCC) Paroxysmal supraventricular tachycardia (HCC) Tachycardia, unspecified PAST SURGICAL HISTORY Procedure Laterality Date COLONOSCOPY FLX DX W/COLLJ SPEC WHEN PFRMD 04/13/2013 Colonoscopy ESOPHAGOGASTRODUODENOSCOPY TRANSORAL DIAGNOSTIC 04/09/15 EGD HEART SURGERY HX PAST SURGICAL HISTORY OF gallbladder PAST SURGICAL HISTORY OF aneurism, aorta SOCIAL HISTORY Social History Tobacco Use Smoking status: Never Smokeless tobacco: Never Vaping Use Vaping Use: Never used Substance Use Topics Alcohol use: No Drug use: No FAMILY HISTORY Problem Relation Age of Onset Heart Mother CHF Stroke Father Heart Brother ALLERGIES Allergen Reactions Beta-Blockers (Beta* Unknown Clindamycin ER visit -unknown reaction Penicillins Rash MEDICATIONS: potassium chloride 20 mEq TbER^Take 20 mEq by mouth once daily.^Disp: ^Rfl: rosuvastatin (CRESTOR) 40 mg tablet^Take 40 mg by mouth once daily.^Disp: ^Rfl: furosemide (LASIX) 20 mg tablet^Take 1 tablet by mouth once daily.^Disp: 90 tablet^Rfl: 3 losartan (COZAAR) 100 mg tablet^Take 100 mg by mouth once daily.^Disp: ^Rfl: dilTIAZem CD (CARDIZEM CD, CARTIA XT) 180 mg 24 hr capsule^Take 360 mg by mouth once daily. Take 360mg once daily^Disp: ^Rfl: ASPIRIN 81 MG TAB^Take one (1) tablet daily .^Disp: ^Rfl: 0 RABEprazole (ACIPHEX) 20 mg tablet^Take 1 tablet by mouth once daily.^Disp: 30 tablet^Rfl: 2 tamsulosin ER (FLOMAX) 0.4 mg cp24^Take 0.4 mg by mouth daily at bedtime.^Disp: ^Rfl: omeprazole (PRILOSEC) 20 mg capsule^Take 40 mg by mouth once daily.^Disp: ^Rfl: finasteride 5 mg tablet^Take 5 mg by mouth once daily.^Disp: ^Rfl: azithromycin 500 mg tablet^Take 500 mg by mouth one time only. prior to dental procedures^Disp: ^Rfl: (Patient not taking: Reported on 02/27/2022) REVIEW OF SYSTEMS: Review of Systems All other systems reviewed and are negative. PHYSICAL EXAMINATION: BP 143/71 (BP Site: Left Arm, BP Position: Sitting, BP Cuff Size: Regular Adult) Pulse 60 Ht 170.2 cm (5' 7) Wt 80.5 kg (177 lb 6.4 oz) SpO2 94% BMI 27.78 kg/m Physical Exam Constitutional: Appearance: Normal appearance. HENT: Head: Normocephalic and atraumatic. Nose: Nose normal. Cardiovascular: Rate and Rhythm: Normal rate and regular rhythm. Pulses: Normal pulses. Heart sounds: Normal heart sounds, S1 normal and S2 normal. Comments: Along with a grade 1-2/6 systolic ejection murmur at the left sternal border radiating tothe neck. Pulmonary: Effort: Pulmonary effort is normal. Breath sounds: Normal breath sounds. Musculoskeletal: General: Normal range of motion. Cervical back: Normal range of motion and neck supple. Right lower leg: No edema. Left lower leg: No edema. Skin: General: Skin is warm and dry. Neurological: Mental Status: He is alert. CARDIOVASCULAR MEDICINE TESTING: Echocardiogram Report Procedure date: 11/17/2016 Findings: Conclusion: Mild basal septal hypertrophy / sigmoid septum of the left ventricle with normal systolic function,ejection fraction 65% Mild mitral annular calcification with mitral valve redundant chords and chordal KILO with trivial mitral insufficiency. Trivial tricuspid insufficiency. Mild calcific aortic stenosis with trivial aortic insufficiency Trivial pulmonic insufficiency Right ventricular systolic pressure estimated to be 28 mm [Hg] Pacemaker or ICD leads identified within the right atrium and right ventricle. Normal appearing proximal ascending aortic repair No evidence of hemodynamically significant residual aortic coarctation Nuclear Exercise Stress Test Report Procedure date: 04/20/2019 Findings: 04/20/19 1. Good exercise tolerance; the patient achieved 86% of the age-predicted maximum heart rate through greater than 3 stages (9 minutes and 50 seconds) of a Anders protocol. 2. No chest pain on exercise; the test was discontinued secondary to complaints of generalized fatigue. 3. Occasional isolated premature ventricular complexes were noted during exercise and the recovery phase. The patient also demonstrated occasional isolated premature supraventricular complexes duringexercise and the recovery phase. 4. Mildly blunted chronotropic response to exercise. 5. Relatively flat blood pressure response to exercise in a patient demonstrating moderate systolichypertension during baseline observation. Specifically, the patient began the study with a baselineblood pressure of 161/79 and had a peak recorded blood pressure of 165/50 noted during the final minute of exercise. Theclinical significance of this finding is uncertain. 6. The patient developed a maximum, between 1.5 and [address] segmentdepression in theinferior leads at peak exercise, which returned to near baseline levels within 2 to 3 minutes into the recovery phase. This constitutes a positiveresponse suggestive of exercise-induced myocardial ischemia. Comments: IMPRESSION: 1. No significant myocardial ischemia. 2. No evidence of myocardial infarction. 3. Apical attenuation artifact 4. The ejection fraction is 69% with normal wall motion. 5. EKG changes diagnostic of Myocardial Ischemia with Anders Protocol achieving a total workload of 11.4 METS without chest discomfort. Cardiac Catheterization Report Procedure date: 12/26/2011 Findings: 12/26/11 This was performed for recurrent supraventricular tachycardia in which the patient converted after Adenosine therapy in conjunction with an abnormal stress test by EKG criteria. In view of the above findings, catheterization was advised to redefine the patient's coronary status prior to assessing his arrhythmia and possible need for pacemaker versus antiarrhythmic therapy versus ablation. 1. Coronary disease; single vessel disease with moderate stenosis of a small first obtuse marginal branch of the circumflex artery. 2. Normal left ventricular systolic function as rejection fraction 55%. 3. Elevated left ventricular end-diastolic pressure 20 mmHg. 4. Mild 1+ mitral regurgitation 5. Mild aortic insufficiency 6. Status post coarctation repair of aorta with minimal gradient across the repair. Recommendations-the case was discussed with and the patient is to undergo ablation and insertion of a permanent pacemaker implant. Laboratories 02/24/2022 hemoglobin A1c 5.8, sodium 142, potassium 4.1, chloride 107, bicarb 26.1, glucose 89, BUN 16, creatinine 0.89, albumin 3.5, ALT 27, cholesterol 118, triglycerides 39, HDL 57, LDL 53, TSH 3.77. Laboratories 09/13/2021 WBC 6.0, hemoglobin 14.6, hematocrit 42.7, platelets 186. EKG today reveals electronic atrial pacemaker. IMPRESSION AND RECOMMENDATIONS: Mr. Burch is a 76 year old male with history of CAD, single-vessel disease, PAF, low burden atrial fibrillation, hypertension, hyperlipidemia, impaired glucose tolerance, status post repair of aorticcoarctation in 1959, ascending aortic aneurysm resection 1996, PSVT, status post permanent pacemaker implant, neurogenic syncope, carotid artery disease, intolerance to Bystolic secondary to leg cramps and metoprolol secondary to fatigue. CAD. History of single-vessel coronary disease with moderate stenosis of the first obtuse marginal branch as demonstrated by cardiac catheterization in 2011. The patient's most recent stress test was 04/20/2019. The stress test was negative for ischemia or myocardial infarction. Apical attenuation artifact. LVEF 69%. The patient continues to do well without symptoms of angina. He is to participate in aregular exercise regimen at least 30 to 45 minutes of exercise 4 to 5 days a week. We trust that Dr. Granados will follow the patient's routine labs on a biannual basis. The patient is scheduled to return for follow-up in 1 year. History of repair of aortic coarctation 1959. A CT of the chest is pending. Thoracic aortic aneurysm. The patient has a history of an ascending aortic aneurysm resection in 1996. CT of the chest performed this 01/16/2020 revealed stable postoperative changes of the thoracic aortaand coarctation. No acute process. A CT of the chest is pending. Paroxysmal atrial fibrillation. The patient has a history of paroxysmal atrial fibrillation. He is not on anticoagulation therapy due to low burden atrial fibrillation. The patient's [id number] is 4. The patient underwent interrogation of his device today. He had no evidence of atrial fibrillation.We trust that follow the patient's BMP and CBC on a biannual basis. Permanent pacemaker implant. The patient's history is remarkable for symptomatic bradycardia, status post permanent pacemaker implant with a [employer] device. He also has a history of neurogenic syncope. The patient underwent interrogation of his device today. The device demonstrates adequate function. His battery has 2.83 V which requires a change out at 2.81 V. The patient will have a remote check in 3 months. He is 83.8% A pacing and 8.1% RV pacing. He had 2 NSVT VT episodes, longest was 2 seconds on 11/02/2021. 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 Hyperlipidemia. The patient is to follow a low-cholesterol low-fat diet. The patient is on Crestor 40 mg daily. Thepatient's LDL of 02/24/2022 was 53. We trust that Dr. Granados will follow the patient's risk factors with biannual lipid assessment. Hypertension. The patient is to follow a no added salt diet. The patient reports optimal blood pressure readings at home. Impaired glucose tolerance. The patient is to follow a no added sugar diet. Hemoglobin A1c of 02/24/2022 was 5.8. Carotid artery disease. Carotid ultrasound January 17, 2020 revealed 1 to 39% stenosis of the bilateral carotid arteries. Patient's previous carotid ultrasound December 09, 2017 revealed a less than 50% stenosis bilaterally., Prior to that he had 50 to 69% stenosis of the left ICA. Jesse Gaitan MD [facility] Miscellaneous Notes* Telephone Encounter - Jesse Gaitan MD - 01/25/2022 9:59 PM EDT The Rx was filled. TEODORO * Telephone Encounter - Ibis Garcia - 01/21/2022 4:27 PM EDT Please refill a 90 day supply of Furosemide 20 Mg 1 a day.Please send to [employer]. documented in [facility] encounter[facility] note No data available for this section [facility] Evaluation note* Diagnosis SSS (sick sinus syndrome) (HCC)- Primary Sinoatrial node dysfunction documented in this encounter [facility]* Diagnosis Paroxysmal atrial fibrillation (HCC)- Primary Atrial fibrillation Essential hypertension Unspecified essential hypertension Coronary artery disease involving [place] coronary artery of [place] heart without angina pectoris Medication monitoring encounter Encounter for therapeutic drug monitoring Pacemaker Cardiac pacemaker in situ Dyslipidemia Other and unspecified hyperlipidemia Impaired glucose tolerance Impaired glucose tolerance test SVT (supraventricular tachycardia) (HCC) Other specified cardiac dysrhythmias Thoracic ascending aortic aneurysm Thoracic aneurysm without mention of rupture Nonrheumatic aortic valve stenosis Aortic valve disorders Disorder of artery or arteriole (HCC) Unspecified disorders of arteries and arterioles documented in this encounter [facility]* Diagnosis Pacemaker- Primary Cardiac pacemaker in situ documented in this encounter [facility] note* Diagnosis Elective replacement indicated for pacemaker- Primary Fitting and adjustment of cardiac pacemaker Elective replacement indicated for pacemaker Fitting and adjustment of cardiac pacemaker documented in this encounter [facility]* Diagnosis Medication monitoring encounter- Primary Encounter for therapeutic drug monitoring Hyperlipidemia, unspecified hyperlipidemia type documented in this encounter [facility]* Diagnosis Hypertension, unspecified type- Primary documented in this encounter [facility]* Diagnosis SSS (sick sinus syndrome) (HCC)- Primary Sinoatrial node dysfunction documented in this encounter [facility]* Diagnosis Nonrheumatic aortic valve stenosis- Primary Aortic valve disorders Coronary artery disease involving [place] coronary artery of [place] heart without angina pectoris Dyslipidemia Other and unspecified hyperlipidemia Essential hypertension Unspecified essential hypertension Paroxysmal atrial fibrillation (HCC) Atrial fibrillation Impaired glucose tolerance Impaired glucose tolerance test Aneurysm of ascending aorta without rupture (HCC) Medication monitoring encounter Encounter for therapeutic drug monitoring SSS (sick sinus syndrome) (HCC) Sinoatrial node dysfunction Pacemaker Cardiac pacemaker in situ Disorder of artery or arteriole (HCC) Unspecified disorders of arteries and arterioles documented in this encounter [facility] note* Diagnosis SSS (sick sinus syndrome) (HCC)- Primary Sinoatrial node dysfunction documented in this encounter [facility] noteNo assessment information availableWWilson Memorial Hospital Work Phone: Evaluation note* Diagnosis Hyperlipidemia, unspecified hyperlipidemia type documented in this encounter [facility]* Diagnosis SSS (sick sinus syndrome) (HCC)- Primary Sinoatrial node dysfunction documented in this encounter [facility] note* Diagnosis Medication monitoring encounter Encounter for therapeutic drug monitoring documented in this encounter [facility]* Diagnosis Hypertension, unspecified type- Primary documented in this encounter [facility]* Diagnosis Nonrheumatic aortic valve stenosis- Primary Aortic valve disorders Coronary artery disease involving [place] coronary artery of [place] heart without angina pectoris Paroxysmal atrial fibrillation (HCC) Atrial fibrillation Dyslipidemia Other and unspecified hyperlipidemia Essential hypertension Unspecified essential hypertension Impaired glucose tolerance Impaired glucose tolerance test Aneurysm of ascending aorta without rupture (HCC) Pacemaker Cardiac pacemaker in situ Elective replacement indicated for pacemaker Fitting and adjustment of cardiac pacemaker Medication monitoring encounter Encounter for therapeutic drug monitoring Chronic diastolic congestive heart failure (HCC) Chronic diastolic heart failure Disorder of artery or arteriole (HCC) Unspecified disorders of arteries and arterioles documented in this encounter [facility] note* Diagnosis SSS (sick sinus syndrome) (HCC)- Primary Sinoatrial node dysfunction documented in this encounter [facility]* Diagnosis Disorder of artery or arteriole (HCC) Unspecified disorders of arteries and arterioles documented in this encounter [facility] note* Diagnosis Essential hypertension Unspecified essential hypertension Medication monitoring encounter Encounter for therapeutic drug monitoring Chronic diastolic congestive heart failure (HCC) Chronic diastolic heart failure Nonrheumatic aortic valve stenosis Aortic valve disorders documented in this encounter [facility] note* Diagnosis Hypertension, unspecified type documented in this encounter [facility] note* Diagnosis SSS (sick sinus syndrome) (HCC)- Primary Sinoatrial node dysfunction documented in this encounter [facility] Discharge instructions No data available for this section [facility] Progress note No data available for this section [facility] Reason for referral (narrative)* Outpatient Procedure (Routine) - Authorized Specialty Diagnoses / Procedures Referred By Contac t Referred To Contact [facility] Diagnoses Essential hypertension Paroxysmal atrial fibrillation (HCC) Nonrheumatic aortic valve stenosis Procedures ECHO ECHO TTHRC R-T 2D W/WOM-MODE COMPL SPEC&COLJesse Dorsey MD [address] [place] [address] [facility] [address] [address] Referral ID Status Reason Start Date Expiration Date Visits Requested Visits Authorized [id number] Authorized Auto-Generat ed Referral 02/26/2024 1 1 [facility] for referral (narrative)* Outpatient Procedure (Routine) - Authorized Specialty Diagnoses / Procedures Referred By Contac t Referred To Contact [facility] Diagnoses Essential hypertension Medication monitoring encounter Chronic diastolic congestive heart failure (HCC) Nonrheumatic aortic valve stenosis Procedures ECHO ECHO TTHRC R-T 2D W/WOM-MODE COMPL SPEC&COLJesse Dorsey MD [address] [address] [facility] [address] [address] Referral ID Status Reason Start Date Expiration Date Visits Requested Visits Authorized [id number] Authorized Auto-Generat ed Referral 03/15/2024 03/15/2025 1 1 * MRI/CT (Routine) - New Request Specialty Diagnoses / Procedures Referred By Contac t Referred To Contact CT IMAGING Diagnoses Disorder of artery or arteriole (HCC) Procedures CTA CHEST (NONGATED) WO/W IVCON CT ANGIOGRAPHY CHEST W/CONTRAST/NONCONTRAST Jesse Gaitan MD [address] [place] [address] Ct Imaging [id number] Referral ID Status Reason Start Date Expiration Date Visits Requested Visits Authorized [id number] New Request Auto-Generat ed Referral 03/15/2024 04/14/2025 1 1 [facility] for referral (narrative)* Outpatient Procedure (Routine) - Closed Specialty Diagnoses / Procedures Referred By Contac t Referred To Contact [facility] Diagnoses Essential hypertension Medication monitoring encounter Chronic diastolic congestive heart failure (HCC) Nonrheumatic aortic valve stenosis Procedures ECHO ECHO TTHRC R-T 2D W/WOM-MODE COMPL SPEC&COLR D Jesse Gaitan MD [address] [place] [address] [facility] [address] [address] Referral ID Status Reason Start Date Expiration Date V isits Requested Visits Authorized [id number] Closed Auto-Generate d Referral 03/15/2024 03/15/2025 1 1 [facility] for visit Narrative* Outpatient Procedure (Routine) - Closed Specialty Diagnoses / Procedures Referred By Contac t Referred To Contact [facility] Diagnoses Essential hypertension Medication monitoring encounter Chronic diastolic congestive heart failure (HCC) Nonrheumatic aortic valve stenosis Procedures ECHO ECHO TTHRC R-T 2D W/WOM-MODE COMPL SPEC&COLR D Jesse Gaitan MD [address] [place] [address] [address] Referral ID Status Reason Start Date Expiration Date V isits Requested Visits Authorized [id number] Closed Auto-Generate d Referral 03/15/2024 03/15/2025 1 1 [facility] Summary Purpose Family History No Family History Records FoundNo Family History Records FoundNo Family History Records FoundNo Family History Records Found No data available for this section No data available for this section No Family History Records FoundNo Family History Records FoundNo Family History Records Found Advance Directives No Advanced Directives Records Found Advance Directive Response Recorded Date/ Time Living Will Yes June 11 1:52pm Power of Technician'S Helper Yes June 11, 2021 1:52pm Reason for Referral Specialty Diagnoses / Procedures [facility] Diagnoses Disorder of artery or arteriole (HCC) Procedures CT CHEST WO IVCON DIAGNOSTIC COMPUTED TOMOGRAPHY THORAX W/O CNTRST Jesse Gaitan MD [address] [address] [address] Imaging Referral ID Status Reason Start Date Expiration Date Visits Requested Visits Authorized [id number] Pending Review Auto-Generat ed Referral 02/27/2022 03/29/2023 1 1 Specialty Diagnoses / Procedures [facility] To Contact [facility] Diagnoses Paroxysmal atrial fibrillation (HCC) Essential hypertension Coronary artery disease involving [place] coronary artery of [place] heart without angina pectoris Nonrheumatic aortic valve stenosis Procedures ECHO ECHO TTHRC R-T 2D W/WOM-MODE COMPL SPEC&COLR D Jesse Gaitan MD [address] [address] Referral ID Status Reason Start Date Expiration Date Visits Requested Visits Authorized [id number] Pending Review Auto-Generat ed Referral 02/27/2022 02/27/2023 1 1 Specialty Diagnoses / Procedures [facility] Diagnoses Paroxysmal atrial fibrillation (HCC) Coronary artery disease involving [place] coronary artery of [place] heart without angina pectoris Procedures ECG COMPLETE ECG ROUTINE ECG W/LEAST 12 LDS W/I&R Jesse Gaitan MD [address] [place] [address] [address] Referral ID Status Reason Start Date Expiration Date Visits Requested Visits Authorized [id number] Pending Review Auto-Generat ed Referral 02/27/2022 02/27/2023 1 1 Chief Complaint and Reason for Visit Chief Complaint DWD Additional Source Comments (unrecognized sect ion and content) No Status Records FoundNo Status Records FoundNo Status Records FoundNo Status Records FoundNo Status Records FoundNo Status Records FoundNo Status Records Found INFORMATION SOURCE (unrecogn ized section and content) DATE CREATED AUTHOR 01/25/2020 [facility] [place] DATE CREATED AUTHOR AUTHOR'S ORGANIZ ATION 03/17/2021 [facility] DATE CREATED AUTHOR AUTHOR'S ORGANIZ ATION 02/21/2023 [facility] DATE CREATED AUTHOR AUTHOR'S ORGANIZ ATION 10/15/2023 [facility] DATE CREATED AUTHOR AUTHOR'S ORGANIZ ATION 08/30/2024 [facility] DATE CREATED AUTHOR AUTHOR'S ORGANIZ ATION 09/22/2024 [facility] DATE CREATED AUTHOR AUTHOR'S ORGANIZ ATION 12/22/2024 [facility] Source Comments (unrecognize d section and content) In the event this informatio n is protected by the Federal Confidentiality of Alcohol and Drug Abuse Patient Records regulations: The Federal rules restrict any use of the information to criminally investigate or prosecute any alcohol or drug abuse patient.[facility] the event this information is protected by the Federal Confidentiality of Alcohol and Drug Abuse Patient Records regulations: The Federal rules restrict any use of the information to criminally investigate or prosecute any alcohol or drug abuse patient.[facility] the event this information is protected by the Federal Confidentiality of Alcohol and Drug Abuse Patient Records regulations: The Federal rules restrict any use of the information to criminally investigate or prosecute any alcohol or drug abuse patient.[facility] the event this information is protected by the Federal Confidentiality of Alcohol and Drug Abuse Patient Records regulations: The Federal rules restrict any use of the information to criminally investigate or prosecute any alcohol or drug abuse patient.[facility] the event this information is protected by the Federal Confidentiality of Alcohol and Drug Abuse Patient Records regulations: The Federal rules restrict any use of the information to criminally investigate or prosecute any alcohol or drug abuse patient.[facility] the event this information is protected by the Federal Confidentiality of Alcohol and Drug Abuse Patient Records regulations: The Federal rules restrict any use of the information to criminally investigate or prosecute any alcohol or drug abuse patient.[facility] Hospital[facility] the event this information is protected by the Federal Confidentiality of Alcohol and Drug Abuse Patient Records regulations: The Federal rules restrict any use of the information to criminally investigate or prosecute any alcohol or drug abuse patient.[facility] the event this information is protected by the Federal Confidentiality of Alcohol and Drug Abuse Patient Records regulations: The Federal rules restrict any use of the information to criminally investigate or prosecute any alcohol or drug abuse patient.[facility] the event this information is protected by the Federal Confidentiality of Alcohol and Drug Abuse Patient Records regulations: The Federal rules restrict any use of the information to criminally investigate or prosecute any alcohol or drug abuse patient.[facility] the event this information is protected by the Federal Confidentiality of Alcohol and Drug Abuse Patient Records regulations: The Federal rules restrict any use of the information to criminally investigate or prosecute any alcohol or drug abuse patient.[facility] the event this information is protected by the Federal Confidentiality of Alcohol and Drug Abuse Patient Records regulations: The Federal rules restrict any use of the information to criminally investigate or prosecute any alcohol or drug abuse patient.[facility] the event this information is protected by the Federal Confidentiality of Alcohol and Drug Abuse Patient Records regulations: The Federal rules restrict any use of the information to criminally investigate or prosecute any alcohol or drug abuse patient.[facility] the event this information is protected by the Federal Confidentiality of Alcohol and Drug Abuse Patient Records regulations: The Federal rules restrict any use of the information to criminally investigate or prosecute any alcohol or drug abuse patient.[facility] the event this information is protected by the Federal Confidentiality of Alcohol and Drug Abuse Patient Records regulations: The Federal rules restrict any use of the information to criminally investigate or prosecute any alcohol or drug abuse patient.[facility] the event this information is protected by the Federal Confidentiality of Alcohol and Drug Abuse Patient Records regulations: The Federal rules restrict any use of the information to criminally investigate or prosecute any alcohol or drug abuse patient.[facility] the event this information is protected by the Federal Confidentiality of Alcohol and Drug Abuse Patient Records regulations: The Federal rules restrict any use of the information to criminally investigate or prosecute any alcohol or drug abuse patient.[facility] Hospital[facility] the event this information is protected by the Federal Confidentiality of Alcohol and Drug Abuse Patient Records regulations: The Federal rules restrict any use of the information to criminally investigate or prosecute any alcohol or drug abuse patient.[facility] the event this information is protected by the Federal Confidentiality of Alcohol and Drug Abuse Patient Records regulations: The Federal rules restrict any use of the information to criminally investigate or prosecute any alcohol or drug abuse patient.[facility] Hospital[facility] the event this information is protected by the Federal Confidentiality of Alcohol and Drug Abuse Patient Records regulations: The Federal rules restrict any use of the information to criminally investigate or prosecute any alcohol or drug abuse patient.[facility] Hospital[facility] the event this information is protected by the Federal Confidentiality of Alcohol and Drug Abuse Patient Records regulations: The Federal rules restrict any use of the information to criminally investigate or prosecute any alcohol or drug abuse patient.[facility] Hospital[facility] the event this information is protected by the Federal Confidentiality of Alcohol and Drug Abuse Patient Records regulations: The Federal rules restrict any use of the information to criminally investigate or prosecute any alcohol or drug abuse patient.[facility] Hospital[facility] the event this information is protected by the Federal Confidentiality of Alcohol and Drug Abuse Patient Records regulations: The Federal rules restrict any use of the information to criminally investigate or prosecute any alcohol or drug abuse patient.[facility] the event this information is protected by the Federal Confidentiality of Alcohol and Drug Abuse Patient Records regulations: The Federal rules restrict any use of the information to criminally investigate or prosecute any alcohol or drug abuse patient.[facility] the event this information is protected by the Federal Confidentiality of Alcohol and Drug Abuse Patient Records regulations: The Federal rules restrict any use of the information to criminally investigate or prosecute any alcohol or drug abuse patient.[facility] HospitalIn the event this information is protected by the Federal Confidentiality of Alcohol and Drug Abuse Patient Records regulations: The Federal rules restrict any use of the information to criminally investigate or prosecute any alcohol or drug abuse patient.[facility] HospitalIn the event this information is protected by the Federal Confidentiality of Alcohol and Drug Abuse Patient Records regulations: The Federal rules restrict any use of the information to criminally investigate or prosecute any alcohol or drug abuse patient.[facility] HospitalIn the event this information is protected by the Federal Confidentiality of Alcohol and Drug Abuse Patient Records regulations: The Federal rules restrict any use of the information to criminally investigate or prosecute any alcohol or drug abuse patient.[facility] HospitalIn the event this information is protected by the Federal Confidentiality of Alcohol and Drug Abuse Patient Records regulations: The Federal rules restrict any use of the information to criminally investigate or prosecute any alcohol or drug abuse patient.[facility] HospitalIn the event this information is protected by the Federal Confidentiality of Alcohol and Drug Abuse Patient Records regulations: The Federal rules restrict any use of the information to criminally investigate or prosecute any alcohol or drug abuse patient.[facility] the event this information is protected by the Federal Confidentiality of Alcohol and Drug Abuse Patient Records regulations: The Federal rules restrict any use of the information to criminally investigate or prosecute any alcohol or drug abuse patient.[facility] the event this information is protected by the Federal Confidentiality of Alcohol and Drug Abuse Patient Records regulations: The Federal rules restrict any use of the information to criminally investigate or prosecute any alcohol or drug abuse patient.[facility] the event this information is protected by the Federal Confidentiality of Alcohol and Drug Abuse Patient Records regulations: The Federal rules restrict any use of the information to criminally investigate or prosecute any alcohol or drug abuse patient.[facility]In the event this information is protected by the Federal Confidentiality of Alcohol and Drug Abuse Patient Records regulations: The Federal rules restrict any use of the information to criminally investigate or prosecute any alcohol or drug abuse patient.[facility]In the event this information is protected by the Federal Confidentiality of Alcohol and Drug Abuse Patient Records regulations: The Federal rules restrict any use of the information to criminally investigate or prosecute any alcohol or drug abuse patient.[facility]In the event this information is protected by the Federal Confidentiality of Alcohol and Drug Abuse Patient Records regulations: The Federal rules restrict any use of the information to criminally investigate or prosecute any alcohol or drug abuse patient.[facility]In the event this information is protected by the Federal Confidentiality of Alcohol and Drug Abuse Patient Records regulations: The Federal rules restrict any use of the information to criminally investigate or prosecute any alcohol or drug abuse patient.[facility] HospitalIn the event this information is protected by the Federal Confidentiality of Alcohol and Drug Abuse Patient Records regulations: The Federal rules restrict any use of the information to criminally investigate or prosecute any alcohol or drug abuse patient.[facility] HospitalIn the event this information is protected by the Federal Confidentiality of Alcohol and Drug Abuse Patient Records regulations: The Federal rules restrict any use of the information to criminally investigate or prosecute any alcohol or drug abuse patient.[facility]In the event this information is protected by the Federal Confidentiality of Alcohol and Drug Abuse Patient Records regulations: The Federal rules restrict any use of the information to criminally investigate or prosecute any alcohol or drug abuse patient.[facility]In the event this information is protected by the Federal Confidentiality of Alcohol and Drug Abuse Patient Records regulations: The Federal rules restrict any use of the information to criminally investigate or prosecute any alcohol or drug abuse patient.[facility]In the event this information is protected by the Federal Confidentiality of Alcohol and Drug Abuse Patient Records regulations: The Federal rules restrict any use of the information to criminally investigate or prosecute any alcohol or drug abuse patient.[facility]In the event this information is protected by the Federal Confidentiality of Alcohol and Drug Abuse Patient Records regulations: The Federal rules restrict any use of the information to criminally investigate or prosecute any alcohol or drug abuse patient.[facility] HospitalIn the event this information is protected by the Federal Confidentiality of Alcohol and Drug Abuse Patient Records regulations: The Federal rules restrict any use of the information to criminally investigate or prosecute any alcohol or drug abuse patient.[facility] Reason for Visit (unrecogniz ed section and content) Reason Onset Date Comments Refill Request 01/21/2022 Reason Comments Follow Up Device check. Reason Comments Results Reason Comments Follow Up Reason Comments Appointment Reason Comments Results Echo results Reason Comments Follow Up Battery check. Reason Comments Refill Request Reason Comments Follow Up Setting changes Reason Comments Patient Question Reason Comments [employer] DC PPM generator change Reason Comments Patient Update Device Notification of scheduled DC PPM generat or change Reason Comments Pre-procedure instructions for DC PPM ge nerator change Reason Comments Follow Up Reason Comments Established Patient Follow-Up From [facility] o n 02-27-22 Reason Comments Blood Pressure Reason Comments Follow Up 1 year return office visit with device check Edema BLE Specialty Diagnoses / Procedures Referred By Contac t Referred To Contact CT IMAGING Diagnoses Disorder of artery or arteriole (HCC) Procedures CTA CHEST (NONGATED) WO/W IVCON CT ANGIOGRAPHY CHEST W/CONTRAST/NONCONTRAST Jesse Gaitan MD [address] [place] [address] [place] [address] Referral ID Status Reason Start Date Expiration Date V isits Requested Visits Authorized [id number] Closed Auto-Generate d Referral 03/15/2024 04/14/2025 1 1 Reason Comments Results CTA of the Chest Reason Comments Cardiac Clearance Care Teams (unrecognized sec tion and content) Trapper Animal Relationship Specialty Start Date End Date Jose Miguel Granados MD [address] [place], [place] [id number] PCP - General 04/24/04 Trapper Animal Relationship Specialty Start Date End Date Jose Miguel Granados MD [address] [place], [place] [address] PCP - General 04/24/04 Trapper Animal Relationship Specialty Start Date End Date Jose Miguel Granados MD [address] [place], [place] [address] PCP - General 04/24/04 Trapper Animal Relationship Specialty Start Date End Date Jose Miguel Granados MD [address] [place], [place] [address] PCP - General 04/24/04 Trapper Animal Relationship Specialty Start Date End Date Jose Miguel Granados MD [address] [place], [place] [address] PCP - General 04/24/04 Trapper Animal Relationship Specialty Start Date End Date Jose Miguel Granados MD [address] [place] [address] PCP - General 04/24/04 Trapper Animal Relationship Specialty Start Date End Date Jose Miguel Granados MD [address] [place] [address] PCP - General 04/24/04 Trapper Animal Relationship Specialty Start Date End Date Jose Miguel Granados MD [address] [place] [address] PCP - General 04/24/04 Trapper Animal Relationship Specialty Start Date End Date Jose Miguel Granados MD [address] [place] [address] PCP - General 04/24/04 Trapper Animal Relationship Specialty Start Date End Date Jose Miguel Granados MD [address] [place] [address] PCP - General 04/24/04 Trapper Animal Relationship Specialty Start Date End Date Jose Miguel Granados MD [address] [place] [address] PCP - General 04/24/04 Trapper Animal Relationship Specialty Start Date End Date Jose Miguel Granados MD [address] [place] [address] PCP - General 04/24/04 Trapper Animal Relationship Specialty Start Date End Date Jose Miguel Granados MD [address] [place] [address] PCP - General 04/24/04 Trapper Animal Relationship Specialty Start Date End Date Jose Miguel Granados MD [address] [place] [address] PCP - General 04/24/04 Jesse Gaitan MD [address] [address] Cardiology 02/26/23 Trapper Animal Relationship Specialty Start Date End Date Jose Miguel Granados MD [address] [place] [address] PCP - General 04/24/04 Jesse Gaitan MD [address] [address] Cardiology 02/26/23 Trapper Animal Relationship Specialty Start Date End Date Jose Miguel Granados MD [address] [place] [address] PCP - General 04/24/04 Jesse Gaitan MD [address] [id number] Cardiology 02/26/23 Trapper Animal Relationship Specialty Start Date End Date Jose Miguel Granados MD [address] [place] [address] PCP - General 04/24/04 Jesse Gaitan MD [address] [address] Cardiology 02/26/23 Trapper Animal Relationship Specialty Start Date End Date Jose Miguel Granados MD [address] [place], [place] [address] PCP - General 04/24/04 Jesse Gaitan MD [address] [address] Cardiology 02/26/23 Trapper Animal Relationship Specialty Start Date End Date Jose Miguel Granados MD [address] [place], [place] [address] PCP - General 04/24/04 Jesse Gaitan MD [address] [address] Cardiology 02/26/23 Team Status: Active Member Role Status Dates Dr. Jose Miguel Granados MD Primary Care Provider Active Team Status: Inactive Member Role Status Dates Dr. Jose Miguel Granados MD Primary Care Provider Active Self Referred Attending Provider Active Trapper Animal Relationship Specialty Start Date End Date Jose Miguel Granados MD [address] [place] [address] PCP - General 04/24/04 Jesse Gaitan MD [address] [address] Cardiology 02/26/23 Trapper Animal Relationship Specialty Start Date End Date Jose Miguel Granados MD [address] [place] [address] PCP - General 04/24/04 Jesse Gaitan MD [address] [address] Cardiology 02/26/23 Trapper Animal Relationship Specialty Start Date End Date Jose Miguel Granados MD [address] [place] [address] PCP - General 04/24/04 Jesse Gaitan MD [address] [address] Cardiology 02/26/23 Trapper Animal Relationship Specialty Start Date End Date Jose Miguel Granados MD [address] [place] [address] PCP - General 04/24/04 Jesse Gaitan MD [address] [address] Cardiology 02/26/23 Trapper Animal Relationship Specialty Start Date End Date Jose Miguel Granados MD [address] [place], [place] [address] PCP - General 04/24/04 Jesse Gaitan MD [address] [address] Cardiology 02/26/23 Trapper Animal Relationship Specialty Start Date End Date Jose Miguel Granados MD [address] [place], [place] [address] PCP - General 04/24/04 Jesse Gaitan MD [address] [address] Cardiology 02/26/23 Trapper Animal Relationship Specialty Start Date End Date Jose Miguel Granados MD [address] [place] [address] PCP - General 04/24/04 Jesse Gaitan MD [address] [address] Cardiology 02/26/23 Trapper Animal Relationship Specialty Start Date End Date Jose Miguel Granados MD [address] [place] [address] PCP - General 04/24/04 Jesse Gaitan MD [address] [address] Cardiology 02/26/23 Trapper Animal Relationship Specialty Start Date End Date Jose Miguel Granados MD [address] [place] [address] PCP - General 04/24/04 Jesse Gaitan MD [address] [address] Cardiology 02/26/23 Trapper Animal Relationship Specialty Start Date End Date Jose Miguel Granados MD [address] [place], [place] [address] PCP - General 04/24/04 Jesse Gaitan MD [address] [address] Cardiology 02/26/23 Trapper Animal Relationship Specialty Start Date End Date Jose Miguel Granados MD [address] [place] [address] PCP - General 04/24/04 Jesse Gaitan MD [address] [address] Cardiology 02/26/23 Trapper Animal Relationship Specialty Start Date End Date Jose Miguel Granados MD [address] [place] [address] PCP - General 04/24/04 Jesse Gaitan MD [address] [facility] [address] [facility] [address] [place] [address] Cardiology 02/26/23 Goals (unrecognized section and content) Goals may be documented in a n alternate section No data available for this section No data available for this section FOR RECORDS PERTAINING TO PATIENTS WHO ARE OR HAVE BEEN ENROLLED IN A CHEMICAL DEPENDENCY/SUBSTANCEABUSE PROGRAM, SOME INFORMATION MAY BE OMITTED. This clinical summary was aggregated from multiple sources. Caution should be exercised in using it in the provision of clinical care. This summary normalizes information from multiple sources, and as a consequence, information in this document may materially change the coding, format and clinical context of patient data. In addition, data may be omitted in some cases. CLINICAL DECISIONS SHOULD BE BASED ON THE PRIMARY CLINICAL RECORDS. [employer] provides no warranty or guarantee of the accuracy or completeness of information in this document.
--- OUTSIDE RECORDS SUMMARY | 2024-12-27 22:16 | XMS RPT_ITS | CCD ---
Author Organization [facility] Care Team Providers Care Paid Search Specialist Name Role Phone Roberta GRAMAJO, Jose Miguel Primary Care Provider [phone] Roberta GRAMAJO, Jose Miguel Primary Care Provider Jesse Gaitan MD Unavailable Referred, Self Attending Unavailable Latouf, Butros [...] C BLOCKING AGTS)] Drug Allergy 3 Unknown [facility] (20 sources) Clindamycin; Translations: [CLINDAMYCIN] Drug Allergy 6 Shortness of breath [facility] (20 sources) Penicillins; Translations: [PENICILLINS] Propensity to adverse reactions 6 Rash [facility] (1 source) Adrenergic Beta-Antagonist s Propensity to adverse reactions 1 Other [facility] (1 source) Penicillins Allergy to substance 1 Rash [facility] (1 source) Adrenergic Beta-Antagonist s Drug allergy (disorder) 1 [facility] (1 source) Clindamycin Drug Allergy 1 [facility] (1 source) Penicillins Drug allergy (disorder) 1 [facility] (13 sources) Amoxicillin; Translations: [AMOXICILLIN] Drug Allergy 4 Rash, Shortness of Breath [facility] (1 source) Penicillins Propensity to adverse reactions 6 Rash [facility] (1 source) Clindamycin Drug Allergy [facility] (1 source) Penicillins Drug allergy (disorder) [facility] (1 source) CONTRAST MEDIA, IODINE RELATED Drug allergy (disorder) [facility] (1 source) BETA MARY CARMEN Drug allergy (disorder) [facility] Medications Current Medications Medication Drug [...] 0.4 mg oral capsule (14 sources) alpha-Adrenergic Mayr Carmen End: 09-04-2022 take 0.4 mg by [...] Coronary arteriosclerosis; Translations: [Atherosclerotic heart disease of [place] coronary artery without angina pectoris] Onset: 02-13-2022 [...] 04-07-2017 02-29-2024 Chronic Other aftercare (1 source) 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 [address] [id number] 12/18/2024 Patient: SOY BURCH Sex: Male : [...] 22:58 Lizzy Encinas R.N. 1 of 2 Litigation Attorney Medication Ordered Medication Administration Date/Time IV NS [...] Anamaria Silva R.N. 2 of 2 Normal [facility] ED MED ADMINISTRATION DETAIL Litigation Attorney Medication Administration Record [address] [place] [address] [id number] 12/20/2024 Patient: KIERSTENSOY WINCHESTER Sex: Male : 1945 Age: 79y Medication Ordered Medication Administration Date/Time 1 of 1 Normal [facility] ED NURSES CLINICAL NOTEon ED NURSES CLINICAL NOTE Nurse Narrative Nurse Clinical Narrative [facility] [address] [place] [address] [id number] 12/18/2024 22:28:00 Patient: SOY BURCH Sex: Male [...] Temperature: 97.8 F. Pain level now 4/10. Doole Coma Scale: 15 - eyes open - [...] Silva R.N. 22:35 12/18/24. Preferred Pharmacy: ; [facility]. -- 22:42 12/18/24 EDT Anamaria Silva [...] reaction an (more content not included)... Normal [facility] ED NURSES CLINICAL NOTE Nurse Narrative Nurse Clinical Narrative [address] [address] [id number] 12/20/2024 17:03:00 Patient: SOY BURCH Sex: Male [...] Santos R.N. 12/20/24 17:27:10 EDT) Generated by [facility] 1 of 1 Normal [facility] ED ORDER SHEET (CPOE ONLY)on 12-20-2024 ED ORDER SHEET (CPOE ONLY) Order Sheet Order Sheet [address] [address] [id number] 12/18/2024 Patient: SOY BURCH Sex: Male : 1945 Age: 79y MEASUREMENTS: Wt: 77.6 kg, Ht/Leno: 67.0 in, BMI: 26.78 ALLERGIES: Amoxicillin, Iodinated Contrast Media, Penicillins, clindamycin MEDICATION/IV/DRIP/FLUID ORDERS Order Description Priority Entered Acknowledged Completed Zofran IVP4 mg (NOW x1) 22:46 12/18/2024 22:51 22:58 Alonzo Landry D.O. 12/18/2024 12/18/2024 Lizzy Reynolds, Oli.N. R.N. KetorOLAC (Toradol) IVP15 mg 22:46 12/18/2024 22:51 22:58 (NOW x1) Alonzo Landyr D.O. 12/18/2024 12/18/2024 Lizzy Reynolds, Oli.N. R.N. [...] Stat Stat 22:46 12/18/2024 22:51 00:27 Alonzo aLndry D.O. 12/18/2024 12/19/2024 Anamaria Reynolds R.NJanusz RJanuszNJanusz [...] (12/19/2024 01:02 EDT)] 3 of 3 Normal [facility] ED ORDER SHEET (CPOE ONLY) Order Sheet Order Sheet [address] [address] [id number] 12/20/2024 Patient: SOY BURCH Sex: Male : 1945 Age: 79y MEDICATION/IV/DRIP/FLUID ORDERS Order Description Priority Entered Acknowledged Completed LAB ORDERS Order Description Priority Entered Acknowledged Collected Completed DIAGNOSTIC STUDY ORDERS Order Description Priority Entered Acknowledged Completed STAFF ORDERS Order Description Priority Entered Acknowledged Collected Completed 1 of 1 Normal [facility] ED PHYSICIAN CLINICAL REPORT on 12-20-2024 ED PHYSICIAN CLINICAL REPORT Narrative Physician Clinical Narrative [address] [address] [id number] 12/18/2024 22:28:00 Patient: SOY BURCH Sex: Male [...] 12/18/2024 23:07 (more content not included)... Normal [facility] ED [facility] BILLon 12-20-[address] [address] [id number] 12/18/2024 Patient: SOY BURCH Sex: Male : 1945 Age: 79y Facility Professional Category Item Description Code Code Quantity Fee Total Drugs Normal Saline 859525 1 $0.00 $0.00 1000cc (191618) Nurse/E/M EMERGENCY 496068 1 $0.00 $0.00 DEPT VISIT HIGH SEVERITYFUNCJ (55058-79) Nurse/IV/IM/Infusions Hydration 352130 1 $0.00 $0.00 additional hour (67829) Nurse/IV/IM/Infusions IVP additional 455761 1 $0.00 $0.00 push (66917) Nurse/IV/IM/Infusions IVP initial (07847) 510269 1 $0.00 $0.00 Grand $0.00 Total Providers Alonzo Landry D.O. Chief Complaint 1 of 2 Superbill ABDOMINAL PAIN. Principal Diagnosis Ureterolithiasis (single stone) in the left ureter and kidney with hydronephrosis. No acute pyelonephritis or urinary tract infection. ICD-10 Codes N20.1: Calculus of ureter 2 of 2 Normal [facility] ED [address] [address] [id number] 12/20/2024 Patient: SOY BURCH Sex: Male : 1945 Age: 79y Item Professional Category Description Facility Code Code Quantity Fee Total Grand Total $0.00 1 of 1 Normal [facility] ED VISIT SUMMARYon ED VISIT SUMMARY Visit Overview Visit Overview [facility] [address] [place] [address] [id number] 12/18/2024 Patient: SOY BURCH Sex: Male : [...] URINARY TRACT INFECTION 4 of 4 Normal [facility] ED VISIT SUMMARY Visit Overview Visit Overview [address] [place] [address] [id number] 12/20/2024 Patient: SOY BURCH Sex: Male : [...] STUDIES CLINICAL IMPRESSION 2 of 2 Normal [facility] ED VITALS FLOW SHEETon 12-20 ED VITALS FLOW SHEET Vitals Vital Sign Flow Sheet [facility] [address] [place] [address] [id number] 12/18/2024 Patient: SOY BURCH Sex: Male : [...] F 4 15 2 of 2 Normal [facility] ED VITALS FLOW SHEET Vitals [place] [address] [id number] 12/20/2024 Patient: SOY BURCH Sex: Male : 1945 Age: 79y 1 of 1 Normal [facility] URINALYSISon 12-19-2024 Amorphous NONE Normal [facility] Comment on above: Performed By: #### 2 88668 ####[facility],[address] [place] [address] Bacteria TRACE Normal [facility] Comment on above: Performed By: #### 2 08538 ####[facility],[address] [place] [address] Bilirubin Ql (U) Negative Normal NORMAL: NEGATIVE [facility] Comment on above: Performed By: #### 2 15348 ####[facility],[address] [place] [address] Casts NONE Normal [facility] Comment on above: Performed By: #### 2 61146 ####[facility],[address] [place] [address] Clarity (U) clear Normal NORMAL: CLEAR [facility] Comment on above: Performed By: #### 2 62632 ####[facility],[address] [place] [address] Color (U) yellow Normal NORMAL: YELLOW [facility] Comment on above: Performed By: #### 2 03754 ####[facility],[address] [place] [address] Crystals LM Nom (Urine sed) NONE Normal [facility] Comment on above: Performed By: #### 2 29320 ####[facility],[address] [place] [address] Epi Cells NONE Normal [facility] Comment on above: Performed By: #### 2 73736 ####[facility],[address] [place] [address] Glucose Ql (U) NORM Normal NORMAL: NORMAL [facility] Comment on above: Performed By: #### 2 53222 ####[facility],[address] [place] [address] Hemoglobin Ql (U) 250 Abnormal NORMAL: NEGATIVE [facility] Comment on above: Performed By: #### 2 70869 ####[facility],[address] [place] [address] 16693 Ketone 5 Abnormal NORMAL: NEGATIVE [facility] Comment on above: Performed By: #### 2 63149 ####[facility],[address] [place] [address] Leukocytes Negative Normal NORMAL: NEGATIVE [facility] Comment on above: Performed By: #### 2 77430 ####[facility],[address] [place] [address] Mucous NONE Normal [facility] Comment on above: Performed By: #### 2 53313 ####[facility],[address] [place] [address] Nitrite Ql (U) Negative Normal NORMAL: NEGATIVE [facility] Comment on above: Performed By: #### 2 01633 ####[facility],[address] [place] [address]642 pH (U) 5 [pH] Normal NORMAL: 5.0-8.0 [facility] Comment on above: Performed By: #### 2 52265 ####[facility],[address] [place], [place] [id number] Protein Ql (U) 30 Abnormal NORMAL: NEGATIVE [facility] Comment on above: Performed By: #### 2 68255 ####[facility],[address] [place] [address] Rbc 0-5 Normal 0-3/hpf [facility] Comment on above: Performed By: #### 2 42477 ####[facility],[address] [place] [address] Sp Crockett 1.015 Normal NORMAL: 1.010-1.03 0 [facility] Comment on above: Performed By: #### 2 86446 ####[facility],[address] [place] [address] Specimen Type R Normal [facility] Comment on above: Performed By: #### 2 79453 ####[facility],[address] [place] [address] Urinalysis dipstick W Reflex Microscopic panel (U) SEE BELOW Normal [facility] Comment on above: Result Comment: MICR OSCOPIC Performed By: #### 2 70988 ####[facility],[address] [place] [address] Urobilinog 1 Abnormal NORMAL: NORMAL [facility] Comment on above: Performed By: #### 2 69794 ####[facility],[address] [place], [place] [phone] Wbc NONE Normal 0-5/hpf [facility] Comment on above: Performed By: #### 2 50076 ####[facility],[address] [place] [address] Yeast NONE Normal [facility] Comment on above: Performed By: #### 2 30809 ####[facility],[address] [place] [address] BMP with eGFRon 07-06-2025 AGE 79 years Normal [facility] Comment on above: Performed By: #### 2 07575 ####[facility],[address] [place] [address] Anion gap [Moles/Vol] 11 mmol/L Normal 10 - 20 [facility] Comment on above: Performed By: #### 2 21394 ####[facility],[address] [place] [address] BMP with eGFR Normal [facility] Comment on above: Result Comment: BASI C METABOLIC PANEL Performed By: #### 2 28234 ####[facility],[address] [place] [address] Calcium [Mass/Vol] 9.3 mg/dL Normal 8.5 - 10.1 [facility] Comment on above: Performed By: #### 2 92353 ####[facility],[address] [place] [address] Chloride [Moles/Vol] 104 mmol/L Normal 98 - 107 [facility] Comment on above: Performed By: #### 2 79261 ####[facility],[address] [place] [address] CO2 [Moles/Vol] 28.6 mmol/L Normal 21.0 - 32.0 [facility] Comment on above: Performed By: #### 2 19047 ####[facility],[address] [place] [address] Creatinine [Mass/Vol] 1.43 mg/dL High 0.70 - 1.30 [facility] Comment on above: Performed By: #### 2 83374 ####[facility],[address] [place] [address]7670 eGFR 47 ML/MINUTE Low 60 - 999 [facility] Comment on above: Performed By: #### 2 35736 ####[facility],[address] [place] [address]392 eGFR(AA) 58 ML/MINUTE Low 60 - 999 [facility] Comment on above: Result Comment: ACCO RDING TO THE NATIONAL KIDNEY DISEASE EDUCATION PROGRAM(NKDE), A NORMAL eGFR IS A VALUE GREATER THAN OR EQUAL TO 60 ML/MIN/1.73 SQ METERS. CHRONIC KIDNEY DISEASE: <60mL/MIN/1.73 SQ METERS KIDNEY FAILURE: <15mL/MIN/1.73 SQ METERS THIS TEST SHOULD ONLY BE USED FOR PATIENTS 18 YEARS OF AGE AND OLDER. Performed By: #### 2 46532 ####[facility],[address] [place] [address] Glucose [Mass/Vol] 144 mg/dL High 74 - 106 [facility] Comment on above: Performed By: #### 2 42772 ####[facility],[address] [place] [address] Potassium [Moles/Vol] 4.4 mmol/L Normal 3.5 - 5.1 [facility] Comment on above: Performed By: #### 2 09374 ####[facility],[address] [place] [address]70 Sodium [Moles/Vol] 139 mmol/L Normal 136 - 145 [facility] Comment on above: Performed By: #### 2 31211 ####[facility],[address] [place] [address] Urea nitrogen [Mass/Vol] 29 mg/dL High 7 - 18 [facility] Comment on above: Performed By: #### 2 91323 ####[facility],[address] [place] [address] CBC + DIFFon 12-18-2024 Baso # 0.03 x10EE3/UL Normal 0.00 - 0.10 [facility] Comment on above: Performed By: #### 2 78549 #### [facility],[address] [place] [address] Basophils/100 WBC (Bld) 0.2 % Normal 0.0 - 2.0 [facility] Comment on above: Performed By: #### 2 05256 #### [facility],[address] [place] [address]846 CBC + DIFF Normal [facility] Comment on above: Result Comment: CBC- COMPLETE BLOOD COUNT Performed By: #### 2 64056 #### [facility],[address] [place] [address] EO # 0.07 x10EE3/UL Normal 0.00 - 0.50 [facility] Comment on above: Performed By: #### 2 24017 #### [facility],[address] [place] [address] Eosinophils/100 WBC (Bld) 0.7 % Normal 0.0 - 7.0 [facility] Comment on above: Performed By: #### 2 67504 #### [facility],[address] [place] [address] Erythrocyte distribution width (RBC) [Ratio] 14.3 % Normal 12.0 - 15.6 [facility] Comment on above: Performed By: #### 2 09476 #### [facility],[address] [place] [address] Hematocrit (Bld) [Volume fraction] 43.1 % Normal 40.0 - 52.0 [facility] Comment on above: Performed By: #### 2 14364 #### [facility],[address] [place] [address] Hemoglobin (Bld) [Mass/Vol] 15.3 g/dL Normal 13.0 - 17.5 [facility] Comment on above: Performed By: #### 2 60874 #### [facility],[address] [place] [address]79[address] Lymph # 1.14 x10EE3/UL Normal 0.80 - 2.80 [facility] Comment on above: Performed By: #### 2 89987 #### [facility],[address] [place] [address] 46078 Lymphocytes/100 WBC (Bld) 10.3 % Low 20.0 - 45.0 [facility] Comment on above: Performed By: #### 2 25716 #### [facility],[address] [place] [address] MANUAL DIFF N/A Normal [facility] Comment on above: Performed By: #### 2 27625 #### [facility],[address] [place] [address] MCH (RBC) [Entitic mass] 32 pg Normal 27 - 33 [facility] Comment on above: Performed By: #### 2 98730 #### [facility],[address] [place] [address] MCHC 36 X10 3 Normal 32 - 36 [facility] Comment on above: Performed By: #### 2 78645 #### [facility],[address] [place] [address] MCV (RBC) [Entitic vol] 91 fL Normal 81 - 98 [facility] Comment on above: Performed By: #### 2 33485 #### [facility],[address] [place] [address] Bates # 0.81 x10EE3/UL Normal 0.20 - 1.00 [facility] Comment on above: Performed By: #### 2 35291 #### [facility],[address] [place] [address] MONOS % 7.3 % Normal 0.0 - 10.0 [facility] Comment on above: Performed By: #### 2 35678 #### [facility],[address] [place] [address]5475 Morphology Hay (Bld) [Interp] N/A Normal [facility] Comment on above: Performed By: #### 2 22476 #### [facility],[address] [place] [address] Neut # 9.02 x10EE3/UL High 1.50 - 7.10 [facility] Comment on above: Performed By: #### 2 78535 #### [facility],[address] [place] [address] 67322 Neutrophils/100 WBC (Bld) 81.5 % High 46.0 - 76.0 [facility] Comment on above: Performed By: #### 2 41098 #### [facility],[address] [place] [address] 26518 PLATELET 181 x10EE3/UL Normal 150 - 450 [facility] Comment on above: Performed By: #### 2 04979 #### [facility],[address] [place] [address] 88368 Platelet mean volume (Bld) [Entitic vol] 7.8 fL Normal 6.4 - 10.5 [facility] Comment on above: Result Comment: AUTO MATED DIFFERENTIAL Performed By: #### 2 01480 #### [address] [address] RBC 4.75 x 10EE6/UL Normal 4.50 - 6.00 [facility] Comment on above: Performed By: #### 2 02194 #### [facility],[address] [place] [address]1981 WBC 11.1 x 10EE3/UL High 4.5 - 10.8 [facility] Comment on above: Performed By: #### 2 31401 #### [facility],[address] [place] [address] ABDOMEN/PELVIS [facility] 2024 CT ABDOMEN/PELVIS [place] [address] Patient: SOY BURCH Phone#: : 1945 Age: 79 Gender: M Pt. Type: ER Account: [id number] Location: [facility] Ordering: DR. ALONZO LANDRY Exam Date: 12/18/2024/23:34 Family Phys: Abelino GREEN Charge Code: 035809 Physician: Long Order #: [id number] Dose#: 13.8 PROCEDURE: CT ABDOMEN/PELVIS WITH CONTRAST COMPARISON: [facility], CT, ABDOMEN/PELVIS W CON, 06/11/2024, 4:13. INDICATIONS: [...] 79 Gender: M Pt. Type: ER Account: [id number] Location: 052 Ordering: DR. ALONZO LANDRY Exam Date: 12/18/2024/23:34 Family Phys: Abelino GREEN Charge Code: 212245 Physician: Long Order #: [id number] Dose#: 13.8 PELVIC ORGANS: The prostate impresses [...] Urrutia MD on 12/19/2024 at 10:06 Normal [facility] HEPATIC FUNCTION PANELon Albumin [Mass/Vol] 3.8 g/dL Normal 3.4 - 5.0 [facility] Comment on above: Performed By: #### 2 78496 ####[place] [address] ALK PHOS 88 U/L Normal 46 - 116 [facility] Comment on above: Performed By: #### 2 85770 ####[place] [address] ALT [Catalytic activity/Vol] 28 U/L Normal 16 - 63 [facility] Comment on above: Performed By: #### 2 93937 ####[place] [address] AST [Catalytic activity/Vol] 22 U/L Normal 15 - 37 [facility] Comment on above: Performed By: #### 2 42001 ####[facility],[address] [place] [address]707 Bilirubin [Mass/Vol] 1.5 mg/dL High 0.2 - 1.0 [facility] Comment on above: Performed By: #### 2 37389 ####[address] [address] Bilirubin.direct [Mass/Vol] 0.3 mg/dL High 0.0 - 0.2 [facility] Comment on above: Performed By: #### 2 11284 ####[address] [address] Hepatic function 2000 panel Normal [facility] Comment on above: Result Comment: HEPA TIC FUNCTION PROFILE Performed By: #### 2 97222 ####[facility],[address] [place] [address] Protein [Mass/Vol] 7.3 g/dL Normal 6.4 - 8.2 [facility] Comment on above: Performed By: #### 2 51968 ####[facility],[address] [place] [address] LIPASEon 12-18-2024 Lipase [Catalytic activity/Vol] 36.0 U/L Normal 15.0 - 78.0 [facility] Comment on above: Result Comment: *PLE ASE NOTE THAT RANGES FOR LIPASE HAVE CHANGED OF 06/12/23 DUE TO AN ASSAY UPDATE BY THE [employer].THE NEW ASSAY RANGE IS 6-250 U/L, WITH A REFERENCE RANGE OF 16-77 U/L. Performed By: #### 2 07712 #### [facility],[address] [place] [address] CBC + DIFFon 10-13-2024 Baso # 0.02 x10EE3/UL Normal 0.00 - 0.10 [facility] Comment on above: Performed By: #### 2 96473 ####[facility],[address] [place] [address] Basophils/100 WBC (Bld) 0.4 % Normal 0.0 - 2.0 [facility] Comment on above: Performed By: #### 2 66420 ####[facility],[address] [place] [address] CBC + DIFF Normal [facility] Comment on above: Result Comment: CBC- COMPLETE BLOOD COUNT Performed By: #### 2 50526 ####[facility],[address] [place] [address] EO # 0.27 x10EE3/UL Normal 0.00 - 0.50 [facility] Comment on above: Performed By: #### 2 37863 ####[facility],[address] [place] [address] 08638 Eosinophils/100 WBC (Bld) 4.9 % Normal 0.0 - 7.0 [facility] Comment on above: Performed By: #### 2 60135 ####[facility],[address] [place], [place] [address] Erythrocyte distribution width (RBC) [Ratio] 14.1 % Normal 12.0 - 15.6 [facility] Comment on above: Performed By: #### 2 68286 ####[facility],[address] [place] [address] 35420 Hematocrit (Bld) [Volume fraction] 44.6 % Normal 40.0 - 52.0 [facility] Comment on above: Performed By: #### 2 19818 ####[facility],[address] [place] [address] Hemoglobin (Bld) [Mass/Vol] 15.3 g/dL Normal 13.0 - 17.5 [facility] Comment on above: Performed By: #### 2 00572 ####[facility],[address] [place] [address] 84526 Lymph # 1.72 x10EE3/UL Normal 0.80 - 2.80 [facility] Comment on above: Performed By: #### 2 89663 ####[facility],[address] [place] [address] 93639 Lymphocytes/100 WBC (Bld) 31.3 % Normal 20.0 - 45.0 [facility] Comment on above: Performed By: #### 2 16815 ####[facility],[address] [place] [address] 15769 MANUAL DIFF N/A Normal [facility] Comment on above: Performed By: #### 2 66534 ####[facility],[address] [place] [address] 22504 MCH (RBC) [Entitic mass] 31 pg Normal 27 - 33 [facility] Comment on above: Performed By: #### 2 41176 ####[facility],[address] [place] [address] 16443 MCHC 34 X10 3 Normal 32 - 36 [facility] Comment on above: Performed By: #### 2 11963 ####[facility],[address] [place] [address] 89372 MCV (RBC) [Entitic vol] 91 fL Normal 81 - 98 [facility] Comment on above: Performed By: #### 2 23470 ####[facility],[address] [place] [address] 59833 Bates # 0.50 x10EE3/UL Normal 0.20 - 1.00 [facility] Comment on above: Performed By: #### 2 04642 ####[facility],[address] [place] [address] 94236 MONOS % 9.2 % Normal 0.0 - 10.0 [facility] Comment on above: Performed By: #### 2 11935 ####[facility],[address] [place] [address] 90765 Morphology Hay (Bld) [Interp] N/A Normal [facility] Comment on above: Performed By: #### 2 23600 ####[facility],[address] [place] [address] 72980 Neut # 2.97 x10EE3/UL Normal 1.50 - 7.10 [facility] Comment on above: Performed By: #### 2 29167 ####[facility],[address] [place] [address] 37390 Neutrophils/100 WBC (Bld) 54.2 % Normal 46.0 - 76.0 [facility] Comment on above: Performed By: #### 2 84734 ####[facility],[address] [place] [address] 62373 PLATELET 222 x10EE3/UL Normal 150 - 450 [facility] Comment on above: Performed By: #### 2 37975 ####[facility],[address] [place] [address] 52053 Platelet mean volume (Bld) [Entitic vol] 8.1 fL Normal 6.4 - 10.5 [facility] Comment on above: Result Comment: AUTO MATED DIFFERENTIAL Performed By: #### 2 05471 ####[facility],[address] [place] [address] 33631 RBC 4.92 x 10EE6/UL Normal 4.50 - 6.00 [facility] Comment on above: Performed By: #### 2 53495 ####[facility],[address] [place] [address] 93158 WBC 5.5 x 10EE3/UL Normal 4.5 - 10.8 [facility] Comment on above: Performed By: #### 2 38247 ####[facility],[address] [place], [place] [id number] CMP with eGFRon 10-13-2024 AGE 79 years Normal [facility] Comment on above: Performed By: #### 2 01031 ####[facility],[address] [place] [address] 43581 Albumin [Mass/Vol] 3.9 g/dL Normal 3.4 - 5.0 [facility] Comment on above: Performed By: #### 2 01632 ####[facility],[address] [place] [address] 15222 Albumin/Globulin [Mass ratio] 1.3 {ratio} Normal 0.9 - 1.6 [facility] Comment on above: Performed By: #### 2 57270 ####[facility],[address] [place] [address] 77136 ALK PHOS 91 U/L Normal 46 - 116 [facility] Comment on above: Performed By: #### 2 09745 ####[facility],[address] [place] [address] 03718 ALT [Catalytic activity/Vol] 29 U/L Normal 16 - 63 [facility] Comment on above: Performed By: #### 2 39158 ####[facility],[address] [place] [address] 20532 Anion gap [Moles/Vol] 14 mmol/L Normal 10 - 20 [facility] Comment on above: Performed By: #### 2 79708 ####[facility],[address] [place] [address] 99191 AST [Catalytic activity/Vol] 23 U/L Normal 15 - 37 [facility] Comment on above: Performed By: #### 2 58327 ####[facility],[address] [place] [address] 65229 B/C RATIO 19 ratio Normal 0 - 30 [facility] Comment on above: Performed By: #### 2 08852 ####[facility],[address] [place] [address] 71371 Bilirubin [Mass/Vol] 1.1 mg/dL High 0.2 - 1.0 [facility] Comment on above: Performed By: #### 2 81016 ####[facility],[address] [place] [address] 99116 Calcium [Mass/Vol] 9.4 mg/dL Normal 8.5 - 10.1 [facility] Comment on above: Performed By: #### 2 85054 ####[facility],[address] [place] [address] 40447 Chloride [Moles/Vol] 106 mmol/L Normal 98 - 107 [facility] Comment on above: Performed By: #### 2 00308 ####[facility],[address] [place] [address] 98687 CMP with eGFR Normal [facility] Comment on above: Result Comment: COMP REHENSIVE METABOLIC PANEL Performed By: #### 2 47756 ####[facility],[address] [place] [address] 60020 CO2 [Moles/Vol] 29.1 mmol/L Normal 21.0 - 32.0 [facility] Comment on above: Performed By: #### 2 62372 ####[address] [address] Creatinine [Mass/Vol] 0.93 mg/dL Normal 0.70 - 1.30 [facility] Comment on above: Performed By: #### 2 86446 ####[place] 629294 GFR/1.73 sq M.predicted among non-blacks MDRD (S/P/Bld) [Vol rate/Area] mL/min/{1.73_m2} Normal 60 - 999 [facility] Comment on above: Performed By: #### 2 66237 ####[facility],[address] [place] [address] Result Comment: ACCO RDING TO THE NATIONAL KIDNEY DISEASE EDUCATION PROGRAM(NKDE), A NORMAL eGFR IS A VALUE GREATER THAN OR EQUAL TO 60 ML/MIN/1.73 SQ METERS. CHRONIC KIDNEY DISEASE: <60mL/MIN/1.73 SQ METERS KIDNEY FAILURE: <15mL/MIN/1.73 SQ METERS THIS TEST SHOULD ONLY BE USED FOR PATIENTS 18 YEARS OF AGE AND OLDER. Globulin (S) [Mass/Vol] 3.0 g/dL Normal 1.5 - 3.8 [facility] Comment on above: Performed By: #### 2 86370 ####[address] [address] Glucose [Mass/Vol] 96 mg/dL Normal 74 - 106 [facility] Comment on above: Performed By: #### 2 43289 ####[address] [address] Potassium [Moles/Vol] 4.1 mmol/L Normal 3.5 - 5.1 [facility] Comment on above: Performed By: #### 2 18748 ####[address] [address] Protein [Mass/Vol] 6.9 g/dL Normal 6.4 - 8.2 [facility] Comment on above: Performed By: #### 2 84663 ####[facility],[address] [place] [address] 34723 Sodium [Moles/Vol] 145 mmol/L Normal 136 - 145 [facility] Comment on above: Performed By: #### 2 69984 ####[facility],[address] [place], [place] [address] Urea nitrogen [Mass/Vol] 18 mg/dL Normal 7 - 18 [facility] Comment on above: Performed By: #### 2 79446 ####[facility],[address] [place], [place] [address] HEMOGLOBIN A1C (POM)on 10-13 Glucose [Mass/Vol] 122.6 mg/dL High 0.0 - 0.0 [facility] Comment on above: Result Comment: BLDo HEMOGLOBIN A1C REFERENCE RANGESBLDo Suggested Diagnosis HbA1c(%) HbA1C (mmol/mol Diabetic >/=6.5 >/=48 Prediabetes 5.7 - 6.4 39 - 47 Normal <5.7 <39 Performed By: #### 2 20823 #### [facility],[address] [place], [place] [address] HbA1c (Bld) [Mass fraction] 5.9 % Normal 0.0 - 6.5 [facility] Comment on above: Performed By: #### 2 91436 #### [facility],[address] [place] [address] 59242 LIPID PROFILEon 10-13-2024 Cholesterol [Mass/Vol] 137 mg/dL Normal 0 - 240 [facility] Comment on above: Performed By: #### 2 03178 #### [facility],[address] [place], [place] [address] Cholesterol in HDL [Mass/Vol] 52 mg/dL Normal 40 - 60 [facility] Comment on above: Performed By: #### 2 66145 #### [facility],[address] [place] [address] 26198 Cholesterol in LDL [Mass/Vol] 72 mg/dL Normal 0 - 129 [facility] Comment on above: Performed By: #### 2 20528 #### [facility],[address] [place] [address] 81421 Cholesterol.total/ Cholesterol in HDL [Mass ratio] 2.6 {ratio} Normal 0.0 - 5.0 [facility] Comment on above: Performed By: #### 2 52259 #### [facility],[address] [place] [address] 90007 Lipid 1996 panel Normal [facility] Comment on above: Result Comment: LIPI D PROFILE Performed By: #### 2 97416 #### [facility],[address] [place] [address] 90393 Triglyceride [Mass/Vol] 65 mg/dL Normal 0 - 150 [facility] Comment on above: Performed By: #### 2 29238 #### [facility],[address] [place] [address] 58263 T4-FREE (FREE THYROXINE)on 0 10-13-2024 Free T4 [Mass/Vol] 1.04 ng/dL Normal 0.76 - 1.46 [facility] Comment on above: Result Comment: P otential of falsely elevated results when biotin concentrations are > 10 ng/mL. Performed By: #### 2 28797 #### [facility],[address] [place] [address] 96317 TSHon 10-13-2024 TSH Qn 2.86 m[IU]/L Normal 0.35 - 3.74 [facility] Comment on above: Performed By: #### 2 56922 #### [facility],[address] [place] [address] 13270 URINE MICROALBUMIN W/CREATIN INE, RANDOMon 10-13-2024 CREATININE UR <13.00 Normal [facility] Comment on above: Performed By: #### 2 84373 #### [facility],[address] [place] [address] 05005 MICROALBUMIN UR <0.13 Normal 0.1 - 25.1 [facility] Comment on above: Performed By: #### 2 89612 #### [facility],[address] [place] [address] 36475 UACR 8 mg/g Normal [facility] Comment on above: Performed By: #### 2 51726 #### [facility],[address] [place] [address] 18969 VITAMIN D, 25 HYDROXYon 05-0 VitD 26.60 ng/mL Low 30.00 - 100 [facility] Comment on above: Result Comment: 25-O [...] D2 Not Established Performed By: #### 2 34475 #### [facility],[address] [place] [address] 08980 CNPDraia 09-20-2024 VEDAN Telephone (VLADISLAV) SOY BURCH ([id number]) 1945 M Date Time Provider Department 09/20/24 [...] Encounter Status:Closed by JESSE GAITAN on 09/20/24 [facility] .GFRon 08-16-2024 Estimated Glomerular Filtration Rate 79 ml/min/1.73sqm [facility] Comment on above: Result Comment: Stages [...] #### G FR, LIP, LIPID, CMP #### [facility] [address] [place] [address] 65165 CMPon 08-16-2024 Albumin Level 3.6 G/dL Normal 3.2-4.8 [facility] Comment on above: Performed By: #### G FR, LIP, LIPID, CMP #### [facility] [address] [place] [address] 30015 Albumin/Globulin [Mass ratio] 1.2 {ratio} Normal 0.9-1.6 [facility] Comment on above: Performed By: #### G FR, LIP, LIPID, CMP #### [address] [address] ALP [Catalytic activity/Vol] 85 U/L Normal 38-126 [facility] Comment on above: Performed By: #### G FR, LIP, LIPID, CMP #### [address] [address] ALT [Catalytic activity/Vol] 20 U/L Normal 12-55 [facility] Comment on above: Performed By: #### G FR, LIP, LIPID, CMP #### [address] [address] AST [Catalytic activity/Vol] 23 U/L Normal 8-34 [facility] Comment on above: Performed By: #### G FR, LIP, LIPID, CMP #### [place] [id number] Bili Total 1.20 mg/dL Normal 0.20-1.20 [facility] Comment on above: Result Comment: Use of this assay is not recommended for patients undergoing treatment with eltrombopag due to the potential for falsely elevated results. Performed By: #### G FR, LIP, LIPID, CMP #### [place] [id number] BUN/Creatinine Ratio 16.7 ratio Normal 10.0-22.0 [facility] Comment on above: Performed By: #### G FR, LIP, LIPID, CMP #### [address] [address] Calcium [Mass/Vol] 9.4 mg/dL Normal 8.7-10.4 [facility] Comment on above: Performed By: #### G FR, LIP, LIPID, CMP #### [address] [address] Chloride [Moles/Vol] 106 mmol/L Normal 98-110 [facility] Comment on above: Performed By: #### G FR, LIP, LIPID, CMP #### [place] [address]00410 CO2 [Moles/Vol] 34 mmol/L High 22-32 [facility] Comment on above: Performed By: #### G FR, LIP, LIPID, CMP #### [place] 7800410 Creatinine [Mass/Vol] 0.96 mg/dL Normal 0.60-1.40 [facility] Comment on above: Result Comment: Test ing performed on Rostima analyzer using enzymatic creatinine methodology. Performed By: #### G FR, LIP, LIPID, CMP #### [place] 7800410 Electrolyte Balance 3.0 mEq/L Low 4.0-15.0 [facility] Comment on above: Performed By: #### G FR, LIP, LIPID, CMP #### [place] 7800410 Globulin 3.0 G/dL Normal 1.5-3.8 [facility] Comment on above: Performed By: #### G FR, LIP, LIPID, CMP #### [place] [address] Glucose [Mass/Vol] 99 mg/dL Normal 82-115 [facility] Comment on above: Performed By: #### G FR, LIP, LIPID, CMP #### [place] [id number] Potassium [Moles/Vol] 4.2 mmol/L Normal 3.5-5.0 [facility] Comment on above: Performed By: #### G FR, LIP, LIPID, CMP #### [place] 7800410 Sodium [Moles/Vol] 143 mmol/L Normal 136-145 [facility] Comment on above: Performed By: #### G FR, LIP, LIPID, CMP #### [place] [id number] Total Protein 6.6 G/dL Normal 5.7-8.2 [facility] Comment on above: Performed By: #### G FR, LIP, LIPID, CMP #### [place] [id number] Urea nitrogen [Mass/Vol] 16.0 mg/dL Normal 8.0-22.0 [facility] Comment on above: Performed By: #### G FR, LIP, LIPID, CMP #### [place] [address] HGMPon 08-16-2024 Erythrocyte distribution width (RBC) [Ratio] 14.1 % Normal 11.5-15.5 [facility] Comment on above: Performed By: #### H GMP #### [place] [address] Hematocrit (Bld) [Volume fraction] 42.7 % Normal 40.0-52.0 [facility] Comment on above: Performed By: #### H GMP #### [place] [address] Hgb 14.7 G/dL Normal 13.0-17.5 [facility] Comment on above: Performed By: #### H GMP #### [place] [address] MCH (RBC) [Entitic mass] 30.9 pg Normal 27.0-33.0 [facility] Comment on above: Performed By: #### H GMP #### [place] [address] MCHC 34.4 G/dL Normal 32.0-36.0 [facility] Comment on above: Performed By: #### H GMP #### [place] [address] MCV (RBC) [Entitic vol] 89.8 fL Normal 81.0-100.0 [facility] Comment on above: Performed By: #### H GMP #### [place] [address] Platelet 184 10 3/mcL Normal 150-450 [facility] Comment on above: Performed By: #### H GMP #### [place] [address] Platelet mean volume (Bld) [Entitic vol] 8.4 fL Normal 6.4-10.5 [facility] Comment on above: Performed By: #### H GMP #### [address] [address] RBC 4.75 10 6/mcL Normal 4.50-6.00 [facility] Comment on above: Performed By: #### H GMP #### [place] [address] WBC 5.4 10 3/mcL Normal 4.5-10.8 [facility] Comment on above: Performed By: #### H GMP #### [place] [address] LABORATORYOrdered By: SYSTEM SYSTEM on 08-16-2024 Albumin [...] above: Interpretive Data: T esting performed on Rostima analyzer using enzymatic creatinine methodology. Electrolyte Balance [...] 08-16-2024 Lipase Level 33 U/L Normal 12-53 [facility] Comment on above: Result Comment: No te - New Reference Range in effect 20 Performed By: #### G FR, LIP, LIPID, CMP #### [address] [address] LIPIDon 08-16-2024 Cholesterol [Mass/Vol] 131 mg/dL Normal 50-199 [facility] Comment on above: Result Comment: Chol esterol Reference Interval: Less than 200 Desirable 200-239 Borderline high risk 240 and above High risk Performed By: #### G FR, LIP, LIPID, CMP #### [address] [address] Cholesterol in HDL [Mass/Vol] 48 mg/dL Normal 40-59 [facility] Comment on above: Performed By: #### G FR, LIP, LIPID, CMP #### [address] [address] Cholesterol in LDL [Mass/Vol] 67 mg/dL Normal 0-129 [facility] Comment on above: Performed By: #### G FR, LIP, LIPID, CMP #### [facility] [address] [place] [address]32 Triglyceride [Mass/Vol] 81 mg/dL Normal 3-149 [facility] Comment on above: Performed By: #### G SAMIR MORA LIPID, CMP #### [facility] [address] [place] [address] 24131 MRI MRCPon 08-16-2024 MRI MRCP ORIGINAL EXAMINATION: [...] Multiple T2 hyperintense pancreatic cyst noted. A outreach representative 1 cm pancreatic head cyst contains [...] abdominal aorta. IMPRESSION: Multiple pancreatic cyst. A outreach representative 1 cm septated pancreatic head cyst, [...] 08/16/2024 3:34:59 PM Ordering Provider: CONNIE FREY [facility] MRI PANCREASon 08-16-2024 MRI PANCREAS ORIGINAL [...] Multiple T2 hyperintense pancreatic cyst noted. A outreach representative 1 cm nonenhancing pancreatic head cyst [...] ligament syndrome. IMPRESSION: Multiple pancreatic cyst. A outreach representative 1 cm septated nonenhancing pancreatic head [...] 08/16/2024 3:35:39 PM Ordering Provider: CONNIE Anguiano [facility] Addi 07-13-2024 MARJ Telephone (CARMOB) SOY BURCH ([id number]) 1945 M Date Time Provider Department 07/13/24 JAYMIE MIRANDA During your visit today, we recorded the following information about you: Ibis Garcia 07/13/2024 10:29 AM Signed Received a device management form from [facility]. Will scan into chart and place in [...] Encounter Status:Closed by DANDY BRUNER on 07/13/24 [facility] CNOVon 06-17-2024 CNOV Office Visit (CARMOB ) SOY BURCH ([id number]) 1945 M Date Time Provider Department 06/17/24 [...] Visit Diagnosis:SSS (sick sinus syndrome) ([facility]) [I49.5] Prescriptions as of 07/05/2024 - [...] Encounter Status:Closed by DANDY BRUNER on 07/05/24 [facility] CORONAVIRUS PCR - [facility] 06-13-2024 SARS-CoV-2 (COVID-19) RNA RYLAND+probe Ql (Unsp spec) Negative Normal NORMAL: NEGATIVE [facility] Comment on above: Performed By: #### 2 08322 ####[facility],[address] [place] [address] SEND TO ? NO Normal [facility] Comment on above: Result Comment: RESU LTS FAXED TO INFECTION CONTROL. SARS-CoV-2 THIS TEST IS BEING USED UNDER THE FDA EUA PROCEDURE. THIS ASSAY HAS BEEN VALIDATED IN THE [facility] FOR USE WITH NASOPHARYNGEAL SPECIMENS IN [facility]. INTERPRETIVE DATA LABORATORY TEST RESULTS SHOULD ALWAYS [...] PUBLIC HEALTH AUTHORITIES. Performed By: #### 2 24186 ####[facility],[address] [place], [place] [phone] CV ECHO COMPLETE CV ECHO [place] [address] Patient: SOY BURCH Phone#: : 1945 Age: 79 Gender: M Pt. Type: Out Account: [id number] Location: [facility] Ordering: VALENCIA SUBRAMANIAN Exam Date: 06/13/2024/9:12 Family Phys: JOSE MIGUEL GRANADOS Charge Code: 748367 Physician: Long Order #: [id number] Dose#: PROCEDURE: ECHOCARDIOGRAM WITH DOPPLER AND COLOR FLOW HISTORY: Patient is an 79-year-old male with history of CAD INDICATIONS: Chest pain COMPARISON: None. TECHNIQUE: A 2-D ultrasound, color spectral Doppler and M-mode evaluation of the heart and great vessels. PATIENT MEASUREMENTS: Height (in.): 67 BSA: 2.03 Weight (lbs.): 192 BP: 139/68 Spring Clipper: DOUGLAS M MODE 2D MEASUREMENTS AND CALCULATIONS: [...] 79 Gender: M Pt. Type: Out Account: [id number] Location: [facility] Ordering: VALENCIA SUBRAMANIAN Exam Date: 06/13/2024/9:12 Family Phys: JOSE MIGUEL GRANADOS Charge Code: 226050 Physician: Long Order #: [id number] Dose#: MV mean P.61 mm[Hg] MV V2 [...] 79 Gender: M Pt. Type: Out Account: [id number] Location: [facility] Ordering: VALENCIA MCCARTHYALKA Exam Date: 06/13/2024/9:12 Family Phys: JOSE MIGUEL GRANADOS Charge Code: 366062 Physician: Long Order #: [id number] Dose#: ATRIAL SEPTUM: Agitated saline did not show any ldkon-hd-rwcw shunt at rest and provocation. MITRAL VALVE: [...] JORJE Saeed (more content not included)... Normal [facility]) [facility] ID CARDIAC STRESS (SPECT) W/[place] [address] Patient: SOY BURCH Phone#: : 1945 Age: 79 Gender: M Pt. Type: In Account: [id number] Location: [facility] Ordering: VALENCIA SUBRAMANIAN Exam Date: 06/13/2024/6:34 Family Phys: JOSE MIGUEL GRANADOS Charge Code: 578810 Physician: Long Order #: [id number] Dose#: PROCEDURE: CARDIAC STRESS SPECT WITH LEXISCAN [...] 79 Gender: M Pt. Type: In Account: [id number] Location: 011 Ordering: YASSER OMRAN Exam Date: 06/13/2024/6:34 Family Phys: DEVANGROS DYLANF Charge Code: 619298 Physician: Long Order #: [id number] Dose#: Approved by: JORJE BENTLEY MD on 06/13/2024 at 10:38 Normal [facility] NM EXERCISE STRESS TEST (W/C ARDIAC STUDYon 06-13-2024 NM EXERCISE STRESS TEST (W/CARDIAC STUDY [place] [address] Patient: SOY BURCHJanusz Phone#: : 1945 Age: 79 Gender: M Pt. Type: Out Account: [id number] Location: 011 Ordering: YASSER OMRAN Exam Date: 06/13/2024/6:34 Family Phys: BUTROS LATOUF Charge Code: 541930 Physician: Long Order #: [id number] Dose#: PROCEDURE: ELECTROCARDIOGRAM STRESS TEST HISTORY: Patient [...] images will be read and reported separately. [place] [address] Patient: SOY BURCH Phone#: : 1945 Age: 79 Gender: M Pt. Type: Out Account: [id number] Location: [facility] Ordering: VALENCIA SUBRAMANIAN Exam Date: 06/13/2024/6:34 Family Phys: JOSE MIGUEL GRANADOS Charge Code: [id number] Physician: Long Order #: [id number] Dose#: Dictated by: JORJE BENTLEY MD on 06/13/2024 at 10:08 Approved by: JORJE BENTLEY MD on 06/13/2024 at 10:12 [facility] TROPONIN I, HIGH SENSITIVITY on 06-13-2024 HS TROPONIN 13.5 pg/mL Normal 0.0 - 76.2 [facility] Comment on above: Performed By: #### 2 03305 #### [facility],[address] [place], [place] [id number] AMYLASEon 06-12-2024 Amylase [Catalytic activity/Vol] 58 U/L Normal 25 - 115 [facility] Comment on above: Performed By: #### 2 35423 #### [facility],[address] [place] [address] CBC + DIFFon 06-12-2024 Baso # 0.03 x10EE3/UL Normal 0.00 - 0.10 [facility] Comment on above: Performed By: #### 2 15935 ####[facility],[address] [place] [address] Basophils/100 WBC (Bld) 0.3 % Normal 0.0 - 2.0 [facility] Comment on above: Performed By: #### 2 86506 ####[facility],[address] [place] [address] CBC + DIFF Normal [facility] Comment on above: Result Comment: CBC- COMPLETE BLOOD COUNT Performed By: #### 2 39515 ####[facility],[address] [place] [address] EO # 0.10 x10EE3/UL Normal 0.00 - 0.50 [facility] Comment on above: Performed By: #### 2 67100 ####[facility],[address] [place] [address]793 Eosinophils/100 WBC (Bld) 1.1 % Normal 0.0 - 7.0 [facility] Comment on above: Performed By: #### 2 02860 ####[facility],[address] [place], [place] [address] Erythrocyte distribution width (RBC) [Ratio] 13.7 % Normal 12.0 - 15.6 [facility] Comment on above: Performed By: #### 2 97992 ####[facility],[address] [place], [place] [address] Hematocrit (Bld) [Volume fraction] 37.8 % Low 40.0 - 52.0 [facility] Comment on above: Performed By: #### 2 04970 ####[facility],[address] [place] [address] Hemoglobin (Bld) [Mass/Vol] 13.1 g/dL Normal 13.0 - 17.5 [facility] Comment on above: Performed By: #### 2 76834 ####[facility],[address] [place] [address] Lymph # 0.90 x10EE3/UL Normal 0.80 - 2.80 [facility] Comment on above: Performed By: #### 2 90361 ####[facility],[address] [place] [address] Lymphocytes/100 WBC (Bld) 9.7 % Low 20.0 - 45.0 [facility] Comment on above: Performed By: #### 2 42557 ####[facility],[address] [place], [place] [phone] MANUAL DIFF N/A Normal [facility] Comment on above: Performed By: #### 2 74464 ####[facility],[address] [place], [place] [id number] MCH (RBC) [Entitic mass] 32 pg Normal 27 - 33 [facility] Comment on above: Performed By: #### 2 20809 ####[facility],[address] [place] [address] 43670 MCHC 35 X10 3 Normal 32 - 36 [facility] Comment on above: Performed By: #### 2 77547 ####[facility],[address] [place] [address] 81558 MCV (RBC) [Entitic vol] 93 fL Normal 81 - 98 [facility] Comment on above: Performed By: #### 2 64292 ####[facility],[address] [place] [address] 38810 Bates # 0.88 x10EE3/UL Normal 0.20 - 1.00 [facility] Comment on above: Performed By: #### 2 56621 ####[facility],[address] [place] [address] 20230 MONOS % 9.5 % Normal 0.0 - 10.0 [facility] Comment on above: Performed By: #### 2 38198 ####[facility],[address] [place] [address] 40682 Morphology Hay (Bld) [Interp] N/A Normal [facility] Comment on above: Performed By: #### 2 28871 ####[facility],[address] [place] [address] 16595 Neut # 7.30 x10EE3/UL High 1.50 - 7.10 [facility] Comment on above: Performed By: #### 2 30020 ####[facility],[address] [place] [address] 36590 Neutrophils/100 WBC (Bld) 79.3 % High 46.0 - 76.0 [facility] Comment on above: Performed By: #### 2 17437 ####[facility],[address] [place] [address] 13292 PLATELET 171 x10EE3/UL Normal 150 - 450 [facility] Comment on above: Performed By: #### 2 55582 ####[facility],[address] [place] [address] 59510 Platelet mean volume (Bld) [Entitic vol] 8.6 fL Normal 6.4 - 10.5 [facility] Comment on above: Result Comment: AUTO MATED DIFFERENTIAL Performed By: #### 2 56453 ####[facility],[address] [place] [address] 04002 RBC 4.09 x 10EE6/UL Low 4.50 - 6.00 [facility] Comment on above: Performed By: #### 2 22255 ####[facility],[address] [place] [address] 65091 WBC 9.2 x 10EE3/UL Normal 4.5 - 10.8 [facility] Comment on above: Performed By: #### 2 25104 ####[facility],[address] [place] [address] 39148 CMP with eGFRon 06-12-2024 AGE 79 years Normal [facility] Comment on above: Performed By: #### 2 22261 ####[facility],[address] [place] [address] 47699 Albumin [Mass/Vol] 2.8 g/dL Low 3.4 - 5.0 [facility] Comment on above: Performed By: #### 2 49066 ####[facility],[address] [place], [place] [id number] Albumin/Globulin [Mass ratio] 0.8 {ratio} Low 0.9 - 1.6 [facility] Comment on above: Performed By: #### 2 84357 ####[facility],[address] [place] [address] 21756 ALK PHOS 85 U/L Normal 46 - 116 [facility] Comment on above: Performed By: #### 2 75317 ####[facility],[address] [place] [address] 36227 ALT [Catalytic activity/Vol] 30 U/L Normal 16 - 63 [facility] Comment on above: Performed By: #### 2 11595 ####[facility],[address] [place] [address] 75585 Anion gap [Moles/Vol] 13 mmol/L Normal 10 - 20 [facility] Comment on above: Performed By: #### 2 38661 ####[facility],[address] [place] [address] 58566 AST [Catalytic activity/Vol] 25 U/L Normal 15 - 37 [facility] Comment on above: Performed By: #### 2 21474 ####[facility],[address] [place] [address] 77130 B/C RATIO 13 ratio Normal 0 - 30 [facility] Comment on above: Performed By: #### 2 99903 ####[facility],[address] [place] [address] 55393 Bilirubin [Mass/Vol] 1.8 mg/dL High 0.2 - 1.0 [facility] Comment on above: Performed By: #### 2 00749 ####[facility],[address] [place] [address] 08376 Calcium [Mass/Vol] 8.5 mg/dL Normal 8.5 - 10.1 [facility] Comment on above: Performed By: #### 2 48622 ####[facility],[address] [place] [address] 94932 Chloride [Moles/Vol] 106 mmol/L Normal 98 - 107 [facility] Comment on above: Performed By: #### 2 61163 ####[facility],[address] [place] [address] 75166 CMP with eGFR Normal [facility] Comment on above: Result Comment: COMP REHENSIVE METABOLIC PANEL Performed By: #### 2 15787 ####[facility],[address] [place] [address] 75883 CO2 [Moles/Vol] 26.0 mmol/L Normal 21.0 - 32.0 [facility] Comment on above: Performed By: #### 2 65113 ####[facility],[address] [place] [address] 16103 Creatinine [Mass/Vol] 0.85 mg/dL Normal 0.70 - 1.30 [facility] Comment on above: Performed By: #### 2 74636 ####[facility],[address] [place] [address] 43883 GFR/1.73 sq M.predicted among non-blacks MDRD (S/P/Bld) [Vol rate/Area] mL/min/{1.73_m2} Normal 60 - 999 [facility] Comment on above: Performed By: #### 2 44595 ####[facility],[address] [place] [address] 78668 Result Comment: ACCO RDING TO THE NATIONAL KIDNEY DISEASE EDUCATION PROGRAM(NKDE), A NORMAL eGFR IS A VALUE GREATER THAN OR EQUAL TO 60 ML/MIN/1.73 SQ METERS. CHRONIC KIDNEY DISEASE: <60mL/MIN/1.73 SQ METERS KIDNEY FAILURE: <15mL/MIN/1.73 SQ METERS THIS TEST SHOULD ONLY BE USED FOR PATIENTS 18 YEARS OF AGE AND OLDER. Globulin (S) [Mass/Vol] 3.3 g/dL Normal 1.5 - 3.8 [facility] Comment on above: Performed By: #### 2 82575 ####[address] [address] Glucose [Mass/Vol] 82 mg/dL Normal 74 - 106 [facility] Comment on above: Performed By: #### 2 56749 ####[address] [address] Potassium [Moles/Vol] 4.0 mmol/L Normal 3.5 - 5.1 [facility] Comment on above: Performed By: #### 2 62091 ####[address] [address] Protein [Mass/Vol] 6.1 g/dL Low 6.4 - 8.2 [facility] Comment on above: Performed By: #### 2 87706 ####[address] [address] Sodium [Moles/Vol] 141 mmol/L Normal 136 - 145 [facility] Comment on above: Performed By: #### 2 96414 ####[address] [address] Urea nitrogen [Mass/Vol] 11 mg/dL Normal 7 - 18 [facility] Comment on above: Performed By: #### 2 09767 ####[facility],[address] [place] [address] LIPASEon 06-12-2024 Lipase [Catalytic activity/Vol] 54.0 U/L Normal 15.0 - 78.0 [facility] Comment on above: Result Comment: *PLE ASE NOTE THAT RANGES FOR LIPASE HAVE CHANGED OF 06/12/23 DUE TO AN ASSAY UPDATE BY THE [employer] JERKER.THE NEW ASSAY RANGE IS 6-250 U/L, WITH A REFERENCE RANGE OF 16-77 U/L. Performed By: #### 2 27639 ####[facility],[address] [place] [address] TROPONIN I, HIGH SENSITIVITY on 06-12-2024 HS TROPONIN 25.7 pg/mL Normal 0.0 - 76.2 [facility] Comment on above: Performed By: #### 2 40111 #### [facility],[address] [place] [address] HS TROPONIN 24.4 pg/mL Normal 0.0 - 76.2 [facility] Comment on above: Performed By: #### 2 98999 ####[facility],[address] [place] [address] CBC + DIFFon 06-11-2024 Baso # 0.04 x10EE3/UL Normal 0.00 - 0.10 [facility] Comment on above: Performed By: #### 2 46655 #### [facility],[address] [place] [address] Basophils/100 WBC (Bld) 0.3 % Normal 0.0 - 2.0 [facility] Comment on above: Performed By: #### 2 33768 #### [facility],[address] [place] [address] CBC + DIFF Normal [facility] Comment on above: Result Comment: CBC- COMPLETE BLOOD COUNT Performed By: #### 2 20716 #### [facility],[address] [place] [address] 43562 EO # 0.13 x10EE3/UL Normal 0.00 - 0.50 [facility] Comment on above: Performed By: #### 2 36364 #### [facility],[address] [place], [place] [address] Eosinophils/100 WBC (Bld) 1.0 % Normal 0.0 - 7.0 [facility] Comment on above: Performed By: #### 2 28845 #### [facility],[address] [place] [address] Erythrocyte distribution width (RBC) [Ratio] 13.5 % Normal 12.0 - 15.6 [facility] Comment on above: Performed By: #### 2 72740 #### [place] [address] Hematocrit (Bld) [Volume fraction] 45.1 % Normal 40.0 - 52.0 [facility] Comment on above: Performed By: #### 2 44598 #### [facility],[address] [place] [address] Hemoglobin (Bld) [Mass/Vol] 15.5 g/dL Normal 13.0 - 17.5 [facility] Comment on above: Performed By: #### 2 65765 #### [facility],[address] [place] [address] 01738 Lymph # 1.61 x10EE3/UL Normal 0.80 - 2.80 [facility] Comment on above: Performed By: #### 2 37148 #### [facility],[address] [place], [place] [address] Lymphocytes/100 WBC (Bld) 12.6 % Low 20.0 - 45.0 [facility] Comment on above: Performed By: #### 2 88152 #### [facility],[address] [place] [address] MANUAL DIFF N/A Normal [facility] Comment on above: Performed By: #### 2 13037 #### [facility],[address] [place] [address] MCH (RBC) [Entitic mass] 31 pg Normal 27 - 33 [facility] Comment on above: Performed By: #### 2 69428 #### [facility],[address] [place] [address] MCHC 34 X10 3 Normal 32 - 36 [facility] Comment on above: Performed By: #### 2 79578 #### [facility],[address] [place], [place] [phone] MCV (RBC) [Entitic vol] 91 fL Normal 81 - 98 [facility] Comment on above: Performed By: #### 2 73563 #### [facility],[address] [place] [address] Bates # 1.38 x10EE3/UL High 0.20 - 1.00 [facility] Comment on above: Performed By: #### 2 73331 #### [facility],[address] [place], [place] [phone] MONOS % 10.8 % High 0.0 - 10.0 [facility] Comment on above: Performed By: #### 2 05204 #### [facility],[address] [place], [place] [phone] Morphology Hay (Bld) [Interp] N/A Normal [facility] Comment on above: Performed By: #### 2 86260 #### [facility],[address] [place], [place] [phone] Neut # 9.69 x10EE3/UL High 1.50 - 7.10 [facility] Comment on above: Performed By: #### 2 02341 #### [facility],[address] [place] [address] Neutrophils/100 WBC (Bld) 75.4 % Normal 46.0 - 76.0 [facility] Comment on above: Performed By: #### 2 59954 #### [facility],[address] [place] [address] 41621 PLATELET 205 x10EE3/UL Normal 150 - 450 [facility] Comment on above: Performed By: #### 2 89230 #### [facility],[address] [place] [address] Platelet mean volume (Bld) [Entitic vol] 8.1 fL Normal 6.4 - 10.5 [facility] Comment on above: Result Comment: AUTO MATED DIFFERENTIAL Performed By: #### 2 99266 #### [facility],[address] [place] [address] RBC 4.95 x 10EE6/UL Normal 4.50 - 6.00 [facility] Comment on above: Performed By: #### 2 85456 #### [facility],[address] [place] [address] WBC 12.9 x 10EE3/UL High 4.5 - 10.8 [facility] Comment on above: Performed By: #### 2 66996 #### [facility],[address] [place] [address] CMP with eGFRon 06-11-2024 AGE 79 years Normal [facility] Comment on above: Performed By: #### 2 34024 ####[facility],[address] [place], [place] [phone] Albumin [Mass/Vol] 3.6 g/dL Normal 3.4 - 5.0 [facility] Comment on above: Performed By: #### 2 11375 ####[facility],[address] [place], [place] [phone] Albumin/Globulin [Mass ratio] 1.0 {ratio} Normal 0.9 - 1.6 [facility] Comment on above: Performed By: #### 2 09047 ####[facility],[address] [place] [address] ALK PHOS 102 U/L Normal 46 - 116 [facility] Comment on above: Performed By: #### 2 45540 ####[facility],[address] [place] [address] 68918 ALT [Catalytic activity/Vol] 26 U/L Normal 16 - 63 [facility] Comment on above: Performed By: #### 2 04792 ####[facility],[address] [place] [address] Anion gap [Moles/Vol] 12 mmol/L Normal 10 - 20 [facility] Comment on above: Performed By: #### 2 35013 ####[facility],[address] [place] [address] AST [Catalytic activity/Vol] 21 U/L Normal 15 - 37 [facility] Comment on above: Performed By: #### 2 04710 ####[facility],[address] [place] [address] B/C RATIO 12 ratio Normal 0 - 30 [facility] Comment on above: Performed By: #### 2 71471 ####[facility],[address] [place], [place] [address] Bilirubin [Mass/Vol] 2.8 mg/dL High 0.2 - 1.0 [facility] Comment on above: Performed By: #### 2 54369 ####[facility],[address] [place] [address] 74836 Calcium [Mass/Vol] 9.2 mg/dL Normal 8.5 - 10.1 [facility] Comment on above: Performed By: #### 2 45264 ####[facility],[address] [place] [address] 56629 Chloride [Moles/Vol] 101 mmol/L Normal 98 - 107 [facility] Comment on above: Performed By: #### 2 08356 ####[facility],[address] [place], [place] [phone] CMP with eGFR Normal [facility] Comment on above: Result Comment: COMP REHENSIVE METABOLIC PANEL Performed By: #### 2 75464 ####[facility],[address] [place], [place] [address] CO2 [Moles/Vol] 28.7 mmol/L Normal 21.0 - 32.0 [facility] Comment on above: Performed By: #### 2 92570 ####[place] [id number] Creatinine [Mass/Vol] 0.95 mg/dL Normal 0.70 - 1.30 [facility] Comment on above: Performed By: #### 2 63163 ####[facility],[address] [place], [place] [address] GFR/1.73 sq M.predicted among non-blacks MDRD (S/P/Bld) [Vol rate/Area] mL/min/{1.73_m2} Normal 60 - 999 [facility] Comment on above: Performed By: #### 2 63605 ####[place] [id number] Result Comment: ACCO RDING TO THE NATIONAL KIDNEY DISEASE EDUCATION PROGRAM(NKDE), A NORMAL eGFR IS A VALUE GREATER THAN OR EQUAL TO 60 ML/MIN/1.73 SQ METERS. CHRONIC KIDNEY DISEASE: <60mL/MIN/1.73 SQ METERS KIDNEY FAILURE: <15mL/MIN/1.73 SQ METERS THIS TEST SHOULD ONLY BE USED FOR PATIENTS 18 YEARS OF AGE AND OLDER. Globulin (S) [Mass/Vol] 3.6 g/dL Normal 1.5 - 3.8 [facility] Comment on above: Performed By: #### 2 99044 ####[address] [address] Glucose [Mass/Vol] 130 mg/dL High 74 - 106 [facility] Comment on above: Performed By: #### 2 58606 ####[address] [address] Potassium [Moles/Vol] 4.1 mmol/L Normal 3.5 - 5.1 [facility] Comment on above: Performed By: #### 2 99460 ####[facility],[address] [place] [address] 78611 Protein [Mass/Vol] 7.2 g/dL Normal 6.4 - 8.2 [facility] Comment on above: Performed By: #### 2 62187 ####[facility],[address] [place] [address] 28602 Sodium [Moles/Vol] 138 mmol/L Normal 136 - 145 [facility] Comment on above: Performed By: #### 2 97192 ####[facility],[address] [place] [address] 23721 Urea nitrogen [Mass/Vol] 11 mg/dL Normal 7 - 18 [facility] Comment on above: Performed By: #### 2 96596 ####[facility],[address] [place], [place] [phone] CORONAVIRUS (SARS) ANTIGEN T ESTon 06-11-2024 EXTERNAL QC DONE? YES Normal [facility] Comment on above: Performed By: #### 2 99630 #### [facility],[address] [place], [place] [phone] INTERNAL CONTROL PASS Normal [facility] Comment on above: Performed By: #### 2 50564 #### [facility],[address] [place], [place] [phone] SARS ANTIGEN Negative Normal NORMAL: NEGATIVE [facility] Comment on above: Performed By: #### 2 27432 #### [facility],[address] [place] [address] 07694 SEND TO ? YES Normal [facility] Comment on above: Result Comment: SARS -CoV-2 THIS TEST IS BEING USED UNDER THE FDA EUA PROCEDURE. THIS ASSAY HAS BEEN VALIDATED AT [facility] FOR USE WITH NASAL AND NASOPHARYNGEAL [...] PUBLIC HEALTH AUTHORITIES. Performed By: #### 2 05859 #### [place] [address] CT ABDOMEN/PELVIS [facility] 2023 CT ABDOMEN/PELVIS [place] [address] Patient: SOY BURCH Phone#: : 1945 Age: 79 Gender: M Pt. Type: ER Account: [id number] Location: [facility] Ordering: ADELFO ROMERO Exam Date: 06/11/2024/4:13 Family Phys: JOSE MIGUEL GRANADOS Charge Code: 799078 Physician: Long Order #: [id number] Dose#: 14.6 mGy PROCEDURE: CT ABDOMEN/PELVIS WITH CONTRAST COMPARISON: [facility], CT, CHEST PE W JAZMIN, 11/17/2016, 10:45. [...] 79 Gender: M Pt. Type: ER Account: [id number] Location: 052 Ordering: ADELFO ROMERO Exam Date: 06/11/2024/4:13 Family Phys: JOSE MIGUEL GRANADOS Charge Code: 287836 Physician: Long Order #: [id number] Dose#: 14.6 mGy ABDOMINAL WALL: Fat containing [...] Rodriges MD on 06/11/2024 at 15:19 Normal [facility] ED MED ADMINISTRATION DETAIL on 06-11-2024 ED MED ADMINISTRATION DETAIL Litigation Attorney Medication Administration Record [facility] [address] [place] [address]. [place] [address] [id number] 06/11/2024 Patient: SOY BURCH Sex: Male : [...] for taking this 06:06/11/2024 medication. - 03:38 vEe Fish R.N. Scanned 06:06/11 Medication Discontinued: bag [...] 05:10 Kiersten Powell R.N. 1 of 2 Litigation Attorney Medication Ordered Medication Administration Date/Time Zofran IVP [...] Alisha Dang R.N. 2 of 2 Normal [facility] ED NURSES CLINICAL NOTEon ED NURSES CLINICAL NOTE Nurse Narrative Nurse Clinical Narrative [facility] [address] [place] [address]. [place] [address] [id number] 06/11/2024 Patient: SOY BURCH Sex: Male : [...] TAL Powell R.N. 02:43 06/11/24. Preferred pharmacy; [facility] -- 03:02 06/11/24 TAL Powell R.N. [...] 03:08 12 (more content not included)... Normal [facility] ED ORDER SHEET (CPOE ONLY)on 06-11-2024 ED ORDER SHEET (CPOE ONLY) Order Sheet Order Sheet [address] [place] [address] [id number] 06/11/2024 Patient: SOY BURCH Sex: Male : [...] (06/11/2024 07:42 EST)] 3 of 3 Normal [facility] ED PHYSICIAN CLINICAL REPORT on 06-11-2024 ED PHYSICIAN CLINICAL REPORT Narrative Physician Clinical Narrative [address] [address] [phone] 06/11/2024 Patient: SOY BURCH Sex: Male : [...] in the evening he was eating even [place] beans with ham. Did a little later [...] high normal EST 1.38 x10/UL 06/11/2024 03:50 Bates # 0.20 - 1.00 Final Above high [...] 130 mg/dl (more content not included)... Normal [facility] ED SUPER BILLon 06-11-2024 ED SUPER BILL [facility] [address] [place] [address] [id number] 06/11/2024 Patient: SOY BURCH Sex: Male : 1945 Age: 79y Facility Professional Category Item Description Code Code Quantity Fee Total Drugs Normal Saline 908530 2 $0.00 $0.00 1000cc (594539) Nurse/E/M EMERGENCY 997234 1 $0.00 $0.00 DEPT VISIT HIGH SEVERITYFUNCJ (15848-31) Nurse/IV/IM/Infusions Hydration 218476 5 $0.00 $0.00 additional hour (15558) Nurse/IV/IM/Infusions IVP additional 667918 1 $0.00 $0.00 push (71790) Nurse/IV/IM/Infusions IVP initial (41239) 831406 1 $0.00 $0.00 Nurse/IV/IM/Infusions IVP same med 827545 1 $0.00 $0.00 (31 min apart) (81538) Grand $0.00 Total Providers 1 of 2 [facility] Adelfo Romero D.O. Chief Complaint ABDOMINAL PAIN. Principal Diagnosis Acute generalized abdominal pain of undetermined cause. Intractable vomiting with nausea. ICD-10 Codes R10.84: Generalized abdominal pain R11.2: Nausea with vomiting, unspecified 2 of 2 Normal [facility] ED VISIT SUMMARYon 4 ED VISIT SUMMARY Visit Overview Visit Overview [facility] [address] [place] [address] [id number] 06/11/2024 Patient: SOY BURCH Sex: Male : [...] VOMITING WITH NAUSEA 3 of 3 Normal [facility] ED VITALS FLOW SHEETon 06-11 ED VITALS FLOW SHEET Vitals Vital Sign Flow Sheet [facility] [address] [place] [address] [id number] 06/11/2024 Patient: SOY BURCH Sex: Male : [...] 99.0 F 6 3 of 3 Normal [facility] LIPASEon 06-11-2024 Lipase [Catalytic activity/Vol] 60.0 U/L Normal 15.0 - 78.0 [facility] Comment on above: Result Comment: *PLE ASE NOTE THAT RANGES FOR LIPASE HAVE CHANGED OF 06/12/23 DUE TO AN ASSAY UPDATE BY THE [employer] JERK[employer].THE NEW ASSAY RANGE IS 6-250 U/L, WITH A REFERENCE RANGE OF 16-77 U/L. Performed By: #### 2 20201 ####[facility],[address] [place] [address] TROPONINon 06-11-2024 HS TROPONIN 15.1 pg/mL Normal 0.0 - 76.2 [facility] Comment on above: Performed By: #### 2 42020 ####[facility],[address] [place], [place] [phone] Addi 04-14-2024 MARJ Telephone (CARMOB) SOY BURCH ([id number]) 1945 M Date Time Provider Department 04/14/24 [...] Status:Closed by JESSE GAITAN on 04/14/24 Normal [facility] ECHOon 04-13-2024 CONCLUSIONS: - Exam indication: [...] * * * Final * * * [facility] Echocardiography Report: [facility] Date of service: 04/13/2024 11:05:36 AM Ordering physician: JESSE GAITAN Indication: Aortic stenosis Technologist: Jaymie Green [facility] Interpreting physician: Nemo Badillo MD PATIENT: [...] by Doppler. PERICARDIUM The pericardium is normal. [facility] Echocardiography Echocardiography Rep ort: Transthoracic [facility] Date of service: 04/13/2024 11:05:36 AM Ordering physician: JESSE GAITAN Indication: Aortic stenosis Technologist: Jaymie Green [facility] Interpreting physician: Nemo Badillo MD PATIENT: Name: MR. SOY BURHC : 1945 Age: 78 years Gender: M [...] * * * Final * * * [facility] : [id number] nathanVid[facility] Addi 04-06-2024 MARJ Telephone (CARMOB) SOY BURCH ([id number]) 1945 M Date Time Provider Department 04/06/24 ARNIE, JESSE C CARMOB During your visit today, we recorded the following information about you: Ibis Garcia 04/06/2024 1:47 PM Signed Received lab results from [facility]. Scanned labs into chart for review. Jesse Gaitan MD 04/08/2024 5:39 PM Signed The pt's labs showed Creat-0.95, BUN-15, K+-4.2, and [id number]-176. The results are fine. Katie Rich RN [...] Status:Closed by KATIE DAMON on 04/11/24 Normal [facility] BMP with eGFRon 04-04-2024 AGE 78 years Normal [facility] Comment on above: Performed By: #### 2 19557 #### [facility],[address] [place], [place] [phone] Anion gap [Moles/Vol] 10 mmol/L Normal - [facility] Comment on above: Performed By: #### 2 58324 #### [facility],[address] [place], [place] [phone] BMP with eGFR Normal [facility] Comment on above: Result Comment: BASI C METABOLIC PANEL Performed By: #### 2 61532 #### [facility],[address] [place] [address] Calcium [Mass/Vol] 8.7 mg/dL Normal 8.5 - 10.1 [facility] Comment on above: Performed By: #### 2 00555 #### [facility],[address] [place] [address] 48770 Chloride [Moles/Vol] 107 mmol/L Normal 98 - 107 [facility] Comment on above: Performed By: #### 2 89502 #### [facility],[address] [place] [address] 62029 CO2 [Moles/Vol] 31.7 mmol/L Normal 21.0 - 32.0 [facility] Comment on above: Performed By: #### 2 57618 #### [facility],[address] [place] [address] 63020 Creatinine [Mass/Vol] 0.95 mg/dL Normal 0.70 - 1.30 [facility] Comment on above: Performed By: #### 2 85300 #### [facility],[address] [place] [address] 36843 GFR/1.73 sq M.predicted among non-blacks MDRD (S/P/Bld) [Vol rate/Area] mL/min/{1.73_m2} Normal 60 - 999 [facility] Comment on above: Performed By: #### 2 73199 #### [facility],[address] [place] [address] 91222 Result Comment: ACCO RDING TO THE NATIONAL KIDNEY DISEASE EDUCATION PROGRAM(NKDE), A NORMAL eGFR IS A VALUE GREATER THAN OR EQUAL TO 60 ML/MIN/1.73 SQ METERS. CHRONIC KIDNEY DISEASE: <60mL/MIN/1.73 SQ METERS KIDNEY FAILURE: <15mL/MIN/1.73 SQ METERS THIS TEST SHOULD ONLY BE USED FOR PATIENTS 18 YEARS OF AGE AND OLDER. Glucose [Mass/Vol] 92 mg/dL Normal 74 - 106 [facility] Comment on above: Performed By: #### 2 56330 #### [facility],[address] [place] [address] 76792 Potassium [Moles/Vol] 4.2 mmol/L Normal 3.5 - 5.1 [facility] Comment on above: Performed By: #### 2 82137 #### [facility],[address] [place] [address] 27384 Sodium [Moles/Vol] 144 mmol/L Normal 136 - 145 [facility] Comment on above: Performed By: #### 2 19182 #### [facility],[address] [place] [address] 08275 Urea nitrogen [Mass/Vol] 16 mg/dL Normal 7 - 18 [facility] Comment on above: Performed By: #### 2 53708 #### [facility],[address] [place] [address] 16133 NT-proBNPon 04-04-2024 Natriuretic peptide B (Bld) [Mass/Vol] 176 pg/mL Normal 0 - 450 [facility] Comment on above: Performed By: #### 2 05265 ####[facility],[address] [place], [place] [id number] CNPNon 03-31-2024 CNPN Telephone (CARMOB) SOY BURCH ([id number]) 1945 M Date Time Provider Department 03/31/24 [...] office advised. Please fax to their office [phone]. Estefany Villarreal 03/31/2024 3:12 PM Signed Pulled [...] Status:Closed by JESSE GAITAN on 03/31/24 Normal [facility] CREATININE, POC (AK,MR)on Creatinine [Mass/Vol] 1.00 mg/dL 0.60 - 1.30 mg/dL [facility] eGFR (POCT) mL/min/1.7 3 m2 [facility] Location:[facility], [address] [place], [place], [address] [place] [address] POINT OF CARE [facility] CTA CHEST (NONGATED) WO/W IV CONon 03-26-2024 CTA CHEST (NONGATED) WO/W IVCON * * *Final Report* * * DATE OF EXAM: Mar 26 2024 4:42PM [facility] 0469 - CTA CHEST (NONGATED) WO/W IVCON [...] artery. -Chronic occl (more content not included)... [facility] CNPN Telephone (CARMOB) SOY BURCH ([id number]) 1945 Date Time Provider Department 03/17/24 JESSE [...] Status:Closed by RENETTA VARGHESE on 03/17/24 Normal [facility] CNOVon 03-15-2024 CNOV Office Visit (CARMOB ) KIERSTENSOY Pendleton ([id number]) 1945 M Date Time Provider Department 03/15/24 [...] appointment. Jesse Gaitan MD 03/16/2024 12:55 AM [facility] [place] [facility] OUTPATIENT VISIT DATE March 15, 2024 OUTPATIENT VISIT TYPE ESTABLISHED PATIENT PRIMARY CARE PHYSICIAN: Jose Miguel Granados MD [address] [place] [address] HISTORY OF PRESENT ILLNESS: Mr. Burch is [...] PAST SURGICAL HISTOR (more content not included)... [facility] CNOV Office Visit (CARMOB ) SOY BURCH ([id number]) 1945 M Date Time Provider Department 03/15/24 11:30 AM [facility] CARMOB During your visit today, we [...] Visit Diagnosis:SSS (sick sinus syndrome) ([facility]) [I49.5] Prescriptions as of 03/17/2024 - [...] Encounter Status:Closed by DANDY BRUNER on 03/17/24 [facility] CBC + DIFFon 12-29-2023 Baso # 0.01 x10EE3/UL Normal 0.00 - 0.10 [facility] Comment on above: Performed By: #### 2 98270 #### [facility],[address] [place], [place] [id number] Basophils/100 WBC (Bld) 0.3 % Normal 0.0 - 2.0 [facility] Comment on above: Performed By: #### 2 77013 #### [facility],[address] [place] [address] CBC + DIFF Normal [facility] Comment on above: Result Comment: CBC- COMPLETE BLOOD COUNT Performed By: #### 2 12822 #### [facility],[address] [place] [address] EO # 0.10 x10EE3/UL Normal 0.00 - 0.50 [facility] Comment on above: Performed By: #### 2 24781 #### [facility],[address] [place] [address] Eosinophils/100 WBC (Bld) 1.9 % Normal 0.0 - 7.0 [facility] Comment on above: Performed By: #### 2 01126 #### [facility],[address] [place] [address] Erythrocyte distribution width (RBC) [Ratio] 13.6 % Normal 12.0 - 15.6 [facility] Comment on above: Performed By: #### 2 89039 #### [facility],[address] [place] [address] Hematocrit (Bld) [Volume fraction] 43.8 % Normal 40.0 - 52.0 [facility] Comment on above: Performed By: #### 2 06917 #### [facility],[address] [place] [address] Hemoglobin (Bld) [Mass/Vol] 14.7 g/dL Normal 13.0 - 17.5 [facility] Comment on above: Performed By: #### 2 84839 #### [facility],[address] [place] [address] Lymph # 1.66 x10EE3/UL Normal 0.80 - 2.80 [facility] Comment on above: Performed By: #### 2 85799 #### [facility],[address] [place] [address] 73143 Lymphocytes/100 WBC (Bld) 31.5 % Normal 20.0 - 45.0 [facility] Comment on above: Performed By: #### 2 25051 #### [facility],[address] [place] [address] MANUAL DIFF N/A Normal [facility] Comment on above: Performed By: #### 2 27988 #### [facility],[address] [place] [address] MCH (RBC) [Entitic mass] 31 pg Normal 27 - 33 [facility] Comment on above: Performed By: #### 2 99870 #### [facility],[address] [place] [address] MCHC 34 X10 3 Normal 32 - 36 [facility] Comment on above: Performed By: #### 2 74968 #### [facility],[address] [place] [address] 04430 MCV (RBC) [Entitic vol] 92 fL Normal 81 - 98 [facility] Comment on above: Performed By: #### 2 12519 #### [facility],[address] [place] [address] 33385 Bates # 0.53 x10EE3/UL Normal 0.20 - 1.00 [facility] Comment on above: Performed By: #### 2 05149 #### [facility],[address] [place] [address] 27681 MONOS % 10.0 % Normal 0.0 - 10.0 [facility] Comment on above: Performed By: #### 2 76195 #### [facility],[address] [place] [address] 82141 Morphology Hay (Bld) [Interp] N/A Normal [facility] Comment on above: Performed By: #### 2 06432 #### [facility],[address] [place] [address] 03559 Neut # 2.97 x10EE3/UL Normal 1.50 - 7.10 [facility] Comment on above: Performed By: #### 2 81386 #### [facility],[address] [place] [address] 23960 Neutrophils/100 WBC (Bld) 56.4 % Normal 46.0 - 76.0 [facility] Comment on above: Performed By: #### 2 09157 #### [facility],[address] [place] [address] 16613 PLATELET 176 x10EE3/UL Normal 150 - 450 [facility] Comment on above: Performed By: #### 2 24771 #### [facility],[address] [place] [address] 63384 Platelet mean volume (Bld) [Entitic vol] 8.4 fL Normal 6.4 - 10.5 [facility] Comment on above: Result Comment: AUTO MATED DIFFERENTIAL Performed By: #### 2 33151 #### [facility],[address] [place] [address] 93953 RBC 4.74 x 10EE6/UL Normal 4.50 - 6.00 [facility] Comment on above: Performed By: #### 2 08375 #### [facility],[address] [place] [address] 69148 WBC 5.3 x 10EE3/UL Normal 4.5 - 10.8 [facility] Comment on above: Performed By: #### 2 42206 #### [facility],[address] [place] [address] 68911 HEMOGLOBIN A1C (POM)on 12-28 Glucose [Mass/Vol] 134.1 mg/dL High 0.0 - 0.0 [facility] Comment on above: Result Comment: BLDo HEMOGLOBIN A1C REFERENCE RANGESBLDo Suggested Diagnosis HbA1c(%) HbA1C (mmol/mol Diabetic >/=6.5 >/=48 Prediabetes 5.7 - 6.4 39 - 47 Normal <5.7 <39 Performed By: #### 2 72651 #### [facility],[address] [place] [address] HbA1c (Bld) [Mass fraction] 6.3 % Normal 0.0 - 6.5 [facility] Comment on above: Performed By: #### 2 42698 #### [facility],[address] [place], [place] [id number] CNOVon 12-18-2023 CNOV Office Visit (CARMOB ) SOY BURCH ([id number]) 1945 M Date Time Provider Department 12/18/23 [...] Visit Diagnosis:SSS (sick sinus syndrome) ([facility]) [I49.5] Prescriptions as of 12/18/2023 - [...] Encounter Status:Closed by RADHA OCHOA on 12/18/23 [facility] HbA1c (Bld)on 02-19-2023 Average glucose Estimated from glycated hemoglobin (Bld) [Mass/Vol] 134 mg/dL Normal [facility] Comment on above: Order Comment: Speci men Type: BLOOD SPECIMEN Ordering Facility: [facility] Address: [facility] [place] [address] Result Comment: eAG: (Estimated average glucose) is a calculated value from HgbA1c and is outreach representative of the average blood glucose level in the last 2-3 month period. Performed By: #### 5 5454-3 #### [facility] CLIA [id number] [address] [place] [address] [place] HbA1c (Bld) [Mass fraction] 6.3 % High 4.3-5.6 [facility] Comment on above: Order Comment: Brianna vitor Type: BLOOD SPECIMEN Ordering Facility: [facility] Address: [facility] [place] [address] Result Comment: Guerline ican Diabetes Association guidelines indicate that patients with HgbA1c in the range 5.7-6.4% are at increased risk for development of diabetes, and intervention by lifestyle modification may be beneficial. HgbA1c greater or equal to 6.5% is considered diagnostic of diabetes. Performed By: #### 5 5454-3 #### [facility] CLIA [id number] [address] [place] [address] [place] Free PSA [Mass/Vol]on 2022 Free PSA/Total PSA [Mass fraction] 18 % Normal [facility] Comment on above: Order Comment: Speci men Type: BLOOD SPECIMEN Ordering Facility: [facility] Address: [address] [place] [address] Result Comment: Tota l and free PSA [...] 15.8% Performed By: #### 1 0886-0 #### [facility] CLIA [id number] [address] [place] [address] [place] Prostate specific Ag [Mass/Vol] 1.52 ng/mL Normal <2.60 [facility] Comment on above: Order Comment: Speci men Type: BLOOD SPECIMEN Ordering Facility: [facility] Address: [address] [place] [address] Result Comment: Tota l PSA test methodology used is the Electrochemiluminescence Immunoassay by [employer]. Total PSA values by differing methodologies cannot be interchanged. Performed By: #### 1 0886-0 #### [facility] CLIA [id number] [address] [place] [address] [place] HbA1c (Bld)on 02-24-2022 Average glucose Estimated from glycated hemoglobin (Bld) [Mass/Vol] 120 mg/dL Normal [facility] Comment on above: Order Comment: Brianna adler Type: BLOOD SPECIMEN Ordering Facility: [facility] Address: [address] [place] [address] Result Comment: eAG: (Estimated average glucose) is a calculated value from HgbA1c and is outreach representative of the average blood glucose level in the last 2-3 month period. Performed By: #### 5 5454-3 #### [facility] CLIA [id number] [address] [place] [address] [place] HbA1c (Bld) [Mass fraction] 5.8 % High 4.3-5.6 [facility] Comment on above: Order Comment: Brianna adler Type: BLOOD SPECIMEN Ordering Facility: [facility] Address: [address] [place] [address] Result Comment: Amer ican Diabetes Association guidelines indicate that patients with HgbA1c in the range 5.7-6.4% are at increased risk for development of diabetes, and intervention by lifestyle modification may be beneficial. HgbA1c greater or equal to 6.5% is considered diagnostic of diabetes. Performed By: #### 5 5454-3 #### [facility] CLIA [id number] [address] [place] [address] [place] Hemoglobin A1con 03-17-2021 Glucose [Mass/Vol] 120 mg/dL Normal [facility] Comment on above: Performed By: #### H BA1C #### [facility] Routine Lab [address] [place] [id number] HbA1c (Bld) [Mass fraction] 5.8 % High 4.3-5.6 [facility] Comment on above: Performed By: #### H BA1C #### [facility] Routine Lab [address] [place], [place] [address] Hemoglobin A1con 05-26-2020 Glucose [Mass/Vol] 117 mg/dL Normal [facility] Comment on above: Performed By: #### H BA1C #### [facility] Routine Lab [address] [place], [place] [id number] HbA1c (Bld) [Mass fraction] 5.7 % High 4.3-5.6 [facility] Comment on above: Performed By: #### H BA1C #### [facility] Routine Lab [address] [place], [place] [address] CADon 01-16-2020 CAD VASCULAR REPORT Patient: SOY BURCH Account [id number] Ordering Phy: MR: [id number] Reason for Visit: I65.23,I71.2 THORACIC AORTIC ANEURYSM Date of Service 01/16/20 Reading Physician: Miko Gaxiola MD [id number] CLI CAD CAROTID DUPLEX PREET [address] [place] [address] Non- Invasive Vascular Laboratory Carotid Duplex Report Name: SOY BURCH Study Date: 01/16/2020 09:04 AM Patient Location: [facility] : 1945 (M/d/yyyy)Gender: Male Age: 74 yrs Ethnicity: [place] Accession No. [id number] No. [id number] Order No. [id number] Reason For Study: I65.23 Occlusion and stenosis of bilateral carotid artery Carotid Smart Chart Right Left PSV EDV PSV EDV CC: Jesse Gaitan MD [facility] PATIENT NAME: SOY BURCH [address] [place], [place] [address] MEDICAL REC #: [id number] [place] [address] ADMIT DATE: DISCHARGE DATE: CAROTID DUPLEX REPORT ATTENDING PHY: Jesse Gaitan MD Electronically Signed by: Miko Gaxiola MD Esign Date: 01/16/20 VASCULAR REPORT Patient: SOY BURCH Account [id number] Ordering Phy: MR: [id number] Reason for Visit: I65.23,I71.2 THORACIC AORTIC ANEURYSM [...] antegrade and within CC: Jesse Gaitan MD [facility] PATIENT NAME: SOY BURCH [address] MEDICAL REC #: [id number] [place] [address] ADMIT DATE: DISCHARGE DATE: CAROTID DUPLEX REPORT ATTENDING PHY: Jesse Gaitan MD Electronically Signed by: Miko Gaxiola MD Esign Date: 01/16/20 VASCULAR REPORT Patient: SOY BURCH Account [id number] Ordering Phy: MR: [id number] Reason for Visit: I65.23,I71.2 THORACIC AORTIC ANEURYSM Date of Service 01/16/20 Reading Physician: Miko Gaxiola MD normal limits. Left subclavian artery flow is antegrade and within normal limits. Electronically signed by: Miko Gaxiola MD 01/16/2020 11:53 AM Ordering Physician: Kofi Performed By: Shani Landry RVT CC: Jesse Gaitan MD [facility] PATIENT NAME: SOY BURCH [address] MEDICAL REC #: [id number] [place] [address] ADMIT DATE: DISCHARGE DATE: CAROTID DUPLEX REPORT ATTENDING PHY: Jesse Gaitan MD Electronically Signed by: Miko Gaxiola MD Esign Date: 01/16/20 Normal [facility] CAROTID DUPLEX REPORT Normal [facility] CT THORAX W/O CONon 01-16-20 CT THORAX [...] FINNEY M.D. Signed By: HERMINIA FINNEY M.D. [facility] CARD.[facility] 04-20-2019 CARD.[facility] Patient Name: SOY BURCH [address] Date of : [address] [place], [place] [address] Unit Number: [id number] Stress Test (Nuclear) Patient Status: REG CLI [...] Oanh Ojeda MD Verified/Reviewed by 05/01/19 1239 [facility] INTERPRETING PHYSICI AN: Jesse Gaitan MD ATTENDING [...] discontinued secondary to complaints of generalized fatigue. [facility] PATIENT NAME: SOY BURCH [facility] [address] MEDICAL REC #: [id number] [place] [address] ADMIT DATE: DISCHARGE DATE: ATTENDING PHY: Jesse [...] for a complete report. Jesse Gaitan MD /[id number] [facility] File#: [id number] CC: Jesse Gaitan MD CC: Jose Miguel Granados MD Verified/Reviewed by [id number] [facility] PATIENT NAME: SOY BURCH [facility] [address] MEDICAL REC #: [id number] [place] [address] ADMIT DATE: DISCHARGE DATE: ATTENDING PHY: Jesse Gaitan MD CARDIAC STRESS TEST REPORT Normal [facility] Vital Signs Date Time Vital Sign Value Performing Clinician Faci lity 03-15-2024 11:38-0400 Diastolic blood pressure 67 mm[Hg] Jesse Gaitan MD Work Phone: [facility] 03-15-2024 11:38-0400 Systolic blood pressure 149 mm[Hg] Jesse Gaitan MD Work Phone: [facility] 03-15-2024 11:31-0400 Body height 170.2 cm Jesse Gaitan MD Work Phone: [facility] 03-15-2024 11:31-0400 Body mass index (BMI) [Ratio] 27.91 kg/m2 Jesse Gaitan MD Work Phone: [facility] 03-15-2024 11:31-0400 Body weight 80.83 kg Jesse Gaitan MD Work Phone: [facility] 03-15-2024 11:31-0400 Heart rate 62 /min Jesse Gaitan MD Work Phone: [facility] 03-15-2024 11:31-0400 SaO2% (BldA) [Mass fraction] 96 % Jesse Gaitan MD Work Phone: [facility] 02-26-2023 13:15-0400 Body height 170.2 cm Jesse Gaitan MD Work Phone: [facility] 02-26-2023 13:15-0400 Body weight 76.66 kg Jesse Gaitan MD Work Phone: [facility] 02-26-2023 13:15-0400 Diastolic blood pressure 64 mm[Hg] Jesse Gaitan MD Work Phone: [facility] 02-26-2023 13:15-0400 Heart rate 63 /min Jesse Gaitan MD Work Phone: [facility] 02-26-2023 13:15-0400 SaO2% (BldA) [Mass fraction] 94 % Jesse Gaitan MD Work Phone: [facility] 02-26-2023 13:15-0400 Systolic blood pressure 154 mm[Hg] Jesse Gaitan MD Work Phone: [facility] 02-27-2022 09:46-0400 Body height 170.2 cm Jesse Gaitan MD Work Phone: [facility] 02-27-2022 09:46-0400 Body weight 80.47 kg Jesse Gaitan MD Work Phone: [facility] 02-27-2022 09:46-0400 Diastolic blood pressure 71 mm[Hg] Jesse Gaitan MD Work Phone: [facility] 02-27-2022 09:46-0400 Heart rate 60 /min Jesse Gaitan MD Work Phone: [facility] 02-27-2022 09:46-0400 SaO2% (BldA) [Mass fraction] 94 % Jesse Gaitan MD Work Phone: [facility] 02-27-2022 09:46-0400 Systolic blood pressure 143 mm[Hg] Jesse Gaitan MD Work Phone: [facility] Encounters Encounter Date Encounter Type Care Provider Facility Start: 12-20-2024 End: 12-20-2024 Emergency department patient visit ADELFO ROMERO [facility] Start: 12-20-2024 ambulatory JOSE MIGUEL GRAMA[facility] Start: 12-18-2024 End: 12-19-2024 Emergency department patient visit ALONZO DO LANDRY [facility] Start: 10-13-2024 End: 10-13-2024 ambulatory JOSE MIGUEL GRAMAJO [facility] Start: 09-20-2024 End: 09-20-2024 Telephone encounter Jaymie Miranda MD Work Phone: [facility] Start: 09-13-2024 End: 09-13-2024 ambulatory SELF Facility:[id number] Start: 08-16-2024 End: 08-16-[address] JOSE MIGUEL GRANADOS MD Facility:A Start: 08-16-2024 End: 08-16-[address] CONNIE FREY MD [facility] Start: 07-13-2024 End: 07-13-2024 Telephone encounter Jaymie Miranda MD Work Phone: [facility] Comment on above: Cardiac Clearance Start: 06-30-2024 End: 06-30-2024 Refill Jesse Gaitan MD Work Phone: [facility] Comment on above: Refill Request Start: 06-17-2024 End: 06-17-2024 Patient encounter procedure Rem Device Check [facility] Work Phone: [facility] Comment on above: SSS (sick sinus synd maurizio) (HCC) (Primary Dx) Start: 06-17-2024 End: 06-17-2024 ambulatory JOSE MIGUEL GRANADOS Facility:[id number] Start: 06-11-2024 End: 06-13-2024 Evaluation and management of inpatient LYDIA GRAMAJO GBCHIKISUK [facility] Start: 04-14-2024 End: 04-14-2024 Telephone encounter Jesse Gaitan MD Work Phone: [facility] Comment on above: Results (Echo result s) Start: 04-13-2024 ambulatory JESSE GAITAN Facilit y:[id number] Start: 04-13-2024 End: 04-13-2024 Subsequent hospital visit by physician Echo Lab [facility] Work Phone: [facility] Comment on above: Essential hypertensi on [I10] Start: 04-06-2024 End: 04-11-2024 Telephone encounter Jesse Gaitan MD Work Phone: [facility] Comment on above: Results Start: 04-04-2024 End: 04-04-2024 ambulatory JESSE GAITAN [facility] Start: 03-31-2024 End: 03-31-2024 Telephone encounter Jesse Gaitan MD Work Phone: [facility] Comment on above: Results (CTA of the Chest) Start: 03-26-2024 ambulatory JESSE GAITAN Facilit y:[id number] Start: 03-26-2024 End: 03-26-2024 Subsequent hospital visit by physician [facility] Work Phone: Radiology CT Scan Comment on above: Disorder of artery o r arteriole (HCC) [I77.9] Start: 03-17-2024 End: 03-17-2024 Telephone encounter Jesse Gaitan MD Work Phone: [facility] Comment on above: Appointment Start: 03-15-2024 End: 03-15-2024 Office outpatient visit 40 minutes Jesse Gaitan MD Work Phone: [facility] Comment on above: Nonrheumatic aortic valve stenosis (Primary Dx); 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; Paroxysmal atrial fibrillation (HCC); Dyslipidemia; Essential hypertension; Impaired glucose tolerance; Aneurysm of ascending aorta without rupture (HCC); Pacemaker; Elective replacement indicated for pacemaker; Medication monitoring encounter; Chronic diastolic congestive heart failure (HCC); Disorder of artery or arteriole (HCC) Start: 03-15-2024 End: 03-15-2024 Patient encounter procedure Device [facility] Work Phone: [facility] Comment on above: SSS (sick sinus synd maurizio) (HCC) (Primary Dx) Start: 03-15-2024 End: 03-15-2024 ambulatory JESSE GAITAN Facility:[id number] Start: 02-29-2024 End: 02-29-2024 Chart abstracting Jesse Gaitan MD Work Phone: [facility] Start: 02-17-2024 End: 02-22-2024 Refill Jesse Gaitan MD Work Phone: [facility] Comment on above: Refill Request Start: 01-08-2024 Refill Jesse montalvo MD Work Phone: [facility] Comment on above: Refill Request Start: 12-29-2023 End: 12-29-2023 ambulatory JOSE MIGUEL GRAMAJO [facility] Start: 12-18-2023 End: 12-18-2023 Patient encounter procedure Rem Device Check [facility] Main Work Phone: [facility] Comment on above: SSS (sick sinus synd maurizio) (HCC) (Primary Dx) Start: 12-18-2023 End: 12-18-2023 [facility] Facility:[id number] Start: 11-25-2023 Refill Jesse montalvo MD Work Phone: [facility] Comment on above: Refill Request Start: 10-24-2023 ambulatory Self Referred Facility: [facility] Start: 10-08-2023 End: 10-14-2023 ambulatory Self Referred Facility:[facility] Start: 10-08-2023 End: 10-13-2023 ambulatory [facility] Work Phone: Start: 10-08-2023 End: 10-13-2023 Discharged Recurring [facility] Work Phone: Start: 09-08-2023 End: 09-08-2023 Patient encounter procedure Device Clinic [facility] Main Work Phone: [facility] Cardiology Comment on above: SSS (sick sinus synd maurizio) (HCC) (Primary Dx) Start: 04-20-2023 Chart abstracting Jesse donis MD Work Phone: [facility] Card[facility] Start: 04-17-2023 Patient encounter procedure Ccf Provider [facility] Department Start: 04-17-2023 Telephone encounter Jesse ng MD Work Phone: [facility] Card[facility] Comment on above: Blood Pressure Start: 03-17-2023 Telephone encounter Jesse ng MD Work Phone: [facility] Comment on above: Results Start: 02-26-2023 End: 02-26-2023 Patient encounter procedure Device Clinic [facility] Main Work Phone: [facility] Card[facility] Comment on above: SSS (sick sinus synd maurizio) (HCC) (Primary Dx) Start: 02-26-2023 End: 02-26-2023 Office outpatient visit 40 minutes Jesse Gaitan MD Work Phone: [facility] Comment on above: Nonrheumatic aortic valve stenosis (Primary Dx); 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; Dyslipidemia; Essential hypertension; Paroxysmal atrial fibrillation (HCC); Impaired glucose tolerance; Aneurysm of ascending aorta without rupture (HCC); Medication monitoring encounter; SSS (sick sinus syndrome) (HCC); Pacemaker; Disorder of artery or arteriole (HCC) Start: 02-24-2023 Telephone encounter Jesse ng MD Work Phone: [facility] Card[facility] Comment on above: Results Start: 01-29-2023 Refill Jesse montalvo MD Work Phone: [facility] Comment on above: Refill Request Start: 10-07-2022 Refill Jesse montalvo MD Work Phone: [facility] Comment on above: Refill Request Start: 09-16-2022 Telephone encounter Rudy Olivas RN [facility] Cardiology Comment on above: Pre-procedure instru ctions for DC PPM generator change Start: 08-28-2022 End: 08-28-2022 Patient encounter procedure Device Clinic [facility] Main Work Phone: [facility] Comment on above: Pacemaker (Primary D x) Start: 08-27-2022 Telephone encounter Jaymie Miranda MD Work Phone: [facility] Comment on above: Patient Question Medtronic DC PPM gen erator change Patient Update (Judi ce); Notification of scheduled DC PPM generator change Results Start: 07-02-2022 Refill Jesse montalvo MD Work Phone: [facility] Comment on above: Refill Request Start: 05-30-2022 End: 05-30-2022 Patient encounter procedure Rem Device Check [facility] Main Work Phone: [facility] Comment on above: Pacemaker (Primary D x) Start: 03-26-2022 Telephone encounter Jesse ng MD Work Phone: [facility] Comment on above: Results (Echo result s) Start: 03-03-2022 Telephone encounter Jesse ng MD Work Phone: [facility] Comment on above: Appointment Start: 02-27-2022 End: 02-27-2022 Office outpatient visit 40 minutes Jesse Gaitan MD Work Phone: [facility] Comment on above: Paroxysmal atrial fi brillation (HCC) (Primary Dx); Essential hypertension; 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; Medication monitoring encounter; Pacemaker; Dyslipidemia; Impaired glucose tolerance; SVT (supraventricular tachycardia) (HCC); Thoracic ascending aortic aneurysm (HCC); Nonrheumatic aortic valve stenosis; Disorder of artery or arteriole (HCC) Start: 02-27-2022 End: 02-27-2022 Patient encounter procedure Device Clinic [facility] Main Work Phone: [facility] Card[facility] Comment on above: SSS (sick sinus synd maurizio) ([facility]) (Primary Dx) Start: 02-26-2022 Telephone encounter Jesse ng MD Work Phone: [facility] Card[facility] Comment on above: Results Start: 02-13-2022 Chart abstracting Sil Pantoja MA [facility] Cardiology Start: 01-21-2022 Refill Jesse montalvo MD Work Phone: [facility] Comment on above: Refill Request Procedures Date Procedure Procedure Detail Performing Clinician Start: 12-19-2024 Urinalysis ADELFO CLAY Comment on above: Result Comment: URIN ALYSIS Performed By: #### [id number] ####[place] [id number] Start: 10-13-2024 PSA screening ADELFO CLEMENT Comment on above: Performed By: #### [id number] ####[place] [id number] Start: 04-13-2024 Echo tthrc r-t 2d w/wom-mode compl spec&colr d Jesse Gaitan MD Work Phone: Start: 03-26-2024 Creatinine blood Ccf Pr ovider Start: 06-11-2021 History of transuret hral prostatectomy S/P TURP (transurethral resection of prostate) Jesse Gaitan MD Work Phone: Plan of Treatment Date Care Activity Detail Author Start: 11-06-2027 Urine microalbumin profile DTa P,Tdap,Td Vaccine (2 - Td or Tdap) [facility] Start: 02-19-2026 Diabetes Screening Diabetes Screenin g [facility] Start: 09-23-2025 DIABETES SCREEN DIABETES SCREEN [facility] Start: 03-27-2025 End: 03-27-2025 Patient encounter procedure [facility] Cardiology Comment on above: 1 yr follow up Start: 02-24-2025 DIABETES SCREEN DIABETES SCREEN [facility] Start: 12-19-2024 End: 12-19-2024 Patient encounter procedure 12/19/2024 7:30 AM EDT Office Visit [facility] Cardiology [address] [place] [address] 3mon remote medtr[employer] [facility] Comment on above: 3mon remote medtroni c Start: 09-16-2024 Covid-19 Vaccine () Covid-19 Vaccine () [facility] Start: 09-13-2024 DIABETES SCREEN DIABETES SCREEN [facility] Start: 09-13-2024 End: 09-13-2024 Patient encounter procedure 09/13/2024 2:00 PM EDT Office Visit [facility] Cardiology [address] [place] [address] 6 month follow up [facility] Card[facility] Comment on above: 6 month follow up Start: 06-17-2024 End: 06-17-2024 Patient encounter procedure 06/17/2024 3:45 PM EST Office Visit [facility] Cardiology [address] [place] [address] 3mon remote medtronic [facility] Card[facility] Comment on above: 3mon remote medtroni c Start: 06-15-2024 Advance Directive Discussion Advance Directive Discussion [facility] Start: 04-13-2024 End: 04-13-2024 Patient encounter procedure 04/13/2024 11:00 AM EDT Appointment [facility] Card[facility] [address] [place] [address] [I10] Essential hypertension [Z51.81] Medication monitoring encounter [I50.32] Chronic diastolic congestive heart failure (HCC) [I35.0] Nonrheumatic aortic valve stenosis [facility] Comment on above: [I10] Essential hype rtension [Z51.81] Medication monitoring encounter [I50.32] Chronic diastolic congestive heart failure (HCC) [I35.0] Nonrheumatic aortic valve stenosis Start: 04-04-2024 End: 07-04-2024 Basic metabolic 2000 panel - Serum or Plasma BASIC METABOLIC PANEL Lab Routine Essential hypertension Medication monitoring encounter Chronic diastolic congestive heart failure (HCC) Expected: 04/04/2024, Expires: 07/04/2024 [facility] Comment on above: Expected: 04/04/2024 , Expires: 07/04/2024 Start: 04-04-2024 End: 07-04-2024 Natriuretic peptide.B prohormone N-Terminal [Mass/volume] in Serum or Plasma NT PRO BNP Lab Routine Medication monitoring encounter Chronic diastolic congestive heart failure (HCC) Expected: 04/04/2024, Expires: 07/04/2024 [facility] Comment on above: Expected: 04/04/2024 , Expires: 07/04/2024 Start: 03-26-2024 End: 03-26-2024 Patient encounter procedure 03/26/2024 4:00 PM EDT Appointment Radiology CT Scan [address] [place] [address] Disorder of artery or arteriole (HCC) [I77.9] Radiology CT Scan Comment on above: Disorder of artery o r arteriole (HCC) [I77.9] Start: 03-15-2024 End: 03-15-2024 Patient encounter procedure [facility] Comment on above: 1 year follow up Start: 02-14-2024 Covid-19 Vaccine ( season) Covid-19 Vaccine ( season) [facility] Start: 02-14-2024 Covid-19 Vaccine ( season) Covid-19 Vaccine ( season) [facility] Start: 02-14-2024 Influenza vaccination Influenza Vacc ine (#1) [facility] Start: 12-18-2023 End: 12-18-2023 Patient encounter procedure 12/18/2023 3:00 PM EDT Office Visit [facility] Cardiology [address] [facility] [place] [address] [place] [address] Cardiology Comment on above: 3mon remote medtroni c Start: 06-15-2023 Advance Directive Discussion Advance Directive Discussion [facility] Start: 06-15-2023 Behavioral Health Screening Behavioral Health Screening [facility] Start: 06-15-2023 Depression Assessment Depression Ass essment [facility] Start: 03-30-2023 End: 02-27-2024 Echocardiography ECHO [...] Vaccine ( season) Covid-19 Vaccine ( season) [facility] Start: 02-13-2023 Influenza vaccination C [facility] Start: 02-02-2023 Covid-19 Vaccine (5 - Pfizer series) Covid-19 Vaccine (5 - Pfizer series) [facility] Start: 06-15-2022 ADVANCE DIRECTIVE DISCUSSION ADVANCE DIRECTIVE DISCUSSION [facility] Start: 06-15-2022 DEPRESSION ASSESSMENT DEPRESSION ASS ESSMENT [facility] Start: 02-13-2022 Influenza vaccination INFLUENZA (#1) [facility] Start: 08-12-2021 COVID-19 VACCINE (4 - Booster for Pfizer series) COVID-19 VACCINE (4 - Booster for Pfizer series) [facility] Start: 06-15-2021 ADVANCE DIRECTIVE DISCUSSION ADVANCE DIRECTIVE DISCUSSION [facility] Start: 06-15-2021 DEPRESSION ASSESSMENT DEPRESSION ASS ESSMENT [facility] Start: 06-07-2021 COVID-19 VACCINE (4 - Booster for Pfizer series) COVID-19 VACCINE (4 - Booster for Pfizer series) [facility] Start: 06-07-2021 COVID-19 VACCINE (4 - Pfizer series) COVID-19 VACCINE (4 - Pfizer series) [facility] Start: 10-10-2020 Pneumococcal Vaccine : 50+ (3 of 3 - PCV20 or PCV21) Pneumococcal Vaccine: 50+ (3 of 3 - PCV20 or PCV21) [facility] Start: 10-10-2020 Pneumococcal Vaccine : 65+ (3 - PPSV23 or PCV20) Pneumococcal Vaccine: 65+ (3 - PPSV23 or PCV20) [facility] Start: 10-10-2020 Pneumococcal Vaccine : 65+ (3 of 3 - PPSV23 or PCV20) Pneumococcal Vaccine: 65+ (3 of 3 - PPSV23 or PCV20) [facility] Start: 2018 RSV Vaccine (1 - 1-d ose 75+ series) RSV Vaccine (1 - 1-dose 75+ series) [facility] Start: 2008 Pneumococcal Vaccine : 65+ (2 - PCV) Pneumococcal Vaccine: 65+ (2 - PCV) [facility] Start: 2008 PNEUMOCOCCAL: 65+ (1 - PCV) PNEUMOCOCCAL: 65+ (1 - PCV) [facility] Start: 2008 PNEUMOCOCCAL: 65+ (2 - PCV) PNEUMOCOCCAL: 65+ (2 - PCV) [facility] Start: 03-15-2008 PNEUMOCOCCAL: 65+ (2 - PCV) PNEUMOCOCCAL: 65+ (2 - PCV) [facility] Start: 2003 RSV Vaccine (1 - 1-d ose 60+ series) RSV Vaccine (1 - 1-dose 60+ series) [facility] Start: 1993 SHINGRIX VACCINE (1 of 2) COKER GRIX VACCINE (1 of 2) [facility] Start: 1962 Urine microalbumin profile [facility] Start: 1961 ANNUAL PCP TEAM DECAL DECORATOR ANGELIQUE DISEASE VISIT ANNUAL PCP TEAM CHRONIC DISEASE VISIT [facility] Start: 1961 Anxiety Screening Anxiety Screening [facility] Start: 1961 BP CONTROLLED (<130/80) BP CON TROLLED (<130/80) [facility] Start: 1961 Depression Screening Depression Scre ening [facility] Start: 1961 Hepatitis B surface antibody level LDL CHOLESTEROL [facility] Start: 1961 HEPATITIS C SCREENING HEPATITIS C SC [facility] Start: 1955 Adult depression scr [facility] assessment DEPRESSION SCREENING [facility] Start: 1943 COVID-19 VACCINE (#1) COVID-19 VACCI NE (#1) [facility] End: 03-29-2023 Ct thorax w/o contrast [...] (HCC) 1 Occurrences starting 03/15/2024 until 04/14/2025 [facility] Comment on above: 1 Occurrences starti ng 03/15/2024 until 04/14/2025 CTA Chest vessels WO and W contrast IV CTA CHEST (NONGATED) WO/W IVCON Radiology Routine Disorder of artery or arteriole (HCC) 03/26/2024 4:42 PM EDT [facility] Work Phone: ECG B/O W INTERP (ME D OFFICE) ECG B/O W INTERP (MED OFFICE) ECG Routine 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 Ordered: 02/26/2023 [facility] Work Phone: Comment on above: Ordered: 02/26/2023 ECG B/O W INTERP (ME D OFFICE) ECG B/O W INTERP (MED OFFICE) ECG Routine 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 Paroxysmal atrial fibrillation (HCC) Dyslipidemia Essential hypertension Impaired glucose tolerance Aneurysm of ascending aorta without rupture (HCC) Pacemaker Elective replacement indicated for pacemaker Medication monitoring encounter Ordered: 03/15/2024 [facility] Work Phone: Comment on above: Ordered: 03/15/2024 End: 02-27-2023 ECG COMPLETE ECG COMPLETE ECG Routine Paroxysmal atrial fibrillation (HCC) 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 1 Occurrences starting 02/27/2022 until 02/27/2023 [facility] Work Phone: Comment on above: 1 Occurrences starti ng 02/27/2022 until 02/27/2023 End: 02-27-2023 Echocardiography ECHO Cardiology Routine Paroxysmal atrial fibrillation (HCC) Essential hypertension 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 Nonrheumatic aortic valve stenosis 1 Occurrences starting 02/27/2022 until 02/27/2023 [facility] Work Phone: Comment on above: 1 Occurrences starti ng 02/27/2022 until 02/27/2023 End: 03-15-2025 Echocardiography ECHO Cardiology Routine Essential hypertension Medication monitoring encounter Chronic diastolic congestive heart failure (HCC) Nonrheumatic aortic valve stenosis 1 Occurrences starting 03/15/2024 until 03/15/2025 [facility] Comment on above: 1 Occurrences starti ng 03/15/2024 until 03/15/2025 [facility] Immunizations Immunization Date Immunization Notes Care Provider Fa cili 04-23-2023 influenza virus vacc ine, unspecified formulation Rem Main Work Phone: [facility] 03-21-2021 influenza virus vacc ine, unspecified formulation Jesse Gaitan MD Work Phone: [facility] 03-11-2021 Influenza virus vaccine [facility] 03-15-2007 pneumococcal polysaccharide vaccine, 23 valent Jesse Gaitan MD Work Phone: [facility] Payers Date Payer Category Payer Medicare [id number] 2024 Private Health Insurance [id number] 2023 Self-pay [id number] 2023 Self-pay [id number] 2014 Private Health Insurance [id number] 2013 Private Health Insurance [id number] 2008 Medicare [id number] 2008 Medicare [id number] 1943 Unknown [id number] 2.16.8 [id number] 1943 Unknown [id number] 2.16.8 [id number] 1943 Unknown [id number] 2.16.8 [id number] 1943 Unknown [id number] 2.16.8 [id number] 1943 Unknown [id number] 2.16.8 [id number] 1943 Unknown [id number] 2.16.8 [id number] 1943 Unknown [id number] 2.16.8 [id number] 1943 Unknown [id number] 2.16.8 [id number] 1943 Unknown [id number] 2.16.8 [id number] 1943 Unknown [id number] 2.16.8 [id number] Private Health Insurance [facility] [id number] Unknown [id number] 2.16.8 [id number] Unknown [id number] 2.16.8 [id number] Social History Date Type Detail Facility Start: 02-13-2022 End: 02-26-2023 Tobacco smoking status NHIS Never smoked tobacco [facility] Start: 04-19-2015 End: 09-23-2022 Alcohol intake Current non-drinker of alcohol (finding) [facility] Start: 1945 Sex Assigned At Not on file C [facility] Start: 02-13-2022 End: 02-26-2023 Tobacco use and exposure Smokeless tobacco non-user [facility] Start: 02-17-2022 End: 03-26-2022 Exposure to SARS-CoV-2 (event) Not sure [facility] Start: 09-23-2022 End: 02-26-2023 History of Social function [facility] Start: 09-23-2022 End: 02-26-2023 Tobacco use panel [facility] National Score (1-100), lower number is lower risk 56 [facility] History of tobacco use Passive smoker [facility] Start: 02-26-2023 End: 03-15-2024 Alcohol intake Lifetime non-drinker (finding) [facility] Start: 06-05-2021 Tobacco smoking stat us NHIS Unknown if ever smoked [facility] Start: 1945 Sex Assigned At Male [facility] Medical Equipment Procedure Code Equipment Code Equipment Origin al Text Equipment Identifier Dates Pacemaker [place] Xt [address] Ana Rosa Kennedy - [id number] Start: 09-23-2022 Goals Date Patient Goal Desired Activity /State Personal health goal Clinical Notes 01-25-2022 to 09-20-2024 Telephone Encounter - Jesse Gaitan MD - 09/20/2024 8:51 PM EDTTelephone Encounter - Jsese Gaitan MD - 09/20/2024 8:51 PM EDTTelephone Encounter - Dandy Bruner - 09/20/2024 11:03 AM EDT Note Date & Type Note Facility 09-20-2024 Telephone encounter Note Summ : Device check The pt has previously been evaluated for asymptomatic nonsustained VT. As long as he is not experiencing symptoms, I would not recommend any further evaluation at this time. TEODORO [facility] 09-20-2024 Miscellaneous Notes Summary: Device check [...] time of visit. documented in this encounter [facility] 09-20-2024 Telephone encounter Note Summ : Remote As previously discussed, patient had a episode of VT on 08/25/2024. Report to be scanned. Patient has a pacemaker. No complaints at time of visit. [facility] 08-16-2024 Note Exam Date Time Procedure Performing Provider Status 08/16/24 10:35 AM MRI [facility] ISRAEL CISSE DO; Auth (Verified) [id number] ORIGINAL EXAMINATION: MRCP 08/16/2024 10:37 am TECHNIQUE: [...] Multiple T2 hyperintense pancreatic cyst noted. A outreach representative 1 cm pancreatic head cyst contains [...] abdominal aorta. IMPRESSION: Multiple pancreatic cyst. A outreach representative 1 cm septated pancreatic head cyst, [...] Sign Date: 08/16/2024 3:34:59 PM Ordering Provider: [facility]03-04-2025 Note* Exam Date Time Procedure Performing Provider Status 08/16/24 9:56 AM MRI Pancreas ISRAEL CISSE DO; Auth (Verified) [id number] ORIGINAL EXAMINATION: MRI OF THE ABDOMEN WITHOUT [...] Multiple T2 hyperintense pancreatic cyst noted. A outreach representative 1 cm nonenhancing pancreatic head cyst [...] ligament syndrome. IMPRESSION: Multiple pancreatic cyst. A outreach representative 1 cm septated nonenhancing pancreatic head [...] Date: 08/16/2024 3:35:39 PM Ordering Provider: KAMAR [facility]01-29-2025 Telephone encounter Note* Telephone Encounter - Dandy Bruner - 07/13/2024 3:58 PM EST Completed and faxed. [facility]01-29-2025 Miscellaneous Notes* Telephone Encounter - Dandy Bruner - 07/13/2024 3:58 PM EST Completed and faxed. * Telephone Encounter - Ibis Garcia - 07/13/2024 10:27 AM EST Received a device management form from [facility]. Will scan into chart and place in bin for review. [facility] Telephone encounter Note * Telephone Encounter - Ibis Garcia - 07/13/2024 10:27 AM EST Received a device management form from [facility]. Will scan into chart and place in bin for review. [facility]01-16-2025 Telephone encounter Note* Telephone Encounter - [...] 03/26/2024 1.00 0.60 - 1.30 mg/dL Final [facility]01-16-2025 Miscellaneous Notes* Telephone Encounter - Allyson [...] - 1.30 mg/dL Final documented [facility] NAME ACCOUNT SEX AGE ADMIT DISCHARGE PT MED. RECORD# NUMBER DATE DATE TYPE KIERSTEN [id number] M 79 06/11/24 2 [place] [address] ROOM: [facility] DATE OF : 1945 DICTATING PHYSICIAN: Valencia [...] Valencia Subramanian MD 06/12/24 15:55 JOB #: [id number] Transcribed By: [email or web address] 06/12/24 22:57 Electronically signed by: E-Sign: VALENCIA SUBRAMANIAN MD 06/27/24 10:38 Page 1 of 1 [place] [facility] & PHYSICAL NAME ACCOUNT SEX AGE ADMIT DISCHARGE PT MED. RECORD# NUMBER DATE DATE TYPE KIERSTEN [id number] Benedict 79 06/11/24 2 [place] [address] ROOM: [facility] DATE OF : 41 DICTATING PHYSICIAN: Valencia Subramanian ADMITTING DIAGNOSIS: Intractable nausea and vomiting. HISTORY OF PRESENT ILLNESS: This is an 79-year-old gentleman who had some post-[place] food. He developed after that some epigastric [...] Valencia Subramanian MD 06/11/24 17:57 JOB #: [id number] Transcribed By: [email or web address] 06/12/24 09:22 Electronically signed [...] of 3 KIERSTEN [place] [facility] & [facility]-2024 NoteAULT[facility]YSICAL NAME ACCOUNT SEX AGE ADMIT DISCHARGE PT MED. RECORD# NUMBER DATE DATE TYPE KIERSTEN [id number] M 79 06/11/24 2 [place] [address] ROOM: [facility] DATE OF : 41 DICTATING PHYSICIAN: Valencia [...] Valencia Subramanian MD 06/11/24 17:01 JOB #: [id number] Transcribed By: [email or web address] 06/12/24 06:00 Electronically signed by: E-Sign: VALENCIA SUBRAMANIAN MD 06/27/24 10:36 Update to H&P: [ ] No changes: I have examined the patient and reviewed the H&P and there are no changes. [ ] As previously dictated with the following changes: ____ ____ (more content not included)...[facility]12-28-2024 NoteDischarge Instructions Discharge Summary [facility] [address] [place] [address] [id number] 06/11/2024 Patient: SOY BURCH Sex: Male : 1945 Age: 79y Thank you for visiting [facility]. You have been evaluated today by Adelfo Romero D.O. for the following condition(s): Principal Diagnosis Acute generalized abdominal pain of undetermined cause. Intractable vomiting with nausea. DISCHARGE INSTRUCTIONS Prescription Medications: Pending - oxycodone 5 mg tablet: Take 1 tablet by mouth every six to eight hours as needed for painfor 4 days, dispense 7 tablet. Refills 0. Pharmacy: [facility] [id number] [place] [address]. ondansetron HCl 4 mg tablet: Take 1 tablet by mouth three times a day as needed for 5 days, dispense 15 tablet. Refills 0. Notes for nausea. Pharmacy: [facility] [id number] [place] [address]. 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 [address] [phone] 06/11/2024 Patient: SOY BURCH Sex: Male : 1945 Age: 79y Thank you for visiting [facility]. You have been evaluated today by Adelfo Romero D.O. for the following condition(s): Principal Diagnosis Acute generalized abdominal pain of undetermined cause. Intractable vomiting with nausea. DISCHARGE INSTRUCTIONS Prescription Medications: Pending - oxycodone 5 mg tablet: Take 1 tablet by mouth every six to eight hours as needed for painfor 4 days, dispense 7 tablet. Refills 0. Pharmacy: [facility] [id number] [place] [address]. ondansetron HCl 4 mg tablet: Take 1 tablet by mouth three times a day as needed for 5 days, dispense 15 tablet. Refills 0. Notes for nausea. Pharmacy: [facility] [id number] [place] [address]. ADDITIONAL INFORMATION 2 of 4 Discharge Instructions [...] and water are not available, use alcohol-based glass production machine operator to keep from spreading the infection to [...] plain toast, bread, r (more content not included)...[facility]10-31-2024 Telephone encounter Note* Telephone Encounter - [...] a work up for a TAVR. TEODORO [facility]10-31-2024 Miscellaneous Notes* Telephone Encounter - Jesse [...] for a TAVR. TEODORO documented in this encounterPark[facility]10-28-[facility]24 Telephone encounter Note * Telephone Encounter - Katie Damon RN - 04/11/2024 1:27 PM EDT Pt advised. [facility]10-28-2024 Miscellaneous Notes* Telephone Encounter - Katie Damon RN - 04/11/2024 1:27 PM EDT Pt advised. * Telephone Encounter - Jesse Gaitan MD - 04/08/2024 5:32 PM EDTSummary: Lab results The pt's labs showed Creat-0.95, BUN-15, K+-4.2, and [id number]. The results are fine. TEODORO * Telephone Encounter - Ibis Garcia - 04/06/2024 1:46 PM EDT Received lab results from [facility]. Scanned labs into chart for review. documented in this encounterPark[facility]10-25-2024 Telephone encounter Note * Telephone Encounter - Jesse Gaitan MD - 04/08/2024 5:32 PM EDTSummary: Lab results The pt's labs showed Creat-0.95, BUN-15, K+-4.2, and [id number]. The results are fine. TEODORO [facility]10-23-2024 Telephone encounter Note* Telephone Encounter - Ibis Garcia - 04/06/2024 1:46 PM EDT Received lab results from [facility]. Scanned labs into chart for review. [facility]10-17-2024 Telephone encounter Note* Telephone Encounter - [...] that he will need to review. TEODORO [facility]10-17-2024 Miscellaneous Notes* Telephone Encounter - Jesse [...] need to review. TEODORO documented in this encounterParkview [facility]10-03-2024 Telephone encounter Note * Telephone Encounter - Renetta Varghese - 03/17/2024 12:59 PM EDT I called to notify patient that his CTA chest is scheduled 03/26/24 @ 4:00 p.m. and his echo is scheduled 04/13/24 @ 11:00. Renetta Varghese [facility]10-03-2024 Miscellaneous Notes* Telephone Encounter - Renetta Varghese - 03/17/2024 12:59 PM EDT I called to notify patient that his CTA chest is scheduled 03/26/24 @ 4:00 p.m. and his echo is scheduled 04/13/24 @ 11:00. Renetta Varghese documented in this encounterParkview Health [facility]10-01-2024 History of Present illness Narrative* Jesse Gaitan MD - 03/15/2024 11:30 AM EDT Images from the original note were not included. [facility] [place] [facility] OUTPATIENT VISIT DATE March 15, 2024 OUTPATIENT VISIT TYPE ESTABLISHED PATIENT PRIMARY CARE PHYSICIAN: Jose Miguel Granados MD [address] [place] [address] HISTORY OF PRESENT ILLNESS: Mr. Burch is [...] to low burden atrial fibrillation. The patient's XZQ5AO1-AIDz-zcpmm is 4. We trust that ow the [...] arteries. Jesse Gaitan MD documented in this encounterParkview Health [facility]10-01-2024 NoteHNO ID: [id number] Author: JESSE GAITAN MD Service: ? Author Type: Physician Type: Progress Notes Filed: 03/16/2024 00:55 Note Text: [facility] [place] [facility] OUTPATIENT VISIT DATE March 15, 2024 OUTPATIENT VISIT TYPE ESTABLISHED PATIENT PRIMARY CARE PHYSICIAN: Jose Miguel Granados MD [address] [place] [address] HISTORY OF PRESENT ILLNESS: Mr. Burch is [...] 2 THROUGH DAY 5 (more content not included)...[facility]09-23-2024 Instructions* Patient Instructions* Katie Damon RN [...] to your next appointment. documented in this encounterParkview Health [facility]09-09-2024 Telephone encounter Note * Telephone Encounter - Allyson Verduzco MA - 02/22/2024 11:43 AM EDT [facility] refill to [facility]. Allyson Verduzco MA [facility]09-09-2024 Miscellaneous Notes* Telephone Encounter - Allyson Verduzco MA - 02/22/2024 11:43 AM EDT Please refill to [facility]. Allyson Verduzco MA documented in this [facility]07-26-2024 Telephone encounter Note * Telephone Encounter - Allyson Verduzco MA - 01/08/2024 1:20 PM EDT Please refill to [facility]. Allyson Verduzco MA [facility]07-26-2024 Miscellaneous Notes* Telephone Encounter - Allyson Verduzco MA - 01/08/2024 1:20 PM EDT Please refill to [facility]. Allyson Verduzco MA documented in this [facility]06-12-2024 Telephone encounter Note * Telephone Encounter - Allyson Verduzco MA - 11/25/2023 3:51 PM EDT Please refill to [facility]. Allyson Verduzco MA [facility]06-12-2024 Miscellaneous Notes* Telephone Encounter - Allyson Verduzco MA - 11/25/2023 3:51 PM EDT Please refill to [facility]. Allyson Verduzco MA documented in this encounterParkview [facility]11-03-2023 Miscellaneous Notes* Telephone Encounter - Jesse [...] BP Diary into chart. documented in this encounterParkview Health [facility]10-04-2023 Miscellaneous Notes* Telephone Encounter - Katie [...] 11:12 AM EDT Received labs results from [facility]. Will scan into chart for you to review. documented in this encounterParkview Health [facility]09-14-2023 History of Present illness Narrative* Jesse Gaitan MD - 02/26/2023 1:00 PM EDT Images from the original note were not included. [facility] OUTPATIENT VISIT DATE February 26, 2023 OUTPATIENT VISIT TYPE ESTABLISHED PATIENT PRIMARY CARE PHYSICIAN: Jose Miguel Granados ([facility]) [address] [place] [address] HISTORY OF PRESENT ILLNESS: Mr. Burch is [...] change was found Confirmed by LUIZA GRAMAJO, [facility] ([id number]) on 09/23/2022 2:00:[address] Result Conclusion CT CHEST WO IVCON Exam End: 03/26/2022 12:32 PM (Final result) Impression: IMPRESSION: Postsurgical change involving the aorta similar to the previous study. Malt House Loader: NICK Transcribe Date/Time: Mar 28 2022 11:03A [...] of angina. He is to participate in Profigr exercise regimen at least 30 to 45 [...] to low burden atrial fibrillation. The patient's XRP5LY3-RXQr-rvdog is 4. We trust that ollow the [...] arteries. Jesse Gaitan MD documented in this encounterParkview Health [facility]09-13-2023 Instructions* Patient Instructions* Katie Damon RN [...] appointment. Echocardiogram in 03/2023. documented in this encounterParkview Health [facility]09-13-2023 Miscellaneous Notes* Telephone Encounter - Estefany Villarreal - 02/25/2023 7:41 AM EDTSummary: labs Faxed lab request to Dr. Granados Office. * Telephone Encounter - Katie Damon RN - 02/24/2023 4:29 PM EDT Please obtain labs from Dr. Granados's office documented in this [facility]08-18-2023 Miscellaneous Notes* Telephone Encounter - Allyson Verduzco MA - 01/30/2023 8:18 AM EDT Please refill to [facility]. Allyson Verduzco MA documented in this [facility]04-27-2023 Miscellaneous Notes* Telephone Encounter - Allyson Verduzco MA - 10/09/2022 9:33 AM EDT Please refill to [facility]. Allyson Verduzco MA documented in this [facility]04-04-2023 Miscellaneous Notes* Telephone Encounter - Rudy Olivas [...] 16, 2022 1:32 PM documented in this encounterParkview Health [facility]03-23-2023 Miscellaneous Notes* Telephone Encounter - Katie Damon RN - 09/04/2022 4:17 PM EDT Pt is feeling fine * Telephone Encounter - Jesse Gatian MD - 09/04/2022 3:59 PM EDTSummary: [facility] records have been reviewed. Please find out [...] 12:37 PM EDTSummary: Records Received records from [facility] and scanned into chart. * Telephone Encounter - Estefany Villarreal - 09/04/2022 8:42 AM EDTSummary: 2nd Request Faxed 2nd request to [facility] * Telephone Encounter - Estefany Villarreal - 08/27/2022 2:34 PM EDT Faxed record request to [facility]. * Telephone Encounter - Katie Damon RN - 08/27/2022 1:50 PM EDT Please obtain records from [facility] from last week. Please scanned into the chart JOAN andsend to Dr. Gaitan to review. documented in this encounterParkview Health [facility]03-21-2023 Miscellaneous Notes* Telephone Encounter - Rudy [...] for generator change, please. Thank you! Rudy Oliavs RN September 01, 2022 2:28 PM * [...] Miranda' schedule for the generator change out [facility] (hopefully two weeks from now---the week she [...] 08/27/2022 6:11 PM EDT We need the [facility] records JOAN. On the patient's last actual [...] 1:45 PM EDT The patient was in [facility] a week ago. He went there due [...] twice daily. He sent a transmission into [employer] today. He is ROSLYN. He does note [...] once I receive it. documented in this encounterParkview Health [facility]03-16-2023 Miscellaneous Notes* Telephone Encounter - Dandy [...] to send to Tita documented in this encounterParkview Health [facility]03-15-2023 Miscellaneous Notes* Telephone Encounter - Dandy Bruner - 08/27/2022 1:06 PM EDTSummary: ROSLYN Patient's device triggered ROSLYN on 08/19/2022. Patient has a [employer] DC PPM. documented in this encounterParkview Health [facility]01-20-2023 Miscellaneous Notes* Telephone Encounter - Jesse [...] the medication. Thanks. TEODORO documented in this encounterParkview Health [facility]10-12-2022 Miscellaneous Notes* Telephone Encounter - Jesse [...] an annual Echo. TEODORO documented in this encounterParkview Health [facility]09-19-2022 Miscellaneous Notes* Telephone Encounter - Brittany Salamanca - 03/03/2022 9:40 AM EDT I called the patient to give dates and time of CT chest and echo. [facility] 03/26/2022 @ 1:00PM. Brittany Salamanca documented in this encounterParkview Health [facility]09-15-2022 Instructions* Patient Instructions* Katie Damon RN [...] to your next appointment. documented in this encounterParkview Health [facility]09-15-2022 Miscellaneous Notes* Telephone Encounter - Ibis [...] CBC and lipid profile. documented in this encounterParkview Health [facility]09-15-2022 History of Present illness Narrative* Jesse Gaitan MD - 02/27/2022 9:30 AM EDT Images from the original note were not included. [facility] [place] OUTPATIENT VISIT DATE February 27, 2022 OUTPATIENT VISIT TYPE ESTABLISHED PATIENT PRIMARY CARE PHYSICIAN: Dr. Jose Miguel Granados [address] [place] [address] HISTORY OF PRESENT ILLNESS: Mr. Burch is [...] doesnot smoke or drink alcohol. Activities include pin maker and yard work. The patient reports optimal [...] to low burden atrial fibrillation. The patient's AON7YD2-NZYy-vyyas is 4. The patient underwent interrogation of [...] ICA. Jesse Gaitan MD documented in this encounterParkview Health [facility]08-13-2022 Miscellaneous Notes* Telephone Encounter - Jesse Gaitan MD - 01/25/2022 9:59 PM EDT The Rx was filled. TEODORO * Telephone Encounter - Ibis Garcia - 01/21/2022 4:27 PM EDT Please refill a 90 day supply of Furosemide 20 Mg 1 a day.Please send to [employer]. [facility] No data available for this section [facility] Evaluation note* Diagnosis SSS (sick sinus syndrome) (HCC)- Primary Sinoatrial node dysfunction documented in this encounter [facility]* Diagnosis Paroxysmal atrial fibrillation (HCC)- Primary Atrial fibrillation Essential hypertension Unspecified essential hypertension 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 Medication monitoring encounter [...] arteries and arterioles documented in this encounter [facility] note* Diagnosis Pacemaker- Primary Cardiac pacemaker in situ documented in this encounter [facility] note* Diagnosis Elective replacement indicated for pacemaker- Primary Fitting and adjustment of cardiac pacemaker Elective replacement indicated for pacemaker Fitting and adjustment of cardiac pacemaker documented in this encounter [facility] note* Diagnosis Medication monitoring encounter- Primary Encounter for therapeutic drug monitoring Hyperlipidemia, unspecified hyperlipidemia type documented in this encounter [facility] note* Diagnosis Hypertension, unspecified type- Primary documented in this encounter [facility] note* Diagnosis SSS (sick sinus syndrome) (HCC)- Primary Sinoatrial node dysfunction documented in this encounter [facility] note* Diagnosis Nonrheumatic aortic valve stenosis- Primary Aortic valve disorders 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 Dyslipidemia Other and [...] arteries and arterioles documented in this encounter [facility] note* Diagnosis SSS (sick sinus syndrome) (HCC)- Primary Sinoatrial node dysfunction documented in this encounter [facility] noteNo assessment information availableWDayton [facility] Work Phone: Evaluation note* Diagnosis Hyperlipidemia, unspecified hyperlipidemia type documented in this encounter [facility] note* Diagnosis SSS (sick sinus syndrome) (HCC)- Primary Sinoatrial node dysfunction documented in this encounter [facility] note* Diagnosis Medication monitoring encounter Encounter for therapeutic drug monitoring documented in this encounter [facility] note* Diagnosis Hypertension, unspecified type- Primary documented in this encounter [facility] note* Diagnosis Nonrheumatic aortic valve stenosis- Primary Aortic valve disorders 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 Paroxysmal atrial fibrillation [...] arteries and arterioles documented in this encounter [facility] note* Diagnosis SSS (sick sinus syndrome) (HCC)- Primary Sinoatrial node dysfunction documented in this encounter [facility] note* Diagnosis Disorder of artery or arteriole (HCC) Unspecified disorders of arteries and arterioles documented in this encounter [facility] note* Diagnosis Essential hypertension Unspecified essential hypertension Medication monitoring encounter Encounter for therapeutic drug monitoring Chronic diastolic congestive heart failure (HCC) Chronic diastolic heart failure Nonrheumatic aortic valve stenosis Aortic valve disorders documented in this encounter [facility] note* Diagnosis Hypertension, unspecified type documented in this encounter [facility] note* Diagnosis SSS (sick sinus syndrome) (HCC)- Primary Sinoatrial node dysfunction documented in this encounter [facility] Discharge instructions No data available for this section [facility] Progress note No data available for this section [facility] Reason for referral (narrative)* Outpatient Procedure (Routine) - Authorized Specialty Diagnoses / Procedures Referred By Contac t Referred To Contact [facility] Diagnoses Essential hypertension Paroxysmal atrial fibrillation (HCC) Nonrheumatic aortic valve stenosis Procedures ECHO ECHO TTHRC R-T 2D W/WOM-MODE COMPL SPEC&COLJesse Dorsey MD [address] [place] [address] [facility] [address] [address] Referral ID Status Reason Start Date Expiration Date Visits Requested Visits Authorized [id number] Authorized Auto-Generat ed Referral 02/26/2024 1 1 [facility] for referral (narrative)* Outpatient Procedure (Routine) - Authorized Specialty Diagnoses / Procedures Referred By Contac t Referred To Contact [facility] Diagnoses Essential hypertension Medication monitoring encounter Chronic diastolic congestive heart failure (HCC) Nonrheumatic aortic valve stenosis Procedures ECHO ECHO TTHRC R-T 2D W/WOM-MODE COMPL SPEC&COLJesse Dorsey MD [address] [address] [facility] [address] [address] Referral ID Status Reason Start Date Expiration Date Visits Requested Visits Authorized [id number] Authorized Auto-Generat ed Referral 03/15/2024 03/15/2025 1 1 * MRI/CT (Routine) - New Request Specialty Diagnoses / Procedures Referred By Contac t Referred To Contact CT IMAGING Diagnoses Disorder of artery or arteriole (HCC) Procedures CTA CHEST (NONGATED) WO/W IVCON CT ANGIOGRAPHY CHEST W/CONTRAST/NONCONTRAST Jesse Gaitan MD [address] [place] [address] Ct Imaging [facility] Referral ID Status Reason Start Date Expiration Date Visits Requested Visits Authorized [id number] New Request Auto-Generat ed Referral 03/15/2024 04/14/2025 1 1 [facility] for referral (narrative)* Outpatient Procedure (Routine) - Closed Specialty Diagnoses / Procedures Referred By Contac t Referred To Contact [facility] Diagnoses Essential hypertension Medication monitoring encounter Chronic diastolic congestive heart failure (HCC) Nonrheumatic aortic valve stenosis Procedures ECHO ECHO TTHRC R-T 2D W/WOM-MODE COMPL SPEC&COLR D Jesse Gaitan MD [address] [place] [address] [facility] [address] [address] Referral ID Status Reason Start Date Expiration Date V isits Requested Visits Authorized [id number] Closed Auto-Generate d Referral 03/15/2024 03/15/2025 1 1 [facility] for visit Narrative* Outpatient Procedure (Routine) - Closed Specialty Diagnoses / Procedures Referred By Contac t Referred To Contact [facility] Diagnoses Essential hypertension Medication monitoring encounter Chronic diastolic congestive heart failure (HCC) Nonrheumatic aortic valve stenosis Procedures ECHO ECHO TTHRC R-T 2D W/WOM-MODE COMPL SPEC&COLR D Jesse Gaitan MD [address] [place] [address] [address] Referral ID Status Reason Start Date Expiration Date V isits Requested Visits Authorized [id number] Closed Auto-Generate d Referral 03/15/2024 03/15/2025 1 1 [facility] Summary Purpose Family History No Family [...] Will Yes June 11 1:52pm Power of Enamel Buffer Yes June 11, 2021 1:52pm Reason for Referral Specialty Diagnoses / Procedures [facility] Diagnoses Disorder of artery or arteriole (HCC) Procedures CT CHEST WO IVCON DIAGNOSTIC COMPUTED TOMOGRAPHY THORAX W/O CNTRST Jesse Gaitan MD [address] [address] [address] Imaging Referral ID Status Reason Start Date Expiration Date Visits Requested Visits Authorized [id number] Pending Review Auto-Generat ed Referral 02/27/2022 03/29/2023 1 1 Specialty Diagnoses / Procedures [facility] To Contact [facility] Diagnoses Paroxysmal atrial fibrillation (HCC) Essential hypertension 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 Nonrheumatic aortic valve stenosis Procedures ECHO ECHO TTHRC R-T 2D W/WOM-MODE COMPL SPEC&COLR D Jesse Gaitan MD [address] [address] Referral ID Status Reason Start Date Expiration Date Visits Requested Visits Authorized [id number] Pending Review Auto-Generat ed Referral 02/27/2022 02/27/2023 1 1 Specialty Diagnoses / Procedures [facility]erred To Contact [facility] Diagnoses Paroxysmal atrial fibrillation (HCC) 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 Procedures ECG COMPLETE ECG ROUTINE ECG W/LEAST 12 LDS W/I&R Jesse Gaitan MD [address] [place] [address] [address] Referral ID Status Reason Start Date Expiration Date Visits Requested Visits Authorized [id number] Pending Review Auto-Generat ed Referral 02/27/2022 02/27/2023 1 1 Chief Complaint and Reason for Visit Chief Complaint DWD Additional Source Comments (unrecognized sect ion and content) No Status Records FoundNo Status Records FoundNo Status Records FoundNo Status Records FoundNo Status Records FoundNo Status Records FoundNo Status Records Found INFORMATION SOURCE (unrecogn ized section and content) DATE CREATED AUTHOR 01/25/2020 [facility] [place] DATE CREATED AUTHOR AUTHOR'S ORGANIZ ATION 03/17/2021 [facility] DATE CREATED AUTHOR AUTHOR'S ORGANIZ ATION 02/21/2023 [facility] DATE CREATED AUTHOR AUTHOR'S ORGANIZ ATION 10/15/2023 [facility] DATE CREATED AUTHOR AUTHOR'S ORGANIZ ATION 08/30/2024 [facility] DATE CREATED AUTHOR AUTHOR'S ORGANIZ ATION 09/22/2024 [facility] DATE CREATED AUTHOR AUTHOR'S ORGANIZ ATION 12/22/2024 [facility] Source Comments (unrecognize d section and content) In the event this informatio n is protected by the Federal Confidentiality of Alcohol and Drug Abuse Patient Records regulations: The Federal rules restrict any use of the information to criminally investigate or prosecute any alcohol or drug abuse patient.[facility] HospitalIn the event this information is protected by the Federal Confidentiality of Alcohol and Drug Abuse Patient Records regulations: The Federal rules restrict any use of the information to criminally investigate or prosecute any alcohol or drug abuse patient.[facility] HospitalIn the event this information is protected by the Federal Confidentiality of Alcohol and Drug Abuse Patient Records regulations: The Federal rules restrict any use of the information to criminally investigate or prosecute any alcohol or drug abuse patient.[facility] HospitalIn the event this information is protected by the Federal Confidentiality of Alcohol and Drug Abuse Patient Records regulations: The Federal rules restrict any use of the information to criminally investigate or prosecute any alcohol or drug abuse patient.[facility] HospitalIn the event this information is protected by the Federal Confidentiality of Alcohol and Drug Abuse Patient Records regulations: The Federal rules restrict any use of the information to criminally investigate or prosecute any alcohol or drug abuse patient.[facility] HospitalIn the event this information is protected by the Federal Confidentiality of Alcohol and Drug Abuse Patient Records regulations: The Federal rules restrict any use of the information to criminally investigate or prosecute any alcohol or drug abuse patient.[facility] HospitalIn the event this information is protected by the Federal Confidentiality of Alcohol and Drug Abuse Patient Records regulations: The Federal rules restrict any use of the information to criminally investigate or prosecute any alcohol or drug abuse patient.[facility] HospitalIn the event this information is protected by the Federal Confidentiality of Alcohol and Drug Abuse Patient Records regulations: The Federal rules restrict any use of the information to criminally investigate or prosecute any alcohol or drug abuse patient.[facility] HospitalIn the event this information is protected by the Federal Confidentiality of Alcohol and Drug Abuse Patient Records regulations: The Federal rules restrict any use of the information to criminally investigate or prosecute any alcohol or drug abuse patient.[facility] HospitalIn the event this information is protected by the Federal Confidentiality of Alcohol and Drug Abuse Patient Records regulations: The Federal rules restrict any use of the information to criminally investigate or prosecute any alcohol or drug abuse patient.[facility] HospitalIn the event this information is protected by the Federal Confidentiality of Alcohol and Drug Abuse Patient Records regulations: The Federal rules restrict any use of the information to criminally investigate or prosecute any alcohol or drug abuse patient.[facility] HospitalIn the event this information is protected by the Federal Confidentiality of Alcohol and Drug Abuse Patient Records regulations: The Federal rules restrict any use of the information to criminally investigate or prosecute any alcohol or drug abuse patient.[facility] HospitalIn the event this information is protected by the Federal Confidentiality of Alcohol and Drug Abuse Patient Records regulations: The Federal rules restrict any use of the information to criminally investigate or prosecute any alcohol or drug abuse patient.[facility] HospitalIn the event this information is protected by the Federal Confidentiality of Alcohol and Drug Abuse Patient Records regulations: The Federal rules restrict any use of the information to criminally investigate or prosecute any alcohol or drug abuse patient.[facility] HospitalIn the event this information is protected by the Federal Confidentiality of Alcohol and Drug Abuse Patient Records regulations: The Federal rules restrict any use of the information to criminally investigate or prosecute any alcohol or drug abuse patient.[facility] HospitalIn the event this information is protected by the Federal Confidentiality of Alcohol and Drug Abuse Patient Records regulations: The Federal rules restrict any use of the information to criminally investigate or prosecute any alcohol or drug abuse patient.[facility] HospitalIn the event this information is protected by the Federal Confidentiality of Alcohol and Drug Abuse Patient Records regulations: The Federal rules restrict any use of the information to criminally investigate or prosecute any alcohol or drug abuse patient.[facility] HospitalIn the event this information is protected by the Federal Confidentiality of Alcohol and Drug Abuse Patient Records regulations: The Federal rules restrict any use of the information to criminally investigate or prosecute any alcohol or drug abuse patient.[facility] HospitalIn the event this information is protected by the Federal Confidentiality of Alcohol and Drug Abuse Patient Records regulations: The Federal rules restrict any use of the information to criminally investigate or prosecute any alcohol or drug abuse patient.[facility] HospitalIn the event this information is protected by the Federal Confidentiality of Alcohol and Drug Abuse Patient Records regulations: The Federal rules restrict any use of the information to criminally investigate or prosecute any alcohol or drug abuse patient.[facility] HospitalIn the event this information is protected by the Federal Confidentiality of Alcohol and Drug Abuse Patient Records regulations: The Federal rules restrict any use of the information to criminally investigate or prosecute any alcohol or drug abuse patient.[facility] HospitalIn the event this information is protected by the Federal Confidentiality of Alcohol and Drug Abuse Patient Records regulations: The Federal rules restrict any use of the information to criminally investigate or prosecute any alcohol or drug abuse patient.[facility] HospitalIn the event this information is protected by the Federal Confidentiality of Alcohol and Drug Abuse Patient Records regulations: The Federal rules restrict any use of the information to criminally investigate or prosecute any alcohol or drug abuse patient.[facility] HospitalIn the event this information is protected by the Federal Confidentiality of Alcohol and Drug Abuse Patient Records regulations: The Federal rules restrict any use of the information to criminally investigate or prosecute any alcohol or drug abuse patient.[facility] HospitalIn the event this information is protected by the Federal Confidentiality of Alcohol and Drug Abuse Patient Records regulations: The Federal rules restrict any use of the information to criminally investigate or prosecute any alcohol or drug abuse patient.[facility] HospitalIn the event this information is protected by the Federal Confidentiality of Alcohol and Drug Abuse Patient Records regulations: The Federal rules restrict any use of the information to criminally investigate or prosecute any alcohol or drug abuse patient.[facility] HospitalIn the event this information is protected by the Federal Confidentiality of Alcohol and Drug Abuse Patient Records regulations: The Federal rules restrict any use of the information to criminally investigate or prosecute any alcohol or drug abuse patient.[facility] HospitalIn the event this information is protected by the Federal Confidentiality of Alcohol and Drug Abuse Patient Records regulations: The Federal rules restrict any use of the information to criminally investigate or prosecute any alcohol or drug abuse patient.[facility] HospitalIn the event this information is protected by the Federal Confidentiality of Alcohol and Drug Abuse Patient Records regulations: The Federal rules restrict any use of the information to criminally investigate or prosecute any alcohol or drug abuse patient.[facility] HospitalIn the event this information is protected by the Federal Confidentiality of Alcohol and Drug Abuse Patient Records regulations: The Federal rules restrict any use of the information to criminally investigate or prosecute any alcohol or drug abuse patient.[facility] HospitalIn the event this information is protected by the Federal Confidentiality of Alcohol and Drug Abuse Patient Records regulations: The Federal rules restrict any use of the information to criminally investigate or prosecute any alcohol or drug abuse patient.[facility] HospitalIn the event this information is protected by the Federal Confidentiality of Alcohol and Drug Abuse Patient Records regulations: The Federal rules restrict any use of the information to criminally investigate or prosecute any alcohol or drug abuse patient.[facility] HospitalIn the event this information is protected by the Federal Confidentiality of Alcohol and Drug Abuse Patient Records regulations: The Federal rules restrict any use of the information to criminally investigate or prosecute any alcohol or drug abuse patient.[facility] HospitalIn the event this information is protected by the Federal Confidentiality of Alcohol and Drug Abuse Patient Records regulations: The Federal rules restrict any use of the information to criminally investigate or prosecute any alcohol or drug abuse patient.[facility] HospitalIn the event this information is protected by the Federal Confidentiality of Alcohol and Drug Abuse Patient Records regulations: The Federal rules restrict any use of the information to criminally investigate or prosecute any alcohol or drug abuse patient.[facility] HospitalIn the event this information is protected by the Federal Confidentiality of Alcohol and Drug Abuse Patient Records regulations: The Federal rules restrict any use of the information to criminally investigate or prosecute any alcohol or drug abuse patient.[facility] HospitalIn the event this information is protected by the Federal Confidentiality of Alcohol and Drug Abuse Patient Records regulations: The Federal rules restrict any use of the information to criminally investigate or prosecute any alcohol or drug abuse patient.[facility] HospitalIn the event this information is protected by the Federal Confidentiality of Alcohol and Drug Abuse Patient Records regulations: The Federal rules restrict any use of the information to criminally investigate or prosecute any alcohol or drug abuse patient.[facility] HospitalIn the event this information is protected by the Federal Confidentiality of Alcohol and Drug Abuse Patient Records regulations: The Federal rules restrict any use of the information to criminally investigate or prosecute any alcohol or drug abuse patient.[facility] HospitalIn the event this information is protected by the Federal Confidentiality of Alcohol and Drug Abuse Patient Records regulations: The Federal rules restrict any use of the information to criminally investigate or prosecute any alcohol or drug abuse patient.[facility] HospitalIn the event this information is protected by the Federal Confidentiality of Alcohol and Drug Abuse Patient Records regulations: The Federal rules restrict any use of the information to criminally investigate or prosecute any alcohol or drug abuse patient.[facility] HospitalIn the event this information is protected by the Federal Confidentiality of Alcohol and Drug Abuse Patient Records regulations: The Federal rules restrict any use of the information to criminally investigate or prosecute any alcohol or drug abuse patient.[facility] HospitalIn the event this information is protected by the Federal Confidentiality of Alcohol and Drug Abuse Patient Records regulations: The Federal rules restrict any use of the information to criminally investigate or prosecute any alcohol or drug abuse patient.[facility] Reason for Visit (unrecogniz ed section [...] Up Reason Comments Established Patient [facility] 02[facility] Reason Comments Blood Pressure Reason Comments Follow Up 1 year return office visit with device check Edema BLE Specialty Diagnoses / Procedures Referred By Contac t Referred To Contact CT IMAGING Diagnoses Disorder of artery or arteriole (HCC) Procedures CTA CHEST (NONGATED) WO/W IVCON CT ANGIOGRAPHY CHEST W/CONTRAST/NONCONTRAST Jesse Gaitan MD [address] [place] [address] [id number] Referral ID Status Reason Start Date Expiration Date V isits Requested Visits Authorized [id number] Closed Auto-Generate d Referral 03/15/2024 04/14/2025 1 1 Reason Comments Results CTA of the Chest Reason Comments Cardiac Clearance Care Teams (unrecognized sec tion and content) Paid Search Specialist Relationship Specialty Start Date End Date Jose Miguel Granados MD [address] [place], [place] [address] PCP - General 04/24/04 Paid Search Specialist Relationship Specialty Start Date End Date Jose Miguel Granados MD [address] [place], [place] [address] PCP - General 04/24/04 Paid Search Specialist Relationship Specialty Start Date End Date Jose Miguel Granados MD [address] [place], [place] [address] PCP - General 04/24/04 Paid Search Specialist Relationship Specialty Start Date End Date Jose Miguel Granados MD [address] [place], [place] [address] PCP - General 04/24/04 Paid Search Specialist Relationship Specialty Start Date End Date Jose Miguel Granados MD [address] [place], [place] [address] PCP - General 04/24/04 Paid Search Specialist Relationship Specialty Start Date End Date Jose Miguel Granados MD [address] [place] [address] PCP - General 04/24/04 Paid Search Specialist Relationship Specialty Start Date End Date Jose Miguel Granados MD [address] [place] [address] PCP - General 04/24/04 Paid Search Specialist Relationship Specialty Start Date End Date Jose Miguel Granados MD [address] [place] [address] PCP - General 04/24/04 Paid Search Specialist Relationship Specialty Start Date End Date Jose Miguel Granados MD [address] [place] [address] PCP - General 04/24/04 Paid Search Specialist Relationship Specialty Start Date End Date Jose Miguel Granados MD [address] [place] [address] PCP - General 04/24/04 Paid Search Specialist Relationship Specialty Start Date End Date Jose Miguel Granados MD [address] [place] [address] PCP - General 04/24/04 Paid Search Specialist Relationship Specialty Start Date End Date Jose Miguel Granados MD [address] [place] [address] PCP - General 04/24/04 Paid Search Specialist Relationship Specialty Start Date End Date Jose Miguel Granados MD [address] [place] [address] PCP - General 04/24/04 Paid Search Specialist Relationship Specialty Start Date End Date Jose Miguel Granados MD [address] [place] [address] PCP - General 04/24/04 Jesse Gaitan MD [address] [address] Cardiology 02/26/23 Paid Search Specialist Relationship Specialty Start Date End Date Jose Miguel Granados MD [address] [place] [address] PCP - General 04/24/04 Jesse Gaitan MD [address] [address] Cardiology 02/26/23 Paid Search Specialist Relationship Specialty Start Date End Date Jose Miguel Granados MD [address] [place] [address] PCP - General 04/24/04 Jesse Gaitan MD [address] [id number] Cardiology 02/26/23 Paid Search Specialist Relationship Specialty Start Date End Date Jose Miguel Granados MD [address] [place] [address] PCP - General 04/24/04 Jesse Gaitan MD [address] [address] Cardiology 02/26/23 Paid Search Specialist Relationship Specialty Start Date End Date Jose Miguel Granados MD [address] [place], [place] [address] PCP - General 04/24/04 Jesse Gaitan MD [address] [address] Cardiology 02/26/23 Paid Search Specialist Relationship Specialty Start Date End Date Jose Miguel Granados MD [address] [place], [place] [address] PCP - General 04/24/04 Jesse Gaitan MD [address] [address] Cardiology 02/26/23 Team Status: Active Member Role Status Dates Dr. Jose Miguel Granados MD Primary Care Provider Active Team Status: Inactive Member Role Status Dates Dr. Jose Miguel Granados MD Primary Care Provider Active Self Referred Attending Provider Active Paid Search Specialist Relationship Specialty Start Date End Date Jose Miguel Granados MD [address] [place] [address] PCP - General 04/24/04 Jesse Gaitan MD [address] [address] Cardiology 02/26/23 Paid Search Specialist Relationship Specialty Start Date End Date Jose Miguel Granados MD [address] [place] [address] PCP - General 04/24/04 Jesse Gaitan MD [address] [address] Cardiology 02/26/23 Paid Search Specialist Relationship Specialty Start Date End Date Jose Miguel Granados MD [address] [place] [address] PCP - General 04/24/04 Jesse Gaitan MD [address] [address] Cardiology 02/26/23 Paid Search Specialist Relationship Specialty Start Date End Date Jose Miguel Granados MD [address] [place] [address] PCP - General 04/24/04 Jesse Gaitan MD [address] [address] Cardiology 02/26/23 Paid Search Specialist Relationship Specialty Start Date End Date Jose Miguel Granados MD [address] [place], [place] [address] PCP - General 04/24/04 Jesse Gaitan MD [address] [address] Cardiology 02/26/23 Paid Search Specialist Relationship Specialty Start Date End Date Jose Miguel Granados MD [address] [place], [place] [address] PCP - General 04/24/04 Jesse Gaitan MD [address] [address] Cardiology 02/26/23 Paid Search Specialist Relationship Specialty Start Date End Date Jose Miguel Granados MD [address] [place] [address] PCP - General 04/24/04 Jesse Gaitan MD [address] [address] Cardiology 02/26/23 Paid Search Specialist Relationship Specialty Start Date End Date Jose Miguel Granados MD [address] [place] [address] PCP - General 04/24/04 Jesse Gaitan MD [address] [address] Cardiology 02/26/23 Paid Search Specialist Relationship Specialty Start Date End Date Jose Miguel Granados MD [address] [place] [address] PCP - General 04/24/04 Jesse Gaitan MD [address] [address] Cardiology 02/26/23 Paid Search Specialist Relationship Specialty Start Date End Date Jose Miguel Granados MD [address] [place], [place] [address] PCP - General 04/24/04 Jesse Gaitan MD [address] [address] Cardiology 02/26/23 Paid Search Specialist Relationship Specialty Start Date End Date Jose Miguel Granados MD [address] [place] [address] PCP - General 04/24/04 Jesse Gaitan MD [address] [address] Cardiology 02/26/23 Paid Search Specialist Relationship Specialty Start Date End Date Jose Miguel Granados MD [address] [place] [address] PCP - General 04/24/04 Jesse Gaitan MD [address] [facility] [address] [facility] [address] [place] [address] Cardiology 02/26/23 Goals (unrecognized section and content) [...] BE BASED ON THE PRIMARY CLINICAL RECORDS. [employer] provides no warranty or guarantee of the accuracy or completeness of information in this document.
== END | disposition home or self-care (01) ==
LOC: LABSPEC 16:08
PROVIDERS: PCP Internal Medicine; Referring Provider Urology; Visit Provider Urology
DX: N20.1 Calculus of ureter (principal)
CPT/HCPCS: 82360; 88300